=== PATIENT | female | born 1940 | race Caucasian/White ===

== ENCOUNTER 2020-12-10 09:25 | Outpatient (RCR) | payer MEDICARE, SELFPAY | END 2020-12-10 23:59 | LOC: IMMUN 09:25 | PROVIDERS: PCP Family Medicine; Visit Provider Family Medicine | DX: Z23 Encounter for immunization (principal) | CPT/HCPCS: 0011A; 0012A; 91301 ==

== ENCOUNTER 2021-02-23 13:03 | Emergency (ER) | payer MEDICARE, SELFPAY ==
[2021-02-23 13:07] VITALS: BP 170/97; PULSE 59; RESP 18; TEMP 36.6; O2SAT 96; BMI 36.5
[2021-02-23 13:10] VITALS: BP 170/97; PULSE 59; RESP 18; TEMP 36.6; O2SAT 96
--- NOTE | 2021-02-23 13:21 | EKG12_ITS ---
Test Reason : FALL Blood Pressure : / mmHG Vent. Rate : 060 BPM Atrial Rate : 060 BPM P-R Int : 206 ms QRS Dur : 086 ms QT Int : 438 ms P-R-T Axes : 047 -30 084 degrees QTc Int : 438 ms Normal sinus rhythm Left axis deviation Moderate voltage criteria for LVH, may be normal variant Abnormal ECG Confirmed by ANDRE OLIVA, ALEJANDRA ([id number]), loan expeditor GIO MCLEAN ([id number]) on 02/24/2021 1:04:50 PM Referred By: HARESH/GOLDEN Confirmed By:ALEJANDRA POWELL MD
--- NOTE | 2021-02-23 13:21 | CT_ITS ---
STUDY: CT BRAIN WITHOUT CONTRAST REASON FOR EXAM: Female, 81 years old. trauma, headache RADIATION DOSAGE (If Supplied By Facility): CTDIvol = ( 44.99 ) mGy, DLP = ( 796.11 ) mGycm TECHNIQUE: Transaxial CT imaging of the brain was performed without administration of intravenous contrast material. Individualized dose optimization techniques were used for this CT. COMPARISON: No relevant priors. FINDINGS: Normal soft tissue structures. Normal calvarium. Normal size ventricles and extra-axial spaces for the patient''s age. Normal white matter tracts of the cerebral hemispheres. Normal basal ganglia and thalami. Normal brainstem. Normal cerebellum. There is no intracranial hemorrhage. There are no findings of an acute ischemic infarction. Mucous retention cyst in the floor the right x-ray sinus consistent with chronic sinusitis. CT/Brain/Head without Contrast IMPRESSION: Normal unenhanced CT scan of the brain. Electronically Signed: Jeronimo Tamayo MD at 14:38 EDT Tel , Service support ,
[2021-02-23 13:52] LABS: Absolute Lymphocyte Count 1.49 X10^3/uL (0.83-4.51); Absolute Neutrophil Count 5.2 X10^3/uL (2.0-7.7); Basophil# 0.03 X10^3/uL; Basophil% 0.4 % (0-1); Eosinophil# 0.06 X10^3/uL; Eosinophils% 0.8 % (0-5); Hematocrit 42.1 % (37-47); Hemoglobin 13.7 g/dL (12.0-15.0); Lymphocyte # 1.49 X10^3/ul (4.0); Lymphocyte % 20.8 % (19-41); Mean Corp Hgb Conc 32.5 g/dL (32-36); Mean Corpuscular Hgb 28.5 pg (27.0-32.0); Mean Corpuscular Volume 87.7 fL (81-99); Mean Platelet Vol. 9.4 fl (6.2-12.0); Monocyte# 0.34 X10^3/uL; Monocyte% 4.7 % (0-10); NRBC Flagged by Analyzer 0 % (0-5); Neutrophil # 5.19 X10^3/uL (2.7-7.7); Neutrophil % 72.6 % (47-70); Platelet Count 256 K/mm3 (150-450); RBC Distribution Width CV 13.3 % (11.6-14.6); RBC Distribution Width SD 42.3 fl (35.1-43.9); White Blood Count 7.2 K/mm3 (4.4-11.0)
--- NOTE | 2021-02-23 13:52 | ED.DCSUM_ITS ---
- ER Visit Summary Date of Service: 02/23/21 Chief Complaint: Fall History of Present Illness: The patient is a 81 F who fell overnight Monday night. She has been feeling woozy since. She did hit her forehead but did not lose consciousness. She does not take blood thinners. She denies any other injuries or complaints from that fall. She is not sure why she fell. She got up to use the restroom. She also complains of left foot pain from an injury 3 days ago where she tripped. That pain has subsided somewhat. Physical Examination: Afebrile and vital signs unremarkable. She has ecchymosis to her forehead but otherwise her head and neck exam are unremarkable. Heart is regular. Lungs are clear. Abdomen soft. Left foot is diffusely tender to palpation. Skin is otherwise normal. Pulses strong and equal. Neurologic intact, no focal deficits. Cranial nerves intact. Test Results: EKG shows sinus rhythm at a rate of 60. CBC, BMP, troponin normal. Urinalysis and Covid test are pending. CT brain, x-ray foot, and chest x-ray are pending official reads. Patient has a left fifth metatarsal fracture, nondisplaced, interpreted by me. Emergency Department Course and Treatment: Patient declined pain medicine. She did get a little bit nauseated when she laid flat for her imaging. She was treated with Zofran. Foot x-rays showed a fracture. She was placed in a boot orthosis and will follow up with podiatry. Patient advised me that she does not want to stay in the hospital. I advised her that so far her testing all looks normal, but I cannot rule out a cardiac cause from the ED. She would like to wait for her official imaging results, urinalysis, and Covid test, and if normal, she would like to go home and follow- up with her doctor. Risks and benefits were discussed. The oncoming doctor will check the results which still remain. Patient was advised to follow-up with podiatry. She was placed in a boot orthosis. She has a walker. Will prescribe some pain medicine. She feels safe at home. Treatment Plan: As above Disposition: Pending Impression: Near syncope Left foot fracture This note was generated with [employer] dictation software. It may contain incorrect words, spelling, and punctuation that were not noted in review of the chart prior to signing ED Disposition - Plan for ED Patient: Referrals: Bryan Reveles III, MD [Primary Care Provider] -
--- NOTE | 2021-02-23 14:00 | RAD_ITS ---
STUDY: X-RAY - LEFT FOOT CLINICAL: Female, 81 years old. trauma TECHNIQUE: 3 view(s) of the foot. COMPARISON: None. FINDINGS: Normal talus, calcaneus, and tarsal bones. Small plantar posterior calcaneal enthesophytes. Normal visualized subtalar, talonavicular, calcaneocuboid, tarsal and tarsometatarsal articulations. Fracture of the lateral cortex of the proximal shaft of the fifth metatarsal bone with sclerosis throughout the remainder of the area suggestive of a fatigue (stress) fracture. Normal metatarsophalangeal joint of the great toe. Normal tibial and fibular sesamoid bones. Normal interphalangeal joint of the great toe. Normal phalanges of the great toe. Normal second through fifth metatarsophalangeal joints. Normal interphalangeal joints and phalanges of the lesser toes. The soft tissue structures are unremarkable. RAD/Foot min 3 Views IMPRESSION: Suspect fatigue (stress) fracture the proximal shaft of the fifth metatarsal bone with an acute fracture line through the lateral cortex. Electronically Signed: Jeronimo Tamayo MD at 14:37 EDT Tel , Service support ,
--- NOTE | 2021-02-23 14:00 | RAD_ITS ---
STUDY: X-RAY CHEST REASON FOR EXAM: Female, 81 years old. chest pain TECHNIQUE: Single AP portable view of the chest. COMPARISON: None. FINDINGS: The lungs are clear and expanded. There is no demonstrated pleural abnormality. There is moderate cardiac enlargement. Normal mediastinum and brian. Normal visualized pulmonary arteries. Normal visualized aortic arch and descending thoracic aorta. Normal visualized thoracic spine. Normal visualized ribs, clavicles, and shoulders. There is no demonstrated abnormality of the visualized soft tissue structures of the upper abdomen. RAD/Chest 1 View (Portable) IMPRESSION: No active disease. Electronically Signed: Jeronimo Tamayo MD at 14:34 EDT Tel , Service support ,
[2021-02-23 14:09] LABS: Anion Gap 5 (5-15); BUN 11 mg/dL (7-18); BUN/Creat Ratio 15.5 RATIO (10-20); Calcium,Total 9.3 mg/dL (8.5-10.1); Chloride 103 mmol/L (98-107); Creatinine, Serum 0.71 mg/dL (0.55-1.02); EST Glomerular Filtration Rate 84 mL/min (>60); Est Glom Filt Rate - Afr Amer 101 mL/min (>60); Estimated Creatinine Clearance 30.62 ml/min; Glucose 228 mg/dL (74-106); Potassium 3.6 mmol/L (3.5-5.1); Sodium Level 139 mmol/L (136-145)
[2021-02-23] MEDS: Ondansetron 4 MG/2 ML Vial IV ×2 (14:16→15:26)
--- NOTE | 2021-02-23 14:34 | DCINST.ED_ITS ---
ED Disposition - Plan for ED Patient: Instructions: ED Fall with Uncertain Cause, ED Fracture, Foot Prescriptions: Hydrocodone Bitart/Apap 5-325 [[place] 5MG-325MG] 1 tablet PO Q6H PRN PRN 3 Days #10 tab PRN Reason: Pain Prescription Printed Ondansetron [Zofran Odt] 4 mg PO Q8H PRN PRN #10 tablet PRN Reason: Nausea Prescription Printed Referrals: Bryan Reveles III, MD [Primary Care Provider] - Hari Meyer DPM [STAFF PHYSICIAN] -
[2021-02-23 15:28] LABS: Bacteria 0 SEEN /hpf (None Seen)
[2021-02-23 15:29] VITALS: BP 154/58; PULSE 51; RESP 16; TEMP 36.7; O2SAT 96
[2021-02-23 15:32] LABS: Color, Urine Yellow (Yellow); Glucose, Dipstick Normal (Normal); Ketone-Dipstick 15 mg/dl (Negative); Leukocyte Esterase-Dipstick Negative /ul (Negative); Nitrite-Dipstick Negative (Negative); Occult Blood-Urine Negative /ul (Negative); Protein-Dipstick Negative (Negative); Urine Bilirubin Dipstick Negative (Negative); Urine Clarity Sl. Cloudy (Clear); Urine Urobilinogen Normal (Normal); Urine pH 6.5 (5.0 - 8.0)
[2021-02-23 15:57] LABS: Mucous, Urine 4+ /hpf (<or=2+)
[2021-02-23 15:59] LABS: Squamous Epithelial Cells - UA 0-5 SEEN /hpf (5-10); White Blood Cells 0-5 SEEN /hpf (0-5)
[2021-02-23 16:00] LABS: Red Blood Cells-Urine 0-5 SEEN /hpf (0-5)
[2021-02-23 16:23] VITALS: BP 144/53; PULSE 53; RESP 14; TEMP 36.1; O2SAT 97
[2021-02-23] MEDS: Metoclopramide 10 MG/2 ML Vial 5 MG IV (16:31)
[2021-02-23 17:11] VITALS: BP 150/61; PULSE 61; RESP 17; O2SAT 98
[2021-02-23 18:22] VITALS: BP 136/78; PULSE 58; RESP 16
== END 2021-02-23 18:23 | disposition home or self-care (01) ==
LOC: ED 13:50
PROVIDERS: Emergency Provider Emergency Medicine; PCP Family Medicine
DX: R55 Syncope and collapse (principal); S92.902A Unspecified fracture of left foot, initial encounter for closed fracture; W01.10XA Fall on same level from slipping, tripping and stumbling with subsequent striking against unspecified object, initial encounter; Y93.9 Activity, unspecified; Y92.9 Unspecified place or not applicable; Y99.9 Unspecified external cause status
CPT/HCPCS: 70450; 71045; 73630; 80048; 81001; 84484; 85025; 87426; 93005; 96374; 96375; 99285; A4216; J2405

== ENCOUNTER 2022-02-01 04:30 | Emergency (ER) | payer MEDICARE, SELFPAY ==
[2022-02-01 04:32] VITALS: BP 193/88; PULSE 90; RESP 16; TEMP 36.2; O2SAT 95; BMI 34.8
--- NOTE | 2022-02-01 04:57 | CT_ITS ---
STUDY: CT LUMBAR SPINE WITHOUT CONTRAST REASON FOR EXAM: Female, 81 years old. trauma RADIATION DOSAGE (If Supplied By Facility): CTDIvol = ( 17.44 ) mGy, DLP = ( 576.39 ) mGycm TECHNIQUE: The patient was scanned in a multi detector CT scanner. High resolution transaxial imaging was performed. Images were obtained from to . Sagittal and coronal images were reconstructed. Individualized dose optimization techniques were used for this CT. COMPARISON: None FINDINGS: Normal lumbar lordosis. There is no substantial scoliosis. Normal vertebrae of the lumbar spine. L1-2: Normal endplates. Normal disc height and morphology. Normal bilateral facet joints. Normal central canal and bilateral lateral recesses. Normal bilateral intervertebral neural foramina. L2-3: Normal endplates. Normal disc height and morphology. Normal bilateral facet joints. Normal central canal and bilateral lateral recesses. Normal bilateral intervertebral neural foramina. L3-4: Normal endplates. Normal disc height and morphology. Normal bilateral facet joints. Normal central canal and bilateral lateral recesses. Normal bilateral intervertebral neural foramina. L4-5: Normal endplates. Normal disc height and morphology. Normal bilateral facet joints. Normal central canal and bilateral lateral recesses. Normal bilateral intervertebral neural foramina. L5-S1: Normal endplates. Normal disc height and morphology. Normal bilateral facet joints. Normal central canal and bilateral lateral recesses. Normal bilateral intervertebral neural foramina. Normal visualized paraspinous soft tissue structures. CT/Spine Lumbar without Contrast IMPRESSION: Normal unenhanced CT examination of the lumbar spine. Electronically Signed: Ryan Lawrence MD at 5:44 EDT ,
--- NOTE | 2022-02-01 04:58 | EX.ED.GENINJ ---
HPI History of Present Illness Chief Complaint: Fall Informant: patient Narrative Narrative: Patient fell while bowling about 2 days ago. She had stepped up on a platform, grabbed her ball and then her other toe caught the step. This caused her to fall onto her buttock. She was able to turn over and get herself up. She bowled 2 more frames before she decided it would be better not to. She states if she is just sitting still she has no pain at all. But if she twists certain ways she gets a very sharp pain. It is very well localized to the low left lumbar area. She has been taking Tylenol and using heating pad. She has no other areas of pain. Her fall was mechanical and not syncopal. She has no numbness tingling weakness. No radiation of pain down her legs. No urinary symptoms. No dysuria hematuria trouble starting or stopping stream. No change in bowel habits. No recent fevers or chills. No history of cancer. Patient is overall healthy. No allergies No chronic medications No lumbar surgeries Independent living. PFSH PFSH Medical History no medical history Home Medications tramadol 50 mg PO TID PRN 3 Days #10 tab 02/01/22 [Rx Last Taken Unknown] Allergy/AdvReac Type Severity Reaction Status Date / Time No Known Allergies Allergy Verified 02/01/22 04:36 Social History Smoking Status: Never smoker ROS ROS ED Constitutional Constitutional ED: Denies chills or fever(s) ENT ENT ED: Denies sore throat Cardiovascular Cardiovascular: Denies chest pain Respiratory/Chest Respiratory/Chest: Denies cough or dyspnea Gastrointestinal Gastrointestinal: Denies abdominal pain, constipation, diarrhea, nausea or vomiting Genitourinary Genitourinary ED: Denies dysuria, hematuria or urinary frequency Musculoskeletal Musculoskeletal: Reports back pain; Denies neck pain Integumentary Denies rash Neurologic Neurologic: Denies paresthesias or weakness Endocrine Endocrinology: Denies polydipsia or polyuria Hematologic/Lymphatic Hematologic/Lymphatic: Denies easy bleeding or easy bruising Allergic/Immunologic Allergic/Immunologic ED: Denies urticaria EXAM Physical Exam Const Vital Signs: 02/01/22 04:32 02/01/22 04:37 Temperature 97.2 F L Temperature Source Temporal Pulse Rate 90 Respiratory Rate 16 Respiratory Effort Normal Blood Pressure 193/88 H Blood Pressure Mean 123 Pulse Ox 95 Oxygen Delivery Method Room Air Room Air Positive well nourished and well developed General Appearance ED: well developed and NAD HEENT atraumatic Chest Wall inspection of chest normal Resp normal respiratory effort and clear to auscultation bilaterally Cardio regular rhythm Rate: regular rate GI normal to inspection, nondistended, normoactive bowel sounds and non-tender Palpation: soft Back/Spine normal to inspection Back/Spine Narrative: Patient has an area of slight tenderness very low on the lumbar spine just above the sacrum on the left. There is no bruising swelling or skin changes there. This is clearly worsened by twisting. It is better if she sits straight upright. No buttock area or CVA tenderness. Extremity normal to inspection Neuro oriented x3 and no sensory deficits noted Sensorium / Orientation: alert Motor Exam: strength 5/5 throughout Psych mental status grossly normal Skin no rashes or lesions noted MDM MDM MDM Narrative Medical decision making narrative: Patient will have imaging done. We will do CT to get maximal chance that I can obtain a finding any acute bony problem. Patient is offered meds for pain but states she just took Tylenol and she really does not want anything. Images looked at by me and read by radiology shows no acute fracture. I will write for a few tramadol for the patient. We discussed reasons to return. I also discussed increasing fluid and fiber and a stool softener if needed. Radiography Diagnostic Testing: Clinical Impression(s) from Imaging Studies Lumbar Spine CT 02/01/22 04:57 IMPRESSION: Normal unenhanced CT examination of the lumbar spine. Electronically Signed: Ryan Lawrence MD at 5:44 EDT , Discharge Plan Triage Chief Complaint: Fall ED Provider: Santos Nunn Dx/Rx/DC Orders Clinical Impression: Fall from slipping, Acute lumbar myofascial strain Instructions: ED Back Sprain/Strain Prescriptions: New tramadol 50 mg tablet 50 mg PO TID PRN (Reason: pain) 3 Days Qty: 10 RF: 0 Primary Care Provider: Alex Cassidy Referrals: Alex Cassidy MD [Primary Care Provider] - 3-5 Days if not improving NOT,DEFINED [NON-STAFF] - Disposition Disposition: Home, Self Care
[2022-02-01 05:57] VITALS: BP 150/81; PULSE 78; RESP 16; O2SAT 98
[2022-02-01 05:58] VITALS: BP 150/81; PULSE 78; RESP 16; O2SAT 98
[2022-02-01] MEDS: traMADol 50 MG Tablet PO (06:02)
--- NOTE | 2022-02-02 12:35 | CASEMGMT ---
ER RNCM DC F/u Call: ED Visit 02.01.22 for Fall Called patient listed home number on demographics, no answer and VM did not identify correct patient identity. Therefore, no VM was left by this keno writer / runner at this time. DONITA Bullock
== END 2022-02-01 06:38 | disposition home or self-care (01) ==
PROVIDERS: Emergency Provider Emergency Medicine; PCP Family Medicine; Visit Provider Emergency Medicine
DX: S39.012A Strain of muscle, fascia and tendon of lower back, initial encounter (principal); W01.0XXA Fall on same level from slipping, tripping and stumbling without subsequent striking against object, initial encounter; Y93.54 Activity, bowling; Y92.838 Other recreation area as the place of occurrence of the external cause
CPT/HCPCS: 72131; 99283

== ENCOUNTER 2023-05-08 13:03 | Emergency (ER) | payer MEDICARE, SELFPAY ==
[2023-05-08 13:04] VITALS: BP 181/59; PULSE 58; RESP 18; TEMP 36.7; O2SAT 93; BMI 30.2
--- NOTE | 2023-05-08 13:41 | CT_ITS ---
STUDY: CTA HEAD AND NECK WITH CONTRAST REASON FOR EXAM: Female, 83 years old. Sudden severe [place], vertigo, vomiting X2 days. RADIATION DOSAGE (If Supplied By Facility): CTDIvol = ( 28.29 ) mGy, DLP = ( 1504.03 ) mGycm TECHNIQUE: CT angiography was performed with a multi-detector CT scanner. Data acquisition was obtained from the skull base through the vertex following intravenous administration of IV 100mL Isovue-370. MIP images were reconstructed from the axial data set. Post-processing of the angiographic images was performed, with multiplanar reformation and 3D reconstruction. Individualized dose optimization techniques were used for this CT. COMPARISON: No relevant priors. FINDINGS: Normal bilateral petrous carotid arteries. There is calcified plaque formation of the right cavernous carotid artery, without a cross-sectional luminal stenosis. There is calcified plaque formation of the left cavernous carotid artery, without a cross-sectional luminal stenosis. Normal right A1 segments of the anterior cerebral artery. Normal left A1 segments of the anterior cerebral artery. Normal intact anterior communicating artery (ACOM). Normal bilateral A2 segments of the anterior cerebral arteries. Normal right M1 and M2 segments of the middle cerebral arteries, with a normal M1 bifurcation. Normal left M1 and M2 segments of the middle cerebral arteries, with a normal M1 bifurcation. Normal right posterior communicating artery (PCOM). Normal left posterior communicating artery (PCOM). Normal bilateral vertebral arteries. Normal basilar artery with a normal basilar bifurcation. The visualized bilateral superior cerebellar (SCA) arteries are normal. Normal bilateral P1, P2 and visualized P3 segments of the posterior cerebral arteries. There is no demonstrated aneurysm of the [place] of [place]. Mild cerebral atrophy. Heterogeneous enlargement of both lobes of the thyroid gland with multiple hypodense nodules suggestive of goitrous change. Correlation with ultrasound is recommended. AORTIC ARCH: There is atherosclerotic calcific plaque formation of the aortic arch and great vessels arising from the aortic arch, without a hemodynamically significant stenosis. There is a normal origin of the brachiocephalic, left common carotid, and left subclavian arteries. RIGHT CAROTID ARTERIES: Normal right common carotid artery (CCA). Normal right common carotid bulb. Normal origin of the right internal carotid (ICA) artery without a hemodynamically significant stenosis. Normal visualized cervical portion of the right internal carotid artery. Normal origin of the right external carotid artery (ECA). LEFT CAROTID ARTERIES: Normal left common carotid artery (CCA). Normal left common carotid bulb. Normal origin of the left internal carotid (ICA) artery without a hemodynamically significant stenosis. Normal visualized cervical portion of the left internal carotid artery. Normal origin of the left external carotid artery (ECA). VERTEBRAL ARTERIES: Normal bilateral vertebral arteries. CT/CTA Head AND Neck W/ Contrast IMPRESSION: Mild cerebral atrophy. No significant stenosis is seen. Electronically Signed: Terrence Bennett MD at 15:52 EDT ,
--- NOTE | 2023-05-08 13:42 | EKG12_ITS ---
Test Reason : NAUSEA/VOMITING Blood Pressure : / mmHG Vent. Rate : 052 BPM Atrial Rate : 052 BPM P-R Int : 214 ms QRS Dur : 082 ms QT Int : 444 ms P-R-T Axes : 041 -25 129 degrees QTc Int : 412 ms Sinus bradycardia with 1st degree A-V block Left ventricular hypertrophy with repolarization abnormality ( R in aVL ) Abnormal ECG Confirmed by ANDRE OLIVA, ALEJANDRA ([id number]), fashion editor GIO MCLEAN ([id number]) on 05/09/2023 9:15:44 AM Referred By: BEBE Confirmed By:ALEJANDRA POWELL MD
--- NOTE | 2023-05-08 13:43 | EX.ED.DYSGE1 ---
HPI History of Present Illness Chief Complaint: General Illness Informant: patient Narrative Narrative: Patient presents with dizziness, headache, not feeling well. Nausea and vomiting associated with this. She states this started 2 days ago in the evening. She states she was feeling nauseated with dinner and that she did not really eat, and then after that she had a sudden onset severe headache that did not feel like a thunderclap and she had no loss of consciousness but she states she sat by her telephone thinking about calling her daughter because she felt so poorly and she sat there until 5 AM until she finally called her, she came and helped her and took her to her house where she has been trying to help her through this, but she has been dizzy and unable to walk because of being very ataxic and feeling like she is going to fall and just lying in her recliner ever since and so they brought her to the ER this afternoon for evaluation. She is never had this before. She is a healthy 83-year-old female who takes no medications or drugs. She states the dizziness is intermittent, and she gets it with any little movement of her head or position change of her body. When she rests remains still it goes away but she still has a terrible headache and feels very nauseated. Headache is mostly occipital and down into her neck. PFSH PFSH Medical History no medical history no medical history Home Medications metoclopramide HCl 10 mg tablet 10 mg PO Q6H PRN N/V or headache #20 tabs 05/08/23 [Rx Last Taken Unknown] Allergy/AdvReac Type Severity Reaction Status Date / Time No Known Allergies Allergy Verified 05/08/23 13:14 Surgical History History of cholecystectomy History of tonsillectomy Social History Smoking Status: Never smoker ROS ROS ED Constitutional Constitutional ED: Reports fatigue; Denies chills or fever(s) Eyes Eyes: Denies change in vision or diplopia ENT ENT ED: Reports disequillibrium, dizziness and headache(s); Denies abnormal hearing, ear pain, hearing loss, rhinorrhea, sore throat or tinnitus Cardiovascular Cardiovascular: Denies chest pain or palpitations Respiratory/Chest Respiratory/Chest: Denies cough or dyspnea Gastrointestinal Gastrointestinal: Reports nausea and vomiting; Denies abdominal pain or diarrhea Genitourinary Genitourinary ED: Denies dysuria or hematuria Musculoskeletal Musculoskeletal: Denies back pain or neck pain Integumentary Denies abscess or rash Neurologic Neurologic: Reports headache(s); Denies paresthesias or weakness Psychiatric Psychiatric: Denies anxiety or suicidal thoughts EXAM Physical Exam Const Vital Signs: 05/08/23 13:04 05/08/23 13:15 Temperature 98.1 F Temperature Source Oral Pulse Rate 58 L Respiratory Rate 18 Respiratory Effort Normal Non-Labored Respiratory Pattern Normal Blood Pressure 181/59 H Blood Pressure Mean 99 Pulse Ox 93 Oxygen Delivery Method Room Air Positive well nourished and well developed Constitutional Narrative: Appears uncomfortable, keeping her eyes closed and remaining still but in no distress General Appearance ED: well developed and NAD HEENT Reports TM's clear and moist mucous membranes normocephalic and atraumatic Tympanic Membrane ED: Yes TM's clear Eyes PERRL and EOMs intact bilaterally Eyes Narrative: No pathologic nystagmus noted. No rotatory or vertical nystagmus. While examining patient, she is not having active vertigo. Neck full ROM and supple Neck Narrative: No carotid bruits Resp normal respiratory effort and clear to auscultation bilaterally Cardio regular rate and regular rhythm Heart Sounds: murmur systolic II/ crescendo-decrescendo left sternal border GI non-tender and non-distended Auscultation: normoactive bowel sounds Palpation: soft Back/Spine no CVA tenderness General Back: other FROM Extremity normal to inspection General Extremety ED: Negative for edema, pulses abnormal or tenderness General Extremity: Negative for edema or pulses abnormal Neuro oriented x3, CN's II-XII intact bilaterally and no sensory deficits noted Neuro Narrative: Normal [id number] and [id number] bilaterally. No clonus. Downgoing toes bilaterally. 1+ symmetric bilateral lower extremity and upper extremity reflexes. Sensorium / Orientation: awake and alert Motor Exam: strength 5/5 throughout Skin no rashes or lesions noted and no wounds MDM MDM MDM Narrative Medical decision making narrative: Patient does not look like she feels well, states she has a severe headache, with vomiting and some dizziness, concern is less for stroke although I suppose posterior circulation hemorrhage could be in the differential, in addition to subarachnoid hemorrhage from a ruptured aneurysm, primary headache syndrome, cerebral masses, etc. He did some labs, also check for an unusual presentation of acute coronary syndrome, those tests were negative/normal, and a CT with CTA of the head and neck. I reviewed the images and the interpretation, all of which I am in agreement with, negative for any acute no cerebral aneurysms or signs of subarachnoid hemorrhage or vascular leak. Given that she has had symptoms for 2 days, lack of any sign of cerebral infarct or cerebellar infarct argues against central vascular cause of disequilibrium. While waiting for this to return to be performed, she was given IV Reglan 2.5 mg in addition to Zofran. On reevaluation she is smiling conversing with her family she feels and appears much better although she still has somewhat of a headache. Working to give her some more Reglan and Tylenol prior to discharge home with a prescription for more to use as needed and follow-up with her doctor for blood pressure recheck; she was 181/59 when she arrived, at this time she is 150/54. Certainly possible that her hypertension caused this, but my suspicion is that it was secondary to her symptoms. Furthermore the patient states that her is in the hospital right now which is hard for her, and she has had a significant amount of emotional distress regarding that lately, certainly that could have caused a primary headache syndrome. Family was all present during all of this discussion and they are comfortable with this overall plan. We discussed reasons to return. Is going to stay with daughter davi. History & Record Review Discussion w/independent historian: Patient and Family (multiple) Lab Data Attestation: I reviewed the patient's lab results. Labs: Laboratory Results - last 24 hr 05/08/23 05/08/23 14:10 14:10 WBC 7.1 RBC 4.25 Hgb 12.2 Hct 36.2 L MCV 85.2 MCH 28.7 MCHC 33.7 RDW Std Deviation 40.5 RDW Coeff of Sybil 13.3 Plt Count 272 MPV 9.6 Immature Gran % (Auto) 0.400 Neut % (Auto) 74.2 H Lymph % (Auto) 19.2 [place] % (Auto) 5.5 Eos % (Auto) 0.4 Baso % (Auto) 0.3 Absolute Neuts (auto) 5.3 Absolute Lymphs (auto) 1.36 Nucleated RBC % 0 Sodium 139 Potassium 3.6 Chloride 106 Carbon Dioxide 27.0 Anion Gap 6 BUN 11 Creatinine 0.57 Estim Creat Clear Calc 32.53 Est GFR (MDRD) Af Amer 129 Est GFR (MDRD) Non-Af 106 BUN/Creatinine Ratio 19.2 Glucose 208 H Calcium 8.9 Troponin I High Sens 34 Radiography Diagnostic Testing: Clinical Impression(s) from Imaging Studies Head/Neck CTA 05/08/23 13:41 IMPRESSION: Mild cerebral atrophy. No significant stenosis is seen. Electronically Signed: Terrence Bennett MD at 15:52 EDT , Rhythm Strip Rhythm Strip: Sinus Rhythm Rate: 60 Ectopy: None EKG Initial EKG: Attestation: I personally reviewed and interpreted this EKG as follows: Interpretation: Sinus Rhythm, No Acute Injury Pattern, AV Block (1st deg) and Non-Specific ST Changes (c/w LV repol abn, lateral limb leads) Prior EKG tracings: available for review Prior: Unchanged Discharge Plan Triage Chief Complaint: General Illness ED Provider: Sandoval Bear Dx/Rx/DC Orders Clinical Impression: Severe headache, Episode of hypertension Instructions: Understanding Headache Pain Prescriptions: New metoclopramide HCl [metoclopramide HCl] 10 mg tablet 10 mg PO Q6H PRN (Reason: N/V or headache) Qty: 20 0RF Primary Care Provider: Alex Cassidy Referrals: Alex Cassidy MD [Primary Care Provider] - (this week, call for appt) Disposition Disposition: Home, Self Care
[2023-05-08] MEDS: Ondansetron 4 MG/2 ML Vial IV (14:06)
[2023-05-08] MEDS: 0.9% Normal Saline 1,000 ML 150 ML IV (14:06)
[2023-05-08 14:18] LABS: Absolute Lymphocyte Count 1.36 X10^3/uL (0.83-4.51); Absolute Neutrophil Count 5.3 X10^3/uL (2.0-7.7); Basophil# 0.02 X10^3/uL; Basophil% 0.3 % (0-1); Eosinophil# 0.03 X10^3/uL; Eosinophils% 0.4 % (0-5); Hematocrit 36.2 % (37-47); Hemoglobin 12.2 g/dL (12.0-15.0); Lymphocyte # 1.36 X10^3/ul (0.83-4.51); Lymphocyte % 19.2 % (19-41); Mean Corp Hgb Conc 33.7 g/dL (32-36); Mean Corpuscular Hgb 28.7 pg (27.0-32.0); Mean Corpuscular Volume 85.2 fL (81-99); Mean Platelet Vol. 9.6 fl (6.2-12.0); Monocyte# 0.39 X10^3/uL; Monocyte% 5.5 % (0-10); NRBC Flagged by Analyzer 0 % (0-5); Neutrophil # 5.26 X10^3/uL (2.7-7.7); Neutrophil % 74.2 % (47-70); Platelet Count 272 K/mm3 (150-450); RBC Distribution Width CV 13.3 % (11.6-14.6); RBC Distribution Width SD 40.5 fl (35.1-43.9); Red Blood Count 4.25 M/mm3 (4.2-5.4); White Blood Count 7.1 K/mm3 (4.4-11.0)
[2023-05-08] MEDS: Metoclopramide 10 MG/2 ML Vial 2.5 MG IV ×2 (14:19→16:33)
[2023-05-08 14:30] VITALS: BP 174/71; O2SAT 97
[2023-05-08 14:35] LABS: Anion Gap 6 (5-15); BUN 11 mg/dL (7-18); BUN/Creat Ratio 19.2 RATIO (10-20); Calcium,Total 8.9 mg/dL (8.5-10.1); Chloride 106 mmol/L (98-107); Creatinine, Serum 0.57 mg/dL (0.55-1.02); EST Glomerular Filtration Rate 106 mL/min (>60); Est Glom Filt Rate - Afr Amer 129 mL/min (>60); Estimated Creatinine Clearance 32.53 ml/min; Glucose 208 mg/dL (74-106); Potassium 3.6 mmol/L (3.5-5.1); Sodium Level 139 mmol/L (136-145); Troponin-I HS 34 pg/mL (3.0-54.0)
[2023-05-08 16:00] VITALS: BP 150/61; O2SAT 96
[2023-05-08 16:15] VITALS: BP 140/74; O2SAT 95
[2023-05-08] MEDS: Acetaminophen 500 MG Tablet 1000 MG PO (16:33)
== END 2023-05-08 16:54 | disposition home or self-care (01) ==
PROVIDERS: Emergency Provider Emergency Medicine; PCP Family Medicine; Visit Provider Emergency Medicine
DX: R51.9 Headache, unspecified (principal); R11.0 Nausea; I10 Essential (primary) hypertension; Z90.49 Acquired absence of other specified parts of digestive tract
CPT/HCPCS: 70496; 70498; 80048; 84484; 85025; 93005; 96361; 96374; 96375; 99285; J7030; Q9967; A4216; J2405

== ENCOUNTER → 2023-05-31 | Outpatient (CLI) | payer MEDICARE, SELFPAY ==
--- NOTE | 2023-05-31 16:05 | RAD_ITS ---
INDICATION: as EXAMINATION/TECHNIQUE: X-RAY - XR Chest 2 Views COMPARISON: February 23, 2021 FINDINGS: LINES/DEVICES: None. LUNGS: No consolidation, edema or effusion. No pneumothorax. MEDIASTINUM AND CARDIOVASCULAR STRUCTURES: Cardiac silhouette not enlarged. Central airways and mediastinal contour are unremarkable. BONES AND SOFT TISSUES: Degenerative vertebral changes. RAD/Chest PA and Lateral IMPRESSION: No radiographic evidence of acute cardiopulmonary disease. Electronically Signed: Elias Rehman DO at 21:16 EDT Reading Location ID and State: [facility] / [place] Tel [phone], Service support ,
== END | disposition home or self-care (01) ==
PROVIDERS: PCP Family Medicine; Referring Provider Internal Medicine Cardiovascular Disease; Visit Provider Internal Medicine Cardiovascular Disease
DX: I35.0 Nonrheumatic aortic (valve) stenosis (principal)
CPT/HCPCS: 71046

== ENCOUNTER 2023-06-06 09:52 | Day surgery (SDC) | payer MEDICARE, SELFPAY ==
[2023-06-05 14:09] VITALS: BMI 30.2
--- NOTE | 2023-06-06 12:38 | CL.D_ITS ---
Patient Name: DELMY ZAMORA Study Date: 06/06/2023 Performing: John Patterson MD Ht: 62 inches 157.48 cm : 1940 Wt: 164.99 lbs 74.84 kg Age: 83 Gender: female BSA: 1.76 PROCEDURE(S) PERFORMED [id number])[facility] CL[facility]ICAL PROFILE AND INDICATIONS Indications: Valvular Disease Heart Failure: None Stress/Imaging Stress/Image Study Performed: No CAD Presentations: Symptom unlikely to be ischemic. CONCLUSIONS Non obstructive coronary arteries Aortic Valve Stenosis- Severe RECOMMENDATIONS Consideration for TAVR DESCRIPTION OF PROCEDURE The patient arrived to the procedure lab. The risks and benefits of the procedure as well as a full description of our services here and current unavailability of surgical backup were fully explained to the patient and/or their significant other prior to the catheterization. The Timeout was completed, verifying the correct patient and procedure. The patient's procedural site was prepped and draped in the usual fashion. Local anesthetic was given subcutaneously to right radial region with Lidocaine 2%. Using a modified Seldinger technique, arterial access was obtained via the right radial artery, a 6Fr sheath was inserted. Left Coronary Artery selective angiography was performed in multiple views using a 5 Fr. 4.0 [place] catheter. Right Coronary Artery selective angiography was then performed in multiple views using a 5 Fr. 4.0 [place] catheter.The arterial sheath was pulled and a TR Band was applied for hemostasis. 10cc of air CORONARY ANGIOGRAPHY DOMINANCE: Right Dominant LEFT HEART ASSESSMENT Left Ventricular Ejection Fraction: by Echo 60 % Normal LV wall motion Normal Left Ventricular systolic function LEFT MAIN: Angiographically normal LEFT ANTERIOR DESCENDING ARTERY: Mild luminal irregularities, Mild luminal irregularities less than 30% CIRCUMFLEX ARTERY: Mild luminal irregularities RIGHT CORONARY ARTERY: Mild luminal irregularities VALVE FINDINGS: Aortic Valve Stenosis - severe COMPLICATIONS No Complications PROCEDURE MEDICATIONS Fentanyl 25 mcg IV Versed 0.5 mg IV Versed 0.5 mg IV Oxygen: 2 L/min via nasal cannula Aspirin (325mg) 1 Tabs PO @ 06/06/2023 10:44:06 Heparin given IA 06/06/2023 12:08:07 Verapamil 2.5mg, 3000 units of Heparin given IA 06/06/2023 12:08:07 SUMMARY OF HEMODYNAMIC DATA Time AIR REST ECG 10:31:32 Art 133/56 (84) 12:09:49 AO 135/62 (92) SA 12:17:15 AIR REST 12:34:58 Signed By John Patterson MD On 06/06/2023 12:37:11 John Patterson MD
== END 2023-06-06 14:13 | disposition home or self-care (01) ==
PROVIDERS: PCP Family Medicine; Referring Provider Internal Medicine Cardiovascular Disease; Visit Provider Internal Medicine Cardiovascular Disease
DX: I35.0 Nonrheumatic aortic (valve) stenosis (principal); I10 Essential (primary) hypertension; R53.83 Other fatigue; R01.1 Cardiac murmur, unspecified; R42 Dizziness and giddiness; R00.1 Bradycardia, unspecified; R93.1 Abnormal findings on diagnostic imaging of heart and coronary circulation
CPT/HCPCS: 93454; 99152; 99153; J7040; Q9967; C1769; C1894

== ENCOUNTER → 2023-06-21 | Outpatient (CLI) | payer MEDICARE, SELFPAY ==
[2023-06-21 11:17] LABS: Anion Gap 8 (5-15); BUN 17 mg/dL (7-18); BUN/Creat Ratio 25.2 RATIO (10-20); Calcium,Total 9.2 mg/dL (8.5-10.1); Chloride 104 mmol/L (98-107); Creatinine, Serum 0.67 mg/dL (0.55-1.02); EST Glomerular Filtration Rate 88 mL/min (>60); Est Glom Filt Rate - Afr Amer 107 mL/min (>60); Glucose 199 mg/dL (74-106); Potassium 3.6 mmol/L (3.5-5.1); Sodium Level 139 mmol/L (136-145)
== END | disposition home or self-care (01) ==
PROVIDERS: PCP Family Medicine; Referring Provider Nurse Practitioner Adult Health; Visit Provider Nurse Practitioner Adult Health
DX: I35.0 Nonrheumatic aortic (valve) stenosis (principal)
CPT/HCPCS: 36415; 80048

== ENCOUNTER → 2023-07-11 | Outpatient (CLI) | payer MEDICARE, SELFPAY ==
--- NOTE | 2023-07-11 09:25 | RAD_ITS ---
INDICATION: NONRHEUMATIC AORTIC VALVE STENOSIS EXAMINATION/TECHNIQUE: X-RAY - XR Chest 2 Views COMPARISON: 05/31/2023. FINDINGS: LINES/DEVICES: None. LUNGS: No consolidation, edema or effusion. No pneumothorax. MEDIASTINUM AND CARDIOVASCULAR STRUCTURES: Cardiac silhouette not enlarged. Central airways and mediastinal contour are unremarkable. Atherosclerosis of aorta. BONES AND SOFT TISSUES: Degenerative disease of the shoulders and spine. RAD/Chest PA and Lateral IMPRESSION: No acute cardiopulmonary disease. Electronically Signed: Lakeshia Mancera, at 16:18 EDT ,
[2023-07-11 10:04] LABS: Absolute Neutrophil Count 4.6 X10^3/uL (2.0-7.7); Basophil# 0.03 X10^3/uL; Basophil% 0.4 % (0-1); Eosinophil# 0.16 X10^3/uL; Eosinophils% 2.3 % (0-5); Hematocrit 37.6 % (37-47); Hemoglobin 11.9 g/dL (12.0-15.0); Lymphocyte % 24.3 % (19-41); Mean Corp Hgb Conc 31.6 g/dL (32-36); Mean Corpuscular Hgb 27.5 pg (27.0-32.0); Mean Corpuscular Volume 86.8 fL (81-99); Mean Platelet Vol. 9.7 fl (6.2-12.0); Monocyte# 0.51 X10^3/uL; Monocyte% 7.3 % (0-10); NRBC Flagged by Analyzer 0 % (0-5); Neutrophil # 4.55 X10^3/uL (2.7-7.7); Neutrophil % 65.1 % (47-70); Platelet Count 321 K/mm3 (150-450); RBC Distribution Width CV 12.9 % (11.6-14.6); RBC Distribution Width SD 40.5 fl (35.1-43.9); Red Blood Count 4.33 M/mm3 (4.2-5.4)
[2023-07-11 10:37] LABS: BNP,B-Type NATRIURETIC PEPTIDE 35.9 pg/mL (0-100)
[2023-07-11 10:52] LABS: ALB/GLOB Ratio 0.7 RATIO (0.9-2.4); AST(SGOT) 9 U/L (15-37); Alanine Aminotransfer ALT/SGPT 16 U/L (13-56); Albumin, Serum 3.2 g/dL (3.2-5.0); Alkaline Phosphatase 103 U/L (45-117); Anion Gap 3 (5-15); BUN 14 mg/dL (7-18); BUN/Creat Ratio 23.5 RATIO (10-20); Calcium,Total 9.2 mg/dL (8.5-10.1); Chloride 106 mmol/L (98-107); EST Glomerular Filtration Rate 102 mL/min (>60); Est Glom Filt Rate - Afr Amer 123 mL/min (>60); Globulin 4.9 g/dL (2.2-4.2); Glucose 204 mg/dL (74-106); Potassium 3.9 mmol/L (3.5-5.1); Protein, Total 8.1 g/dL (6.4-8.2); Sodium Level 139 mmol/L (136-145)
== END | disposition home or self-care (01) ==
PROVIDERS: PCP Family Medicine; Referring Provider Nurse Practitioner Adult Health; Visit Provider Nurse Practitioner Adult Health
DX: I35.0 Nonrheumatic aortic (valve) stenosis (principal); I70.0 Atherosclerosis of aorta
CPT/HCPCS: 36415; 71046; 80053; 83880; 85025

== ENCOUNTER → 2023-08-11 | Outpatient (CLI) | payer MEDICARE, SELFPAY ==
--- NOTE | 2023-08-11 14:53 | ECHOD_ITS ---
Reason For Study: Procedure This was a 2D Doppler, Color Flow transthoracic echocardiogram. Exam performed in department. Left Ventricle Normal LV size. Mild concentric left ventricular hypertrophy. Left ventricular systolic function is normal. The estimated ejection fraction is 60 %. Stage 1 diastolic dysfunction. No regional wall motion abnormalities noted. Right Ventricle Normal RV size. Normal systolic function. Atria Normal left atrium. Normal right atrium. Mitral Valve Normal mitral valve. Tricuspid Valve Normal tricuspid valve. Aortic Valve Peak aortic valve gradient 28 mmHg. Mean aortic valve gradient 15 mmHg. Bioprosthetic aortic valve functioning normally. Pulmonic Valve Normal pulmonic valve. Great Vessels Normal aortic root. The pulmonary artery is normal size. Normal inferior vena cava. Pericardium/Pleural No pericardial effusion. MMode/2D Measurements & Calculations LVIDd: 4.5 cm IVSd: 1.2 cm LVOT diam: 1.9 cm LVIDs: 2.9 cm LVPWd: 1.3 cm LVOT area: 2.8 cm2 RVDd: 3.3 cm FS: 35.5 % Ao root diam: 3.2 cm LAV(MOD-bp): 55.9 ml LVAd ap4: 25.1 cm2 LAV(MOD-bp) Indexed: 32.1 ml/m2 LVLd ap4: 7.9 cm LAV(MOD-sp2): 46.8 ml EDV(MOD-sp4): 65.5 ml LAV(MOD-sp4): 58.1 ml EDV(sp4-el): 67.6 ml LVAs ap4: 14.0 cm2 LVLs ap4: 6.1 cm ESV(MOD-sp4): 27.5 ml ESV(sp4-el): 27.1 ml EF(MOD-sp4): 58.0 % EF(sp4-el): 59.9 % SV(MOD-sp4): 38.0 ml SV(sp4-el): 40.5 ml LA A4 area: 20.7 cm2 LA dimension(2D): 4.2 cm RA A4 area: 13.6 cm2 TAPSE: 2.3 cm Time Measurements MV dec time: 0.24 sec Doppler Measurements & Calculations MV E max duncan: 89.3 cm/sec Lat Peak E' Duncan: 6.6 cm/sec Med Peak E' Duncan: 6.0 cm/sec MV A max duncan: 106.1 cm/sec E/E' lat: 13.4 E/E' med: 14.8 MV E/A: 0.84 MV V2 max: 107.1 cm/sec Ao V2 max: 263.6 cm/sec MV max P.6 mmHg MV dec slope: 378.3 cm/sec2 Ao max P.8 mmHg MV V2 mean: 56.5 cm/sec Ao V2 mean: 181.2 cm/sec MV mean P.5 mmHg Ao mean P.0 mmHg MV V2 VTI: 33.9 cm Ao V2 VTI: 62.1 cm AV (velocity ratio): 0.77 MVA(VTI): 3.9 cm2 CARMEN(I,D): 2.1 cm2 CARMEN(V,D): 1.8 cm2 LV V1 max: 170.0 cm/sec SV(LVOT): 131.6 ml PA V2 max: 110.1 cm/sec LV V1 max P.6 mmHg PA V2 mean: 75.5 cm/sec LV V1 mean P.3 mmHg LV V1 mean: 139.3 cm/sec LV V1 VTI: 47.7 cm ECHO/Echo Complete Interpretation Summary Normal LV size. Left ventricular systolic function is normal. The estimated ejection fraction is 60 %. Stage 1 diastolic dysfunction. Mild concentric left ventricular hypertrophy. Mean aortic valve gradient 15 mmHg. Bioprosthetic aortic valve functioning normally. Ordering Physician: Lorraine Kern Referring Physician: Lorraine Kern Performed By: Selma Sahu RCS
== END | disposition home or self-care (01) ==
LOC: CVS 14:51
PROVIDERS: PCP Family Medicine; Referring Provider Physician Assistant Medical; Visit Provider Physician Assistant Medical
DX: I35.0 Nonrheumatic aortic (valve) stenosis (principal)
CPT/HCPCS: 93306

== ENCOUNTER → 2024-04-16 | Outpatient (CLI) | payer MEDICARE, SELFPAY ==
--- NOTE | 2024-04-16 12:46 | ECHOD_ITS ---
Reason For Study: VALVE REPLACEMENT Procedure This was a 2D Doppler, Color Flow transthoracic echocardiogram. Exam performed in department. Left Ventricle Normal LV size. Left ventricular systolic function is normal. The estimated ejection fraction is 70 %. Stage 1 diastolic dysfunction. No regional wall motion abnormalities noted. Right Ventricle Normal RV size. Normal systolic function. Atria Normal left atrium. Normal right atrium. Mitral Valve Normal mitral valve. Tricuspid Valve Normal tricuspid valve. Aortic Valve Peak aortic valve gradient 23 mmHg. Mean aortic valve gradient 14 mmHg. Mild aortic stenosis. Stable appearing bioprosthetic aortic valve apparatus. Great Vessels Normal aortic root. Pericardium/Pleural No pericardial effusion. MMode/2D Measurements & Calculations LVIDd: 4.3 cm IVSd: 1.1 cm LVOT diam: 1.9 cm LVIDs: 2.3 cm LVPWd: 1.0 cm LVOT area: 2.7 cm2 RVDd: 3.2 cm FS: 46.5 % Ao root diam: 2.9 cm LAV(MOD-bp): 49.1 ml LVAd ap4: 24.2 cm2 LAV(MOD-bp) Indexed: 28.3 ml/m2 LVLd ap4: 7.5 cm LAV(MOD-sp2): 58.2 ml EDV(MOD-sp4): 64.3 ml LAV(MOD-sp4): 41.1 ml EDV(sp4-el): 66.1 ml LVAs ap4: 11.1 cm2 LVLs ap4: 6.0 cm ESV(MOD-sp4): 17.6 ml ESV(sp4-el): 17.6 ml EF(MOD-sp4): 72.7 % EF(sp4-el): 73.4 % SV(MOD-sp4): 46.8 ml SV(MOD-sp2): 33.4 ml LVAd ap2: 21.9 cm2 LVLd ap2: 7.8 cm EDV(MOD-sp2): 50.7 ml EDV(sp2-el): 52.3 ml LVAs ap2: 10.9 cm2 LVLs ap2: 6.2 cm ESV(MOD-sp2): 17.4 ml ESV(sp2-el): 16.2 ml EF(MOD-sp2): 65.8 % SV(sp4-el): 48.5 ml LA A4 area: 16.5 cm2 LA dimension(2D): 4.4 cm TAPSE: 2.2 cm RA A4 area: 11.3 cm2 Time Measurements MV dec time: 0.29 sec Doppler Measurements & Calculations MV E max duncan: 77.9 cm/sec Lat Peak E' Duncan: 8.9 cm/sec Med Peak E' Duncan: 7.7 cm/sec MV A max duncan: 99.5 cm/sec E/E' lat: 8.8 E/E' med: 10.1 MV E/A: 0.78 MV dec slope: 268.3 cm/sec2 Ao V2 max: 242.4 cm/sec LV V1 max: 122.8 cm/sec Ao max P.5 mmHg LV V1 max P.0 mmHg Ao V2 mean: 175.3 cm/sec LV V1 mean P.3 mmHg Ao mean P.8 mmHg LV V1 mean: 87.0 cm/sec Ao V2 VTI: 58.4 cm LV V1 VTI: 26.2 cm AV (velocity ratio): 0.45 CARMEN(I,D): 1.2 cm2 CARMEN(V,D): 1.4 cm2 SV(LVOT): 71.0 ml PA V2 max: 117.9 cm/sec PA max PG (full): 2.6 mmHg ECHO/Echo Complete Interpretation Summary Normal LV size. Left ventricular systolic function is normal. The estimated ejection fraction is 70 %. Stage 1 diastolic dysfunction. Mean aortic valve gradient 14 mmHg. Mild aortic stenosis. Ordering Physician: Lorraine Kern Referring Physician: MD Khanh Alex Performed By: Vero Mobley RDCS
== END | disposition home or self-care (01) ==
LOC: CVS 12:45
PROVIDERS: PCP Family Medicine; Referring Provider Physician Assistant Medical; Visit Provider Physician Assistant Medical
DX: I35.0 Nonrheumatic aortic (valve) stenosis (principal)
CPT/HCPCS: 93306

== ENCOUNTER 2025-05-07 04:48 | Emergency (ER) | payer MEDICARE, SELFPAY ==
[2025-05-07 04:48] VITALS: BP 213/90; PULSE 75; RESP 18; TEMP 36.4; O2SAT 97; BMI 32.5
[2025-05-07 04:52] VITALS: O2SAT 97
--- NOTE | 2025-05-07 04:54 | EDS_ITS ---
HPI HPI - Fall History of Present Illness Chief Complaint: Fall Informant: patient Occured/Mechanism Occurred: Days (5) Mechanism/Context: Yes same level fall Narrative: Missed a step Pain/Injury Pain Location: lower extremity (Left hip and thigh) Quality of Pain: Stabbing Worsened by: Certain movements Relieved by: Nothing Associated Symptoms Associated Symptoms: Negative for Parasthesias, Weakness, Loss of function, Inability to ambulate, Loss of consciousness or Amnesia Narrative Narrative: Patient presents with pain in her left hip that began after a fall 5 days ago. Patient states she missed a step and fell onto brick patio. Patient denies any head injury or loss of consciousness. Patient states she went to urgent care 3 days ago. Patient states that she was instructed to take Tylenol for pain. Patient states he has been using [id number] Tylenol with no improvement. Patient describes her pain as stabbing. Patient states it is worse with certain movements. Patient denies any other injuries. PFSH PFS Medical History History of transcatheter aortic valve replacement (TAVR) Hard of hearing Severe aortic stenosis Essential hypertension Heart murmur Home Medications ?Medication ?Instructions ?Recorded ?Last Taken ?Type tramadol 50 mg tablet 50 mg PO Q6H PRN PRN Pain 5 days 05/07/25 Unknown Rx #20 tabs Allergy/AdvReac Type Severity Reaction Status Date / Time No Known Allergies Allergy Verified 05/07/25 04:48 Surgical History Hx of hysterectomy History of tonsillectomy History of cholecystectomy Social History Smoking Status: Never smoker alcohol intake: never substance use type: does not use caffeine: Yes Type: carbonated beverages Number of servings: 1 ROS ROS ED Constitutional Constitutional ED: Denies chills or fever(s) Eyes Eyes: Denies blurry vision or change in vision ENT ENT ED: Denies rhinorrhea or sore throat Cardiovascular Cardiovascular: Denies chest pain or palpitations Respiratory/Chest Respiratory/Chest: Denies cough or dyspnea Gastrointestinal Gastrointestinal: Denies nausea or vomiting Genitourinary Genitourinary ED: Denies dysuria or hematuria Musculoskeletal Musculoskeletal: Denies back pain or neck pain Integumentary Denies abscess or rash Neurologic Neurologic: Denies headache(s) or weakness Allergic/Immunologic Allergic/Immunologic ED: Denies mouth swelling or urticaria EXAM Physical Exam Const Vital Signs: 05/07/25 04:48 05/07/25 04:52 Temperature 97.6 F L Temperature Source Oral Pulse Rate 75 Respiratory Rate 18 Respiratory Effort Normal Non-Labored Respiratory Depth Normal Respiratory Pattern Normal Blood Pressure 213/90 H Blood Pressure Mean 131 Pulse Ox 97 97 Oxygen Delivery Method Room Air Room Air Positive well nourished and well developed General Appearance ED: well developed and NAD HEENT Reports normocephalic atraumatic Neck full ROM and supple Extremity Extremity Narrative: There is tenderness of the lateral aspect of the left hip and proximal thigh. There is no bony crepitus or step-off. There is no deformity. There is good passive range of motion. There is good active range of motion. Strength is 5/5 bilaterally in the lower extremities. There are no sensory deficits noted. Neuro oriented x3, CN's II-XII intact bilaterally, moves all extremities, no focal motor deficits and no sensory deficits noted [place] Coma Scale: document GCS findings Spontaneous Obeys Commands Oriented 15 Sensorium / Orientation: alert Motor Exam: strength 5/5 throughout Psych mental status grossly normal and thought process normal MDM MDM MDM Narrative Medical decision making narrative: Differential diagnosis includes fracture, contusion, and sprain. X-rays of the pelvis and left femur will be obtained to assess for fracture. History & Record Review Additional record(s) reviewed:: Prior labs Radiography Diagnostic Testing: Clinical Impression(s) from Imaging Studies Femur X-Ray 05/07/25 05:08 IMPRESSION: No evidence for acute abnormality. Reading Location: [place] [id number] Pelvis X-Ray 05/07/25 05:15 IMPRESSION: No evidence for acute abnormality. [facility] of the left femur were obtained. There are 4 views. On my independent interpretation, there is no acute fracture or dislocation noted. Radiologist also interpreted the x-rays and agrees. X-rays of the pelvis were obtained. There is 1 view. On my independent interpretation, there is no acute fracture. Radiologist also interpreted the x- rays and agrees. Treatment and Re-Evaluation Narrative: Patient was given a dose of tramadol here. Patient was advised to ice and elevate her left hip. Patient was instructed to get plenty of rest. Patient was given a prescription for a short course of tramadol. Patient was instructed to follow-up with her primary care physician in 5 to 7 days. Patient understood and was agreeable with the plan. All questions were answered. Discharge Plan Triage Chief Complaint: Fall ED Provider: Jed Prado Dx/Rx/DC Orders Clinical Impression: Contusion of left hip and thigh, Fall Instructions: ED Hip Contusion Prescriptions: New tramadol 50 mg tablet 50 mg PO Q6H PRN PRN (Reason: Pain) 5 Days Qty: 20 0RF Primary Care Provider: Alex Cassidy Referrals: Alex Cassidy MD [Primary Care Provider] - 5-7 Days Print Language: Albanian Disposition Disposition: Home, Self Care
--- NOTE | 2025-05-07 05:08 | RAD_ITS ---
PROCEDURE: FEMUR MIN 2 VIEWS 05/07/2025 REASON FOR EXAM: INJURY/PAIN TECHNIQUE: FEMUR MIN 2 VIEWS COMPARISON: None. FINDINGS: Mild osteopenia of the visualized bones. Degenerative joint disease. No fracture or dislocation is seen. No lytic or blastic bone lesion is noted. RAD/Femur Min 2 Views IMPRESSION: No evidence for acute abnormality. Reading Location[facility]
--- NOTE | 2025-05-07 05:15 | RAD_ITS ---
PROCEDURE: PELVIS 1 OR 2 VIEWS 05/07/2025 REASON FOR EXAM: INJURY/PAIN TECHNIQUE: PELVIS 1 OR 2 VIEWS COMPARISON: None. FINDINGS: Mild osteopenia of the visualized bones. Degenerative joint disease. No fracture or dislocation is seen. No lytic or blastic bone lesion is noted. RAD/Pelvis 1 or 2 Views IMPRESSION: No evidence for acute abnormality. [facility]
[2025-05-07] MEDS: traMADol 50 MG Tablet PO (05:36)
--- OUTSIDE RECORDS SUMMARY | 2025-05-07 05:54 | XMS RPT_ITS | CCD ---
Author Organization [facility] Care Team Providers Care Stoner Hand Name Role Phone Vane Cassidy MD Primary Care Provider Dr. Vane Cassidy Primary Care Provider Dr. Vane Cassidy Referring Provider Dr. John Patterson Attending Provider John Patterson Unavailable Inc, [facility] Primary Care Provider Unav ailable MAXIMUS CAMPBELL Attending Unavailable [facility], [facility] Primary Care Unavailable CEM HARRELL Attending Unavailable [facility], [facility] Primary Care Unavailable ELAINE CAMPBELL Attending Unavailable ELAINE CAMPBELL Referring Unavailable INC, [facility] Primary Care Unavailable MAXIMUS CAMPBELL Admitting Unavailable MAXIMUS CAMPBELL Attending Unavailable [facility], [facility] Primary Care Unavailable MAXIMUS CAMPBELL Attending Unavailable MAXIMUS CAMPBELL Referring Unavailable INC, [facility] Primary Care Unavailable Vane Cassidy MD Primary Care Provider Erlin YOUNG, Lorraine Vance Attending Unavail able Erlin YOUNG, Lorraine M Referring Unavail able Vane Cassidy Primary Care Unavailable John Patterson Attending Unavailable Vane Cassidy Primary Care Unavailable Sigrid Stephens NP Attending Unavailable Vane Cassidy Primary Care Unavailable Vane Cassidy Referring Unavailable Vane Cassidy MD Primary Care Provider Charlee DISPOSAL WORKER.Padmini [place] Unavailable Chilo DISPOSAL WORKER.Hany [place] Unavailable VANE CASSIDY Primary Care Unavailable LINDSAY FUNEZ Attending Unavailable STEWART CASTRO Attending Unavailable VANE CASSIDY Primary Care Unavailable STEWART CASTRO Attending Unavailable SELF Referring Unavailable VANE CASSIDY Primary Care Unavailable Medications Current Medications Medication Drug Class(es) Dates Sig (Normalized) Sig (Original) amLODIPine 10 mg oral tablet (20 sources) Dihydropyridine Calcium Channel Bk Start: 05-31-2023 End: 07-20-2023 take 1 tablet by mouth once daily amLODIPine (NORVASC) 10 mg tablet Take 1 tablet by mouth once daily. 90 tablet 3 06/01/2023 Active Start: 05-11-2023 End: 08-10-2023 take 5 mg by mouth once daily Amlodipine Discontinued 5 MG PO DAILY May 29, 2023 12:00am May 31, 2023 2:49pm Comment on above: Take 1 tablet by [facility] once daily. aspirin 81 mg chewable tablet (4 sources) Platelet Aggregation Inhibitor, Nonsteroidal Anti-inflammatory Drug Start : 07-19 End: 07-19 aspirin 81 MG chewable tablet Chew 1 tablet (81 mg) daily. 30 tablet 11 07/20/2023 07/19/2024 Active clindamycin 150 mg oral capsule (3 sources) Lincosamide Antibacterial Start : 03-14 End: 03-21 take 3 capsules by mouth three times daily clindamycin (CLEOCIN) 150 mg capsule Indications: Cellulitis of both feet Take 3 capsules by mouth three times a day for 7 days. 63 capsule 03/14/2025 03/21/2025 Active gabapentin 300 mg oral capsule (2 sources) Anti-epileptic Agent Start : 02-07 End: 03-09 take 1 capsule by mouth every eight hours as needed gabapentin (NEURONTIN) 300 mg capsule Take 1 capsule by mouth three times daily as needed for up to 30 days. 30 capsule 2 02/07/2022 02/25/2022 Discontinued Comment on above: Take 1 capsule by [facility] three times daily as needed for up to 30 days. hydrocortisone 10 mg/ml topical cream (1 source) Corticosteroid Start : 05-03 End: 05-13 hydrocortisone 1 % cream Indications: Rash Apply to affected area two times a day for 10 days. 120 g 05/03/2025 05/13/2025 Active methylPREDNISolone (2 sources) Corticosteroid Start : 03-14 End: 03-20 methylPREDNISolone (MEDROL, JUANCHO,) 4 mg Dose-Pack Indications: Cellulitis of both feet Take as instructed per package. 21 tablet 03/14/2025 03/20/2025 Active naproxen 500 mg oral tablet (3 sources) Nonsteroidal Anti-inflammatory Drug Start : 02-04 End: 02-25 take 1 tablet by mouth twice daily as needed for pain naproxen (NAPROSYN) 500 mg tablet Indications: Contusion of lower back, subsequent encounter Take 1 tablet by mouth twice daily as needed (for pain/inflammation). Take with food. 14 tablet 0 02/04/2022 02/25/2022 Discontinued Comment on above: Take 1 tablet by eun th twice daily as needed (for pain/inflammation). Take with food. nirmatrelvir tablet 300 mg (150 mg x 2) and ritonavir tablet 100 mg in a dose pack (PAXLOVID) (1 source) Start : 12-28 End: 01-02 nirmatrelvir tablet 300 mg (150 mg x 2) and ritonavir tablet 100 mg in a dose pack (PAXLOVID) Administer TWO pink nirmatrelvir 150 mg tablets and ONE white ritonavir 100 mg tablet for a total of three tablets twice daily. 30 tablet 0 12/28/2023 01/02/2024 Active Comment on above: Administer TWO pink nirmatrelvir 150 mg tablets and ONE white ritonavir 100 mg tablet for a total of three tablets twice daily. perflutren lipid microspheres 1.3 mL in NaCl (PF) 0.9% 10 mL injection (DEFINITY) (7 sources) Start : 05-11 End: 08-09 perflutren lipid microspheres 1.3 mL in NaCl (PF) 0.9% 10 mL injection (DEFINITY) traMADol hydrochloride 50 mg oral tablet (4 sources) Opioid Agonist Start : 02-04 End: 02-25 take 1 tablet by mouth three times daily as needed for pain traMADol (ULTRAM) 50 mg tablet Indications: Contusion of lower back, subsequent encounter Take 1 tablet by mouth three times daily as needed for pain. 0 02/04/2022 02/25/2022 Discontinued Start: 02-01-2022 take 50 mg by mouth three times daily Tramadol Active 50 MG PO THREE TIMES A DAY 10 February 01, 2022 5:54am Comment on above: Take 1 tablet by eun th three times daily as needed for pain. Completed/Discontinued Medications Medication Drug Class(es) Dates Sig (Normalized) Sig (Original) acetaminophen 325 mg oral tablet (2 sources) Start: 07-19-2023 End: 07-20-2023 take 1 tablet by mouth every four hours as needed for pain acetaminophen (Tylenol) tablet 650 mg acetaminophen 325 mg / HYDROcodone bitartrate 5 mg oral tablet (4 sources) Opioid Agonist Start: 02-23-2021 End: 02-26-2021 take 1 tablet by mouth every six hours as needed Hydrocodone-Acetamin ophen Discontinued 1 TABLET PO EVERY 6 HOURS NEEDED 08 15February 23, 2021 February 26, 2021 12:04am iopamidol (Isovue-370) 76 % injection 100 mL (2 sources) Start: 06-30-2023 End: 06-30-2023 iopamidol (Isovue-370) 76 % injection 100 mL lidocaine 0.05 mg/mg medicated patch (4 sources) Antiarrhythmic, Amide Local Anesthetic Start: 10-11-2023 End: 03-20-2025 apply 1 dose transdermal route every twenty-four hours lidocaine (LIDODERM) 5 % Apply 1 Patch as directed every 24 hours. Remove old patch prior to placing new patch. Location: neck 5 Patch 10/11/2023 03/20/2025 Discontinued Comment on above: Apply 1 Patch as dir ected every 24 hours. Remove old patch prior to placing new patch. Location: neck metoclopramide 10 mg oral tablet (3 sources) Dopamine-2 Receptor Antagonist Start: 05-08-2023 End: 05-31-2023 take 10 mg by mouth every six hours Metoclopramide Hcl Discontinued 10 MG PO EVERY 6 HOURS May 08, 2023 4:18pm May 31, 2023 2:50pm perflutren lipid microspheres (Definity) injection 1.65 mg (2 sources) Start: 07-19-2023 End: 07-20-2023 perflutren lipid microspheres (Definity) injection 1.65 mg 1000 ml sodium chloride 9 mg/ml injection (15 sources) Start: 07-19-2023 End: 07-19-2023 sodium chloride 0.9 % infusion Start: 05-11-2023 End: 08-13-2024 sodium chloride 0.9 % (flush ) 10 mL (BD POSIFLUSH) Problems Active Problems Problem Classification Problem Date Documented Date Episodic/Chronic Administrative/social admission (1 source) Patient encounter status; Translations: [Persons encountering health services in other specified circumstances] Episodic E Codes: Fall (4 sources) Fall on same level from slipping; Translations: [Fall on same level from slipping, tripping and stumbling without subsequent striking against object, initial encounter] 02-09-2022 Episodic Essential hypertension (20 sources) Elevated blood pressure; Translations: [Essential (primary) hypertension] Onset: 06-19-2023 05-08-2023 Chronic Headache; including migraine (3 sources) Headache; Translations: [Severe headache] 05-08-2023 Episodic Heart valve disorders (20 sources) Aortic stenosis, non-rheumatic ; Translations: [Nonrheumatic aortic (valve) stenosis] Onset: 06-30-2023 Chronic Heart valve disorders (4 sources) Heart murmur; Translations: [Cardiac murmur, unspecified] Episodic Other aftercare (1 source) Post-discharge follow-up; Translations: [Encounter for follow-up examination after completed treatment for conditions other than malignant neoplasm] Episodic Other screening for suspected conditions (not mental disorders or infectious disease) (2 sources) Echocardiogram abnormal; Translations: [Abnormal findings on diagnostic imaging of heart and coronary circulation] 05-29-2023 Episodic Other skin disorders (2 sources) Nail deformity; Translations: [Other nail disorders] 03-20-2025 Episodic Other skin disorders (1 source) Eruption; Translations: [Rash and other nonspecific skin eruption] 05-03-2025 Episodic Other skin disorders (1 source) Rash and other nonspecific skin eruption; Translations: [Rash] Onset: 05-03-2025 Episodic Other skin disorders (1 source) Other nail disorders; Translations: [Toenail deformity] Onset: 03-20-2025 Episodic Skin and subcutaneous tissue infections (3 sources) Cellulitis of foot; Translations: [Cellulitis of right lower limb] Onset: 03-14-2025 03-14-2025 Episodic Spondylosis; intervertebral disc disorders; other back problems (14 sources) Cervical disc disorder; Translations: [Cervical disc disorder, unspecified, unspecified cervical region] Onset: 04-13-2011 04-13-2011 Chronic Sprains and strains (4 sources) Lower back injury; Translations: [Strain of muscle, fascia and tendon of lower back, initial encounter] 02-09-2022 Episodic Superficial injury; contusion (3 sources) Contusion of hip; Translations: [Contusion of left hip, subsequent encounter] Onset: 05-03-2025 Episodic Past or Other Problems Problem Classification Problem Date Documented Da te Episodic/Chronic Spondylosis; intervertebral disc disorders; other back problems (15 sources) Neck pain; Translations: [Cervicalgia] Onset: 05-27-2010 05-27-2010 Episodic Results Test Name Value Interpretation Reference Range Facility [facility] 05-03-2025 CNOV Office Visit (UCWSTR ) NIDHI ZAMORA ([id number]) 1940 F Date Time Provider Department 05/03/25 8:15 AM LINDSAY FUNEZ [facility] During your visit today, we recorded the following information about you: Temperature Pulse Respiration Blood pressure 97.8 degrees 64/minute 18/minute 168/84 Weight 80.5 kg Lindsay Funez APRN.CNP 05/03/2025 8:36 AM Signed This note was created using [email or web address]. Subjective Nidhi Zamora is a 85 year old female. HPI Patient presents today stating that about 3 days ago she tripped and fell on the sidewalk landing on her knees and then onto her left thigh/hip. She complains of ongoing pain in the left lateral thigh. She states she is still able to ambulate but does have pain while sitting. She denies any injury to her head loss of consciousness vomiting or vision changes. She also notes a rash on her left forearm which has been there for several months. She was initially seen for the rash and given antibiotics with no improvement and has not been seen since. She has tried moisturizing lotions again with no improvement. Review of Systems As above Objective BP 168/84 Pulse 64 Temp 36.6 ?C (97.8 ?F) (Tympanic) Resp 18 Wt 80.5 kg (177 lb 7.5 oz) SpO2 98% BMI 34.66 kg/m? Physical Exam Vitals and nursing note reviewed. Constitutional: General: She is not in acute distress. Appearance: Normal appearance. She is not ill-appearing. HENT: Head: Normocephalic. Pulmonary: Effort: Pulmonary effort is normal. Musculoskeletal: General: Normal range of motion. Comments: Mild tenderness over the lateral aspect of left thigh with no areas of ecchymosis noted. No specific bony tenderness or deformities noted. Patient has full range of motion of left leg and hip with no complaints of pain. Skin: General: Skin is warm. Comments: Erythematous scaly skin over dorsal aspect left forearm. Per family that this area has not increased in size over several months Neurological: General: No focal deficit present. Mental Status: She is alert and oriented to person, place, and time. Psychiatric: Mood and Affect: Mood normal. Behavior: Behavior normal. Assessment and Plan ASSESSMENT/PLAN: 1. Contusion of left thigh, initial encounter - ICD9: 924.00, ICD10: S70.12XA (primary diagnosis) On physical exam there was no obvious bony deformities and patient does have full range of motion. There was no large area of ecchymosis. Discussed with patient and family that symptoms are more consistent with mild contusion and that symptoms will probably last for another week or 2 until she has complete resolution. Recommended heating pad on and off for 20 minutes at a time. She will use [id number] pain medications and follow-up if symptoms not improving. 2. Rash - ICD9: 782.1, ICD10: R21 Patient given a prescription for hydrocortisone cream and recommended follow-up with local dermatology. - HYDROCORTISONE 1 % TOPICAL CREAM Lindsay Funez APRN.GRIEF COUNSELLOR Allergies As of Date: 05/03/2025 Noted Allergy Reaction NO KNOWN DRUG ALLERGIES 11/15/2007 Date Reviewed: 03/20/2025 Reviewed by: Ana Rosa Guzman MA - Fully Assessed Reason for Visit: left thigh bruise [Other] Cmt: Fell 2 days ago Primary Visit Diagnosis:Contusion of left thigh, initial encounter [S70.12XA] Other Visit Diagnosis:Rash [R21] Order(s):hydrocortison e 1 % creamApply to affected area two times a day for 10 days.Disp: 120 gRfl: 0 Prescriptions as of 05/03/2025 - hydrocortisone 1 % cream Apply to affected area two times a day for 10 days. - amLODIPine (NORVASC) 10 mg tablet Take 1 tablet by mouth once daily. Problem List As Of Date 05/03/2025 Noted Resolved Cervicalgia [M54.2] 05/27/2010 Cervical disc disorder [M50.90] 04/13/2011 Prescriptions ordered this encounter Disp Refills Start End HYDROCORTISONE 1 % TOPICAL CREAM 120 g 0 05/03/2025 05/13/2025 Route: TOP Sig: Apply to affected area two times a day for 10 days. Encounter Status:Closed by LINDSAY FUNEZ on 05/03/25 [facility] CNOVon 03-20-2025 CNOV Office Visit (FAMPWS ) NIDHI ZAMORA Erendira ([id number]) 1940 F Date Time Provider Department 03/20/25 10:40 AM STEWART CASTRO During your visit today, we recorded the following information about you: Pulse Blood pressure Weight 65/minute 171/68 78.5 kg Stewart Castro APRN.GRIEF COUNSELLOR 03/20/2025 10:50 AM Signed Chief Complaint Patient presents with: Follow Up: Foot rash HPI Nidhi Zamroa is a 85 year old female who presents here today for Above Complaints.. 03/14/2025 Rash: - Rash on bilateral feet began approximately one week ago. - Described as very dry, peeling, and flaking. - Denies pruritus or pain. - Has had similar rashes in the past, previously treated with antibiotics. - Delayed seeking treatment due to the recent of her . Past medical history, appointments, medications, allergies reviewed. Previous Medical History PAST MEDICAL HISTORY Diagnosis Date Cervical disc disorder 04/13/2011 Previous Surgical History PAST SURGICAL HISTORY Procedure Laterality Date LAPAROSCOPY SURG CHOLECYSTECTOMY 1990 Family History No family history on file. Patient Allergies ALLERGIES Allergen Reactions No Known Drug Aller* Current Medications Current Outpatient Medications on File Prior to Visit Medication Sig methylPREDNISolone (MEDROL, JUANCHO,) 4 mg Dose-Pack Take as instructed per package. clindamycin (CLEOCIN) 150 mg capsule Take 3 capsules by mouth three times a day for 7 days. lidocaine (LIDODERM) 5 % Apply 1 Patch as directed every 24 hours. Remove old patch prior to placing new patch. Location: neck (Patient not taking: Reported on 11/19/2023) amLODIPine (NORVASC) 10 mg tablet Take 1 tablet by mouth once daily. (Patient not taking: Reported on 10/11/2023) No current facility-administered medications on file prior to visit. Social History Social History Tobacco Use Smoking status: Never Smokeless tobacco: Never Vaping Use Vaping status: Never Used Review of Symptoms REVIEW OF SYSTEMS SEE HPI EXAM: BP 186/72 Pulse 65 Wt 78.5 kg (173 lb) BMI 33.79 kg/m? General Appearance: Well appearing, alert, in no acute distress, well-hydrated, well nourished.. Skin: Positives: Dry flaking skin to bilateral feet. Petechiae and rash resolved. Health Maintenance List Depression Screening Never done Anxiety Screening Never done Advance Directive Discussion due on 11/13/2024 Covid-19 Vaccine( season) due on 03/14/2025 Diabetes Screening due on 07/20/2026 DTaP,Tdap,Td Vaccine(3 - Td or Tdap) due on 04/28/2030 Influenza Vaccine Completed RSV Vaccine Completed Shingrix Vaccine Completed Pneumococcal Vaccine: 50+ Completed Bone Density Screening Addressed ASSESSMENT/PLAN: 1. Toenail deformity - ICD9: 703.9, ICD10: L60.8 (primary diagnosis - CONSULT TO PODIATRY 2. Hypertension, essential - ICD9: 401.9, ICD10: I10 - Uncontrolled - Recommend home blood pressure monitoring, to bring results to next visit - Encouraged sodium restriction, DASH or Mediterranean diet - Recommend regular aerobic exercise - Patient recently seen by [facility] on 03/07/25 and BPO was elevated however they did not want to start medication. Stewart Castro APRN.GRIEF COUNSELLOR Allergies As of Date: 03/20/2025 Noted Allergy Reaction NO KNOWN DRUG ALLERGIES 11/15/2007 Date Reviewed: 03/20/2025 Reviewed by: Ana Rosa Guzman MA - Fully Assessed Reason for Visit: Follow Up [171] Cmt: Foot rash Primary Visit Diagnosis:Toenail deformity [L60.8] Other Visit Diagnosis:Hypertension , essential [I10] Order(s):CONSULT TO PODIATRY [9034] Order #: [id number]: 1 FUTURE Prescriptions as of 03/20/2025 - methylPREDNISolone (MEDROL, JUANCHO,) 4 mg Dose-Pack Take as instructed per package. - clindamycin (CLEOCIN) 150 mg capsule Take 3 capsules by mouth three times a day for 7 days. - amLODIPine (NORVASC) 10 mg tablet Take 1 tablet by mouth once daily. Problem List As Of Date 03/20/2025 Noted Resolved Cervicalgia [M54.2] 05/27/2010 Cervical disc disorder [M50.90] 04/13/2011 Medications Discontinued During This Encounter Prescriptions - lidocaine (LIDODERM) 5 % (Discontinued) Reported on 11/19/2023 Disposition: Return if symptoms worsen or fail to improve. Follow-up and Disposition History for Encounter Date Provider Department Center 03/20/2025 [id number] CASTRO [facility] Encounter Status:Closed by STEWART CASTRO on 03/20/25 [facility] CNOVon 03-14-2025 CNOV Office Visit (MARY ) NIDHI ZAMORA ([id number]) 1940 F Date Time Provider Department 03/14/25 10:00 AM STEWART CASTRO During your visit today, we recorded the following information about you: Pulse Blood pressure Weight 65/minute 169/63 79 kg Stewart Castro APRN.GRIEF COUNSELLOR 03/14/2025 10:17 AM Signed Chief Complaint Patient presents with: Rash: Itchy rash on feet and legs X 1 week HPI Nidhi Zamora is a 85 year old female who presents here today for Above Complaints.. Rash: - Rash on bilateral feet began approximately one week ago. - Described as very dry, peeling, and flaking. - Denies pruritus or pain. - Has had similar rashes in the past, previously treated with antibiotics. - Delayed seeking treatment due to the recent of her . Past medical history, appointments, medications, allergies reviewed. Previous Medical History PAST MEDICAL HISTORY Diagnosis Date Cervical disc disorder 04/13/2011 Previous Surgical History PAST SURGICAL HISTORY Procedure Laterality Date LAPAROSCOPY SURG CHOLECYSTECTOMY 1990 Family History No family history on file. Patient Allergies ALLERGIES Allergen Reactions No Known Drug Aller* Current Medications Current Outpatient Medications on File Prior to Visit Medication Sig lidocaine (LIDODERM) 5 % Apply 1 Patch as directed every 24 hours. Remove old patch prior to placing new patch. Location: neck (Patient not taking: Reported on 11/19/2023) amLODIPine (NORVASC) 10 mg tablet Take 1 tablet by mouth once daily. (Patient not taking: Reported on 10/11/2023) No current facility-administered medications on file prior to visit. Social History Social History Tobacco Use Smoking status: Never Smokeless tobacco: Never Vaping Use Vaping status: Never Used Review of Symptoms REVIEW OF SYSTEMS SEE HPI EXAM: BP 181/67 Pulse 65 Wt 79 kg (174 lb 2.6 oz) BMI 34.01 kg/m? General Appearance: Well appearing, alert, in no acute distress, well-hydrated, well nourished.. Skin: Positives: Rash: Petechial rash to bilateral feet, some dry flaking areas noted. Posterior tibial pulses intact and no open areas noted to feet. Health Maintenance List Depression Screening Never done Anxiety Screening Never done Advance Directive Discussion due on 11/13/2024 Covid-19 Vaccine( season) due on 03/14/2025 Diabetes Screening due on 07/20/2026 DTaP,Tdap,Td Vaccine(3 - Td or Tdap) due on 04/28/2030 Influenza Vaccine Completed RSV Vaccine Completed Shingrix Vaccine Completed Pneumococcal Vaccine: 50+ Completed Bone Density Screening Addressed ASSESSMENT/PLAN: 1. Cellulitis of both feet - ICD9: 682.7, ICD10: L03.115, L03.116 - Begin treatment with Clindamycin - No lymphangetic streaking, this was defined for patient to watch for and to seek medical care immediately if appears - Follow up for recheck in three days - METHYLPREDNISOLONE 4 MG TABLETS IN A DOSE PACK - CLINDAMYCIN HCL 150 MG CAPSULE Patient noted to have elevated BP during visit. Patient reports it has been elevated at home since her . Will recheck in 1 week at cellulitis follow up. Stewart Castro APRN.GRIEF COUNSELLOR Referring Provider: SELF [200] Allergies As of Date: 03/14/2025 Noted Allergy Reaction NO KNOWN DRUG ALLERGIES 11/15/2007 Date Reviewed: 03/14/2025 Reviewed by: Ana Rosa Guzman MA - Fully Assessed Reason for Visit: Rash [1087] Cmt: Itchy rash on feet and legs X 1 week Primary Visit Diagnosis:Cellulitis of both feet [L03.115, L03.116] Order(s):methylPREDNIS olone (MEDROL, JUANCHO,) 4 mg Dose-PackTake as instructed per package.Disp: 21 tabletRfl: 0 clindamycin (CLEOCIN) 150 mg capsuleTake 3 capsules by mouth three times a day for 7 days.Disp: 63 capsuleRfl: 0 Prescriptions as of 03/14/2025 - methylPREDNISolone (MEDROL, JUANCHO,) 4 mg Dose-Pack Take as instructed per package. - clindamycin (CLEOCIN) 150 mg capsule Take 3 capsules by mouth three times a day for 7 days. - lidocaine (LIDODERM) 5 % Apply 1 Patch as directed every 24 hours. Remove old patch prior to placing new patch. Location: neck - amLODIPine (NORVASC) 10 mg tablet Take 1 tablet by mouth once daily. Problem List As Of Date 03/14/2025 Noted Resolved Cervicalgia [M54.2] 05/27/2010 Cervical disc disorder [M50.90] 04/13/2011 Prescriptions ordered this encounter Disp Refills Start End METHYLPREDNISOLONE 4 MG TABLETS IN A* 21 t* 0 03/14/2025 03/20/2025 Sig: Take as instructed per package. CLINDAMYCIN HCL 150 MG CAPSULE 45 c* 0 03/14/2025 03/14/2025 Route: ORAL Sig: Take 3 capsules by mouth three times a day for 5 days. CLINDAMYCIN HCL 150 MG CAPSULE 63 c* 0 03/14/2025 03/21/2025 Route: ORAL Sig: Take 3 capsules by mouth three times a day for 7 days. Medications Discontinued During This Encounter Prescriptions - clindamycin (CLEOCIN) 150 mg c (more content not included)... Normal [facility] Cardiology Visit Reporton Cardiology Visit Report [facility] [address] [place] [address] OFFICE VISIT Date of Service: 03/07/25 MR#: [id number] Acct: [id number] Name: NIDHI ZAMORA Rep #: [id number] : 1940 Provider: THEODORE reddy Age/Sex: 85/F Location: [facility] Status: Signed HPI HPI History of Present Illness Details: Nidhi Zamora is a pleasant 85-year-old lady who presents to the office today for cardiovascular follow-up visit. She presented to the emergency room in April of 2023 with dizziness and a headache and not feeling well. She had some nausea and vomiting and was seen in the emergency room. During the evaluation in the emergency room she was noted to have a 2/6 crescendo decrescendo murmur noted at the left sternal border. As part of the work-up she underwent a CT scan of the head and neck which was unremarkable. Her blood pressure was noted to be elevated but blood work was noted to be normal. An EKG demonstrated normal sinus rhythm with a rate of 60 bpm and no acute changes. The patient went for a follow-up with her primary physician and was noted there to have a 3/6 murmur. She was told about this and recommended to get an echocardiogram and was started on amlodipine. The echocardiogram performed demonstrated normal left ventricular size and function left atrium was mildly dilated there was mild mitral calcification present in the aortic valve was severely stenotic with a calcified valve with a peak gradient of 71 mmHg and a mean gradient of 42 mmHg. The aortic valve area was 0.38 cm???. Patient was asked to see a store assistant urgently. She did undergo a heart catheterization in May 2023. 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 She was referred to Dr. Campbell for a TAVR. She did undergo a TAVR on 07/19/2023 with an a 23 KARINA S3 valve. Her recently . She states she has been under a lot of stress recently with planning his services. She did not take her blood pressure at home this morning and it was 161/82. From a cardiac standpoint, the patient is doing well. She denies any palpitations, chest pain, pressure or heaviness. She denies SOB, Orthopnea, and PND. She does not have bleeding issues; no blood in urine, stool, or nosebleeds. She denies any decrease in energy level, myalgias, or claudication. She does not have edema, or sudden weight gain. She denies lightheadedness, dizziness, syncopal or near syncopal episodes, and headaches. Intake Vital Signs 02/28/24 10:51 03/07/25 07:30 Height 5 ft 2 in 5 ft 2 in Weight: 171 lb BMI 31.2 BP 170/75 H Blood Pressure Location Lt brachial Position Sitting Respiration 18 Pulse 60 Pulse Source Monitor Pulse Oximetry (%) 95 Intake Visit Reasons: 1 Y FU Dietary Aide Required: No Is patient in pain?: No Allergies No Known Allergies Allergy (Verified 03/07/25 11:06) Medications ???Medication ???Instructions ???Recorded ???Confirmed ???Type NK 02/28/24 03/07/25 History Ejection fraction %: 70 Have you fallen in the past year?: No PFSH Medical History History of transcatheter aortic valve replacement (TAVR) Hard of hearing Severe aortic stenosis Essential hypertension Heart murmur Surgical History Hx of hysterectomy History of tonsillectomy History of cholecystectomy Social History Smoking Status: Never smoker alcohol intake: never substance use type: does not use caffeine: Yes Type: carbonated beverages Number of servings: 1 ROS Const Const: Negative for fatigue, weakness, headache(s) or frequent falls Eyes Eyes: Negative for blurry vision ENT ENT: Negative for headache(s), dizziness or Nosebleed/epistaxis Cardio Chest Pain: No Palpitations: No Edema: None Muscle aches with walking: None Resp Respiratory: Negative for SOB with activity, SOB at rest or SOB orthopnea SOB lying down GI GI: Negative nausea, vomiting, heartburn, bright, red blood in stools or black,tarry stools : Negative for hematuria Neuro Neuro: Negative for dizziness, lightheadedness, near syncope, syncope, frequent falls, headache(s), weakness or blurry vision Endo Endo: Negative for fatigue Cardiology Exam Const Appearance: cooperative, healthy appearing, comfortable, no acute distress and well developed Nutritional Appearance: obese Orientation: alert, awake and oriented x3 Head Head: normal to inspection Ears: hearing grossly normal bilaterally Nose: external nose normal Face and Sinus: face symmetric Eyes General: appearance normal, both eyes and all related structures Eyelids: eyelids no (more content not included)... Normal [facility] Echo Completeon 04-16-2024 Echo Complete [facility] [address] [place] [address] Echo Complete 04/16/24 1252 MR#: [id number] Acct: [id number] Name: NIDHI ZAMORA Rep #: [id number] : [id number] From: John Patterson MD Attending Dr: HECTOR Cano Status: REG CLI Ordering Dr: Lorraine Kern PA Date: 03/06 Location: CVS Sex: F C Admitted: Reason For Study: VALVE REPLACEMENT Procedure This was a 2D Doppler, Color Flow transthoracic echocardiogram. Exam performed in department. Left Ventricle Normal LV size. Left ventricular systolic function is normal. The estimated ejection fraction is 70 %. Stage 1 diastolic dysfunction. No regional wall motion abnormalities noted. Right Ventricle Normal RV size. Normal systolic function. Atria Normal left atrium. Normal right atrium. Mitral Valve Normal mitral valve. Tricuspid Valve Normal tricuspid valve. Aortic Valve Peak aortic valve gradient 23 mmHg. Mean aortic valve gradient 14 mmHg. Mild aortic stenosis. Stable appearing bioprosthetic aortic valve apparatus. Great Vessels Normal aortic root. Pericardium/Pleural No pericardial effusion. MMode/2D Measurements Calculations LVIDd: 4.3 cm IVSd: 1.1 cm LVOT diam: 1.9 cm LVIDs: 2.3 cm LVPWd: 1.0 cm LVOT area: 2.7 cm2 RVDd: 3.2 cm FS: 46.5 % Ao root diam: 2.9 cm LAV(MOD-bp): 49.1 ml LVAd ap4: 24.2 cm2 LAV(MOD-bp) Indexed: 28.3 ml/m2 LVLd ap4: 7.5 cm LAV(MOD-sp2): 58.2 ml EDV(MOD-sp4): 64.3 ml LAV(MOD-sp4): 41.1 ml EDV(sp4-el): 66.1 ml LVAs ap4: 11.1 cm2 LVLs ap4: 6.0 cm ESV(MOD-sp4): 17.6 ml ESV(sp4-el): 17.6 ml EF(MOD-sp4): 72.7 % EF(sp4-el): 73.4 % SV(MOD-sp4): 46.8 ml SV(MOD-sp2): 33.4 ml LVAd ap2: 21.9 cm2 LVLd ap2: 7.8 cm EDV(MOD-sp2): 50.7 ml EDV(sp2-el): 52.3 ml LVAs ap2: 10.9 cm2 LVLs ap2: 6.2 cm ESV(MOD-sp2): 17.4 ml ESV(sp2-el): 16.2 ml EF(MOD-sp2): 65.8 % SV(sp4-el): 48.5 ml LA A4 area: 16.5 cm2 LA dimension(2D): 4.4 cm TAPSE: 2.2 cm RA A4 area: 11.3 cm2 Time Measurements MV dec time: 0.29 sec Doppler Measurements Calculations MV E max tom: 77.9 cm/sec Lat Peak E' Tom: 8.9 cm/sec Med Peak E' Tom: 7.7 cm/sec MV A max tom: 99.5 cm/sec E/E' lat: 8.8 E/E' med: 10.1 MV E/A: 0.78 MV dec slope: 268.3 cm/sec2 Ao V2 max: 242.4 cm/sec LV V1 max: 122.8 cm/sec Ao max P.5 mmHg LV V1 max P.0 mmHg Ao V2 mean: 175.3 cm/sec LV V1 mean P.3 mmHg Ao mean P.8 mmHg LV V1 mean: 87.0 cm/sec Ao V2 VTI: 58.4 cm LV V1 VTI: 26.2 cm AV (velocity ratio): 0.45 CARMEN(I,D): 1.2 cm2 CARMEN(V,D): 1.4 cm2 SV(LVOT): 71.0 ml PA V2 max: 117.9 cm/sec PA max PG (full): 2.6 mmHg ECHO/Echo Complete Interpretation Summary Normal LV size. Left ventricular systolic function is normal. The estimated ejection fraction is 70 %. Stage 1 diastolic dysfunction. Mean aortic valve gradient 14 mmHg. Mild aortic stenosis. Ordering Physician: Lorraine Kern Referring Physician: MD Vane Cassidy Performed By: Vero Mobley RDCS 04/16/241651 Date John Patterson MD CC: Dr. Vane Cassidy MD; HECTOR Cano Date Dictated: 04/16/24 1252 Date Transcribed: 04/16/241651 Consulting Networking Engineer: Signed [facility] 36on 07-20-2023 36 Verbally discussed w / Eugenia Campbell CNP, I cancelled next weeks OV. Pt will follow up in [place] for 30 D post TAVR OV and echo. I spoke w/ Stewart at [facility], pt has 30 D post TAVR OV w/ EKG scheduled for 08/29/23, she will get echo ordered after next week OV. I spoke w/ pt, aware of appts, will mail [facility] when time is closer to Aug 29 visit. Normal [facility] 36 Stewart called from [facility] to Let Elaine know that she scheduled this patient for her 1 week TAVR f/up 07/26/23 at 2:30p Normal [facility] BASIC METABOLIC PANELon 09-0 Anion gap [Moles/Vol] 10 mmol/L Normal 3-13 [facility] Comment on above: Performed By: #### L AB15 ####Group Leader: HERIBERTO ALICEA ([phone])[facility])[address] [place] [address] Calcium [Mass/Vol] 8.5 mg/dL Normal 8.4-10.4 [facility] Comment on above: Performed By: #### L AB15 ####Group Leader: HERIBERTO ALICEA ([id number])[facility])[address] [place] [address] Chloride [Moles/Vol] 103 mmol/L Normal 98-107 [facility] Comment on above: Performed By: #### L AB15 ####Group Leader: HERIBERTO ALICEA ([id number])[facility])[address] [place] [address] CO2 [Moles/Vol] 24 mmol/L Normal 22-30 [facility] Comment on above: Performed By: #### L AB15 ####Group Leader: HERIBERTO ALICEA ([id number])[facility] ([facility])[address] [place] [address] Creatinine [Mass/Vol] 0.52 mg/dL Normal 0.52-1.04 [facility] Comment on above: Performed By: #### L AB15 ####Group Leader: HERIBERTO ALICEA ([id number])[facility] ([facility])[address] [place] [address] [place] GLOMERULAR FILTRATION RATE ML/MIN/1.73 SQ M.PREDICTED >90.0 Normal >60.0 [facility] Comment on above: Result Comment: Calc ulation based on the Chronic Kidney Disease Epidemiology Collaboration (CKD-EPI) equation refit without adjustment for race Performed By: #### L AB15 ####Group Leader: HERIBERTO ALICEA ([id number])[facility] ([facility])[address] [place] [address] Glucose [Mass/Vol] 172 mg/dL High 70-100 [facility] Comment on above: Performed By: #### L AB15 ####Group Leader: HERIBERTO ALICEA ([id number])[facility] ([facility])[address] [place] [address] Potassium [Moles/Vol] 3.8 mmol/L Normal 3.5-5.1 [facility] Comment on above: Performed By: #### L AB15 ####Group Leader: HERIBERTO ALICEA ([id number])[facility])[address] [place] [address] Sodium [Moles/Vol] 138 mmol/L Normal 135-145 [facility] Comment on above: Performed By: #### L AB15 ####Group Leader: HERIBERTO ALICEA ([id number])[facility])[address] [place] [address] Urea nitrogen [Mass/Vol] 17 mg/dL Normal 7-17 [facility] Comment on above: Performed By: #### L AB15 ####Group Leader: HERIBERTO ALICEA ([id number])[facility] ([facility])[address] [place] [address] Basic metabolic 1998 panelon 07-20-2023 Anion gap [Moles/Vol] 10 mmol/L 3 - 13 mmol/L [facility] Calcium [Mass/Vol] 8.5 mg/dL 8.4 - 10. 4 mg/dL [facility] Chloride [Moles/Vol] 103 mmol/L 98 - 10 7 mmol/L [facility] CO2 [Moles/Vol] 24 mmol/L 22 - 30 mmol/L [facility] Creatinine [Mass/Vol] 0.52 mg/dL 0.52 - 1.04 mg/dL [facility] GFR/1.73 sq M.predicted MDRD (S/P/Bld) [Vol rate/Area] - PINF [facility] Comment on above: Calculation based on the Chronic Kidney Disease Epidemiology Collaboration (CKD-EPI) equation refit without adjustment for race Glucose [Mass/Vol] 172 mg/dL High 70 - 100 mg/dL [facility] Interpretation and review of laboratory results Abnormal [facility] Potassium [Moles/Vol] 3.8 mmol/L 3.5 - 5.1 mmol/L [facility] Sodium [Moles/Vol] 138 mmol/L 135 - 145 mmol/L [facility] Urea nitrogen [Mass/Vol] 17 mg/dL 7 - 17 mg/d L [facility] CBC (HEMOGRAM)on 07-20-2023 Erythrocyte distribution width (RBC) [Ratio] 13.7 % Normal 11.5-14.5 [facility] Comment on above: Performed By: #### L [id number] #### Group Leader: HERIBERTO ALICEA ([id number]) [facility]) [address] [place] [address] ERYTHROCYTE MEAN CORPUSCULAR HEMOGLOBIN CONCENTRATION (G/DL) BY AUTOMATED 33.4 % Normal 32.0-36.0 [facility] Comment on above: Performed By: #### L [id number] #### Group Leader: HERIBERTO ALICEA ([id number]) [facility]) [address] [place] [address] Hematocrit (Bld) [Volume fraction] 35.1 % Normal 35.0-47.0 [facility] Comment on above: Performed By: #### L [id number] #### Group Leader: HERIBERTO ALICEA ([id number]) [facility]) [address] [place] [address] Hemoglobin (Bld) [Mass/Vol] 11.7 g/dL Normal 11.7-16.0 [facility] Comment on above: Performed By: #### L [id number] #### Group Leader: HERIBERTO ALICEA ([id number]) [facility] ([facility]) [address] [place] [address] MCH (RBC) [Entitic mass] 27.8 pg Normal 26.0-34.0 [facility] Comment on above: Performed By: #### L [id number] #### Group Leader: HERIBERTO ALICEA ([id number]) [facility]) [address] [place] [address] MCV (RBC) [Entitic vol] 83.2 fL Normal 80.0-98.0 [facility] Comment on above: Performed By: #### L [id number] #### Group Leader: HERIBERTO ALICEA ([id number]) [facility] [address] [place] [address] Platelet mean volume (Bld) [Entitic vol] 7.6 fL Normal 7.4-12.4 [facility] Comment on above: Performed By: #### L [id number] #### Group Leader: HERIBERTO ALICEA ([id number]) [facility] ([facility]) [address] [place] [address] PLATELETS (10*3/UL) IN BLOOD AUTOMATED COUNT 272 10*3/uL Normal 140-440 [facility] Comment on above: Performed By: #### L [id number] #### Group Leader: HERIBERTO ALICEA ([id number]) [facility] ([facility]) [address] [place] [address] RBC (Bld) [#/Vol] 4.22 10*6/uL Normal 3.8-5.20 [facility] Comment on above: Performed By: #### L [id number] #### Group Leader: HERIBERTO ALICEA ([id number]) [facility] ([facility]) [address] [place] [address] WBC (Bld) [#/Vol] 7.5 10*3/uL Normal 3.6-10.7 [facility] Comment on above: Performed By: #### L [id number] #### Group Leader: HERIBERTO ALICEA ([id number]) [facility] ([facility]) [address] [place] [address] CBC panel Auto (Bld)on 07-20 Erythrocyte distribution width (RBC) [Ratio] 13.7 % 11.5 - 14.5 % [facility] Hematocrit (Bld) [Volume fraction] 35.1 % 35.0 - 47.0 % [facility] Hemoglobin (Bld) [Mass/Vol] 11.7 g/dL 11.7 - 16.0 g/dL [facility] Interpretation and review of laboratory results Normal [facility] MCH (RBC) [Entitic mass] 27.8 pg 26. 0 - 34.0 pg [facility] MCHC (RBC) [Mass/Vol] 33.4 % 32.0 - 36.0 % [facility] MCV (RBC) [Entitic vol] 83.2 fL 80.0 - 98.0 fL [facility] Platelet mean volume (Bld) [Entitic vol] 7.6 fL 7.4 - 12.4 fL [facility] Platelets (Bld) [#/Vol] 272 10*3/uL 140 - 440 10*3/uL [facility] RBC (Bld) [#/Vol] 4.22 10*6/uL 3.8 - 5.20 10*6/uL [facility] WBC (Bld) [#/Vol] 7.5 10*3/uL 3.6 - 10.7 10*3/uL [facility] ECG 12-LEADon 07-20-2023 ECG 12-LEAD IMPRESSION: Sinus rhythm Prolonged HI interval Low voltage, precordial leads 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 Anterior Q waves, possibly due to LVH Electronically Signed On 07-20-2023 9:37:30 EDT by Skyla Flakito [facility] ECG 12-LEAD IMPRESSION: Sinus rhythm Prolonged HI interval Low voltage, precordial leads 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 Anterior Q waves, possibly due to LVH Electronically Signed On 07-20-2023 9:28:13 EDT by Skyla Flakito [facility] No Panel InformationOrdered By: Skyla Fraga on 07-20-2023 P Hadley 8 degrees [facility] [employer] Work Phone: HI Interval 270 ms [facility] Work Phone: QRS Hadley -33 degrees [facility] [employer] Work Phone: QRSD Interval 82 ms [facility] Work Phone: QT Interval 426 ms [facility] Work Phone: QTC Interval 424 ms [facility] Work Phone: T Wave Hadley 120 degrees [facility] Work Phone: [facility] Work Phone: No Panel Informationon 07-20 Sinus rhythm Prolonged HI interval Low voltage, precordial leads 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 Anterior Q waves, possibly due to LVH Electronically Signed On 07-20-2023 9:37:30 EDT by Skyla Mcginnis MD - 07/20/2023 IMPRESSION: Sinus rhythm Prolonged HI interval Low voltage, precordial leads 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 Anterior Q waves, possibly due to LVH Electronically Signed On 07-20-2023 9:37:30 EDT by Skyla Fraga [facility] P Hadley 28 degrees [facility] HI Interval 233 ms [facility] QRS Hadley -26 degrees [facility] QRSD Interval 82 ms [facility] QT Interval 391 ms [facility] QTC Interval 413 ms [facility] T Wave [place]ley 127 degrees [facility] Sinus rhythm Prolonged HI interval Low voltage, precordial leads 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 Anterior Q waves, possibly due to LVH Electronically Signed On 07-20-2023 9:28:13 EDT by Skyla Mcginnis MD - 07/20/2023 IMPRESSION: Sinus rhythm Prolonged HI interval Low voltage, precordial leads 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 Anterior Q waves, possibly due to LVH Electronically Signed On 07-20-2023 9:28:13 EDT by Skyla Fraga [facility] Vital signsOrdered By: Skyla Fraga on 07-20-2023 Heart rate 60 /min bpm [facility] [employer] Work Phone: Vital signson 07-20-2023 Heart rate 67 /min bpm [facility] [employer] Basic metabolic 1998 panelon 07-19-2023 Anion gap [Moles/Vol] 9 mmol/L 3 - 13 mmol/L [facility] Calcium [Mass/Vol] 8.5 mg/dL 8.4 - 10. 4 mg/dL [facility] Chloride [Moles/Vol] 102 mmol/L 98 - 10 7 mmol/L [facility] CO2 [Moles/Vol] 26 mmol/L 22 - 30 mmol/L [facility] Creatinine [Mass/Vol] 0.46 mg/dL Low 0.52 - 1.04 mg/dL [facility] GFR/1.73 sq M.predicted MDRD (S/P/Bld) [Vol rate/Area] - PINF [facility] Comment on above: Calculation based on the Chronic Kidney Disease Epidemiology Collaboration (CKD-EPI) equation refit without adjustment for race Glucose [Mass/Vol] 205 mg/dL High 70 - 100 mg/dL [facility] Interpretation and review of laboratory results Abnormal [facility] Potassium [Moles/Vol] 3.9 mmol/L 3.5 - 5.1 mmol/L [facility] Sodium [Moles/Vol] 137 mmol/L 135 - 145 mmol/L [facility] Urea nitrogen [Mass/Vol] 16 mg/dL 7 - 17 mg/d L [facility] CBC panel Auto (Bld)Ordered By: Osmin De La Fuente on 07-19-2023 Erythrocyte distribution width (RBC) [Ratio] 13.7 % 11.5 - 14.5 % [facility] Hematocrit (Bld) [Volume fraction] 32.4 % Low 35.0 - 47.0 % [facility] Hemoglobin (Bld) [Mass/Vol] 10.7 g/dL Low 11.7 - 16.0 g/dL [facility] Interpretation and review of laboratory results Abnormal [facility] MCH (RBC) [Entitic mass] 27.6 pg 26. 0 - 34.0 pg [facility] MCHC (RBC) [Mass/Vol] 33.2 % 32.0 - 36.0 % [facility] MCV (RBC) [Entitic vol] 83.2 fL 80.0 - 98.0 fL [facility] Platelet mean volume (Bld) [Entitic vol] 7.6 fL 7.4 - 12.4 fL [facility] Platelets (Bld) [#/Vol] 260 10*3/uL 140 - 440 10*3/uL [facility] RBC (Bld) [#/Vol] 3.89 10*6/uL 3.8 - 5.20 10*6/uL [facility] WBC (Bld) [#/Vol] 6.0 10*3/uL 3.6 - 10.7 10*3/uL [facility] Cardiac catheterization stud yon 07-19-2023 TAVR Procedural Repo rt Interventional Cardiologists: -Maximus Campbell MD -Reagan Mc MD (Fellow) Cardiothoracic Surgeon: -Cem Harrell MD Procedure: 1. A 23 KARINA S3 ULTRA VALVE IMPLANTATION. 2. TRANSFEMORAL TRANSCATHETER AORTIC VALVE REPLACEMENT. Preoperative Diagnosis: Severe and symptomatic aortic stenosis. Postoperative Diagnosis: Severe aortic stenosis. Anesthesia: Conscious Sedation History of Present Illness: This is a very pleasant 83 y.o. female with a history of severe and symptomatic aortic stenosis. her case was discussed in our multidisciplinary valve conference and was felt to be of appropriate candidacy for TAVR. The pros, cons, risks, benefits, and alternatives of transcatheter aortic valve replacement were reviewed with the patient, and questions were answered, she provided informed consent and wished to proceed with the procedure. Description of Procedure: The patient was brought to the operating suite by anesthesia. The patient was placed under conscious sedation. The patient was then cleaned, prepped and draped in the normal sterile manner. Access was then gained in the right femoral artery, right radial artery, and right femoral vein. Via the right femoral vein, a 6 Finnish sheath was placed and temporary pacing wire was placed into the RV apex with appropriate capture, in addition sterile tubing was attached and given the anesthesia for central access. Via the right radial artery, a 6-Finnish sheath was placed and the pigtail catheter was placed into the aortic annulus with confirmation the implant angle. Via the right femoral femoral artery, a 6-Finnish sheath was placed. The patient was then heparinized. Next, two Perclose devices were used using the pre-close strategy. An Amplatz Super Stiff wire was then placed through the second Perclose into the descending aorta. Then, a 14 Fr-Finnish Karina E-sheath was introduced over the wire into the descending aorta. The sheath was then flushed. Next, an AL1 catheter and a straight wire were used to cross the aortic valve through the e- sheath. The straight wire was then removed and an Amplatz extra stiff wire (formed into a curve) was placed into the LV apex. Next, the AL1 catheter was removed. Next a 23 mm Karina S3 Ultra valve was then advanced through the sheath into the descending aorta.The valve was then mounted on the balloon, the delivery catheter was flexed and advanced around the aortic arch and across the aortic annulus. The valve was then deployed (nominal + 1 ml) under rapid pacing. Confirmation of an appropriate implant position and appropriately functioning valve was done using TTE. Next, the delivery catheter, extra stiff wire, and large sheath were removed and the Perclose devices were used for hemostasis. A radial Vasc band was used for hemostasis of the additional right radial arterial site. Manual pressure was used for hemostasis of the femoral venous access site. Overall, the patient tolerated the procedure well with minimal blood loss. No immediate complications. The patient will return to the Cardiac Care unit for continued monitoring. It was a pleasure taking care of your patient while hospitalized at [facility]. I will continue to follow along while hospitalized. Please do not hesitate to call with any questions. Cath Recommendations Patient management should include: Aggressive risk factor modification, optimal medical management and follow-up for further management of valve disease. [facility] [employer] Cardiac catheterization stud yOrdered By: Maximus Campbell on 07-19-2023 [facility] Work Phone: Op Noteon 07-19-2023 Op Note 07/19/2023 date of surgery Cardiothoracic surgeon: Cem Harrell MD [facility] Dock Manager: Maximus Campbell MD Preoperative diagnosis severe, symptomatic aortic valve stenosis Postoperative diagnosis the same Procedure: Transcatheter aortic valve replacement 23 mm KARINA S3 ultra valve Complications: None Anesthesia: Local with conscious sedation Indications for procedure: The patient is an 83-year-old female with a history of severe, symptomatic aortic valve stenosis. The case was reviewed in the valve clinic in the valve conference and the patient was deemed a candidate for TAVR. Procedure detail: The patient was placed supine on the operating room table. The patient was prepped and draped in usual sterile fashion. Vascular access was gained in the right femoral artery, right radial artery and right femoral vein. A 6 Finnish sheath was placed in the right femoral vein through which the temporary pacing wire was advanced to the right ventricle. This access site was also used for central venous access. A 6 Finnish sheath was placed in the right radial artery through which the pigtail catheter was advanced to the aortic annulus for confirmation of the implant angle. The right femoral artery was used to place a 6 Finnish sheath and Perclose devices were placed at this site. The 14 Finnish sapient E sheath was introduced into the descending thoracic aorta the patient had been heparinized. The valve was introduced into the sheath and mounted on the balloon and the descending thoracic aorta the valve was then passed across the arch and the aortic annulus under rapid pacing the valve was deployed the valve was noted to seat well and functioning normally on transthoracic echocardiography and fluoroscopy. Protamine was then given to reverse the systemic effects of heparin and the patient was decannulated and transferred stable to the recovery room. Normal [facility] US Heart TransthoracicOrdere d By: Sade Berger on 07-19-2023 Ascending Aorta 3.3 cm [facility] Work Phone: [phone] Ascending Aorta Index 1.88 cm/m2 [facility] [employer] Work Phone: [phone] AV Area by Peak Velocity 1.2 cm2 [facility] Work Phone: [phone] AV Area by VTI 1.3 cm2 [facility] Work Phone: [phone] AV Mean Gradient 16 mmHg [facility] Work Phone: [phone] AV Mean Velocity 1.9 m/s [facility] Work Phone: [phone] AV Peak Gradient 28 mmHg [facility] Work Phone: [phone] AV Peak Velocity 2.6 m/s [facility] Work Phone: [phone] AV Velocity Ratio 0.42 [facility] Work Phone: [phone] AV VTI 63.8 cm [facility] Work Phone: CARMEN/BSA Peak Velocity 0.7 cm2/m2 [facility] [employer] Work Phone: [phone] CARMEN/BSA VTI 0.7 cm2/m2 [facility] Work Phone: E/E' Lateral 11.83 [facility] Work Phone: E/E' Ratio (Averaged) 13.02 [facility] [employer] Work Phone: E/E' Septal 14.20 [facility] [employer] Phone: EF BP 69 % 55 - 100 % [facility] [employer] Work Phone: Fractional Shortening 2D 36 % 28 - 44 % [facility] [employer] Phone: Interpretation and review of laboratory results Abnormal [facility] [employer] Phone: IVSd 1.4 cm Abnormal 0.6 - 0.9 cm [facility] Work Phone: [phone] LA Volume 2C 49 mL 22 - 52 mL [facility] Work Phone: LA Volume 4C 50 mL 22 - 52 mL [facility] Work Phone: LA Volume A/L 53 mL [facility] Work Phone: LA Volume Index 2C 28 mL/m2 16 - 34 mL/m2 [facility] Work Phone: LA Volume Index 4C 28 mL/m2 16 - 34 mL/m2 [facility] Work Phone: [phone] LA Volume Index A/L 30 mL/m2 16 - 34 mL/m2 [facility] Work Phone: LV E' Lateral Velocity 6 cm/s [facility] Work Phone: LV E' Septal Velocity 5 cm/s [facility] Work Phone: LV EDV A2C 73 mL [facility] Work Phone: LV EDV A4C 107 mL [facility] Work Phone: LV EDV BP 92 mL 56 - 104 mL [facility] Work Phone: LV EDV Index A2C 41 mL/m2 [facility] Work Phone: LV EDV Index A4C 61 mL/m2 [facility] Work Phone: LV EDV Index BP 52 mL/m2 [facility] Work Phone: LV Ejection Fraction A2C 71 % [facility] Work Phone: LV Ejection Fraction A4C 71 % [facility] Work Phone: LV ESV A2C 21 mL [facility] Work Phone: LV ESV A4C 31 mL [facility] Work Phone: LV ESV BP 28 mL 19 - 49 mL [facility] Work Phone: LV ESV Index A2C 12 mL/m2 [facility] Work Phone: LV ESV Index A4C 18 mL/m2 [facility] Work Phone: LV ESV [facility] LV Mass 2D 190.4 g Abnormal 67 - 162 g [facility] Work Phone: LV Mass 2D Index 108.2 g/m2 Abnormal 43 - 95 g/m2 [facility] [employer] Work Phone: LV RWT Ratio 0.67 [facility] Work Phone: LVIDd 3.9 cm 3.9 - 5.3 cm [facility] [employer] Work Phone: LVIDd Index 2.22 cm/m2 [facility] [employer] Work Phone: LVIDs 2.5 cm [facility] [employer] Work Phone: LVIDs Index 1.42 cm/m2 [facility] [employer] Work Phone: LVOT Area 3.1 cm2 [facility] [employer] Work Phone: LVOT Cardiac Output 5.9 liter/minute [facility] [employer] Work Phone: LVOT Diameter 2.0 cm [facility] [employer] Work Phone: LVOT Mean Gradient 3 mmHg [facility] [employer] Work Phone: LVOT Peak Gradient 5 mmHg [facility] [employer] Work Phone: LVOT Peak Velocity 1.1 m/s [facility] [employer] Work Phone: LVOT Stroke Volume Index 47.8 mL/m2 [facility] [employer] Work Phone: LVOT SV 84.2 ml [facility] Work Phone: LVOT VTI 26.8 cm [facility] Work Phone: LVOT:AV VTI Index 0.42 [facility] Work Phone: LVPWd 1.3 cm Abnormal 0.6 - 0.9 cm [facility] [employer] Work Phone: MV A Velocity 0.97 m/s [facility] Work Phone: MV E Velocity 0.71 m/s [facility] Work Phone: MV E Wave Deceleration Time 228.2 ms [facility] Work Phone: MV E/A 0.73 [facility] Work Phone: Pulm Vein Peak D Velocity 0.4 m/s [facility] Work Phone: Pulm Vein Peak S Velocity 0.5 m/s [facility] Work Phone: Pulm Vein S/D 1.3 [facility] Work Phone: PV Max Velocity 0.8 m/s [facility] Work Phone: PV Mean Gradient 1 mmHg [facility] Work Phone: PV Mean Velocity 0.5 m/s [facility] Work Phone: [phone] PV Peak Gradient 2 mmHg [facility] Work Phone: PV VTI 16.5 cm [facility] Work Phone: RV Free Wall Peak S' 10 cm/s [facility] Work Phone: TAPSE 1.6 cm Abnormal 1.7 cm [facility] Work Phone: TR Max Velocity 2.71 m/s [facility] Work Phone: TR Peak Gradient 29 mmHg [facility] Work Phone: [facility] Work Phone: Heart Transthoracicon Left Ventricle: Left ventricle size is normal. Mildly increased wall thickness. Increased ventricular mass. Findings consistent with concentric hypertrophy. Normal left ventricular systolic function. EF by 2D Simpsons Biplane is 69%. Normal wall motion. Elevated left ventricular filling pressure. Average E/e' ratio is 13.02. Right Ventricle: Right ventricle size is normal. Normal systolic function. Aortic Valve: Not well visualized. Lewis Karina 3 [id number] transcatheter bioprosthetic aortic valve with a size of 23 mm. AV mean gradient is 16 mmHg. No cusp thickening. No cusp calcification. No regurgitation. No stenosis. AV peak gradient is 28 mmHg. Highest gradients from the apex. LVOT:AV VTI Index is 0.42. Left Ventricle Left ventricle size is normal. Mildly increased wall thickness. Increased ventricular mass. Findings consistent with concentric hypertrophy. Normal left ventricular systolic function. EF by 2D Simpsons Biplane is 69%. Normal wall motion. Elevated left ventricular filling pressure. Average E/e' ratio is 13.02. Right Ventricle Right ventricle size is normal. Normal systolic function. Left Atrium Left atrium size is normal (LA volume index 16-34 mL/m2). Right Atrium Right atrium size is normal. IVC/SVC IVC diameter is normal and decreases greater than 50% during inspiration; therefore the estimated right atrial pressure is normal (~3 mmHg). Mitral Valve Valve structure is normal. Trace regurgitation. No stenosis noted. Tricuspid Valve Valve structure is normal. Trace regurgitation. Aortic Valve Not well visualized. Lewis Karina 3 [id number] transcatheter bioprosthetic aortic valve with a size of 23 mm. AV mean gradient is 16 mmHg. No cusp thickening. No cusp calcification. No regurgitation. No stenosis. AV peak gradient is 28 mmHg. Highest gradients from the apex. LVOT:AV VTI Index is 0.42. Pulmonic Valve Valve structure is normal. Trace regurgitation. Ascending Aorta Not well visualized. Normal sized sinuses of Valsalva and ascending aorta. Pericardium Evidence of prominent epicardial fat. No pericardial effusion. Septum No interatrial shunt visualized on color Doppler. Pulmonary Artery Pulmonary artery was not well visualized. Study Details Image quality: fair. Heart rate: 60 bpm. Blood pressure: 121/58 mmHg. Cardiac history: prosthetic valve. No contrast was given. CV CPACS Left Ventricle: Left ventricle size is normal. Mildly increased wall thickness. Normal left ventricular systolic function. The EF by visual approximation is 60%. Normal wall motion. Structural Heart Pre Procedure: Severe aortic valve stenosis. P/M gradients 60/36 mm Hg. CARMEN 0.4 cm2. Aortic Valve: Lewis Karina 3 bioprosthetic aortic valve with a size of 23 mm. AV mean gradient is 6 mmHg. Trace regurgitation. AV peak velocity is 1.8 m/s. LVOT:AV VTI Index is 0.64. AV area by continuity VTI is 1.6 cm2. Left Ventricle Left ventricle size is normal. Mildly increased wall thickness. Normal left ventricular systolic function. The EF by visual approximation is 60%. Normal wall motion. Mitral Valve Mild annular calcification. Mild (1+) regurgitation. No stenosis noted. Tricuspid Valve Valve structure is normal. Trace regurgitation. Aortic Valve Lewis Karina 3 bioprosthetic aortic valve with a size of 23 mm. AV mean gradient is 6 mmHg. Trace regurgitation. AV peak velocity is 1.8 m/s. LVOT:AV VTI Index is 0.64. AV area by continuity VTI is 1.6 cm2. Pulmonic Valve The pulmonic valve visualization is suboptimal but appears to be functioning normally. Trace regurgitation. Pericardium No pericardial effusion. Study Details Image quality: fair. Blood pressure: 167/60 mmHg. Technical qualifiers: Technically difficult study due to patient's body habitus. No contrast was given. Structural Heart Pre Procedure Findings Severe aortic valve stenosis. P/M gradients 60/36 mm Hg. CARMEN 0.4 cm2. CV CPACS US Heart TransthoracicOrdere d By: Remy Yee on 07-19-2023 AV Area (Pre-TAVR) 0.4 cm2 [facility] Work Phone: AV Area by Peak Velocity 1.4 cm2 [facility] Work Phone: AV Area by VTI 1.6 cm2 [facility] Work Phone: AV AT 85.63 ms [facility] Work Phone: AV Mean Gradient 6 mmHg [facility] Work Phone: AV Mean Gradient (Pre-TAVR) 36 mmHg [facility] Work Phone: AV Mean Velocity 1.1 m/s [facility] Work Phone: AV Peak Gradient 13 mmHg [facility] Work Phone: AV Peak Gradient (Pre-TAVR) 60 mmHg [facility] Work Phone: AV Peak Velocity 1.8 m/s [facility] Work Phone: AV Peak Velocity (Pre-TAVR) 3.9 m/s [facility] Work Phone: AV Velocity Ratio 0.56 [facility] Work Phone: AV VTI 40.0 cm [facility] Work Phone: [phone] CARMEN/BSA Peak Velocity 0.8 cm2/m2 [facility] Work Phone: CARMEN/BSA VTI 0.9 cm2/m2 [facility] Work Phone: [phone] LVOT Area 2.5 cm2 [facility] Work Phone: [phone] LVOT Cardiac Output 3.4 liter/minute [facility] Work Phone: [phone] LVOT Diameter 1.8 cm [facility] Work Phone: [phone] LVOT Mean Gradient 2 mmHg [facility] Work Phone: [phone] LVOT Peak Gradient 4 mmHg [facility] Work [phone] LVOT Peak Velocity 1.0 m/s [facility] Work Phone: [phone] LVOT Stroke Volume Index 37.0 mL/m2 [facility] Work Phone: [phone] LVOT SV 65.1 ml [facility] Work [phone] LVOT VTI 25.6 cm [facility] Work [phone] LVOT:AV VTI Index 0.64 [facility] Work Phone: [phone] TR Max Velocity 1.52 m/s [facility] Work Phone: [phone] TR Peak Gradient 9 mmHg [facility] Work Phone: [phone] [facility] Work Phone: [phone] 07-13-2023 36 Received TAVR approval, dated 07/13/23-09/12/2023. Auth # [id number] Normal [facility] 36 Already spoke with patient and addressed [facility] 07-12-2023 36 TAVR auth submitted to [employer], pending auth [id number], spoke with Stacia, faxed clinicals to [phone] Normal [facility] Absolute lymphocyte countOrd ered By: ELAINE CAMPBELL on 07-11-2023 Lymphocytes Auto (Unsp spec) [#/Vol] 1.70 10*3/uL 0.83-4.51 [facility] Basophil percentageOrdered B y: ELAINE VANESSA on 07-11-2023 Basophils/100 WBC (Bld) 0.4 % 0-1 [facility] Bilirubin [Mass/Vol] 0.50 mg/dL 0.20-1.00 [facility] Comment on above: For patients on eltr ombopag therapy, use of Dimension [place] TBIL is not recommended. Chloride [Moles/Vol] 106 mmol/L 98-107 [facility] Eosinophils/100 WBC (Bld) 2.3 % 0-5 [facility] Glucose [Mass/Vol] 204 mg/dL 74-106 [facility] Comment on above: Glucose result great er than or equal to 200 mg/dLsuggests DIABETES MELLITUS per A.D.A. criteria. Neutrophils (Bld) [#/Vol] 4.6 10*3/uL 2.0-7.7 [facility] Neutrophils/100 WBC (Bld) 65.1 % 47-70 [facility] Potassium [Moles/Vol] 3.9 mmol/L 3.5-5.1 [facility] Protein [Mass/Vol] 8.1 g/dL 6.4-8.2 [facility] Sodium [Moles/Vol] 139 mmol/L 136-145 [facility] WBC (Bld) [#/Vol] 7.0 10*3/uL 4.4-11.0 [facility] Blood erythrocytes count (nu mber/volume)Ordered By: ELAINE CAMPBELL on 07-11-2023 RBC (Bld) [#/Vol] 4.33 10*6/uL 4.2-5.4 [facility] Blood hemoglobin measurement (mass/volume)Ordered By: ELAINE CAMPBELL on 07-11-2023 Hemoglobin (Bld) [Mass/Vol] 11.9 g/dL 12.0-15.0 [facility] Blood lymphocytes/100 leukoc ytesOrdered By: ELAINE CAMPBELL on 07-11-2023 Lymphocytes/100 WBC (Bld) 24.3 % 19-41 [facility] Blood monocytes/100 leukocyt esOrdered By: ELAINE CAMPBELL on 07-11-2023 Monocytes/100 WBC (Bld) 7.3 % 0-10 [facility] Blood platelet mean volumeOr dered By: ELAINE CAMPBELL on 07-11-2023 Platelet mean volume (Bld) [Entitic vol] 9.7 fL 6.2-12.0 [facility] Determination of erythrocyte mean corpuscular volume (MCV)Ordered By: ELAINE CAMPBELL on 07-11-2023 MCV (RBC) [Entitic vol] 86.8 fL 81-99 [facility] Hematocrit Auto (Bld) [Volum e fraction]Ordered By: ELAINEJED CAMPBELL on 07-11-2023 Hematocrit (Bld) [Volume fraction] 37.6 % 37-47 [facility] Laboratory - Chemistry and C hemistry - challengeOrdered By: ELAINEJED CAMPBELL on 07-11-2023 ALP [Catalytic activity/Vol] 103 U/L 45-117 [facility] ALT [Catalytic activity/Vol] 16 U/L 13-56 [facility] CO2 [Moles/Vol] 30.0 mmol/L 21.0-32.0 [facility] Globulin (S) [Mass/Vol] 4.9 g/dL 2.2-4.2 [facility] Natriuretic peptide B (Bld) [Mass/Vol] 35.9 pg/mL 0-100 [facility] Urea nitrogen/Creatinine [Mass ratio] 23.5 mg/mg 10-20 [facility] Laboratory - Hematology and Cell countsOrdered By: ELAINEJED CAMPBELL on 07-11-2023 Erythrocyte distribution width (RBC) [Entitic vol] 40.5 fL 35.1-43.9 [facility] Erythrocyte distribution width (RBC) [Ratio] 12.9 % 11.6-14.6 [facility] Immature granulocytes/100 WBC (Bld) 0.600 % 0.0-0.9 [facility] Comment on above: IG% - Immature Granu locytes (promyelocytes, myelocytes and metamyelocytes) > 1% indicates that a LEFT SHIFT is Present. MCH (RBC) [Entitic mass] 27.5 pg 27.0-32.0 [facility] Nucleated RBC/100 WBC (Bld) [Ratio] 0 % 0-5 [facility] Auto (RBC) [Mass/Vol]Or dered By: ELAINE CAMPBELL on 07-11-2023 MCHC (RBC) [Mass/Vol] 31.6 g/dL 32-36 [facility] No Panel InformationOrdered By: ELAINE CAMPBELL on 07-11-2023 Estimated GFR (MDRD) Amer 123 mL/min >60 [facility] Comment on above: GFR Calc Estimated GFR (MDRD) Non-Af Amer 102 mL/min >60 [facility] Comment on above: Non- GFR Calc Platelets bldOrdered By: LATIA CAMPBELL on 07-11-2023 Platelets (Bld) [#/Vol] 321 10*3/uL 150-450 [facility] Serum or plasma albumin ham urement (mass/volume)Ordered By: ELAINE CAMPBELL on 07-11-2023 Albumin [Mass/Vol] 3.2 g/dL 3.2-5.0 [facility] Serum or plasma albumin/glob ulin mass ratioOrdered By: ELAINE CAMPBELL on 07-11-2023 Albumin/Globulin [Mass ratio] 0.7 {ratio} 0.9-2.4 [facility] Serum or plasma calcium ham urement (mass/volume)Ordered By: ELAINE CAMPBELL on 07-11-2023 Calcium [Mass/Vol] 9.2 mg/dL 8.5-10.1 [facility] Serum or plasma creatinine m easurement (mass/volume)Ordered By: ELAINE CAMPBELL on 07-11-2023 Creatinine [Mass/Vol] 0.60 mg/dL 0.55-1.02 [facility] Comment on above: The validity of the calculated GFR & GFRAA in patients over 70 years has not been determined. Clinical correlation is essential. Serum or plasma urea nitroge n measurement (mass/volume)Ordered By: ELAINE CAMPBELL on 07-11-2023 Urea nitrogen [Mass/Vol] 14 mg/dL 7-18 [facility] Thin prep Papanicolaou smear with manual screeningOrdered By: ELAINE CAMPBELL on 07-11-2023 Thin prep Papanicolaou smear with manual screening 9 U/L 15-37 [facility] Thin prep Papanicolaou smear with manual screening 3 5-15 [facility] 36on 07-10-2023 36 Orders faxed to new fax # patient provided. [phone] Normal [facility] 36 Patient will go to [facility] at [address] tomorrow to have CXR, BNP, CMP and CBC done. Ronald Vance to fax orders Normal [facility] 36on 07-05-2023 36 Surgery scheduling notified to move up TAVR start time on 07/19/23 to 8:45 AM. Patient notified, via phone, verbalizes understanding. Normal [facility] 36 Spoke with patient a nd will have CMP, BNP and CBC done at [facility] and CXR. Mailed orders to address on file and spoke with patient to notify office if orders don't arrive in the next few days. Patient verbalized understanding. Normal [facility] CT ANGIOGRAM TAVRon 07-05-20 CT ANGIOGRAM TAVR [facility] 1940 [id number] Exam Date/Time: 06/30/2023 09:54 Procedure: CT ANGIOGRAM TAVR Ordering Provider: CAMPBELL MEGGAN Reason For Exam: AORTIC VALVE STENOSIS [facility] Valve [facility] Cardiovascular CTA CLINICAL INDICATION: 83-year-old female with severe aortic stenosis, being evaluated for transcatheter aortic valve implantation. Computed tomography of the heart, thoracoabdominal aorta, and iliofemoral system was performed using a [employer] Aquilion One 320 detector scanner. Images were reconstructed and analyzed on an advanced post-processing 3D workstation. Dose reduction was employed with automated exposure control. Contrast: 100 mL Isovue-370 Total DLP: 765 mGy-cm Study Quality: Good Extracardiac Findings: No focal consolidation is seen within the lungs. There is no pleural effusion or pneumothorax. There is a 5 mm irregular nodule within the right upper lobe on axial image 58 of 758. There is a few additional tiny noncalcified nodules within the right lung base measuring up to 4 mm. No lymphadenopathy is seen within the chest. There are multiple hypodense nodules within the thyroid gland, measuring up to 13 mm. The gallbladder has been removed. The liver, spleen, pancreas, adrenal glands, and kidneys appear within normal limits. There is no lymphadenopathy within the abdomen or pelvis. The urinary bladder appears grossly normal. The uterus has been removed. Diverticulosis of the distal colon is noted. Large and small bowel loops do not appear abnormally dilated or thickened. There is no free fluid or free air within the abdomen or pelvis. No lytic or blastic lesions are seen on the bone windows. Cardiac Chambers: The pericardium is unremarkable. The left and right ventricles are normal in size. Mild concentric hypertrophy of the left ventricle is noted. The left atrium is mildly dilated. The left atrial appendage is normal in appearance. The right atrium is normal in size. Coronary Arteries: The coronaries have normal origins. There is a pattern of right coronary dominance. There is evidence of coronary atherosclerosis. The present study was not optimized for evaluation of the coronary arteries. Mitral Valve: The mitral annulus has no appreciable calcification. The anterior mitral leaflet is free of the LVOT during systole. Aortic Valve: The aortic valve is tricuspid and moderately calcified. Aortic valve area by planimetry at 35% R-R Interval: 1.2 cm2 Predicted deployment angle (3-cusp view): AMILCAR 3, CAU 3 Aortic Annulus: Dimensions: 2.5 x 2.0 cm Area: 4.0 cm2 Perimeter: 72 mm Left coronary height: 10 mm Right coronary height: 15 mm Aorta and Iliofemoral System Note: All vascular measurements are minimal luminal diameters using a centerline technique. Aortic Root and Thoracic Aorta: Sinuses: 3.0 x 2.9 cm Sinotubular junction: 2.7 x 2.5 cm Mid ascending Aorta: 3.3 x 3.1 cm Abdominal Aorta: Infrarenal: 13 mm Bifurcation: 12 mm Right Iliac System: Calcification: None. Tortuosity: Mild. RCIA: 8 mm REIA: 7 mm RCFA: 7 mm Left Iliac System: Calcification: None. Tortuosity: Mild. LCIA: 8 mm SHAINA: 8 mm LCFA: 8 mm IMPRESSION: Aortic stenosis, with descriptive anatomy and annular / aortic root measurements as detailed above. Iliofemoral system as detailed above. There are several noncalcified nodules within the right lung measuring up to 5 mm. No prior examinations are available for comparison. Please see [facility] Society guidelines below for follow-up recommendations. 2017 - UPDATED [employer] GUIDELINES FOR MANAGEMENT OF SMALL PULMONARY NODULES DETECTED ON CT Note: Recommendations do not apply for lung cancer screening, patients with immunosuppression or with known cancer. Dimensions are average of long and short axis rounded to the millimeter MULTIPLE NODULES: LOW RISK PATIENT (Use most suspicious nodule to manage guidelines) All <6mm - No routine follow up MULTIPLE NODULES: HIGH RISK PATIENT (Use most suspicious nodule to manage guidelines) All <6mm - Optional CT at 12 months Report Dictated on Electronically Signed By: Aman Ariza MD Electronically Signed Date/Time: 07/05/2023 12:46 PM EDT [facility] ABO and Rh group Confirm Nom (Bld)on 06-30-2023 ABO group Nom (Bld) [place] [facility] D Ag Ql (RBC) Positive [facility] Blood type and Crossmatch pa belgica (Bld)on 06-30-2023 ABO group Nom (Bld) O [facility] [employer] Blood group antibody screen GEL Ql Negative [facility] D Ag Ql (RBC) Positive [facility] [employer] Office Visiton 06-30-2023 Follow-up visit [id number] Melyssa Zamora 1940 F Date Provider Department Center 06/30/2023 [id number] HARRELL [facility] EDUARDO [facility] [address] No family history on file Level of Service:05032 HI OFFICE/OP CONSLTJ NEW/EST PT HIGH MDM 55 MINUTES Reason for Visit and Comments: Cardiac Valve Problem [1334] - Heart Valve Clinic [facility] Follow-up visit [id number] Melyssa Zamora 1940 F Date Provider Department Center 06/30/2023 [id number] CAMPBELL [facility] EDUARDO [facility] [address] No family history on file Level of Service:90134 HI OFFICE/OUTPATIENT NEW HIGH MDM 60-74 MINUTES Reason for Visit and Comments: Cardiac Valve Problem [1334] - Heart Valve Clinic [facility] Progress Noteon 06-30-2023 Progress Note [facility]: Cardiothoracic Surgery Multidisciplinary Heart Valve Clinic Date: 06/30/23 Patient:Nidhi Zamora 1940 83 y.o. female [id number] Subjective: HPI: Nidhi Zamora [address] Patterson is being evaluated for aortic valve stenosis. Echocardiogram completed on 05/12/2023 showed severe aortic valve stenosis with peak/mean gradients 71/42 mm Hg, DI 0.17, CARMEN 0.38 cm^2. c/o fatigue and mild sob. Denies chest pain, leg swelling, syncope. Per note, pt with history of hypertension. She presented to the ED in April 2023 with dizziness, headache, nausea, and vomiting. On exam, pt was noted to have a 2/6 crescendo decrescendo murmur. As part of her work up she underwent a CT scan of the head and neck which was unremarkable. EKG demonstrated NSR. Pt went for follow up with her PCP and was noted to have a 3/6 murmur. An echocardiogram was ordered and performed which demonstrated normal left ventricular size and function, left atrium was mildly dilated, there was mild mitral calcification present, aortic valve was severely stenotic. Medical History Past Medical History: Diagnosis Date Heart valve disease Hypertension Blood thinner - none Transthoracic Echocardiogram 05/12/2023 Heart Catheterization 06/06/2023 Review of Systems Constitutional: Positive for fatigue. Negative for activity change, chills, diaphoresis and fever. HENT: Negative for nosebleeds and trouble swallowing. Eyes: Negative for discharge and visual disturbance. Respiratory: Negative for apnea, cough, chest tightness, shortness of breath and wheezing. Cardiovascular: Negative for chest pain, palpitations and leg swelling. Gastrointestinal: Negative for abdominal distention, abdominal pain, blood in stool, diarrhea, nausea and vomiting. Endocrine: Negative for cold intolerance and heat intolerance. Genitourinary: Negative for hematuria. Musculoskeletal: Negative for gait problem and myalgias. Skin: Negative for color change and rash. Neurological: Negative for dizziness, seizures, syncope, facial asymmetry, speech difficulty, weakness, light-headedness, numbness and headaches. Hematological: Does not bruise/bleed easily. Psychiatric/Behavioral : Negative for dysphoric mood. Allergies: Patient has no known allergies. Past Medical History: has a past medical history of Heart valve disease and Hypertension. Past Surgical History: has a past surgical history that includes Cholecystectomy; Hysterectomy; and Tonsillectomy. Social History: reports that she has never smoked. She has never used smokeless tobacco. She reports that she does not currently use alcohol. She reports that she does not use drugs. Family History: family history is not on file. Medications: Prior to Admission medications Medication Sig Start Date End Date Taking? Authorizing Provider amLODIPine (Norvasc) 10 MG tablet Take 10 mg by mouth daily. 06/01/23 Historical Provider, Objective: There were no vitals taken for this visit. @[email or web address]@ Physical Exam Constitutional: General: She is not in acute distress. Appearance: Normal appearance. HENT: Head: Normocephalic and atraumatic. Right Ear: External ear normal. Left Ear: External ear normal. Nose: Nose normal. Mouth/Throat: Lips: [place]. Dentition: Normal dentition. Tongue: No lesions. Tongue does not deviate from midline. Eyes: General: Lids are normal. Conjunctiva/sclera: Conjunctivae normal. Neck: Thyroid: No thyroid mass or thyromegaly. Trachea: Trachea normal. Cardiovascular: Rate and Rhythm: Normal rate and regular rhythm. Pulses: No decreased pulses. Heart sounds: Heart sounds not distant. Murmur heard. No friction rub. Pulmonary: Effort: Pulmonary effort is normal. No accessory muscle usage. Breath sounds: Normal breath sounds and air entry. No stridor or decreased air movement. Abdominal: General: Bowel sounds are normal. Palpations: There is no mass. Tenderness: There is no abdominal tenderness. Hernia: No hernia is present. Musculoskeletal: Cervical back: Full passive range of motion without pain. No rigidity or crepitus. No pain with movement. Right lower leg: No edema. Left lower leg: No edema. Skin: General: Skin is warm. Capillary Refill: Capillary refill takes less than 2 seconds. Findings: No lesion, rash or wound. Comments: Color normal for ethnicity Neurological: Mental Status: She is alert. Psychiatric: Attention and Perception: Attention normal. Mood and Affect: Mood and affect normal. Behavior: Behavior is cooperative. Cognition and Memory: She does not exhibit impaired recent memory or impaired remote memory. Judgment: Judgment normal. Labs: Reviewed in EMR No results found for: WBC, HGB, HCT, MCV, PLT No results found for: NA, K, CL, CO2, BUN, CREATININE, GLUCOSE, CALCIUM Diagnostics: Reviewed in EMR Assessment/Plan: Severe, symptomatic aortic valve patricia (more content not included)... Normal [facility] Progress Note [facility] CARDIOLOG[facility] [address] [facility] [id number] Dept: [phone] Dept Loc: [phone] Interventional Cardiology Office Note Visit type: New patient Reason for Visit: Cardiac Valve Problem (Heart Valve Clinic) Assessment and Plan Nidhi Zamora is a very pleasant 83 y.o. female who presents for evaluation of her aortic stenosis. She does appear to have severe symptomatic aortic stenosis. She had a CTA which appears to be appropriate for transfemoral TAVR. We will plan to proceed with TAVR at this time. The Transcatheter Aortic Valve Replacement (TAVR) procedure was explained in detail. The potential risks of the procedure including bleeding, vascular complications, stroke, myocardial infarction, arrhythmias, renal dysfunction, infection and were described. All of the patient's questions were answered. The patient expressed understanding of the procedure and the potential risks and wishes to proceed with TAVR at this time. 1. Essential hypertension - ECG 12 lead - CLINIC PERFORMED 2. Aortic valve disorder - Type and screen - Prepare RBC: 2 Units - Confirmatory ABO/Rh No follow-ups on file. It was a great pleasure seeing Nidhi Zamora in our office today. Please contact me with any questions. Maximus Campbell MD MPH, [facility] Chief, Ischemic Heart Disease Airfield Manager, Interventional Cardiology Fellowship Eyeglass Lens Cutter Coronary, Structural, Peripheral Interventions Subjective Nidhi Zamora is a very pleasant 83 y.o. female with Aortic stenosis (peak/mean 71/42, aortic valve area 0.4, dimensionless index 0.17, ejection fraction 61%), hypertension who presents for evaluation of her aortic stenosis. She is a patient of Dr. Patterson. She states that she had a difficult 3 months recently with her being in the hospital with a brain bleed. He is now home and doing well but she noticed after that time from that she was much more fatigued. She was evaluated in the ER and in follow-up with her primary care doctor was found to have a heart murmur. She was referred to Dr. Patterson who found that she had severe aortic stenosis. He did a heart catheterization which did not reveal any significant coronary disease. She denies any chest discomfort, lightheadedness, syncope. She may have some mild shortness of breath. She denies any significant edema. Review of Systems Constitutional: Positive for fatigue. Negative for activity change, chills and diaphoresis. HENT: Negative for nosebleeds and trouble swallowing. Eyes: Negative for discharge and visual disturbance. Respiratory: Negative for apnea, cough, chest tightness, shortness of breath and wheezing. Cardiovascular: Negative for chest pain, palpitations and leg swelling. Gastrointestinal: Negative for abdominal distention, abdominal pain, blood in stool, diarrhea, nausea and vomiting. Endocrine: Negative for cold intolerance and heat intolerance. Genitourinary: Negative for hematuria. Musculoskeletal: Negative for gait problem and myalgias. Skin: Negative for color change and rash. Neurological: Negative for dizziness, seizures, syncope, facial asymmetry, speech difficulty, weakness, light-headedness, numbness and headaches. Hematological: Does not bruise/bleed easily. Psychiatric/Behavioral : Negative for dysphoric mood. No Known Allergies Outpatient Medications Prior to Visit Medication Sig Dispense Refill amLODIPine (Norvasc) 10 MG tablet Take 10 mg by mouth daily. No facility-administered medications prior to visit. Past Medical History: Diagnosis Date Heart valve disease Hypertension Past Surgical History: Procedure Laterality Date CHOLECYSTECTOMY HYSTERECTOMY TONSILLECTOMY Social History Tobacco Use Smoking status: Never Smokeless tobacco: Never Substance Use Topics Alcohol use: Not Currently No family history on file. Objective Vitals: 06/30/23 1242 BP: 130/60 BP Location: Left arm Patient Position: Sitting BP Cuff Size: Adult Pulse: 63 SpO2: 95% Weight: 165 lb 3.2 oz (74.9 kg) Height: 5' 2 (1.575 m) Body mass index is 30.22 kg/m?. Physical Exam Constitutional: General: She is not in acute distress. Appearance: Normal appearance. She is not toxic-appearing. HENT: Head: Normocephalic and atraumatic. Nose: Nose normal. Mouth/Throat: Mouth: Mucous membranes are moist. Eyes: Pupils: Pupils are equal, round, and reactive to light. Neck: Vascular: No carotid bruit or JVD. Cardiovascular: Rate and Rhythm: Normal rate and regular rhythm. Pulses: Dorsalis pedis pulses are 2+ on the right side and 2+ on the left side. Posterior tibial pulses are 2+ on the right side and 2+ on the left side. Heart sounds: Murmur heard. Crescendo systolic murmur is present with a grade of 3/6. Pulmonary: Effort: Pulmonary effort is normal. No respiratory distress. B (more content not included)... Normal [facility] Progress Noteon 06-29-2023 Progress Note Nidhi Zamora 83 [address] Dr[address] Patterson is being evaluated for aortic valve stenosis. Echocardiogram completed on 05/12/2023 showed severe aortic valve stenosis with peak/mean gradients 71/42 mm Hg, DI 0.17, CARMEN 0.38 cm^2. Per note, pt with history of hypertension. She presented to the ED in April 2023 with dizziness, headache, nausea, and vomiting. On exam, pt was noted to have a 2/6 crescendo decrescendo murmur. As part of her work up she underwent a CT scan of the head and neck which was unremarkable. EKG demonstrated NSR. Pt went for follow up with her PCP and was noted to have a 3/6 murmur. An echocardiogram was ordered and performed which demonstrated normal left ventricular size and function, left atrium was mildly dilated, there was mild mitral calcification present, aortic valve was severely stenotic. Past Medical History: Diagnosis Date Heart valve disease Hypertension Blood thinner - none Transthoracic Echocardiogram 05/12/2023 Heart Catheterization 06/06/2023 Normal [facility] Basophil percentageOrdered B y: ELAINE CAMPBELL on 06-21-2023 Chloride [Moles/Vol] 104 mmol/L 98-107 [facility] Glucose [Mass/Vol] 199 mg/dL 74-106 [facility] Comment on above: Fasting Glucose resu lt greater than or equal to 126 mg/dL suggests DIABETES MELLITUS per A.D.A. criteria. Potassium [Moles/Vol] 3.6 mmol/L 3.5-5.1 [facility] Sodium [Moles/Vol] 139 mmol/L 136-145 [facility] Laboratory - Chemistry and C hemistry - challengeOrdered By: ELAINE CAMPBELL on 06-21-2023 CO2 [Moles/Vol] 27.0 mmol/L 21.0-32.0 [facility] Urea nitrogen/Creatinine [Mass ratio] 25.2 mg/mg 10-20 [facility] No Panel InformationOrdered By: ELAINE CAMPBELL on 06-21-2023 Estimated GFR (MDRD) Amer 107 mL/min >60 [facility] Comment on above: GFR Calc Estimated GFR (MDRD) Non-Af Amer 88 mL/min >60 [facility] Comment on above: Non- GFR Calc Serum or plasma calcium ham urement (mass/volume)Ordered By: ELAINE CAMPBELL on 06-21-2023 Calcium [Mass/Vol] 9.2 mg/dL 8.5-10.1 [facility] Serum or plasma creatinine m easurement (mass/volume)Ordered By: ELAINE CAMPBELL on 06-21-2023 Creatinine [Mass/Vol] 0.67 mg/dL 0.55-1.02 [facility] Comment on above: The validity of the calculated GFR & GFRAA in patients over 70 years has not been determined. Clinical correlation is essential. Serum or plasma urea nitroge n measurement (mass/volume)Ordered By: ELAINE CAMPBELL on 06-21-2023 Urea nitrogen [Mass/Vol] 17 mg/dL 7-18 [facility] Thin prep Papanicolaou smear with manual screeningOrdered By: ELAINE CAMPBELL on 06-21-2023 Thin prep Papanicolaou smear with manual screening 8 5-15 [facility] 36on 06-20-2023 36 Received notificatio n from [place] Padilla for approval CTA TAVR 06/30 at 9:30 am. Spoke with patient to confirm date/time and location. Patient received valve clinic patient In mail and has lab slip orders. Will have blood work completed by end of this week. Reviewed no eating for 3 hours prior and reviewed oral hydration protocol. Verbalized understanding. Normal [facility] 36 Patient's son see rankin saw Dr. Aldrich in the office. He stated it is very difficult to get patient up to [place] from [place] due to needing family to bring her up. They would like to have CTA and VC appt on same day if at all possible. [facility] 36on 06-14-2023 36 Patient called in to have CTA TAVR done same day as valve clinic on 06/30/23. E-Mailed [place] Padilla to see if CTA can be double booked. Will await response. Normal [facility] 36 Echo images in PACs [facility] 36on 06-13-[address] Patterson's office called office back stating echo done at [facility] main campus and they do not have the images. Sent e-mail to [facility] help desk images to have images pushed. Normal [facility] Absolute lymphocyte countOrd ered By: Dr. Bear on 05-08-2023 Lymphocytes Auto (Unsp spec) [#/Vol] 1.36 10*3/uL 0.83-4.51 [facility] Basophil percentageOrdered B y: Dr. Bear on 05-08-2023 Basophils/100 WBC (Bld) 0.3 % 0-1 [facility] Chloride [Moles/Vol] 106 mmol/L 98-[address] [facility] Eosinophils/100 WBC (Bld) 0.4 % 0-5 [facility] Glucose [Mass/Vol] 208 mg/dL 74-106 [facility] Comment on above: Glucose result great er than or equal to 200 mg/dLsuggests DIABETES MELLITUS per A.D.A. criteria. Neutrophils (Bld) [#/Vol] 5.3 10*3/uL 2.0-7.7 [facility] Neutrophils/100 WBC (Bld) 74.2 % 47-70 [facility] Potassium [Moles/Vol] 3.6 mmol/L 3.5-5.1 [facility] Sodium [Moles/Vol] 139 mmol/L 136-145 [facility] WBC (Bld) [#/Vol] 7.1 10*3/uL 4.4-11.0 [facility] Blood erythrocytes count (nu mber/volume)Ordered By: Dr. Bear on 05-08-2023 RBC (Bld) [#/Vol] 4.25 10*6/uL 4.2-5.4 [facility] Blood hemoglobin measurement (mass/volume)Ordered By: Dr. Bear on 05-08-2023 Hemoglobin (Bld) [Mass/Vol] 12.2 g/dL 12.0-15.0 [facility] Blood lymphocytes/100 leukoc ytesOrdered By: Dr. Bear on 05-08-2023 Lymphocytes/100 WBC (Bld) 19.2 % 19-41 [facility] Blood monocytes/100 leukocyt esOrdered By: Dr. Bear on 05-08-2023 Monocytes/100 WBC (Bld) 5.5 % 0-10 [facility] Blood platelet mean volumeOr dered By: Dr. Bear on 05-08-2023 Platelet mean volume (Bld) [Entitic vol] 9.6 fL 6.2-12.0 [facility] Determination of erythrocyte mean corpuscular volume (MCV)Ordered By: Dr. Bear on 05-08-2023 MCV (RBC) [Entitic vol] 85.2 fL 81-99 [facility] Hematocrit Auto (Bld) [Volum e fraction]Ordered By: Dr. Bear on 05-08-2023 Hematocrit (Bld) [Volume fraction] 36.2 % 37-47 [facility] Laboratory - Chemistry and C hemistry - challengeOrdered By: Dr. Bear on 05-08-2023 CO2 [Moles/Vol] 27.0 mmol/L 21.0-32.0 [facility] Urea nitrogen/Creatinine [Mass ratio] 19.2 mg/mg 10-20 [facility] Laboratory - Hematology and Cell countsOrdered By: Dr. Bear on 05-08-2023 Erythrocyte distribution width (RBC) [Entitic vol] 40.5 fL 35.1-43.9 [facility] Erythrocyte distribution width (RBC) [Ratio] 13.3 % 11.6-14.6 [facility] Immature granulocytes/100 WBC (Bld) 0.400 % 0.0-0.9 [facility] Comment on above: IG% - Immature Granu locytes (promyelocytes, myelocytes and metamyelocytes) > 1% indicates that a LEFT SHIFT is Present. MCH (RBC) [Entitic mass] 28.7 pg 27.0-32.0 [facility] Nucleated RBC/100 WBC (Bld) [Ratio] 0 % 0-5 [facility] MCHC Auto (RBC) [Mass/Vol]Or dered By: Dr. Bear on 05-08-2023 MCHC (RBC) [Mass/Vol] 33.7 g/dL 32-36 [facility] No Panel InformationOrdered By: Dr. Bear on 05-08-2023 Estimated Creatinine Clearance Calc 32.53 ml/min [facility] Estimated GFR (MDRD) Amer 129 mL/min >60 [facility] Comment on above: GFR Calc Estimated GFR (MDRD) Non-Af Amer 106 mL/min >60 [facility] Comment on above: Non- GFR Calc Troponin I High Sensitivity 34 pg/mL 3.0-54.0 [facility] Comment on above: Please Note: New Viola t Units and Gender Specific Reference Ranges. For more information see Policy Stat Procedure [place] High Sensitivity Troponin (TNIH) and attachments. Platelets bldOrdered By: Dr. Bear on 05-08-2023 Platelets (Bld) [#/Vol] 272 10*3/uL 150-450 [facility] Serum or plasma calcium ham urement (mass/volume)Ordered By: Dr. Bear on 05-08-2023 Calcium [Mass/Vol] 8.9 mg/dL 8.5-10.1 [facility] Serum or plasma creatinine m easurement (mass/volume)Ordered By: Dr. Bear on 05-08-2023 Creatinine [Mass/Vol] 0.57 mg/dL 0.55-1.02 [facility] Comment on above: The validity of the calculated GFR & GFRAA in patients over 70 years has not been determined. Clinical correlation is essential. Serum or plasma urea nitroge n measurement (mass/volume)Ordered By: Dr. Bear on 05-08-2023 Urea nitrogen [Mass/Vol] 11 mg/dL 7-18 [facility] Thin prep Papanicolaou smear with manual screeningOrdered By: Dr. Bear on 05-08-2023 Thin prep Papanicolaou smear with manual screening 6 5-15 [facility] Vital Signs Date Time Vital Sign Value Performing Clinician Facility 05-03-2025 08:11-0400 Body mass index (BMI) [Ratio] 34.66 kg/m2 Lindsay Ar REEVESN.DARION Work Phone: [facility] 05-03-2025 [id number] Body temperature 97.81 [degF] Lindsay Funez APRN.DARION Work Phone: [facility] 05-03-2025 [id number] Body weight 80.5 kg Lindsay Moomaw DISPOSAL WORKER.GRIEF COUNSELLOR Work Phone: [facility] 05-03-2025 08:11-0400 Diastolic blood pressure 84 mm[Hg] Lindsay Graciaomaw DISPOSAL WORKER.GRIEF COUNSELLOR Work Phone: [facility] 05-03-2025 08:11-0400 Heart rate 64 /min Lindsay Reinaw DISPOSAL WORKER.GRIEF COUNSELLOR Work Phone: [facility] 05-03-2025 08:11-0400 Respiratory rate 18 /min Lindsay Graciaomaw DISPOSAL WORKER.GRIEF COUNSELLOR Work Phone: [facility] 05-03-2025 08:11-0400 SaO2% (BldA) [Mass fraction] 98 % Lindsay Basilomaw DISPOSAL WORKER.GRIEF COUNSELLOR Work Phone: [facility] 05-03-2025 08:11-0400 Systolic blood pressure 168 mm[Hg] Lindsay Funez DISPOSAL WORKER.GRIEF COUNSELLOR Work Phone: [facility] 03-20-2025 10:50-0400 Diastolic blood pressure 68 mm[Hg] Stewart Castro DISPOSAL WORKER.GRIEF COUNSELLOR Work Phone: [facility] 03-20-2025 10:50-0400 Systolic blood pressure 171 mm[Hg] Stewart Castro DISPOSAL WORKER.GRIEF COUNSELLOR Work Phone: [facility] 03-20-2025 10:32-0400 Body mass index (BMI) [Ratio] 33.79 kg/m2 Stewart Castro APRN.GRIEF COUNSELLOR Work Phone: [facility] 03-20-2025 10:32-0400 Body weight 78.47 kg Stewart Castro APRN.GRIEF COUNSELLOR Work Phone: [facility] 03-20-2025 10:32-0400 Heart rate 65 /min Stewart Castro APRN.GRIEF COUNSELLOR Work Phone: [facility] 03-14-2025 10:12-0400 Diastolic blood pressure 63 mm[Hg] Stewart Castro DISPOSAL WORKER.GRIEF COUNSELLOR Work Phone: [facility] Comment on above: average 03-14-2025 10:12-0400 Systolic blood pressure 169 mm[Hg] Stewart Castro APRN.GRIEF COUNSELLOR Work Phone: [facility] Comment on above: average 03-14-2025 09:53-0400 Body mass index (BMI) [Ratio] 34.01 kg/m2 Stewart Castro APRN.GRIEF COUNSELLOR Work Phone: [facility] 03-14-2025 09:53-0400 Body weight 79 kg Stewart Castro APRN.GRIEF COUNSELLOR Work Phone: [facility] 03-14-2025 09:53-0400 Heart rate 65 /min Stewart Castro APRN.GRIEF COUNSELLOR Work Phone: [facility] 10-11-2023 16:39-0500 Body temperature 96.6 [degF] Krislyn Aberegg PA Work Phone: [facility] 10-11-2023 16:39-0500 Body weight 74.93 kg Krislyn Aberegg PA Work Phone: [facility] 10-11-2023 16:39-0500 Diastolic blood pressure 68 mm[Hg] Krislyn Aberegg PA Work Phone: [facility] 10-11-2023 16:39-0500 Heart rate 75 /min Krislyn Aberegg PA Work Phone: [facility] 10-11-2023 16:39-0500 Respiratory rate 21 /min Krislyn Aberegg PA Work Phone: [facility] 10-11-2023 16:39-0500 SaO2% (BldA) [Mass fraction] 98 % Krislyn Aberegg PA Work Phone: [facility] 10-11-2023 16:39-0500 Systolic blood pressure 140 mm[Hg] Krislyn Aberegg PA Work Phone: [facility] 07-20-2023 10:00-0400 Heart rate 72 /min Maximus Campbell MD Work Phone: [facility] [employer] 07-20-2023 08:35-0400 Body temperature 98.8 [degF] Maximus Campbell MD Work Phone: [facility] [employer] 07-20-2023 08:35-0400 Diastolic blood pressure 60 mm[Hg] Maximus Campbell MD Work Phone: [facility] [employer] 07-20-2023 08:35-0400 Respiratory rate 20 /min Maximus Campbell MD Work Phone: [facility] [employer] 07-20-2023 08:35-0400 SaO2% (BldA) [Mass fraction] 95 % Maximus Campbell MD Work Phone: [facility] [employer] 07-20-2023 08:35-0400 Systolic blood pressure 126 mm[Hg] Maximus Campbell MD Work Phone: [facility] [employer] 07-20-2023 03:08-0400 Body mass index (BMI) [Ratio] 30.2 kg/m2 Maximus Campbell MD Work Phone: [facility] [employer] 07-20-2023 03:08-0400 Body weight 74.9 kg Maximus Campbell MD Work Phone: [facility] [employer] 07-19-2023 14:09-0400 Body height 157.5 cm Maximus Campbell MD Work Phone: [facility] [employer] 06-30-2023 12:54-0400 Body height 157.5 cm Cem Harrell MD Work Phone: [facility] [employer] 06-30-2023 12:54-0400 Body mass index (BMI) [Ratio] 30.2 kg/m2 Cem Harrell MD Work Phone: [employer] 06-30-2023 12:54-0400 Body weight 74.9 kg Cem Harrell MD Work Phone: [employer] 06-30-2023 12:54-0400 Diastolic blood pressure 60 mm[Hg] Cem Harrell MD Work Phone: [employer] 06-30-2023 12:54-0400 Heart rate 63 /min Cem Harrell MD Work Phone: [employer] 08-18-2023 12:54-0400 SaO2% (BldA) [Mass fraction] 95 % Cem Harrell MD Work Phone: [facility] 06-30-2023 12:54-0400 Systolic blood pressure 130 mm[Hg] Cem Harrell MD Work Phone: [facility] 06-30-2023 12:42-0400 Body height 157.5 cm Maximus Campbell MD Work Phone: [facility] 06-30-2023 12:42-0400 Body mass index (BMI) [Ratio] 30.22 kg/m2 Maximus Campbell MD Work Phone: [facility] 06-30-2023 12:42-0400 Body weight 74.93 kg Maximus Campbell MD Work Phone: [facility] 06-30-2023 12:42-0400 Diastolic blood pressure 60 mm[Hg] Maximus Campbell MD Work Phone: [facility] 06-30-2023 12:42-0400 Heart rate 63 /min Maximus Campbell MD Work Phone: [facility] 06-30-2023 12:42-0400 SaO2% (BldA) [Mass fraction] 95 % Maximus Campbell MD Work Phone: [facility] 06-30-2023 12:42-0400 Systolic blood pressure 130 mm[Hg] Maximus Campbell MD Work Phone: [facility] 06-06-2023 10:34-0400 Body height 157.[address] Vane Cassidy Work Phone: [facility] 06-06-2023 10:34-0400 Body weight 74.[address] Vane Cassidy Work Phone: [facility] 06-05-2023 14:09-0400 Body mass index (BMI) [Ratio] 30.2 kg/m2 Dr. Vane Cassidy Work Phone: [facility] 05-31-2023 14:48-0400 Body mass index (BMI) [Ratio] 30.2 kg/m2 Dr. Vane Cassidy Work Phone: [facility] 05-31-2023 14:48-0400 Body weight 74.[address] Vane Cassidy Work Phone: [facility] 05-31-2023 14:48-0400 Diastolic blood pressure 76 mm[Hg] Dr. Vane Cassidy Work Phone: [facility] 05-31-2023 14:48-0400 Heart rate 76 /min Dr. Vane Cassidy Work Phone: [facility] 05-31-2023 14:48-0400 Respiratory rate 16 /min Dr. Vane Cassidy Work Phone: [facility] 05-31-2023 14:48-0400 Systolic blood pressure 154 mm[Hg] Dr. Vane Cassidy Work Phone: [facility] 05-11-2023 10:14-0400 Body weight 74.84 kg Padmini Deshpande DISPOSAL WORKER.GRIEF COUNSELLOR Work Phone: [facility] 05-11-2023 10:14-0400 Diastolic blood pressure 80 mm[Hg] Padmini Deshpande DISPOSAL WORKER.GRIEF COUNSELLOR Work Phone: [facility] 05-11-2023 10:14-0400 Heart rate 65 /min Padmini Deshpande DISPOSAL WORKER.GRIEF COUNSELLOR Work Phone: [facility] 05-11-2023 10:14-0400 Respiratory rate 16 /min Padmini Deshpande DISPOSAL WORKER.GRIEF COUNSELLOR Work Phone: [facility] 05-11-2023 10:14-0400 SaO2% (BldA) [Mass fraction] 97 % Padmini Deshpande DISPOSAL WORKER.GRIEF COUNSELLOR Work Phone: [facility] 05-11-2023 10:14-0400 Systolic blood pressure 160 mm[Hg] Padmini Deshpande DISPOSAL WORKER.GRIEF COUNSELLOR Work Phone: [facility] 05-08-2023 16:15-0400 Diastolic blood pressure 74 mm[Hg] [facility] 05-08-2023 16:15-0400 SaO2% (BldA) [Mass fraction] 95 % [facility] 05-08-2023 16:15-0400 Systolic blood pressure 140 mm[Hg] [facility] 05-08-2023 13:04-0400 Body height 157.48 cm [facility] 05-08-2023 13:04-0400 Body mass index (BMI) [Ratio] 30.2 kg/m2 [facility] 05-08-2023 13:04-0400 Body temperature 98.1 [degF] [facility] 05-08-2023 13:04-0400 Body weight 75 kg [facility] 05-08-2023 13:04-0400 Heart rate 58 /min [facility] 05-08-2023 13:04-0400 Respiratory rate 18 /min [facility] 02-25-2022 07:47-0400 Body height 152.4 cm Vane Cassidy MD Work Phone: [facility] 02-25-2022 07:47-0400 Body weight 77.56 kg Vane Cassidy MD Work Phone: [facility] 02-25-2022 07:47-0400 Diastolic blood pressure 78 mm[Hg] Vane Cassidy MD Work Phone: [facility] 02-25-2022 07:47-0400 Heart rate 82 /min Vane Cassidy MD Work Phone: [facility] 02-25-2022 07:47-0400 Respiratory rate 14 /min Vane Cassidy MD Work Phone: [facility] 02-25-2022 07:47-0400 Systolic blood pressure 134 mm[Hg] Vane Cassidy MD Work Phone: [facility] 02-01-2022 05:58-0400 Diastolic blood pressure 81 mm[Hg] [facility] Work Phone: 02-01-2022 05:58-0400 Heart rate 78 /min [facility] Work Phone: 03-22-2022 05:58-0400 Respiratory rate 16 /min [facility] Work Phone: 02-01-2022 05:58-0400 SaO2% (BldA) [Mass fraction] 98 % [facility] Work Phone: 02-01-2022 05:58-0400 Systolic blood pressure 150 mm[Hg] [facility] Work Phone: 02-01-2022 04:32-0400 Body height 152.4 cm [facility] Work Phone: 02-01-2022 04:32-0400 Body mass index (BMI) [Ratio] 34.8 kg/m2 [facility] Work Phone: 02-01-2022 04:32-0400 Body temperature 97.2 [degF] [facility] Work Phone: 02-01-2022 04:32-0400 Body weight 80.9 kg [facility] Work Phone: Encounters Encounter Date Encounter Type Care Provider Facility Start: 05-03-2025 End: 05-03-2025 Patient encounter procedure Lindsay Basilroman MARCANOGRIEF COUNSELLOR [facility] Phone[facility] Comment on above: Contusion of left th igh, initial encounter (Primary Dx); Rash Start: 05-03-2025 End: 05-03-2025 ambulatory [facility] Facility:[facility] Start: 03-20-2025 End: 03-20-2025 Patient encounter procedure Stewart Castro APRN.CNP Work Phone: [facility] [place] Comment on above: Toenail deformity (P rimary Dx); Hypertension, essential Start: 03-20-2025 End: 03-20-2025 ambulatory STEWART CASTRO Facility:[facility] Start: 03-14-2025 End: 03-14-2025 Office outpatient visit 15 minutes Stewart Castro APRN.CNP Work Phone: [facility] [place] Comment on above: Cellulitis of both f eet (Primary Dx) Start: 03-14-2025 End: 03-14-2025 ambulatory STEWART CASTRO Facility:[facility] Start: 03-07-2025 End: 03-07-2025 ambulatory Sigrid Stephens NP Facility:[facility] Start: 04-16-2024 ambulatory John Patterson Facility:[facility] Start: 04-16-2024 End: 04-16-2024 ambulatory Lorraine YOUNG Facility:[facility] Start: 12-28-2023 Telephone encounter Vane clay MD Work Phone: [facility] [place] Comment on above: Covid Positive Start: 10-11-2023 End: 10-11-2023 Patient encounter procedure Stacia Stevenson PA Work Phone: [facility] Comment on above: Neck pain (Primary D x) Start: 07-19-2023 End: 07-20-2023 Evaluation and management of inpatient [facility] Start: 07-19-2023 End: 07-20-2023 Evaluation and management of inpatient Maximus Campbell MD Work Phone: [facility] Comment on above: Severe aortic stenos is (Primary Dx); Nonrheumatic aortic valve stenosis; Aortic valve stenosis, etiology of cardiac valve disease unspecified Start: 07-11-2023 End: 07-11-[address] Vane Cassidy Work Phone: [facility] Work Phone: Start: 07-11-2023 End: 07-11-[address] Vane Cassidy Work Phone: [facility]Labor[facility] Work Phone: Start: 06-30-2023 End: 07-01-2023 ambulatory [facility] Start: 06-30-2023 End: 06-30-2023 ambulatory CEM HARRELL [facility] Start: 06-30-2023 Telephone encounter Maximus parker MD Work Phone: [facility] Comment on above: Procedure (TAVR) Start: 06-30-2023 End: 06-30-2023 Office consultation new/estab patient 80 min Cem Harrell MD Work Phone: [facility] Comment on above: Aortic valve stenosi s, etiology of cardiac valve disease unspecified (Primary Dx) Start: 06-30-2023 End: 06-30-2023 ambulatory [facility]IM[facility] Start: 06-30-2023 End: 06-30-2023 Office outpatient new 60 minutes Maximus Campbell MD Work Phone: [facility] Comment on above: Essential hypertensi on; Aortic valve disorder Start: 06-30-2023 End: 07-01-2023 ambulatory ELAINE [facility] Start: 06-30-2023 End: 06-30-2023 Subsequent hospital visit by physician Elaine Campbell DISPOSAL WORKER - GRIEF COUNSELLOR Work Phone: [facility] [address] Comment on above: Aortic stenosis Start: 06-21-2023 End: 06-21-[address] Vane Cassidy Work Phone: [facility] Work Phone: Start: 06-21-2023 End: 06-21-[address] Vane Cassidy Work Phone: [facility] Work Phone: Start: 06-06-2023 End: 06-06-2023 Admission to same day surgery center Dr. Vane Cassidy Work Phone: [facility]-Fax Machine Operator/Special Procedures Work Phone: Start: 06-01-2023 Telephone encounter Vane clay MD Work Phone: [facility] [place] Comment on above: blood pressure readi ngs/refill Start: 05-31-2023 End: 05-31-[address] Vane Cassidy Work Phone: [facility]-Radiology, [facility] Work Phone: Start: 05-31-2023 End: 05-31-[address] [facility] Cass[facility] Work Phone: Start: 05-22-2023 Telephone encounter Vane clay MD Work Phone: [facility] Comment on above: FYI-No Action Needed ([facility] trying to reach pt. /) Start: 05-19-2023 Telephone encounter Vane clay MD Work Phone: [facility] Comment on above: Opened In Error Start: 05-15-2023 Telephone encounter Padmini Bright harpreet DISPOSAL WORKER.GRIEF COUNSELLOR Work Phone: [facility] Comment on above: Results (Echo ) Start: 05-11-2023 End: 05-11-2023 Patient encounter procedure Padmini Sousasusanna DISPOSAL WORKER.GRIEF COUNSELLOR Work Phone: [facility] Comment on above: Hospital discharge f ollow-up (Primary Dx); Hypertension, essential; Heart murmur Start: 05-10-2023 Telephone encounter Vane clay MD Work Phone: [facility] Comment on above: Future Appointment Start: 05-08-2023 End: 05-08-2023 Emergency department patient visit [facility] Start: 02-25-2022 End: 02-25-2022 Patient encounter procedure Vane Cassidy MD Work Phone: [facility] Comment on above: Contusion of left hi p, subsequent encounter (Primary Dx); Encounter to establish care; Heart murmur Start: 02-07-2022 Telephone encounter Vane clay MD Work Phone: [facility] Comment on above: Patient Update Start: 02-05-2022 Telephone encounter Bev dial MD Work Phone: [facility] [place] Comment on above: Pain Start: 02-01-2022 End: 02-01-2022 Emergency department patient visit [facility] Procedures Date Procedure Procedure Detail Performing Clinician Start: 07-20-2023 Ecg routine ecg w/le ast 12 lds trcg only w/o i&r Elaine Campbell DISPOSAL WORKER - GRIEF COUNSELLOR Work Phone: Start: 07-20-2023 Basic metabolic pane l calcium total Elaine Campbell DISPOSAL WORKER - GRIEF COUNSELLOR Work Phone: Start: 07-19-2023 Echo tthrc r-t 2d w/ wom-mode compl spec&colr d Elaine Campbell DISPOSAL WORKER - GRIEF COUNSELLOR Work Phone: Start: 07-19-2023 Ecg routine ecg w/le ast 12 lds trcg only w/o i&r Elaine Campbell DISPOSAL WORKER - [facility] Work Phone: Start: 07-19-2023 OXYGEN THERAPY Elaine parker DISPOSAL WORKER - [facility] Work Phone: Start: 07-19-2023 Basic metabolic pane l calcium total Maximus Campbell MD Work Phone: Start: 07-19-2023 Cardiac catheterizat ion study Maximus Campbell MD Work Phone: Start: 07-19-2023 Echo transthorc r-t 2d w/wo m-mode rec f-up/lmtd Maximus Campbell MD Work Phone: Start: 07-19-2023 End: 07-19-2023 TRANSCATHETER AORTIC VALVE REPLACEMENT (TAVR) - OR Cem Harrell MD Work Phone: Start: 07-11-2023 Plain chest X-ray Dr. Rajiv Cassidy Work Phone: Start: 06-30-2023 ABO and Rh group [Ty pe] in Blood by Confirmatory method Maximus Campbell MD Work Phone: Start: 06-30-2023 Blood typing serologic abo Maximus Campbell MD Work Phone: Start: 06-30-2023 Ecg routine ecg w/le ast 12 lds trcg only w/o i&r Maixmus Campbell MD Work Phone: Start: 05-31-2023 Plain chest X-ray Dr. Rajiv Cassidy Work Phone: Start: 05-08-2023 CT angiography of he ad and neck Start: 02-01-2022 CT of lumbar spine Plan of Treatment Date Care Activity Detail Author Start: 04-28-2030 DTaP/Tdap/Td Vaccine s (3 - Td or Tdap) DTaP/Tdap/Td Vaccines (3 - Td or Tdap) [employer] Start: 04-28-2030 Urine microalbumin profile [facility] Start: 07-20-2026 Diabetes Screening Diabetes Screenin g [facility] Start: 03-20-2025 End: 03-20-2025 Patient encounter procedure 03/20/2025 10:40 AM EDT Office Visit [facility] [place] [address] [place], [place] [id number] Stewart Castro APRN.GRIEF COUNSELLOR [address] [place] [address] follow up foot rash [facility] Comment on above: follow up foot rash Start: 03-14-2025 Covid-19 Vaccine () Covid-19 Vaccine () [facility] Start: 11-13-2024 Advance Directive Discussion Advance Directive Discussion [facility] Start: 11-13-2024 Medicare Advantage A nnual Wellness Visit Medicare Advantage Annual Wellness Visit [facility] Start: 11-15-2023 End: 05-15-2024 Echocardiography ECHO Cardiology Routine Nonrheumatic aortic valve stenosis Expected: 11/15/2023, Expires: 05/15/2024 [facility] Work Phone: Comment on above: Expected: 11/15/2023 , Expires: 05/15/2024 Start: 11-13-2023 Advance Directive Discussion Advance Directive Discussion [facility] Start: 11-13-2023 Depression Assessment Depression Ass essment [facility] Start: 07-19-2023 End: 07-19-2023 Admission to same day surgery center 07/19/2023 8:45 AM EDT - 07/19/2023 10:30 AM EDT Surgery [facility] MA[facility] OR [address] [place] [address] Maximus Campbell MD [address] [place] [address] TRANSCATHER AORTIC VALVE REPLACEMENT, TRANSTHORACIC ECHOCARDIOGRAM [facility] Comment on above: TRANSCATHER AORTIC V ALVE REPLACEMENT, TRANSTHORACIC ECHOCARDIOGRAM Start: 07-19-2023 Subsequent hospital visit by physician 07/19/2023 8:45 AM EDT Hospital Encounter [facility] [address] [place] [address] Maximus Campbell MD [address] [place] [address] Nonrheumatic aortic valve stenosis [facility] Comment on above: Nonrheumatic aortic valve stenosis Start: 07-19-2023 End: 07-19-2023 TRANSCATHETER AORTIC VALVE REPLACEMENT (TAVR) - OR TRANSCATHETER AORTIC VALVE REPLACEMENT (TAVR) - OR Nonrheumatic aortic valve stenosis 07/19/2023 8:45 AM EDT [facility] [employer] Start: 07-14-2023 Influenza vaccination [facility] Start: 07-04-2023 End: 07-03-2024 CBC W Auto Differential panel - Blood CBC auto differential Lab Routine Nonrheumatic aortic valve stenosis Expected: 07/04/2023 (Approximate), Expires: 07/03/2024 [facility] [employer] Work Phone: Comment on above: Expected: 07/04/2023 (Approximate), Expires: 07/03/2024 Start: 07-04-2023 End: 07-03-2024 Comprehensive metabolic 1998 panel - Serum or Plasma Comprehensive metabolic panel Lab Routine Nonrheumatic aortic valve stenosis Expected: 07/04/2023 (Approximate), Expires: 07/03/2024 [facility] [employer] Comment on above: Expected: 07/04/2023 (Approximate), Expires: 07/03/2024 Start: 07-04-2023 End: 07-03-2024 Natriuretic peptide B [Mass/volume] in Blood NT PRO BNP Lab Routine Nonrheumatic aortic valve stenosis Expected: 07/04/2023 (Approximate), Expires: 07/03/2024 [facility] [employer] Comment on above: Expected: 07/04/2023 (Approximate), Expires: 07/03/2024 Start: 07-04-2023 End: 07-03-2024 XR Chest 2 Views XR chest 2 views Imaging Routine Nonrheumatic aortic valve stenosis Expected: 07/04/2023, Expires: 07/03/2024 [facility] [employer] Comment on above: Expected: 07/04/2023 , Expires: 07/03/2024 Start: 06-30-2023 End: 06-30-2024 Prepare RBC: 2 Units Prepare RBC: 2 Units Blood Bank Routine Aortic valve disorder Expected: 06/30/2023 (Approximate), Expires: 06/30/2024 [facility] [employer] Work Phone: Comment on above: Expected: 06/30/2023 (Approximate), Expires: 06/30/2024 Start: 06-06-2023 Patient discharge [facility] Start: 12-27-2022 COVID-19 VACCINE (6 - Moderna series) COVID-19 VACCINE (6 - Moderna series) [facility] Start: 11-13-2022 ADVANCE DIRECTIVE DISCUSSION ADVANCE DIRECTIVE DISCUSSION [facility] Start: 11-13-2022 DEPRESSION ASSESSMENT DEPRESSION ASS ESSMENT [facility] Start: 11-13-2021 ADVANCE DIRECTIVE DISCUSSION ADVANCE DIRECTIVE DISCUSSION [facility] Start: 1983 DIABETES SCREEN DIABETES SCREEN [facility] Start: 1983 Diabetes Screening Diabetes Screenin g [facility] Start: 02-11-1956 Anxiety Screening Anxiety Screening [facility] Start: 02-11-1956 Depression Screening Depression Scre ening [facility] Start: 1950 Depression Screening Depression Scre ening [facility] Start: 1938 Lipid panel Lipid Panel [facility] Start: 1938 Screening for osteoporosis Bone Dens ity Scan [facility] End: 07-19-2023 Basic metabolic 1998 panel - Serum or Plasma Basic metabolic panel Lab STAT STAT (Lab) for 1 Occurrences starting 07/19/2023 until 07/19/2023 [facility] [employer] Work Phone: Comment on above: STAT (Lab) for 1 Occ urrences starting 07/19/2023 until 07/19/2023 End: 07-19-2023 CBC panel - Blood by Automated count CBC Lab STAT STAT (Lab) for 1 Occurrences starting 07/19/2023 until 07/19/2023 [facility] [employer] Comment on above: STAT (Lab) for 1 Occ urrences starting 07/19/2023 until 07/19/2023 End: 06-30-2023 CT Chest WO and CT angiogram Coronary arteries W contrast IV [facility] [employer] [employer] Work Phone: Comment on above: Once for 1 Occurrenc es starting 06/30/2023 until 06/30/2023 ECG 12 lead - CLINIC PERFORMED ECG 12 lead - CLINIC PERFORMED CV ECG Routine Essential hypertension 06/30/2023 12:43 PM EDT [facility] End: 05-11-2024 Echocardiography ECHO Cardiology Routine Heart murmur 1 Occurrences starting 05/11/2023 until 05/11/2024 [facility] Work Phone: Comment on above: 1 Occurrences starti ng 05/11/2023 until 05/11/2024 Patient Education [facility] Work Phone: Patient referral [facility] Work Phone: End: 07-19-2023 Prothrombin time (PT) in Blood by Coagulation assay Protime-INR Lab Routine Once (Lab) for 1 Occurrences starting 07/19/2023 until 07/19/2023 [facility] Work Phone: Comment on above: Once (Lab) for 1 Occ urrences starting 07/19/2023 until 07/19/2023 TRANSCATHETER AORTIC VALVE REPLACEMENT (TAVR) TRANSCATHETER AORTIC VALVE REPLACEMENT (TAVR) Nonrheumatic aortic valve stenosis [facility] TRANSCATHETER AORTIC VALVE REPLACEMENT (TAVR) - OR TRANSCATHETER AORTIC VALVE REPLACEMENT (TAVR) - OR Nonrheumatic aortic valve stenosis [facility] Immunizations Immunization Date Immunization Notes Care Provider Fa cili 09-01-2023 COVID-19 vaccine, 2022- season (NOVAVAX) Stacia YOUNG Work Phone: [facility] 09-01-2023 influenza (aIIV4) vaccine, age 65+ yr, quadrivalent, PF (FLUAD QUAD) Stacia YOUNG Work Phone: [facility] 09-01-2023 respiratory syncytia l virus (RSV) vaccine, bivalent (ABRYSVO) Stacia YOUNG Work Phone: [facility] 08-26-2022 COVID-19 vaccine, ag e 12+ yr, bivalent (PFIZER-BIONTCOMARCO) Vane Cassidy MD Work Phone: [facility] 08-26-2022 influenza, high dose seasonal, preservative-free Vane Cassidy MD Work Phone: [facility] 08-26-2022 influenza virus vacc ine, unspecified formulation Cem Harrell MD Work Phone: [facility] 01-07-2021 Covid (Moderna) [facility] 12-10-2020 Covid (Moderna) [facility] 07-30-2020 influenza, high dose seasonal, preservative-free Bev De Souza MD Work Phone: [facility] 07-30-2020 zoster vaccine recombinant Bev De Souza MD Work Phone: [facility] 04-28-2020 tetanus toxoid, redu gunner diphtheria toxoid, and acellular pertussis vaccine, adsorbed Bev De Souza MD Work Phone: [facility] 04-28-2020 zoster vaccine recombinant Bev De Souza MD Work Phone: [facility] 08-01-2019 influenza, high dose seasonal, preservative-free Bev De Souza MD Work Phone: [facility] 07-29-2016 influenza, high dose seasonal, preservative-free Bev De Souza MD Work Phone: [facility] 04-16-2015 pneumococcal conjuga te vaccine, 13 valent Bev De Souza MD Work Phone: [facility] 08-16-2013 influenza virus vacc ine, unspecified formulation Bev De Souza MD Work Phone: [facility] 08-04-2012 influenza virus vacc ine, unspecified formulation Bev De Souza MD Work Phone: [facility] 04-13-2011 tetanus toxoid, redu gunner diphtheria toxoid, and acellular pertussis vaccine, adsorbed Bev De Souza MD Work Phone: [facility] Work Phone: 08-15-2009 influenza virus vacc ine, whole virus Bev De Souza MD Work Phone: [facility] Work Phone: 04-15-2009 zoster vaccine, live Bev fletcher MD Work Phone: [facility] Work Phone: 09-06-2008 influenza virus vacc ine, unspecified formulation Bev De Souza MD Work Phone: [facility] 11-15-2007 pneumococcal polysaccharide vaccine, 23 valent Vane Cassidy MD Work Phone: [facility] Work Phone: 09-22-2007 influenza virus vacc ine, unspecified formulation Bev De Souza MD Work Phone: [facility] 09-11-2006 influenza virus vacc ine, unspecified formulation Bev De Souza MD Work Phone: [facility] Work Phone: Payers Date Payer Category Payer Self-pay [id number] 2014 Medicare THE HEALTH PLAN MEDICARE THP [facility] [id number] 2014-Present [phone] [place] [address] [id number] 2014 Medicare (Managed Care) THP SECU RECARE MDCR O [place] [id number] 2005 Medicare [id number] 2005 Medicare [id number] Unknown [id number] Unknown [id number] Unknown [id number] Social History Date Type Detail Facility Start: 02-01-2022 End: 06-06-2023 Tobacco smoking status NVIS Unknown if ever smoked [facility] Start: 1940 Sex Assigned At Female [facility] Start: 01-06-2020 End: 05-11-2023 Tobacco smoking status NVIS Never smoked tobacco [facility] Work Phone: Start: 01-06-2020 End: 05-03-2025 Alcohol intake Not Asked [facility] Start: 1940 Sex Assigned At Not on file [facility] Start: 01-25-2022 End: 07-19-2023 Exposure to SARS-CoV-2 (event) Not sure [facility] Start: 01-06-2020 End: 05-11-2023 Tobacco use and exposure Smokeless tobacco non-user [facility] Start: 05-11-2023 End: 05-03-2025 History of Social function [facility] Start: 05-11-2023 End: 05-03-2025 Tobacco use panel [facility] National Score (1-100), lower number is lower risk 58 [facility] Start: 06-30-2023 End: 07-20-2023 Alcohol intake Ex-drinker (finding) [facility] [employer] Procedure Code Equipment Code Equipment Origin al Text Equipment Identifier Dates [place] [id number] Start: 07-19-2023 Mental Status Date Assessment Result Facility 05-08-2023 Cognitive function Level Of Cons ciousness Awake;Alert;Appropriate;Follow s Commands [facility] Work Phone: Clinical Notes 02-05-2022 to 05-03-2025 Lindsay Funez APRN.DARION - 05/03/2025 8:31 AM Stewart Peres APRN.DARION - 03/20/2025 10:35 AM Stewart Peres APRN.DARION - 03/14/2025 9:57 AM Stacia Amaro PA - 10/11/2023 4:52 PM EST Note Date & Type Note Facility 05-03-2025 Note HNO ID: [id number] Author: LINDSAY FUNEZ APRN.DARION Service: ? Author Type: Nurse Practitioner Type: Progress Notes Filed: 05/03/2025 08:36 Note Text: This note was created using [email or web address]. Subjective Nidhi Zamora is a 85 year old female. HPI Patient presents today stating that about 3 days ago she tripped and fell on the sidewalk landing on her knees and then onto her left thigh/hip. She complains of ongoing pain in the left lateral thigh. She states she is still able to ambulate but does have pain while sitting. She denies any injury to her head loss of consciousness vomiting or vision changes. She also notes a rash on her left forearm which has been there for several months. She was initially seen for the rash and given antibiotics with no improvement and has not been seen since. She has tried moisturizing lotions again with no improvement. Review of Systems As above Objective BP 168/84 Pulse 64 Temp 36.6 ?C (97.8 ?F) (Tympanic) Resp 18 Wt 80.5 kg (177 lb 7.5 oz) SpO2 98% BMI 34.66 kg/m? Physical Exam Vitals and nursing note reviewed. Constitutional: General: She is not in acute distress. Appearance: Normal appearance. She is not ill-appearing. HENT: Head: Normocephalic. Pulmonary: Effort: Pulmonary effort is normal. Musculoskeletal: General: Normal range of motion. Comments: Mild tenderness over the lateral aspect of left thigh with no areas of ecchymosis noted. No specific bony tenderness or deformities noted. Patient has full range of motion of left leg and hip with no complaints of pain. Skin: General: Skin is warm. Comments: Erythematous scaly skin over dorsal aspect left forearm. Per family that this area has not increased in size over several months Neurological: General: No focal deficit present. Mental Status: She is alert and oriented to person, place, and time. Psychiatric: Mood and Affect: Mood normal. Behavior: Behavior normal. Assessment and Plan ASSESSMENT/PLAN: 1. Contusion of left thigh, initial encounter - ICD9: 924.00, ICD10: S70.12XA (primary diagnosis) On physical exam there was no obvious bony deformities and patient does have full range of motion. There was no large area of ecchymosis. Discussed with patient and family that symptoms are more consistent with mild contusion and that symptoms will probably last for another week or 2 until she has complete resolution. Recommended heating pad on and off for 20 minutes at a time. She will use [id number] pain medications and follow-up if symptoms not improving. 2. Rash - ICD9: 782.1, ICD10: R21 Patient given a prescription for hydrocortisone cream and recommended follow-up with local dermatology. - HYDROCORTISONE 1 % TOPICAL CREAM Lindsay Funez APRN.[facility] 05-03-2025 History of Present illness Narrative This note was created using [email or web address]. Subjective Nidhi Zamora is a 85 year old female. HPI Patient presents today stating that about 3 days ago she tripped and fell on the sidewalk landing on her knees and then onto her left thigh/hip. She complains of ongoing pain in the left lateral thigh. She states she is still able to ambulate but does have pain while sitting. She denies any injury to her head loss of consciousness vomiting or vision changes. She also notes a rash on her left forearm which has been there for several months. She was initially seen for the rash and given antibiotics with no improvement and has not been seen since. She has tried moisturizing lotions again with no improvement. Review of Systems As above Objective BP 168/84 Pulse 64 Temp 36.6 C (97.8 F) (Tympanic) Resp 18 Wt 80.5 kg (177 lb 7.5 oz) SpO2 98% BMI 34.66 kg/m Physical Exam Vitals and nursing note reviewed. Constitutional: General: She is not in acute distress. Appearance: Normal appearance. She is not ill-appearing. HENT: Head: Normocephalic. Pulmonary: Effort: Pulmonary effort is normal. Musculoskeletal: General: Normal range of motion. Comments: Mild tenderness over the lateral aspect of left thigh with no areas of ecchymosis noted. No specific bony tenderness or deformities noted. Patient has full range of motion of left leg and hip with no complaints of pain. Skin: General: Skin is warm. Comments: Erythematous scaly skin over dorsal aspect left forearm. Per family that this area has not increased in size over several months Neurological: General: No focal deficit present. Mental Status: She is alert and oriented to person, place, and time. Psychiatric: Mood and Affect: Mood normal. Behavior: Behavior normal. Assessment and Plan ASSESSMENT/PLAN: 1. Contusion of left thigh, initial encounter - ICD9: 924.00, ICD10: S70.12XA (primary diagnosis) On physical exam there was no obvious bony deformities and patient does have full range of motion. There was no large area of ecchymosis. Discussed with patient and family that symptoms are more consistent with mild contusion and that symptoms will probably last for another week or 2 until she has complete resolution. Recommended heating pad on and off for 20 minutes at a time. She will use [id number] pain medications and follow-up if symptoms not improving. 2. Rash - ICD9: 782.1, ICD10: R21 Patient given a prescription for hydrocortisone cream and recommended follow-up with local dermatology. - HYDROCORTISONE 1 % TOPICAL CREAM Lindsay Funez APRN.DARION documented in this encounter [facility] 03-20-2025 Note HNO ID: [id number] Author: STEWART CASTRO APRN.CNP Service: ? Author Type: Nurse Practitioner Type: Progress Notes Filed: 03/20/2025 10:50 Note Text: Chief Complaint Patient presents with: Follow Up: Foot rash HPI Nidhi Zamora is a 85 year old female who presents here today for Above Complaints.. 03/14/2025 Rash: - Rash on bilateral feet began approximately one week ago. - Described as very dry, peeling, and flaking. - Denies pruritus or pain. - Has had similar rashes in the past, previously treated with antibiotics. - Delayed seeking treatment due to the recent of her . Past medical history, appointments, medications, allergies reviewed. Previous Medical History PAST MEDICAL HISTORY Diagnosis Date Cervical disc disorder 04/13/2011 Previous Surgical History PAST SURGICAL HISTORY Procedure Laterality Date LAPAROSCOPY SURG CHOLECYSTECTOMY 1990 Family History No family history on file. Patient Allergies ALLERGIES Allergen Reactions No Known Drug Aller* Current Medications Current Outpatient Medications on File Prior to Visit Medication Sig methylPREDNISolone (MEDROL, JUANCHO,) 4 mg Dose-Pack Take as instructed per package. clindamycin (CLEOCIN) 150 mg capsule Take 3 capsules by mouth three times a day for 7 days. lidocaine (LIDODERM) 5 % Apply 1 Patch as directed every 24 hours. Remove old patch prior to placing new patch. Location: neck (Patient not taking: Reported on 11/19/2023) amLODIPine (NORVASC) 10 mg tablet Take 1 tablet by mouth once daily. (Patient not taking: Reported on 10/11/2023) No current facility-administered medications on file prior to visit. Social History Social History Tobacco Use Smoking status: Never Smokeless tobacco: Never Vaping Use Vaping status: Never Used Review of Symptoms REVIEW OF SYSTEMS SEE HPI EXAM: BP 186/72 Pulse 65 Wt 78.5 kg (173 lb) BMI 33.79 kg/m? General Appearance: Well appearing, alert, in no acute distress, well-hydrated, well nourished.. Skin: Positives: Dry flaking skin to bilateral feet. Petechiae and rash resolved. Health Maintenance List Depression Screening Never done Anxiety Screening Never done Advance Directive Discussion due on 11/13/2024 Covid-19 Vaccine( season) due on 03/14/2025 Diabetes Screening due on 07/20/2026 DTaP,Tdap,Td Vaccine(3 - Td or Tdap) due on 04/28/2030 Influenza Vaccine Completed RSV Vaccine Completed Shingrix Vaccine Completed Pneumococcal Vaccine: 50+ Completed Bone Density Screening Addressed ASSESSMENT/PLAN: 1. Toenail deformity - ICD9: 703.9, ICD10: L60.8 (primary diagnosis - CONSULT TO PODIATRY 2. Hypertension, essential - ICD9: 401.9, ICD10: I10 - Uncontrolled - Recommend home blood pressure monitoring, to bring results to next visit - Encouraged sodium restriction, DASH or Mediterranean diet - Recommend regular aerobic exercise - Patient recently seen by [facility] on 03/07/25 and BPO was elevated however they did not want to start medication. Stewart Castro APRN.[facility] 03-20-2025 History of Present illness Narrative Chief Complaint Patient presents with: Follow Up: Foot rash HPI Nidhi Zamora is a 85 year old female who presents here today for Above Complaints.. 03/14/2025 Rash: - Rash on bilateral feet began approximately one week ago. - Described as very dry, peeling, and flaking. - Denies pruritus or pain. - Has had similar rashes in the past, previously treated with antibiotics. - Delayed seeking treatment due to the recent of her . Past medical history, appointments, medications, allergies reviewed. Previous Medical History PAST MEDICAL HISTORY Diagnosis Date Cervical disc disorder 04/13/2011 Previous Surgical History PAST SURGICAL HISTORY Procedure Laterality Date LAPAROSCOPY SURG CHOLECYSTECTOMY 1990 Family History No family history on file. Patient Allergies ALLERGIES Allergen Reactions No Known Drug Aller* Current Medications Current Outpatient Medications on File Prior to Visit Medication Sig methylPREDNISolone (MEDROL, JUANCHO,) 4 mg Dose-Pack Take as instructed per package. clindamycin (CLEOCIN) 150 mg capsule Take 3 capsules by mouth three times a day for 7 days. lidocaine (LIDODERM) 5 % Apply 1 Patch as directed every 24 hours. Remove old patch prior to placing new patch. Location: neck (Patient not taking: Reported on 11/19/2023) amLODIPine (NORVASC) 10 mg tablet Take 1 tablet by mouth once daily. (Patient not taking: Reported on 10/11/2023) No current facility-administered medications on file prior to visit. Social History Social History Tobacco Use Smoking status: Never Smokeless tobacco: Never Vaping Use Vaping status: Never Used Review of Symptoms REVIEW OF SYSTEMS SEE HPI EXAM: BP 186/72 Pulse 65 Wt 78.5 kg (173 lb) BMI 33.79 kg/m General Appearance: Well appearing, alert, in no acute distress, well-hydrated, well nourished.. Skin: Positives: Dry flaking skin to bilateral feet. Petechiae and rash resolved. Health Maintenance List Depression Screening Never done Anxiety Screening Never done Advance Directive Discussion due on 11/13/2024 Covid-19 Vaccine( season) due on 03/14/2025 Diabetes Screening due on 07/20/2026 DTaP,Tdap,Td Vaccine(3 - Td or Tdap) due on 04/28/2030 Influenza Vaccine Completed RSV Vaccine Completed Shingrix Vaccine Completed Pneumococcal Vaccine: 50+ Completed Bone Density Screening Addressed ASSESSMENT/PLAN: 1. Toenail deformity - ICD9: 703.9, ICD10: L60.8 (primary diagnosis - CONSULT TO PODIATRY 2. Hypertension, essential - ICD9: 401.9, ICD10: I10 - Uncontrolled - Recommend home blood pressure monitoring, to bring results to next visit - Encouraged sodium restriction, DASH or Mediterranean diet - Recommend regular aerobic exercise - Patient recently seen by [facility] on 03/07/25 and BPO was elevated however they did not want to start medication. Stewart Castro APRN.GRIEF COUNSELLOR documented in this encounter [facility] 03-14-2025 Note HNO ID: [id number] Author: STEWART CASTRO APRN.GRIEF COUNSELLOR Service: ? Author Type: Nurse Practitioner Type: Progress Notes Filed: 03/14/2025 10:17 Note Text: Chief Complaint Patient presents with: Rash: Itchy rash on feet and legs X 1 week HPI Nidhi Zamora is a 85 year old female who presents here today for Above Complaints.. Rash: - Rash on bilateral feet began approximately one week ago. - Described as very dry, peeling, and flaking. - Denies pruritus or pain. - Has had similar rashes in the past, previously treated with antibiotics. - Delayed seeking treatment due to the recent of her . Past medical history, appointments, medications, allergies reviewed. Previous Medical History PAST MEDICAL HISTORY Diagnosis Date Cervical disc disorder 04/13/2011 Previous Surgical History PAST SURGICAL HISTORY Procedure Laterality Date LAPAROSCOPY SURG CHOLECYSTECTOMY 1990 Family History No family history on file. Patient Allergies ALLERGIES Allergen Reactions No Known Drug Aller* Current Medications Current Outpatient Medications on File Prior to Visit Medication Sig lidocaine (LIDODERM) 5 % Apply 1 Patch as directed every 24 hours. Remove old patch prior to placing new patch. Location: neck (Patient not taking: Reported on 11/19/2023) amLODIPine (NORVASC) 10 mg tablet Take 1 tablet by mouth once daily. (Patient not taking: Reported on 10/11/2023) No current facility-administered medications on file prior to visit. Social History Social History Tobacco Use Smoking status: Never Smokeless tobacco: Never Vaping Use Vaping status: Never Used Review of Symptoms REVIEW OF SYSTEMS SEE HPI EXAM: BP 181/67 Pulse 65 Wt 79 kg (174 lb 2.6 oz) BMI 34.01 kg/m? General Appearance: Well appearing, alert, in no acute distress, well-hydrated, well nourished.. Skin: Positives: Rash: Petechial rash to bilateral feet, some dry flaking areas noted. Posterior tibial pulses intact and no open areas noted to feet. Health Maintenance List Depression Screening Never done Anxiety Screening Never done Advance Directive Discussion due on 11/13/2024 Covid-19 Vaccine() due on 03/14/2025 Diabetes Screening due on 07/20/2026 DTaP,Tdap,Td Vaccine(3 - Td or Tdap) due on 04/28/2030 Influenza Vaccine Completed RSV Vaccine Completed Shingrix Vaccine Completed Pneumococcal Vaccine: 50+ Completed Bone Density Screening Addressed ASSESSMENT/PLAN: 1. Cellulitis of both feet - ICD9: 682.7, ICD10: L03.115, L03.116 - Begin treatment with Clindamycin - No lymphangetic streaking, this was defined for patient to watch for and to seek medical care immediately if appears - Follow up for recheck in three days - METHYLPREDNISOLONE 4 MG TABLETS IN A DOSE PACK - CLINDAMYCIN HCL 150 MG CAPSULE Patient noted to have elevated BP during visit. Patient reports it has been elevated at home since her . Will recheck in 1 week at cellulitis follow up. Stewart Castro APRN.[facility] 03-14-2025 History of Present illness Narrative Chief Complaint Patient presents with: Rash: Itchy rash on feet and legs X 1 week HPI Nidhi Zamora is a 85 year old female who presents here today for Above Complaints.. Rash: - Rash on bilateral feet began approximately one week ago. - Described as very dry, peeling, and flaking. - Denies pruritus or pain. - Has had similar rashes in the past, previously treated with antibiotics. - Delayed seeking treatment due to the recent of her . Past medical history, appointments, medications, allergies reviewed. Previous Medical History PAST MEDICAL HISTORY Diagnosis Date Cervical disc disorder 04/13/2011 Previous Surgical History PAST SURGICAL HISTORY Procedure Laterality Date LAPAROSCOPY SURG CHOLECYSTECTOMY 1990 Family History No family history on file. Patient Allergies ALLERGIES Allergen Reactions No Known Drug Aller* Current Medications Current Outpatient Medications on File Prior to Visit Medication Sig lidocaine (LIDODERM) 5 % Apply 1 Patch as directed every 24 hours. Remove old patch prior to placing new patch. Location: neck (Patient not taking: Reported on 11/19/2023) amLODIPine (NORVASC) 10 mg tablet Take 1 tablet by mouth once daily. (Patient not taking: Reported on 10/11/2023) No current facility-administered medications on file prior to visit. Social History Social History Tobacco Use Smoking status: Never Smokeless tobacco: Never Vaping Use Vaping status: Never Used Review of Symptoms REVIEW OF SYSTEMS SEE HPI EXAM: BP 181/67 Pulse 65 Wt 79 kg (174 lb 2.6 oz) BMI 34.01 kg/m General Appearance: Well appearing, alert, in no acute distress, well-hydrated, well nourished.. Skin: Positives: Rash: Petechial rash to bilateral feet, some dry flaking areas noted. Posterior tibial pulses intact and no open areas noted to feet. Health Maintenance List Depression Screening Never done Anxiety Screening Never done Advance Directive Discussion due on 11/13/2024 Covid-19 Vaccine( season) due on 03/14/2025 Diabetes Screening due on 07/20/2026 DTaP,Tdap,Td Vaccine(3 - Td or Tdap) due on 04/28/2030 Influenza Vaccine Completed RSV Vaccine Completed Shingrix Vaccine Completed Pneumococcal Vaccine: 50+ Completed Bone Density Screening Addressed ASSESSMENT/PLAN: 1. Cellulitis of both feet - ICD9: 682.7, ICD10: L03.115, L03.116 - Begin treatment with Clindamycin - No lymphangetic streaking, this was defined for patient to watch for and to seek medical care immediately if appears - Follow up for recheck in three days - METHYLPREDNISOLONE 4 MG TABLETS IN A DOSE PACK - CLINDAMYCIN HCL 150 MG CAPSULE Patient noted to have elevated BP during visit. Patient reports it has been elevated at home since her . Will recheck in 1 week at cellulitis follow up. Stewart Castro APRN.GRIEF COUNSELLOR documented in this encounter [facility] 12-28-2023 Miscellaneous Notes Call to daughterKamryn and notified her of message below from Provider, verbalized understanding. Appreciated Provider sending this in for pt. Gracia Garcia Ma OK for Paxlovid as ordered Vane Cassidy MD Pt's daughter asking for something to be called in to [facility] in [place]. Pt had a +home Covid test last night. Pt c/o sore throat, bodyaches, chills, ear pain & productive cough. Sx started Monday PM 12/23/23. Denies SOB or fever. Please advise. Dora Ni LPN Nidhi is calling Vane Cassidy MD today with concern regarding Covid Positive Patient has been identified by name and birthdate. Duration of symptoms: 4 days Person calling: daughter: Kamryn Steel Call at: [phone] Was an appointment scheduled: No Daughter stated patient has been in bed since Monday with chills, severe sore throat, ear pain. Tested positive today for COVID. Asking for medication. Closing statement: Symptom Call: Thank you for calling [facility], your call is very important. A nurse will call in approximately 2-4 hours during business hours. If this is an emergency, please contact 911. Moira Barba documented in this encounter [facility] 10-11-2023 History of Present illness Narrative Images from the original note were not included. This note was created using [employer]forceProter. Subjective Nidhi Zamora is a 83 year old female. HPI 83-year-old female presents for left-sided neck pain and left shoulder pain x 1 day. Patient states that her is in a correction and she has to help him stand up. She states she feels like she pulled a muscle while helping him. She has pain in the left side of her neck/shoulder area. She denies any pain down the arm. No chest pain. No numbness or tingling in the arm. She does have a history of cervical issues in the past. Never had surgery on the cervical spine. Has been using Tylenol and ice with no improvement. PAST MEDICAL HISTORY Diagnosis Date Cervical disc disorder 04/13/2011 PAST SURGICAL HISTORY Procedure Laterality Date LAPAROSCOPY SURG CHOLECYSTECTOMY 1990 ALLERGIES No Known Drug Allergies MEDICATIONS lidocaine (LIDODERM) 5 %^Apply 1 Patch as directed every 24 hours. Remove old patch prior to placing new patch. Location: neck^Disp: 5 Patch^Rfl: 0 amLODIPine (NORVASC) 10 mg tablet^Take 1 tablet by mouth once daily.^Disp: 90 tablet^Rfl: 3 (Patient not taking: Reported on 10/11/2023) No family history on file. Social History Tobacco Use Smoking status: Never Smokeless tobacco: Never Vaping Use Vaping Use: Never used Review of Systems Constitutional: Negative for chills and fever. HENT: Negative for congestion, ear pain and sore throat. Respiratory: Negative for cough and shortness of breath. Cardiovascular: Negative for chest pain. Gastrointestinal: Negative for diarrhea and vomiting. Musculoskeletal: Positive for arthralgias and neck pain. Neurological: Negative for numbness. Objective BP 140/68 Pulse 75 Temp (!) 35.9 C (96.6 F) Resp 21 Wt 74.9 kg (165 lb 3.2 oz) SpO2 98% BMI 32.26 kg/m Physical Exam Vitals and nursing note reviewed. Constitutional: General: She is not in acute distress. Appearance: Normal appearance. She is not toxic-appearing. Cardiovascular: Rate and Rhythm: Normal rate and regular rhythm. Pulmonary: Effort: Pulmonary effort is normal. Breath sounds: Normal breath sounds. Musculoskeletal: Left shoulder: Tenderness present. No bony tenderness. Normal range of motion. Arms: Cervical back: Normal range of motion. Muscular tenderness present. No spinous process tenderness. Normal range of motion. Comments: Patient has tenderness over left-sided cervical paraspinal muscles and left trapezius muscle. No bony tenderness. No midline tenderness. Neck supple. Full ROM neck and shoulder. Normal sensation and strength left upper extremity. Neurological: Mental Status: She is alert. Assessment and Plan ASSESSMENT/PLAN: 1. Neck pain - ICD9: 723.1, ICD10: M54.2 -Suspect musculoskeletal strain/pain. Patient does have muscular tenderness on exam. No fall or injury. Low suspicion for fracture. -Rx for lidocaine patches. Continue Tylenol and may try Motrin OTC. -Ice as needed for pain. -Follow-up with PCP if no improvement. Diagnosis and treatment plan were discussed and questions were answered to the patient's satisfaction. Pt acknowledged understanding of concepts and follow up plan. Specific signs and symptoms that would indicate the need for higher level of care were discussed in detail warranting prompt ER evaluation. HECTOR Feng documented in this encounter [facility] 07-19-2023 Note Attestation signed by Maximus Campbell MD at 07/20/2023 1:52 PM I, Dr. Maximus Campbell, saw and evaluated the patient on 07/20/2023. I personally obtained the solares and critical portions of the history and physical exam. I reviewed the chart including labs and imaging studies and discussed the patient with the ELDER. I agree with the ELDER's medical decision making and the note reflects my HPI, PMH, PSH, ROS, FH, SH as well as my additions. For my exam and A/P please see below. PHYSICAL EXAM: General Appearance: [x]WDWN []Obese []Cachectic []Thin []ill Neck: JVD []Present [x]Absent Lungs: [x]Clear []Crackles []Wheezes []Rhonchi / Respiratory effort []Labored [x]Non-Labored Heart: [x]RRR []Irregularly Irregular [x]Murmur present []Murmur absent/ Peripheral Edema [x]Absent []Present Assessment/Plan Doing well s/p TF TAVR. Ok to discharge home today. Total time spent on this patient's discharge was >30 minutes. Maximus Campbell MD Name: Nidhi Zamora Date of : 1940 Date of Admission: 07/19/2023 Date of Discharge: 07/20/2023 Admitting physician: Maximus Campbell MD Discharge Attending: CHARMAINE Lema CNP Primary Care Physician: Parker Hernandez Reason for Admission: Severe Symptomatic Aortic Stenosis Consultants: [facility] HOSPITAL ADMISSION PROBLEM LIST: Patient Active Problem List Diagnosis Essential hypertension Nonrheumatic aortic valve stenosis Severe aortic stenosis Review of Systems Review of Systems Constitutional: Negative for chills and fever. Eyes: Negative for visual disturbance. Respiratory: Negative for cough and shortness of breath. Cardiovascular: Negative for chest pain, palpitations and leg swelling. Gastrointestinal: Negative for abdominal pain, blood in stool and vomiting. Genitourinary: Negative for difficulty urinating and hematuria. Musculoskeletal: Negative for back pain. Neurological: Negative for dizziness and syncope. Psychiatric/Behavioral: Negative for confusion. Physical Exam Physical Exam Constitutional: Appearance: Normal appearance. HENT: Head: Normocephalic. Eyes: General: No scleral icterus. Right eye: No discharge. Left eye: No discharge. Cardiovascular: Rate and Rhythm: Normal rate and regular rhythm. Pulses: Normal pulses. Dorsalis pedis pulses are 2+ on the right side and 2+ on the left side. Posterior tibial pulses are 2+ on the right side and 2+ on the left side. Heart sounds: Normal heart sounds. No murmur heard. Comments: R femoral cath site without hematoma, ecchymosis, oozing or bruit R radial cath site without hematoma, ecchymosis or oozing. R hand with brisk capillary refill Pulmonary: Effort: Pulmonary effort is normal. Breath sounds: Normal breath sounds. Abdominal: General: Abdomen is flat. Palpations: Abdomen is soft. Musculoskeletal: General: Normal range of motion. Cervical back: Normal range of motion. Right lower leg: No edema. Left lower leg: No edema. Skin: General: Skin is warm and dry. Capillary Refill: Capillary refill takes less than 2 seconds. Neurological: Mental Status: She is alert and oriented to person, place, and time. Psychiatric: Mood and Affect: Mood normal. Procedures: Transfemoral transcatheter AVR with 23 mm Karina S3 valve under moderate sedation Transthoracic echocardiogram HOSPITAL COURSE : The patient was admitted to the hospital for elective TAVR on 07/19/23 . A 23 Karina S3 valve was implanted. The patient returned to [facility] for recovery. Vital signs and labs were stable. There were no groin complications. The patient was ambulatory the evening of the procedure. Complete post procedure echocardiogram demonstrated : Left Ventricle: Left ventricle size is normal. Mildly increased wall thickness. Increased ventricular mass. Findings consistent with concentric hypertrophy. Normal left ventricular systolic function. EF by 2D Simpsons Biplane is 69%. Normal wall motion. Elevated left ventricular filling pressure. Average E/e' ratio is 13.02. Right Ventricle: Right ventricle size is normal. Normal systolic function. Aortic Valve: Not well visualized. Lewis Karina 3 [id number] transcatheter bioprosthetic aortic valve with a size of 23 mm. AV mean gradient is 16 mmHg. No cusp thickening. No cusp calcification. No regurgitation. No stenosis. AV peak gradient is 28 mmHg. Highest gradients from the apex. LVOT:AV VTI Index is 0.42. Patient education including SBE prophylaxis, activity, access site care, follow up appointments, and medications was provided. The patient verbalized understanding, questions were answered. The patient was discharged home in good condition. Referral to cardiac rehabilitation has been recommended and discussed wi (more content not included)... [facility] 07-19-2023 Note Arterial Line: Date/Time: 07/19/2023 10:35 AM An arterial line was placed in the Procedural for the following indication(s): continuous blood pressure monitoring. A (size) (length) (type) catheter was placed, into the Right radial artery, secured by . Staffing Performed: Other Other anesthesia staff: Maximus Campbell MD Performed by: CHARMAINE Casey CRNA Authorized by: CHARMAINE Casey CRNA [facility] 07-19-2023 Note Patient: Nidhi jackson Procedure Summary Date: 07/19/23 Room / Location: [facility] Operating Room Anesthesia Start: 955 Anesthesia Stop: 113 Procedures: TRANSCATHER AORTIC VALVE REPLACEMENT, TRANSTHORACIC ECHOCARDIOGRAM TAVR WITH PROSTHETIC VALVE PERCUTANEOUS FEMORAL ARTERY APPROACH (Chest) Diagnosis: Nonrheumatic aortic valve stenosis (Same) Surgeons: Maximus Campbell MD; Cem Harrell MD Responsible Provider: Turner Fan MD Anesthesia Type: TIVA ASA Status: 4 Anesthesia Type: TIVA Vitals Value Taken Time BP 103/58 07/19/23 1141 Temp 98.6 07/19/23 1141 Pulse 60 07/19/23 1141 Resp 12 07/19/23 1141 SpO2 95 07/19/23 1141 Anesthesia Post Evaluation There were no known notable events for this encounter. Patient can be discharged once all PACU criteria has been met. [facility] 07-19-2023 Note Patient: Nidhi jackson Procedure Summary Date: 07/19/23 Room / Location: [facility] Operating Room Anesthesia Start: 955 Anesthesia Stop: 1135 Procedures: TRANSCATHER AORTIC VALVE REPLACEMENT, TRANSTHORACIC ECHOCARDIOGRAM TAVR WITH PROSTHETIC VALVE PERCUTANEOUS FEMORAL ARTERY APPROACH (Chest) Diagnosis: Nonrheumatic aortic valve stenosis (Same) Surgeons: Maximus Campbell MD; Cem Harrell MD Responsible Provider: Turner Fan MD Anesthesia Type: TIVA ASA Status: 4 Anesthesia Type: TIVA Vitals Value Taken Time BP 103/58 07/19/23 1140 Temp 98.6 07/19/23 1140 Pulse 60 07/19/23 1140 Resp 12 07/19/23 1140 SpO2 95 07/19/23 1140 Anesthesia Post Evaluation Patient location during evaluation: ICU Patient participation: complete - patient participated Level of consciousness: awake and alert (sedated/intubated) Pain score: 0 Pain management: adequate Multimodal analgesia pain management approach Airway patency: patent Two or more strategies used to mitigate risk of obstructive sleep apnea Cardiovascular status: hemodynamically stable Respiratory status: acceptable and nasal cannula Hydration status: acceptable There were no known notable events for this encounter. MIPS #430 PONV Patient did not receive an inhalational anesthetic ([id number]) MIPS # 424 Perioperative Temperature Management Anesthesia time was 60 minutes or longer (4255F) Anesthesai administered was not General (inhalational or TIVA) or Neuraxial block Patient received MAC (G9654) At least one body temperature greater than 95.8F/35.5C achieved within the 30 mins immediately prior to or the 15 minutes immediately following anesthesia end time (G9771) MIPS #477 Multimodal Pain Management Not emergent case Patient was administered multimodal pain management (two or more drugs and/or interventions excluding systemic opioids) in the periopeartive period occurring at some time between 6 hours prior to anesthesia start time until discharged from PACU (G2148) MIPS #404 Anesthesiology Smoking Abstinence The patient is not a current smoker (e.g. cigarette, cigar, pipe, e-cigarette/vaping/marijuana) If no stop here (G9644) I completed my handoff to the receiving clinician during which we: 1. Identified the patient 2. Identified the responsible provider 3. Reviewed the pertinent medical history 4. Discussed the surgical course 5. Reviewed intra-op anesthesia management and issues during anesthesia 6. Set expectations for post-procedure period 7. Allowed opportunity for questions and acknowledgement of understanding. [facility] 07-19-2023 Hospital Discharge instructions CHARMAINE Lema CNP - 07/19/2023 12:21 PM EDT - Please call the Heart Valve Clinic with any questions: [phone] -You will have have the following follow up appointments in the Heart Valve Clinic: one week post procedure, one month post procedure with echocardiogram, one year post procedure with echocardiogram. -Wash groin/wrist incision with soap and water, pat dry. Apply bandage for 5 days. If you have a chest incision, you will receive specific instructions from your surgeon regarding care of the incision. -Check incision every day. If you see any changes in the way it looks, call the Heart Valve Clinic at . Look for any of these problems: redness and warmth that does not go away, yellow or green drainage from the wound, fever and chills, numbness in your legs, pain that is getting worse. -It is normal to have a bruise or soft lump in the groin. This will get smaller and go away with time -Do not drive until after your first Heart Valve Clinic Appointment. -Do not lift, push, or pull anything weighing more than 5 lbs or more for one week if you had the procedure through your groin and 4 weeks if you had the procedure through the chest -We strongly encourage a regular exercise program such as cardiac rehabilitation once you have been cleared to resume normal activity. -Eating well is important for your recovery. Eat nutritious foods every day. Please follow a cardiac, 2 gram sodium diet. Please continue to follow any other dietary recommendations provided by your health care provider prior to your valve surgery. -From now on, tell your doctors and health care providers about your heart valve implantation (prosthetic heart valve ). -If you go to the emergency room or are admitted to the hospital during the first year after your procedure, please call the Heart Valve Clinic at -If you have major dental work or other invasive medical procedures (like surgery) you may need to take antibiotics before the dental work or the procedure. Please discuss with your health care provider. - You will need to take blood thinning medications (antiplatelet) after your valve procedure. Generally, this includes aspirin alone, unless you take blood thinning medications for another indication (warfarin, apixaban, rivaroxaban). If you take blood thinning medications, these are generally sufficient and aspirin will not be required unless otherwise specified. documented in this encounter [facility] 07-19-2023 Hospital course Narrative Name: Nidhi Zamora Date of : 1940 Date of Admission: 07/19/2023 Date of Discharge: 07/20/2023 Admitting physician: Maximus Campbell MD Discharge Attending: CHARMAINE Lema CNP Primary Care Physician: Parker Hernandez Reason for Admission: Severe Symptomatic Aortic Stenosis Consultants: Cardiac Rehab HOSPITAL ADMISSION PROBLEM LIST: Patient Active Problem List Diagnosis Essential hypertension Nonrheumatic aortic valve stenosis Severe aortic stenosis Review of Systems Review of Systems Constitutional: Negative for chills and fever. Eyes: Negative for visual disturbance. Respiratory: Negative for cough and shortness of breath. Cardiovascular: Negative for chest pain, palpitations and leg swelling. Gastrointestinal: Negative for abdominal pain, blood in stool and vomiting. Genitourinary: Negative for difficulty urinating and hematuria. Musculoskeletal: Negative for back pain. Neurological: Negative for dizziness and syncope. Psychiatric/Behavioral: Negative for confusion. Physical Exam Physical Exam Constitutional: Appearance: Normal appearance. HENT: Head: Normocephalic. Eyes: General: No scleral icterus. Right eye: No discharge. Left eye: No discharge. Cardiovascular: Rate and Rhythm: Normal rate and regular rhythm. Pulses: Normal pulses. Dorsalis pedis pulses are 2+ on the right side and 2+ on the left side. Posterior tibial pulses are 2+ on the right side and 2+ on the left side. Heart sounds: Normal heart sounds. No murmur heard. Comments: R femoral cath site without hematoma, ecchymosis, oozing or bruit R radial cath site without hematoma, ecchymosis or oozing. R hand with brisk capillary refill Pulmonary: Effort: Pulmonary effort is normal. Breath sounds: Normal breath sounds. Abdominal: General: Abdomen is flat. Palpations: Abdomen is soft. Musculoskeletal: General: Normal range of motion. Cervical back: Normal range of motion. Right lower leg: No edema. Left lower leg: No edema. Skin: General: Skin is warm and dry. Capillary Refill: Capillary refill takes less than 2 seconds. Neurological: Mental Status: She is alert and oriented to person, place, and time. Psychiatric: Mood and Affect: Mood normal. Procedures: Transfemoral transcatheter AVR with 23 mm Karina S3 valve under moderate sedation Transthoracic echocardiogram HOSPITAL COURSE : The patient was admitted to the hospital for elective TAVR on 07/19/23 . A 23 Karina S3 valve was implanted. The patient returned to [facility] for recovery. Vital signs and labs were stable. There were no groin complications. The patient was ambulatory the evening of the procedure. Complete post procedure echocardiogram demonstrated : Left Ventricle: Left ventricle size is normal. Mildly increased wall thickness. Increased ventricular mass. Findings consistent with concentric hypertrophy. Normal left ventricular systolic function. EF by 2D Simpsons Biplane is 69%. Normal wall motion. Elevated left ventricular filling pressure. Average E/e' ratio is 13.02. Right Ventricle: Right ventricle size is normal. Normal systolic function. Aortic Valve: Not well visualized. Lewis Karina 3 [id number] transcatheter bioprosthetic aortic valve with a size of 23 mm. AV mean gradient is 16 mmHg. No cusp thickening. No cusp calcification. No regurgitation. No stenosis. AV peak gradient is 28 mmHg. Highest gradients from the apex. LVOT:AV VTI Index is 0.42. Patient education including SBE prophylaxis, activity, access site care, follow up appointments, and medications was provided. The patient verbalized understanding, questions were answered. The patient was discharged home in good condition. Referral to cardiac rehabilitation has been recommended and discussed with the patient prior to discharge. Referral has been made to the [facility] Outpatient Cardiac Rehabilitation Program. Last Labs: Lab Results Component Value Date WBC 7.5 07/20/2023 HGB 11.7 07/20/2023 HCT 35.1 07/20/2023 MCV 83.2 07/20/2023 PLT 272 07/20/2023 Discharge Medications: Medication List START taking these medications aspirin 81 MG chewable tablet Chew 1 tablet (81 mg) daily. CONTINUE taking these medications amLODIPine 10 MG tablet Commonly known as: Norvasc Where to Get Your Medications Information about where to get these medications is not yet available Ask your nurse or doctor about these medications aspirin 81 MG chewable tablet DIET: A low fat, low cholesterol, 2 gramsodium diet was discussed with the patient. 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 Maximus Campbell, saw and evaluated the patient on 07/20/2023. I personally obtained the solares and critical portions of the history and physical exam. I reviewed the chart including labs and imaging studies and discussed the patient with the ELDER. I agree with the ELDER's medical decision making and the note reflects my HPI, PMH, PSH, ROS, FH, SH as well as my additions. For my exam and A/P please see below. PHYSICAL EXAM: General Appearance: [x]WDWN []Obese []Cachectic []Thin []ill Neck: JVD []Present [x]Absent Lungs: [x]Clear []Crackles []Wheezes []Rhonchi / Respiratory effort []Labored [x]Non-Labored Heart: [x]RRR []Irregularly Irregular [x]Murmur present []Murmur absent/ Peripheral Edema [x]Absent []Present Assessment/Plan Doing well s/p TF TAVR. Ok to discharge home today. Total time spent on this patient's discharge was >30 minutes. Maximus Campbell MD documented in this encounter [facility] 07-19-2023 Note Formatting of this n ote might be different from the original. 07/19/2023 date of surgery Cardiothoracic surgeon: Cem Harrell MD FACS Dock Manager: Maximus Campbell MD Preoperative diagnosis severe, symptomatic aortic valve stenosis Postoperative diagnosis the same Procedure: Transcatheter aortic valve replacement 23 mm KARINA S3 ultra valve Complications: None Anesthesia: Local with conscious sedation Indications for procedure: The patient is an 83-year-old female with a history of severe, symptomatic aortic valve stenosis. The case was reviewed in the valve clinic in the valve conference and the patient was deemed a candidate for TAVR. Procedure detail: The patient was placed supine on the operating room table. The patient was prepped and draped in usual sterile fashion. Vascular access was gained in the right femoral artery, right radial artery and right femoral vein. A 6 Finnish sheath was placed in the right femoral vein through which the temporary pacing wire was advanced to the right ventricle. This access site was also used for central venous access. A 6 Finnish sheath was placed in the right radial artery through which the pigtail catheter was advanced to the aortic annulus for confirmation of the implant angle. The right femoral artery was used to place a 6 Finnish sheath and Perclose devices were placed at this site. The 14 Finnish sapient E sheath was introduced into the descending thoracic aorta the patient had been heparinized. The valve was introduced into the sheath and mounted on the balloon and the descending thoracic aorta the valve was then passed across the arch and the aortic annulus under rapid pacing the valve was deployed the valve was noted to seat well and functioning normally on transthoracic echocardiography and fluoroscopy. Protamine was then given to reverse the systemic effects of heparin and the patient was decannulated and transferred stable to the recovery room. [employer] Phone: 07-19-2023 Note Formatting of this n ote might be different from the original. 07/19/2023 date of surgery Cardiothoracic surgeon: Cem Harrell MD [facility] Dock Manager: Maximus Campbell MD Preoperative diagnosis severe, symptomatic aortic valve stenosis Postoperative diagnosis the same Procedure: Transcatheter aortic valve replacement 23 mm KARINA S3 ultra valve Complications: None Anesthesia: Local with conscious sedation Indications for procedure: The patient is an 83-year-old female with a history of severe, symptomatic aortic valve stenosis. The case was reviewed in the valve clinic in the valve conference and the patient was deemed a candidate for TAVR. Procedure detail: The patient was placed supine on the operating room table. The patient was prepped and draped in usual sterile fashion. Vascular access was gained in the right femoral artery, right radial artery and right femoral vein. A 6 Finnish sheath was placed in the right femoral vein through which the temporary pacing wire was advanced to the right ventricle. This access site was also used for central venous access. A 6 Finnish sheath was placed in the right radial artery through which the pigtail catheter was advanced to the aortic annulus for confirmation of the implant angle. The right femoral artery was used to place a 6 Finnish sheath and Perclose devices were placed at this site. The 14 Finnish sapient E sheath was introduced into the descending thoracic aorta the patient had been heparinized. The valve was introduced into the sheath and mounted on the balloon and the descending thoracic aorta the valve was then passed across the arch and the aortic annulus under rapid pacing the valve was deployed the valve was noted to seat well and functioning normally on transthoracic echocardiography and fluoroscopy. Protamine was then given to reverse the systemic effects of heparin and the patient was decannulated and transferred stable to the recovery room. [employer] Phone: 07-19-2023 Miscellaneous Notes 07/19/2023 date of surgery Cardiothoracic surgeon: Cem Harrell MD [facility] Dock Manager: Maxmius Campbell MD Preoperative diagnosis severe, symptomatic aortic valve stenosis Postoperative diagnosis the same Procedure: Transcatheter aortic valve replacement 23 mm KARINA S3 ultra valve Complications: None Anesthesia: Local with conscious sedation Indications for procedure: The patient is an 83-year-old female with a history of severe, symptomatic aortic valve stenosis. The case was reviewed in the valve clinic in the valve conference and the patient was deemed a candidate for TAVR. Procedure detail: The patient was placed supine on the operating room table. The patient was prepped and draped in usual sterile fashion. Vascular access was gained in the right femoral artery, right radial artery and right femoral vein. A 6 Finnish sheath was placed in the right femoral vein through which the temporary pacing wire was advanced to the right ventricle. This access site was also used for central venous access. A 6 Finnish sheath was placed in the right radial artery through which the pigtail catheter was advanced to the aortic annulus for confirmation of the implant angle. The right femoral artery was used to place a 6 Finnish sheath and Perclose devices were placed at this site. The 14 Finnish sapient E sheath was introduced into the descending thoracic aorta the patient had been heparinized. The valve was introduced into the sheath and mounted on the balloon and the descending thoracic aorta the valve was then passed across the arch and the aortic annulus under rapid pacing the valve was deployed the valve was noted to seat well and functioning normally on transthoracic echocardiography and fluoroscopy. Protamine was then given to reverse the systemic effects of heparin and the patient was decannulated and transferred stable to the recovery room. documented in this encounter [facility] 07-14-2023 Note Attestation signed by Maximus Campbell MD at 07/19/2023 8:09 AM I have examined the patient on admission and confirm that the necessity for the procedure is still present . The patient's condition has not changed since the History & Physical was originally completed. Maximus Campbell MD 07/19/2023 Maximus Campbell MD Cardiology Essential hypertension +1 more Dx Cardiac Valve Problem Reason for Visit Progress Notes Maximus Campbell MD (Physician) Cardiology Expand All Collapse All [facility] [address] [place] [id number] Dept: [phone] Dept Loc: [phone] Interventional Cardiology Office Note Visit type: New patient Reason for Visit: Cardiac Valve Problem (Heart Valve Clinic) Assessment and Plan Nidhi Zamora is a very pleasant 83 y.o. female who presents for evaluation of her aortic stenosis. She does appear to have severe symptomatic aortic stenosis. She had a CTA which appears to be appropriate for transfemoral TAVR. We will plan to proceed with TAVR at this time. The Transcatheter Aortic Valve Replacement (TAVR) procedure was explained in detail. The potential risks of the procedure including bleeding, vascular complications, stroke, myocardial infarction, arrhythmias, renal dysfunction, infection and were described. All of the patient's questions were answered. The patient expressed understanding of the procedure and the potential risks and wishes to proceed with TAVR at this time. 1. Essential hypertension - ECG 12 lead - CLINIC PERFORMED 2. Aortic valve disorder - Type and screen - Prepare RBC: 2 Units - Confirmatory ABO/Rh No follow-ups on file. It was a great pleasure seeing Nidhi Zamora in our office today. Please contact me with any questions. Maximus Campbell MD MPH, [facility] Chief, Ischemic Heart Disease Airfield Manager, Interventional Cardiology Fellowship Eyeglass Lens Cutter Coronary, Structural, Peripheral Interventions Subjective Nidhi Zamora is a very pleasant 83 y.o. female with Aortic stenosis (peak/mean 71/42, aortic valve area 0.4, dimensionless index 0.17, ejection fraction 61%), hypertension who presents for evaluation of her aortic stenosis. She is a patient of Dr. Patterson. She states that she had a difficult 3 months recently with her being in the hospital with a brain bleed. He is now home and doing well but she noticed after that time from that she was much more fatigued. She was evaluated in the ER and in follow-up with her primary care doctor was found to have a heart murmur. She was referred to Dr. Patterson who found that she had severe aortic stenosis. He did a heart catheterization which did not reveal any significant coronary disease. She denies any chest discomfort, lightheadedness, syncope. She may have some mild shortness of breath. She denies any significant edema. Review of Systems Constitutional: Positive for fatigue. Negative for activity change, chills and diaphoresis. HENT: Negative for nosebleeds and trouble swallowing. Eyes: Negative for discharge and visual disturbance. Respiratory: Negative for apnea, cough, chest tightness, shortness of breath and wheezing. Cardiovascular: Negative for chest pain, palpitations and leg swelling. Gastrointestinal: Negative for abdominal distention, abdominal pain, blood in stool, diarrhea, nausea and vomiting. Endocrine: Negative for cold intolerance and heat intolerance. Genitourinary: Negative for hematuria. Musculoskeletal: Negative for gait problem and myalgias. Skin: Negative for color change and rash. Neurological: Negative for dizziness, seizures, syncope, facial asymmetry, speech difficulty, weakness, light-headedness, numbness and headaches. Hematological: Does not bruise/bleed easily. Psychiatric/Behavioral: Negative for dysphoric mood. No Known Allergies Medications Prior to Visit Outpatient Medications Prior to Visit Medication Sig Dispense Refill amLODIPine (Norvasc) 10 MG tablet Take 10 mg by mouth daily. No facility-administered medications prior to visit. Medical History Past Medical History: Diagnosis Date Heart valve disease Hypertension Surgical History Past Surgical History: Procedure Laterality Date CHOLECYSTECTOMY HYSTERECTOMY TONSILLECTOMY Social History Tobacco Use Smoking status: Never Smokeless tobacco: Never Substance Use Topics Alcohol use: Not Currently Family History No family history on file. Objective Vitals Vitals: 06/30/23 1242 BP: 130/60 BP Location: Left arm Patient Position: Sitting BP Cuff Size: Adult Pulse: 63 SpO2: 95% Weight: 165 lb 3.2 oz (74.9 kg) Height: 5' 2 (1.575 m) Body mass index is 30.22 kg/m?. Phys (more content not included)... [facility] 07-13-2023 Note Patient called and l eft a message that she wanted to make sure we got the information from [facility] for her procedure on 07/19/23. [facility] 07-13-2023 Note Patient: Nidhi jackson Procedure Information Date/Time: 07/19/23 0845 Procedures: TRANSCATHER AORTIC VALVE REPLACEMENT, TRANSTHORACIC ECHOCARDIOGRAM TAVR WITH PROSTHETIC VALVE PERCUTANEOUS FEMORAL ARTERY APPROACH (Chest) Location: [facility] Operating Room Surgeons: Maximus Campbell MD; Cem Harrell MD Relevant Problems Cardio (+) Essential hypertension (+) Nonrheumatic aortic valve stenosis (+) Severe aortic stenosis Past Medical History: Past Medical History: No date: Heart valve disease No date: Hypertension Past Surgical History: Past Surgical History: No date: CHOLECYSTECTOMY No date: HYSTERECTOMY No date: TONSILLECTOMY Social History: TOBACCO: reports that she has never smoked. She has never used smokeless tobacco. ETOH: reports that she does not currently use alcohol. Social History Substance and Sexual Activity Drug Use Never Family History: No family history on file. Screening: unknown Clinical information reviewed: Physical Exam Airway Mallampati: II TM distance: >3 FB Neck ROM: full Mouth Open: normal Cardiovascular Dental Pulmonary Abdominal Anesthesia Plan patient is NPO appropriate Any family history or previous problems with anesthesia no ASA 4 TIVA Any family history or previous problems with anesthesia no The patient is not a current smoker. Anesthetic plan and risks discussed with patient. DALE Screening Labs: No results found for: WBC, HGB, HCT, MCV, PLT No results found for: NA, K, CL, CO2, BUN, CREATININE, GLUCOSE, CALCIUM, PROT, BILIRUBINFL, ALKPHOS, AST, ALT, EGFR, GLOB Echocardiogram completed on 05/12/2023?showed severe?aortic valve stenosis with peak/mean gradients 71/42?mm Hg, DI 0.17, CARMEN?0.38?cm^2. 06/30/23 Sinus Rhythm -First degree A-V block Marium = 220 Voltage criteria for LVH (R(I)+S(III) exceeds 2.50 mV). -Nonspecific ST depression ?+ ?Nonspecific T-abnormality -Seen with left ventricular hypertrophy (strain) or digitalis effect. ABNORMAL ECG 12-LEAD (Preliminary) [facility] 07-13-2023 Note Pre TAVR phone call placed. Reviewed, procedure, instructions and meds. Pt verbalizes understanding. Pt knows to call [phone] with any concerns. Eugenia Campbell GRIEF COUNSELLOR notified to review labs and CXR. Ready for prep for proc orders. Diagnosis: Procedure being done: TAVR Date/time of procedure: 07/19/23 at 8:45 am Surgeon: Dr. Campbell 2nd surgeon: Dr. Harrell Admission type: To be admitted Anesthesia: MAC Completed: H&P/EKG/T&S/CXR/BMP/CBC Date completed: 07/11/23 CXR and pre-TAVR labs from [place] in [facility] Additional orders None [facility] 07-12-2023 Note Dx: Procedure: TAVR Date/Time: 07/19/23 at 9:15 am Surgeon: Dr. Campbell/ Dr. Harrell Location: [facility] Admission: [facility] Anesthesia: MAC [facility] 07-10-2023 Telephone encounter Note Orders faxed to new fax # patient provided. [phone] [facility] 07-10-2023 Miscellaneous Notes Orders faxed to new fax # patient provided. [phone] Patient will go to [facility] at [address] tomorrow to have CXR, BNP, CMP and CBC done. Ronald Vance to fax orders Surgery scheduling notified to move up TAVR start time on 07/19/23 to 8:45 AM. Patient notified, via phone, verbalizes understanding. Spoke with patient and will have CMP, BNP and CBC done at [facility] and CXR. Mailed orders to address on file and spoke with patient to notify office if orders don't arrive in the next few days. Patient verbalized understanding. TAVR procedure, instructions reviewed with pt and daughter. Patient scheduled for TAVR on 07/19/23 at 9:15 am Will report to [facility] by 7:15 am Can park in the [facility] Parking Deck or use [employer] Clerk parking at the [facility] entrance Plan on overnight stay in the hospital Will not be able to drive for 1 week after procedure Will receive moderate sedation through the IV, will be relaxed but awake during the procedure Nothing to eat or drink after midnight Instructed to take morning medications as prescribed with small sip of water EXCEPT to HOLD vitamins and supplements morning of surgery Will call with any questions/concerns Patient will have T&S done today at [address] [place] [address]. Once completed, will put orders in for pre-TAVR labs and CXR to be done in [place] 1 week prior to procedure. Will mail orders once put in. Patient/family verbalized understanding. Dx: Procedure: TAVR Date/Time: 07/19/23 at 9:15 am Surgeon: Dr. Campbell/ Dr. Harrell Location: [facility] Admission: A Anesthesia: MAC Case request order pending. Calender updated. documented in this encounter [facility] 07-10-2023 Telephone encounter Note Patient will go to [facility] at [address] tomorrow to have CXR, BNP, CMP and CBC done. Ronald Vance to fax orders [facility] 07-05-2023 Telephone encounter Note Surgery scheduling notified to move up TAVR start time on 07/19/23 to 8:45 AM. Patient notified, via phone, verbalizes understanding. [facility] 07-05-2023 Telephone encounter Note Spoke with patient and will have CMP, BNP and CBC done at [facility] and CXR. Mailed orders to address on file and spoke with patient to notify office if orders don't arrive in the next few days. Patient verbalized understanding. [facility] 06-30-2023 Note TAVR procedure, inst ructions reviewed with pt and daughter. Patient scheduled for TAVR on 07/19/23 at 9:15 am Will report to [facility] by 7:15 am Can park in the [facility] Parking Deck or use [employer] Clerk parking at the [facility] entrance Plan on overnight stay in the hospital Will not be able to drive for 1 week after procedure Will receive moderate sedation through the IV, will be relaxed but awake during the procedure Nothing to eat or drink after midnight Instructed to take morning medications as prescribed with small sip of water EXCEPT to HOLD vitamins and supplements morning of surgery Will call with any questions/concerns Patient will have T&S done today at [address] Once completed, will put orders in for pre-TAVR labs and CXR to be done in [place] 1 week prior to procedure. Will mail orders once put in. Patient/family verbalized understanding. [facility] 06-30-2023 Note Dx: Procedure: TAVR Date/Time: 07/19/23 at 9:15 am Surgeon: Dr. Campbell/ Dr. Harrell Location: [facility] Admission: TBA Anesthesia: MAC Case request order pending. Calender updated. [facility] 06-30-2023 Telephone encounter Note TAVR procedure, instructions reviewed with pt and daughter. Patient scheduled for TAVR on 07/19/23 at 9:15 am Will report to [facility] by 7:15 am Can park in the [facility] Parking Deck or use [employer] Clerk parking at the [facility] entrance Plan on overnight stay in the hospital Will not be able to drive for 1 week after procedure Will receive moderate sedation through the IV, will be relaxed but awake during the procedure Nothing to eat or drink after midnight Instructed to take morning medications as prescribed with small sip of water EXCEPT to HOLD vitamins and supplements morning of surgery Will call with any questions/concerns Patient will have T&S done today at [address] [place] [address]. Once completed, will put orders in for pre-TAVR labs and CXR to be done in [place] 1 week prior to procedure. Will mail orders once put in. Patient/family verbalized understanding. [facility] 06-30-2023 Telephone encounter Note Dx: Procedure: TAVR Date/Time: 07/19/23 at 9:15 am Surgeon: Dr. Campbell/ Dr. Harrell Location: [facility] Admission: TBA Anesthesia: MAC Case request order pending. Calender updated. [facility] 06-30-2023 History of Present illness Narrative Images from the original note were not included. [facility] Medical Group: Cardiothoracic Surgery Multidisciplinary Heart Valve Clinic Date: 06/30/23 Patient:Nidhi Zamora 1940 83 y.o. female [id number] Subjective: HPI: Nidhi Zamora 83 [address] Patterson is being evaluated for aortic valve stenosis. Echocardiogram completed on 05/12/2023 showed severe aortic valve stenosis with peak/mean gradients 71/42 mm Hg, DI 0.17, CARMEN 0.38 cm^2. c/o fatigue and mild sob. Denies chest pain, leg swelling, syncope. Per note, pt with history of hypertension. She presented to the ED in April 2023 with dizziness, headache, nausea, and vomiting. On exam, pt was noted to have a 2/6 crescendo decrescendo murmur. As part of her work up she underwent a CT scan of the head and neck which was unremarkable. EKG demonstrated NSR. Pt went for follow up with her PCP and was noted to have a 3/6 murmur. An echocardiogram was ordered and performed which demonstrated normal left ventricular size and function, left atrium was mildly dilated, there was mild mitral calcification present, aortic valve was severely stenotic. Medical History Past Medical History: Diagnosis Date Heart valve disease Hypertension Blood thinner - none Transthoracic Echocardiogram 05/12/2023 Heart Catheterization 06/06/2023 Review of Systems Constitutional: Positive for fatigue. Negative for activity change, chills, diaphoresis and fever. HENT: Negative for nosebleeds and trouble swallowing. Eyes: Negative for discharge and visual disturbance. Respiratory: Negative for apnea, cough, chest tightness, shortness of breath and wheezing. Cardiovascular: Negative for chest pain, palpitations and leg swelling. Gastrointestinal: Negative for abdominal distention, abdominal pain, blood in stool, diarrhea, nausea and vomiting. Endocrine: Negative for cold intolerance and heat intolerance. Genitourinary: Negative for hematuria. Musculoskeletal: Negative for gait problem and myalgias. Skin: Negative for color change and rash. Neurological: Negative for dizziness, seizures, syncope, facial asymmetry, speech difficulty, weakness, light-headedness, numbness and headaches. Hematological: Does not bruise/bleed easily. Psychiatric/Behavioral: Negative for dysphoric mood. Allergies: Patient has no known allergies. Past Medical History: has a past medical history of Heart valve disease and Hypertension. Past Surgical History: has a past surgical history that includes Cholecystectomy; Hysterectomy; and Tonsillectomy. Social History: reports that she has never smoked. She has never used smokeless tobacco. She reports that she does not currently use alcohol. She reports that she does not use drugs. Family History: family history is not on file. Medications: Prior to Admission medications Medication Sig Start Date End Date Taking? Authorizing Provider amLODIPine (Norvasc) 10 MG tablet Take 10 mg by mouth daily. 06/01/23 Historical Provider, Objective: There were no vitals taken for this visit. @[email or web address]@ Physical Exam Constitutional: General: She is not in acute distress. Appearance: Normal appearance. HENT: Head: Normocephalic and atraumatic. Right Ear: External ear normal. Left Ear: External ear normal. Nose: Nose normal. Mouth/Throat: Lips: [place]. Dentition: Normal dentition. Tongue: No lesions. Tongue does not deviate from midline. Eyes: General: Lids are normal. Conjunctiva/sclera: Conjunctivae normal. Neck: Thyroid: No thyroid mass or thyromegaly. Trachea: Trachea normal. Cardiovascular: Rate and Rhythm: Normal rate and regular rhythm. Pulses: No decreased pulses. Heart sounds: Heart sounds not distant. Murmur heard. No friction rub. Pulmonary: Effort: Pulmonary effort is normal. No accessory muscle usage. Breath sounds: Normal breath sounds and air entry. No stridor or decreased air movement. Abdominal: General: Bowel sounds are normal. Palpations: There is no mass. Tenderness: There is no abdominal tenderness. Hernia: No hernia is present. Musculoskeletal: Cervical back: Full passive range of motion without pain. No rigidity or crepitus. No pain with movement. Right lower leg: No edema. Left lower leg: No edema. Skin: General: Skin is warm. Capillary Refill: Capillary refill takes less than 2 seconds. Findings: No lesion, rash or wound. Comments: Color normal for ethnicity Neurological: Mental Status: She is alert. Psychiatric: Attention and Perception: Attention normal. Mood and Affect: Mood and affect normal. Behavior: Behavior is cooperative. Cognition and Memory: She does not exhibit impaired recent memory or impaired remote memory. Judgment: Judgment normal. Labs: Reviewed in EMR No results found for: WBC, HGB, HCT, MCV, PLT No results found for: NA, K, CL, CO2, BUN, CREATININE, GLUCOSE, CALCIUM Diagnostics: Reviewed in EMR Assessment/Plan: Severe, symptomatic aortic valve stenosis. We reviewed the cath, echo and ct images. We rec TAVR based upon age. We rev risks, benefits and alternatives of surgery. Consented. Patient consents to surgical bailout: [x] Yes [] No If No why: Disclaimers: INFORMED CONSENT: The nature and purpose of the proposed treatment and/or procedure have been discussed. The risks and benefits of the proposed treatment or procedures have been reviewed. Alternatives have been reviewed in addition to the risks and benefits of not receiving treatments or undergoing procedures. Pursuant to this discussion, the patient agrees to undergo the proposed treatment or procedure. Captured images seen in this note are not a substitute for a comprehensive interpretation of the entire data set as reflected by the interpreting physician with regard to radiology, echocardiography, and other diagnostic images. documented in this encounter [facility] 06-30-2023 History of Present illness Narrative Images from the original note were not included. [facility] CARDIOLOGY [address] [facility] [id number] Dept: [phone] Dept Loc: [phone] Interventional Cardiology Office Note Visit type: New patient Reason for Visit: Cardiac Valve Problem (Heart Valve Clinic) Assessment and Plan Nidhi Zamora is a very pleasant 83 y.o. female who presents for evaluation of her aortic stenosis. She does appear to have severe symptomatic aortic stenosis. She had a CTA which appears to be appropriate for transfemoral TAVR. We will plan to proceed with TAVR at this time. The Transcatheter Aortic Valve Replacement (TAVR) procedure was explained in detail. The potential risks of the procedure including bleeding, vascular complications, stroke, myocardial infarction, arrhythmias, renal dysfunction, infection and were described. All of the patient's questions were answered. The patient expressed understanding of the procedure and the potential risks and wishes to proceed with TAVR at this time. 1. Essential hypertension - ECG 12 lead - CLINIC PERFORMED 2. Aortic valve disorder - Type and screen - Prepare RBC: 2 Units - Confirmatory ABO/Rh No follow-ups on file. It was a great pleasure seeing Nidhi Zamora in our office today. Please contact me with any questions. Maximus Campbell MD MPH, [facility] Chief, Ischemic Heart Disease Airfield Manager, Interventional Cardiology Fellowship Eyeglass Lens Cutter Coronary, Structural, Peripheral Interventions Subjective Nidhi Zamora is a very pleasant 83 y.o. female with Aortic stenosis (peak/mean 71/42, aortic valve area 0.4, dimensionless index 0.17, ejection fraction 61%), hypertension who presents for evaluation of her aortic stenosis. She is a patient of Dr. Patterson. She states that she had a difficult 3 months recently with her being in the hospital with a brain bleed. He is now home and doing well but she noticed after that time from that she was much more fatigued. She was evaluated in the ER and in follow-up with her primary care doctor was found to have a heart murmur. She was referred to Dr. Patterson who found that she had severe aortic stenosis. He did a heart catheterization which did not reveal any significant coronary disease. She denies any chest discomfort, lightheadedness, syncope. She may have some mild shortness of breath. She denies any significant edema. Review of Systems Constitutional: Positive for fatigue. Negative for activity change, chills and diaphoresis. HENT: Negative for nosebleeds and trouble swallowing. Eyes: Negative for discharge and visual disturbance. Respiratory: Negative for apnea, cough, chest tightness, shortness of breath and wheezing. Cardiovascular: Negative for chest pain, palpitations and leg swelling. Gastrointestinal: Negative for abdominal distention, abdominal pain, blood in stool, diarrhea, nausea and vomiting. Endocrine: Negative for cold intolerance and heat intolerance. Genitourinary: Negative for hematuria. Musculoskeletal: Negative for gait problem and myalgias. Skin: Negative for color change and rash. Neurological: Negative for dizziness, seizures, syncope, facial asymmetry, speech difficulty, weakness, light-headedness, numbness and headaches. Hematological: Does not bruise/bleed easily. Psychiatric/Behavioral: Negative for dysphoric mood. No Known Allergies Outpatient Medications Prior to Visit Medication Sig Dispense Refill amLODIPine (Norvasc) 10 MG tablet Take 10 mg by mouth daily. No facility-administered medications prior to visit. Past Medical History: Diagnosis Date Heart valve disease Hypertension Past Surgical History: Procedure Laterality Date CHOLECYSTECTOMY HYSTERECTOMY TONSILLECTOMY Social History Tobacco Use Smoking status: Never Smokeless tobacco: Never Substance Use Topics Alcohol use: Not Currently No family history on file. Objective Vitals: 06/30/23 1242 BP: 130/60 BP Location: Left arm Patient Position: Sitting BP Cuff Size: Adult Pulse: 63 SpO2: 95% Weight: 165 lb 3.2 oz (74.9 kg) Height: 5' 2 (1.575 m) Body mass index is 30.22 kg/m . Physical Exam Constitutional: General: She is not in acute distress. Appearance: Normal appearance. She is not toxic-appearing. HENT: Head: Normocephalic and atraumatic. Nose: Nose normal. Mouth/Throat: Mouth: Mucous membranes are moist. Eyes: Pupils: Pupils are equal, round, and reactive to light. Neck: Vascular: No carotid bruit or JVD. Cardiovascular: Rate and Rhythm: Normal rate and regular rhythm. Pulses: Dorsalis pedis pulses are 2+ on the right side and 2+ on the left side. Posterior tibial pulses are 2+ on the right side and 2+ on the left side. Heart sounds: Murmur heard. Crescendo systolic murmur is present with a grade of 3/6. Pulmonary: Effort: Pulmonary effort is normal. No respiratory distress. Breath sounds: Normal breath sounds. Abdominal: General: Abdomen is flat. Palpations: Abdomen is soft. Musculoskeletal: General: Normal range of motion. Cervical back: Normal range of motion and neck supple. Right lower le+ Edema present. Left lower leg: No edema. Skin: General: Skin is warm and dry. Neurological: General: No focal deficit present. Mental Status: She is alert and oriented to person, place, and time. Psychiatric: Mood and Affect: Mood normal. Data Reviewed and Summarized Labs: personally reviewed No results found for: WBC, HGB, HCT, MCV, PLT No results found for: GLUCOSE, CALCIUM, NA, K, CO2, CL, BUN, CREATININE @LASTCMP@ No results found for: CHLPL, CHOL No results found for: TRIG No results found for: HDL No results found for: LDLCALC Imaging/Testing: personally reviewed No components found for: LVEF, LVEFMODE documented in this encounter [facility] 06-13-2023 Note Received fax referra l from Dr. Patterson to have patient scheduled in heart valve clinic. Cath images in PACS. Spoke with Dr. Patterson's office to have echo images pushed. Ronald Vance to scan records in patient's chart. Will await echo images to be pushed. Scheduled patient for heart valve clinic on 06/30 at 12:30 pm. Patient agreed to have CTA TAVR done on 07/04/23 at 11 am. Order pended and will schedule once signed. Pended order to have BMP drawn. New patient packet mailed to address on file with BMP lab slip. [facility] 06-01-2023 Miscellaneous Notes Refill sent. Keep upcoming appt with myself on 06/13. The following approved medication requests have been transmitted electronically. Requested Prescriptions Signed Prescriptions Disp Refills amLODIPine (NORVASC) 10 mg tablet 90 tablet 3 Sig: Take 1 tablet by mouth once daily. Authorizing Provider: HANY GUY APRN.GRIEF COUNSELLOR Daughter calling with blood pressure readings. 05-21-23 147/78 05-22-23 141/74 05-23-23 152/76 05-24-23 144/76 05-25-23 148/75 05-26-23 145/77 05-27-23 129/75 05-28-23 155/76 05-29-23 144/76 05-30-23 146/74 05-31-23 149/78 06-01-23 135/68 Pt was taking 10 mg Amlodipine daily. Will need refill cherrie. Pt ran out of medication yesterday. : Pt saw Dr. Patterson and has a heart cath scheduled for Monday06-06-23. No need call back Doreen STANLEY documented in this encounter [facility] 07-10-2023 Miscellaneous Notes [facility] called office to notify us that they have been trying to reach pt but no answer. They want pt to be seen on Mon in their office with Dock Manager. I reached out to pt spouse and left detailed message for pt to call Megan with [facility] at this direct line [phone]. Mikaela Darby Ma documented in this encounter [facility] 05-19-2023 Miscellaneous Notes Opened in error. Doreen Abrams LPN documented in this encounter [facility] 05-19-2023 Miscellaneous Notes Spoke with daughter and informatin listed below given. requesting referral for cardiac be faxed to [facility]. Done. Doreen Abrams LPN Tried to reach pt, line just rings multiple times then goes to busy signal. Mikaela Darby Ma Unable to reach patient. Left VM to return call to office. Please read below and advise. Ana Rosa Dash MA Can you please call the patient and let her know that I reviewed her recent echo results. Echo showed: There is severe aortic valve stenosis caused by calcified valve. As we discussed during your office visit this was a concern that I had. You are currently not having any symptoms associated with this. Symptoms to be mindful of would be dizziness any chest pain, or shortness of breath. I would recommend that we get repeat echo in 6 months but I would still recommend that you schedule an appointment for an evaluation by cardiology. I have placed the consult, you may stay with the clinic or you may choose to go over to the hospital with the [facility]. Please let me know which she prefers. Thank you. Padmini Deshpande APRN.DARION documented in this encounter [facility] 05-11-2023 History of Present illness Narrative This is a 83 year old female who presents today with: Patient presents with: Follow Up: ER follow up HISTORY OF PRESENT ILLNESS: Nidhi Zamora is a 83 year old female. Patient presents with: Follow Up: ER follow up HOSPITAL/ER FOLLOW UP: Reason for visit: Dizziness and headache w/N/V Which facility: [facility] ER Date of visit: 05/08/2023 Diagnosis: Testing done: CT head and neck, negative for any acute cerebral aneurysms or sign of subarachnoid hemorrhage, or vascular leak. CBC, and CMP relatively normal. Glucose elevated at 208. Troponins negative. EKG shows sinus rhythm Treatment given: IV Reglan, Zofran Current symptoms: Bp has been elevated at home 150-170's/60-70's. Has had some mild headache. No blurry vision. Increase stress with in the hospital. Refers that is staying with daughter at this time. No history of hypertension in the past. No chest pain, palpitations, or edema. 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 No current facility-administered medications for this visit. No family history on file. Social History Tobacco Use Smoking status: Never Smokeless tobacco: Never Vaping Use Vaping Use: Never used REVIEW OF SYSTEMS GENERAL: No weight loss, malaise or fevers/chills HEENT: Negative for frequent or significant headaches, No changes in hearing or vision. NECK: Negative for lumps, goiter, pain and significant neck swelling RESPIRATORY: Negative for cough, hemoptysis, wheezing, dyspnea or shortness of breath CARDIOVASCULAR: Negative for chest pain, leg swelling, orthopnea, or palpitations GI: No nausea, vomiting, or diarrhea/constipation. No hematochezia/melena. No heartburn or reflux symptoms. : No history of dysuria, frequency or incontinence MUSCULOSKELETAL: Negative for joint pain or swelling. SKIN: Negative for lesions, rash, and itching ENDOCRINE: Negative for cold or heat intolerance, polyuria, polydipsia and goiter NEURO: No history of headaches, syncope, paralysis, seizures or tremors MOOD: Negative for depression, anxiety, or suicidal ideation. EXAM: BP 160/80 Pulse 65 Resp 16 Wt 74.8 kg (165 lb) SpO2 97% BMI 32.22 kg/m PHYSICAL EXAM: General Appearance: Well appearing, alert, in no acute distress, well-hydrated, well nourished. Skin: Skin color, texture, turgor normal, no suspicious rashes or lesions. Head: Normocephalic, no masses, lesions, tenderness or abnormalities. Eyes: Anicteric sclera. Extraocular movements are intact. Lungs: Lungs clear to auscultation. No wheezing, rhonchi, rales. Heart: Positive findings: murmur: 3/6 medium pitched blowing murmur URSB Extremities: No deformities, edema, skin discoloration, clubbing or cyanosis. Good capillary refill. Peripheral Pulses: Normal, Capillary refill <2secs, strong peripheral pulses, Pulses palpable. Neurologic: Gait normal. Sensation grossly intact. ASSESSMENT/PLAN: 1. Hospital discharge follow-up - ICD9: V67.59, ICD10: Z09 (primary diagnosis) - Doing well since hospital discharge. 2. Hypertension, essential - ICD9: 401.9, ICD10: I10 - New diagnosis - Start amlodipine 5 mg daily - Recommend home blood pressure monitoring, to bring results to next visit - Encouraged sodium restriction, DASH or Mediterranean diet - Recommend regular aerobic exercise - Message the office in 1 week with BP readings. - Follow up in 1 month. - AMLODIPINE 5 MG TABLET 3. Heart murmur - ICD9: 785.2, ICD10: R01.1 - Murmur noted on exam, possible aortic stenosis. Will get echo for further evaluation. - ECHO - PERFLUTREN LIPID MICROSPHERES 1.1 MG/ML INJECTION IN NS 10 ML - SODIUM CHLORIDE 0.9 % (FLUSH) INJECTION SYRINGE Follow up in 1 month or sooner as needed. Discussed treatment plan and patient voices understanding. Patient's questions answered appropriately. Medications and potential side effects were discussed and patient voices understanding. Padmini Deshpande APRN.DARION This note was partially generated using [employer] voice recognition system. Note was reviewed for accuracy. There may be minor misspellings or grammar miscues with [employer] voice recognition. documented in this encounter [facility] 05-11-2023 Instructions Padmini Deshpande APRN.DARION - 05/11/2023 10:40 AM EDT Start Amlodipine 5 mg daily Check blood pressure at home, write readings down. May call the office in 1 week with readings. Schedule appointment for echo. Follow up in 1 month or sooner as needed. documented in this encounter [facility] 05-11-2023 Miscellaneous Notes Noted Vane Cassidy MD Daughter called in to schedule [facility] ER FU and to let you know BP is running high for pt. Daughter calls and states the following: HIGH BLOOD PRESSURE BLOOD PRESSURE: 11:05 am BP was 171/74 took it again at 11:30 am it was 173/81. Daughter feels this is stress related because spouse is in the hospital ONSET: Yesterday 05/09/23 when pt was at the [facility] ER for vomiting and dizziness HOW: BP taken with arm cuff HISTORY: no MEDICATION: none OTHER SYMPTOMS: none DENIES: headache, chest pain, blurred vision, difficulty breathing, weakness, swelling in legs, palpitations or SOB dizziness resolved. Pt has been scheduled for ER visit on 05-11-23. Doreen Abrams LPN documented in this encounter [facility] 05-08-2023 Discharge summary Note Date/Time May 08, 2023 1:44pm [facility] Medical Records Department [address] [place] [address] Emergency Department Summary 05/08/23 MR#: [id number] Acct: [id number] Name: NIDHI ZAMORA Rep #:[id number] : 1940 83 From: Sandoval Bear MD PCP: Dr. Vane Cassidy MD Status:RE G ER Location: ED HPI History of Present Illness Chief Complaint: General Illness Informant: patient Narrative Narrative: Patient presents with dizziness, headache, not feeling well. Nausea and vomiting associated with this. She states this started 2 days ago in the evening. She states she was feeling nauseated with dinner and that she did not really eat, and then after that she had a sudden onset severe headache that did not feel like a thunderclap and she had no loss of consciousness but she states she sat by her telephone thinking about calling her daughter because she felt sopoorly and she sat there until 5 AM until she finally called her, she came and helped her and took her to her house where she has been trying to help her through this, but she has been dizzy and unable to walk because of being very ataxic and feeling like she is going to fall and just lying in her recliner eversince and so they brought her to the ER this afternoon for evaluation. She is never had this before. She is a healthy 83-year-old female who takes no medications or drugs. She states the dizziness is intermittent, and she gets it with any little movement of her head or position change of her body. When she rests remains still it goes away but she still has a terrible headache and feels very nauseated. Headache is mostly occipital and down into her neck. PFSH PFSH Medical History no medical history no medical history Home Medications metoclopramide HCl 10 mg tablet 10 mg PO Q6H PRN N/V or headache #20 tabs 05/08/23 [Rx Last Taken Unknown] Allergy/AdvReac Type Severity Reaction Status Date / Time No Known Allergies Allergy Verified 05/08/23 13:14 Surgical History History of cholecystectomy History of tonsillectomy Social History Smoking Status: Never smoker ROS ROS ED Constitutional Constitutional ED: Reports fatigue; Denies chills or fever(s) Eyes Eyes: Denies change in vision or diplopia ENT ENT ED: Reports disequillibrium, dizziness and headache(s); Denies abnormal hearing, ear pain, hearing loss, rhinorrhea, sore throat or tinnitus Cardiovascular Cardiovascular: Denies chest pain or palpitations Respiratory/Chest Respiratory/Chest: Denies cough or dyspnea Gastrointestinal Gastrointestinal: Reports nausea and vomiting; Denies abdominal pain or diarrhea Genitourinary Genitourinary ED: Denies dysuria or hematuria Musculoskeletal Musculoskeletal: Denies back pain or neck pain Integumentary Denies abscess or rash Neurologic Neurologic: Reports headache(s); Denies paresthesias or weakness Psychiatric Psychiatric: Denies anxiety or suicidal thoughts EXAM Physical Exam Const Vital Signs: 05/08/23 13:04 05/08/23 13:15 Temperature 98.1 F Temperature Source Oral Pulse Rate 58 L Respiratory Rate 18 Respiratory Effort Normal Non-Labored Respiratory Pattern Normal Blood Pressure 181/59 H Blood Pressure Mean 99 Pulse Ox 93 Oxygen Delivery Method Room Air Positive well nourished and well developed Constitutional Narrative: Appears uncomfortable, keeping her eyes closed and remaining still but in no distress General Appearance ED: well developed and NAD HEENT Reports TM's clear and moist mucous membranes normocephalic and atraumatic Tympanic Membrane ED: Yes TM's clear Eyes PERRL and EOMs intact bilaterally Eyes Narrative: No pathologic nystagmus noted. No rotatory or vertical nystagmus. While examining patient, she is not having active vertigo. Neck full ROM and supple Neck Narrative: No carotid bruits Resp normal respiratory effort and clear to auscultation bilaterally Cardio regular rate and regular rhythm Heart Sounds: murmur systolic II/ crescendo-decrescendo left sternal border GI non-tender and non-distended Auscultation: normoactive bowel sounds Palpation: soft Back/Spine no CVA tenderness General Back: other FROM Extremity normal to inspection General Extremety ED: Negative for edema, pulses abnormal or tenderness General Extremity: Negative for edema or pulses abnormal Neuro oriented x3, CN's II-XII intact bilaterally and no sensory deficits noted Neuro Narrative: Normal [id number]-ht-[id number] and eqit-gz-tnbu bilaterally. No clonus. Downgoing toes bilaterally. 1+ symmetric bilateral lower extremity and upper extremity reflexes. Sensorium / Orientation: awake and alert Motor Exam: strength 5/5 throughout Skin no rashes or lesions noted and no wounds MDM MDM MDM Narrative Medical decision making narrative: Patient does not look like she feels well, states she has a severe headache, with vomiting and some dizziness, concern is less for stroke although I suppose posterior circulation hemorrhage could be in the differential, in addition to subarachnoid hemorrhage from a ruptured aneurysm, primary headache syndrome, cerebral masses, etc. He did some labs, also check for an unusual presentation of acute coronary syndrome, those tests were negative/normal, and a CT with CTA of the head and neck. I reviewed the images and the interpretation, all of which I am in agreement with, negative for any acute no cerebral aneurysms or signs of subarachnoid hemorrhage or vascular leak. Given that she has had symptoms for 2 days, lack of any sign of cerebral infarct or cerebellar infarct argues against central vascular cause of disequilibrium. While waiting for thisto return to be performed, she was given IV Reglan 2.5 mg in addition to Zofran. On reevaluation she is smiling conversing with her family she feels and appearsmuch better although she still has somewhat of a headache. Working to give her some more Reglan and Tylenol prior to discharge home with a prescription for more to use as needed and follow-up with her doctor for blood pressure recheck; she was 181/59 when she arrived, at this time she is 150/54. Certainly possiblethat her hypertension caused this, but my suspicion is that it was secondary to her symptoms. Furthermore the patient states that her is in the hospital right now which is hard for her, and she has had a significant amount of emotional distress regarding that lately, certainly that could have caused a primary headache syndrome. Family was all present during all of this discussionand they are comfortable with this overall plan. We discussed reasons to return. Is going to stay with daughter davi. History & Record Review Discussion w/independent historian: Patient and Family (multiple) Lab Data Attestation: I reviewed the patient's lab results. Labs: Laboratory Results - last 24 hr 05/08/23 05/08/23 14:10 14:10 WBC 7.1 RBC 4.25 Hgb 12.2 Hct 36.2 L MCV 85.2 MCH 28.7 MCHC 33.7 RDW Std Deviation 40.5 RDW Coeff of Sybil 13.3 Plt Count 272 MPV 9.6 Immature Gran % (Auto) 0.400 Neut % (Auto) 74.2 H Lymph % (Auto) 19.2 Montgomery % (Auto) 5.5 Eos % (Auto) 0.4 Baso % (Auto) 0.3 Absolute Neuts (auto) 5.3 Absolute Lymphs (auto) 1.36 Nucleated RBC % 0 Sodium 139 Potassium 3.6 Chloride 106 Carbon Dioxide 27.0 Anion Gap 6 BUN 11 Creatinine 0.57 Estim Creat Clear Calc 32.53 Est GFR (MDRD) Af Amer 129 Est GFR (MDRD) Non-Af 106 BUN/Creatinine Ratio 19.2 Glucose 208 H Calcium 8.9 Troponin I High Sens 34 Radiography Diagnostic Testing: Clinical Impression(s) from Imaging Studies Head/Neck CTA 05/08/23 13:41 IMPRESSION: Mild cerebral atrophy. No significant stenosis is seen. Electronically Signed: Terrence Bennett MD at 15:52 EDT , Rhythm Strip Rhythm Strip: Sinus Rhythm Rate: 60 Ectopy: None EKG Initial EKG: Attestation: I personally reviewed and interpreted this EKG as follows: Interpretation: Sinus Rhythm, No Acute Injury Pattern, AV Block (1st deg) and Non-Specific ST Changes (c/w LV repol abn, lateral limb leads) Prior EKG tracings: available for review Prior: Unchanged Discharge Plan Triage Chief Complaint: General Illness ED Provider: Sandoval Bear Dx/Rx/DC Orders Clinical Impression: Severe headache, Episode of hypertension Instructions: Understanding Headache Pain Prescriptions: New metoclopramide HCl [metoclopramide HCl] 10 mg tablet 10 mg PO Q6H PRN (Reason: N/V or headache) Qty: 20 0RF Primary Care Provider: Vane Cassidy Referrals: Vane Cassidy MD [Primary Care Provider] - (this week, call for appt) Disposition Disposition: Home, Self Care What to do if you have Problems For any increased pain, shortness of breath, bleeding, nausea or vomiting, chestpain, or any unexpected problems, contact your Primary Care Provider. Call [facility] ([phone]) or report to the closest Emergency Room. Call 911 if necessary. 05/08/23 2931 <Electronically signed by Sandoval Bear MD> Cosigner Signature (if applicable): CC: Dr. Vane Cassidy MD ~ Signed [facility] Work Phone: 1(147) 838-723904-15-2022 History of Present illness Narrative* Vane Cassidy MD - 02/25/2022 8:00 AM EDT Chief Complaint Patient presents with: Establish Care HPI Nidhi Zamora is a 82 year old female who presents here today for follow up hip contusion, establish care. Former pt of Dr. Bryan Reveles. Last visit with Dr. Reveles was 04/13/2011. No chronic health issues, no regular medications. Denies complaints no GI, resp, cardiac issues. Pt asw Dr. Jeter in January for fall; fell while bowling, landed on left hip. She was in the ER 02/01/22 due to fall. Had contusion to the back, treated with Naproxen 500 mg daily and Tramadol 50 mg1 pill TID prn. Was also treated with Gabapentin 300 mg TID prn. Eats healthy, active at home. Past medical history, appointments, medications, allergies reviewed. Previous Medical History PAST MEDICAL HISTORY Diagnosis Date Cervical disc disorder 04/13/2011 Previous Surgical History PAST SURGICAL HISTORY Procedure Laterality Date LAPAROSCOPIC CHOLEYCYSTECTOMY 1990 Family History No family history on file. Patient Allergies ALLERGIES Allergen Reactions No Known Drug Aller* Current Medications Current Outpatient Medications on File Prior to Visit Medication Sig gabapentin (NEURONTIN) 300 mg capsule Take 1 capsule by mouth three times daily as needed for up to30 days. (Patient not taking: Reported on 02/25/2022) traMADol (ULTRAM) 50 mg tablet Take 1 tablet by mouth three times daily as needed for pain. (Patient not taking: Reported on 02/25/2022) naproxen (NAPROSYN) 500 mg tablet Take 1 tablet by mouth twice daily as needed (for pain/inflammation). Take with food. (Patient not taking: Reported on 02/25/2022 ) No current facility-administered medications on file prior to visit. Social History Social History Tobacco Use Smoking status: Never Smoker Smokeless tobacco: Never Used Vaping Use Vaping Use: Never used Substance Use Topics Alcohol use: Not on file Drug use: Not on file Review of Symptoms REVIEW OF SYSTEMS EXAM: BP 134/78 Pulse 82 Resp 14 Ht 152.4 cm (5') Wt 77.6 kg (171 lb) BMI 33.40 kg/m General Appearance: Well appearing, alert, in no acute distress, well-hydrated, well nourished.. Lungs: Lungs clear to auscultation. No wheezing, rhonchi, rales.. Heart: RRR with systolic murmur . Abdomen: Normal abdominal exam, Abdomen soft, non-tender. Bowel sounds normal. No masses, organomegaly. Extremities: no swelling. Health Maintenance List DIABETES SCREEN Never done ADVANCE DIRECTIVE DISCUSSION Never done DTAP,TDAP,TD(3 - Td or Tdap) due on 04/28/2030 INFLUENZA Completed PNEUMOVAX AGE 65 AND OVER WITH 5YR LOOKBACK Completed SHINGRIX VACCINE Completed COVID-19 VACCINE Completed BONE DENSITY Addressed MENINGOCOCCAL CONJUGATE Aged Out Data reviewed None ASSESSMENT/PLAN: 1. Contusion of left hip, subsequent encounter - ICD9: V58.89, 924.01, ICD10: S70.02XD (primary diagnosis) Resolved 2. Encounter to establish care - ICD9: V65.8, ICD10: Z76.89 Declines routine testing 3. Heart murmur - ICD9: 785.2, ICD10: R01.1 Monitor clinically likely aortic sclerosis Follow up prn I spent a total of 25 minutes on the date of the service which included preparing to see the patient, [id number] patient care, completing clinical documentation, obtaining and/or reviewing separately obtained history, performing a medically appropriate examination and counseling and educating the patient/family/caregiver. Vane Cassidy MD [facility] Miscellaneous Notes* Telephone Encounter - Gracia Garcia Ma - 02/07/2022 3:54 PM EDT Called pt and notified her of message below, verbalized understanding. Gracia Garcia Ma * Telephone Encounter - Vane Cassidy MD - 02/07/2022 3:43 PM EDT She may try Neurontin 300 mg tid as needed for pain; Rx done for this Vane Cassidy MD * Telephone Encounter - Katty Laura RN - 02/07/2022 8:49 AM EDT Patient calls and states that she continues to be in a lot of pain. Patient was given a ketorolac injection at office with Dr. Jeter as well as prescription for naproxen. Patient calls and is asking what else she can do for the pain? 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 * Telephone Encounter - Michaela River LPN - 02/05/2022 8:32 AM EDT Patient was in to see Dr. Jeter yesterday from a fall that happened 02/01/22. Was seen in ER and CT scan was normal and started on Tramadol. Patient was given a Ketorolac injection for the pain yesterday but that has not eased her pain at all and she is wondering if she can get another injection for pain relief this am until she can get the naproxen picked up at the pharmacy. [facility] noteNo assessment information availableWOhioHealth [facility] Work Phone: Evaluation note* Diagnosis Contusion of left hip, subsequent encounter- Primary Encounter to establish care Other reasons for seeking consultation Heart murmur Undiagnosed cardiac murmurs documented in this encounter [facility] note* Diagnosis Hospital discharge follow-up- Primary Other follow-up examination Hypertension, essential Unspecified essential hypertension Heart murmur Undiagnosed cardiac murmurs documented in this encounter [facility] note* Diagnosis Nonrheumatic aortic valve stenosis- Primary Aortic valve disorders documented in this encounter [facility] note* Diagnosis Onset Date Resolution Status Essential hypertension acute Severe aortic stenosis [facility] Work Phone: evaluation note* Diagnosis Aortic valve stenosis, etiology of cardiac valve disease unspecified- Primary documented in this encounter [facility] note* Diagnosis Aortic stenosis Aortic valve disorders documented in this encounter [facility] note* Diagnosis Essential hypertension Unspecified essential hypertension Aortic valve disorder Aortic valve disorders documented in this encounter [facility] note* Diagnosis Nonrheumatic aortic valve stenosis Nonrheumatic aortic valve stenosis- Primary Nonrheumatic aortic valve stenosis documented in this encounter [facility] note* Diagnosis Nonrheumatic aortic valve stenosis- Primary Nonrheumatic aortic valve stenosis Severe aortic stenosis Aortic valve disorders Aortic valve stenosis, etiology of cardiac valve disease unspecified Severe aortic stenosis Aortic valve disorders Nonrheumatic aortic valve stenosis documented in this encounter [facility] note* Diagnosis Neck pain- Primary Cervicalgia documented in this encounter [facility] note* Diagnosis Cellulitis of both feet- Primary documented in this encounter [facility] note* Diagnosis Toenail deformity- Primary Unspecified disease of nail Hypertension, essential Unspecified essential hypertension documented in this encounter [facility] note* Diagnosis Contusion of left thigh, initial encounter- Primary Rash Rash and other nonspecific skin eruption documented in this encounter [facility] for referral (narrative)* Diagnostic Procedure Only (Routine) - Authorized Specialty Diagnoses / Procedures Referred By Contac t Referred To Contact [facility] Diagnoses Heart murmur Procedures ECHO ECHO TTHRC R-T 2D W/WOM-MODE COMPL SPEC&COLR D Padmini Deshpande APRN.CNP [address] [place] [address] [address] Referral ID Status Reason Start Date Expiration Date Visits Requested Visits Authorized [id number] Authorized Auto-Generat ed Referral 05/11/2023 08/09/2023 1 1 [facility] for referral (narrative)* Outpatient Procedure (Routine) - Pending Review Specialty Diagnoses / Procedures Referred By Contac t Referred To Contact [facility] Diagnoses Nonrheumatic aortic valve stenosis Procedures ECHO ECHO TTHRC R-T 2D W/WOM-MODE COMPL SPEC&COLR D Padmini Deshpande APRN.GRIEF COUNSELLOR [address] [place] [address] Formerly Named [facility] [place] [address] [place] [address] Referral ID Status Reason Start Date Expiration Date Visits Requested Visits Authorized [id number] Pending Review Auto-Generat ed Referral 11/15/2023 05/14/2024 1 1 * Consult, Test, Treat (Routine) - Authorized Specialty Diagnoses / Procedures Referred By Contac t Referred To Contact Cardiology Diagnoses Nonrheumatic aortic valve stenosis Procedures CONSULT TO CARDIOLOGY OFFICE/OUTPATIENT NEW HIGH MDM 60-74 MINUTES Padmini Deshpande APRN.CNP [address] [place] [address] Referral ID Status Reason Start Date Expiration Date Visits Requested Visits Authorized [id number] Authorized PCP Requested Referral 05/15/2023 05/14/2024 1 1 [facility] Chief Complaint and Reason for Visit Chief Complaint FALL Chief Complaint gen illness Chief Complaint gen illness ABN ECHO / SEVERE (TANNHOF) EORDER AORTIC STENOSIS BMP Reason for Visit Essential hypertensi on Severe aortic stenosis Chief Complaint gen illness ABN ECHO / SEVERE (TANNHOF) EORDER AORTIC STENOSIS BMP Nonrheumatic aortic (valve) stenosis Reason for Visit Essential hypertensi on Severe aortic stenosis Advance Directives No Advanced Directives Records Found Advance Directive Response Recorded Date/ Time Living Will Yes February 01, 2022 4:34am Power of Retail Marketing Coordinator Yes February 01 4:34am Advance Directive Response Recorded Date/ Time Living Will Yes May 08, 2023 1:15pm Power of Retail Marketing Coordinator Yes May 08 1:15pm Name of Medical Power of Retail Marketing Coordinator Akira byrnes May 08, 2023 1:15pm Advance Directive Response Recorded Date/ Time Name of Medical Power of Retail Marketing Coordinator Akira byrnes May 08, 2023 1:15pm Advance Directives on File Yes June 06, 2023 10:34am Name of Medical Power of Retail Marketing Coordinator Akira byrnes- spouse June 06, 2023 10:34am Advance Directives Yes June 06 10:34am Living Will Yes June 06, 2023 10:34am Power of Retail Marketing Coordinator Yes June 06 10:34am Latest Code Status on File Code Status Date Activated Date Inactivated Comments Full Code 07/19/2023 7:04 AM 07/20/2023 1:42 PM Reason for Referral Specialty Diagnoses / Procedures Referred By Gunnar mendez Referred To Contact Radiology Diagnoses Aortic stenosis Procedures CTA Angiogram TAVR Elaine Campbell APRN - [facility] [address] [place] [address] Referral ID Status Reason Start Date Expiration Date Visits Re quested Visits Authorized [id number] Closed 06/20/2023 09/18/2023 1 1 Summary Purpose Family History No Family History Records FoundNo Family History Records FoundNo Family History Records Found Additional Source Comments Goals (unrecognized section and content) Goals may be documented in a n alternate sectionGoals may be documented in an alternate sectionGoals may be documented in an alternate sectionGoals may be documented in an alternate section Source Comments (unrecognize d section and content) In the event this informatio n is protected by the Federal Confidentiality of Alcohol and Drug Abuse Patient Records regulations: The Federal rules restrict any use of the information to criminally investigate or prosecute any alcohol or drug abuse patient.[facility] the event this information is protected by the Federal Confidentiality of Alcohol and Drug Abuse Patient Records regulations: The Federal rules restrict any use of the information to criminally investigate or prosecute any alcohol or drug abuse patient.[facility] Center[facility] the event this information is protected by the Federal Confidentiality of Alcohol and Drug Abuse Patient Records regulations: The Federal rules restrict any use of the information to criminally investigate or prosecute any alcohol or drug abuse patient.[facility] Center[facility] the event this information is protected by the Federal Confidentiality of Alcohol and Drug Abuse Patient Records regulations: The Federal rules restrict any use of the information to criminally investigate or prosecute any alcohol or drug abuse patient.[facility] Center[facility] the event this information is protected by the Federal Confidentiality of Alcohol and Drug Abuse Patient Records regulations: The Federal rules restrict any use of the information to criminally investigate or prosecute any alcohol or drug abuse patient.[facility] Center[facility] the event this information is protected by the Federal Confidentiality of Alcohol and Drug Abuse Patient Records regulations: The Federal rules restrict any use of the information to criminally investigate or prosecute any alcohol or drug abuse patient.[facility] Center[facility] the event this information is protected by the Federal Confidentiality of Alcohol and Drug Abuse Patient Records regulations: The Federal rules restrict any use of the information to criminally investigate or prosecute any alcohol or drug abuse patient.[facility] Center[facility] the event this information is protected by the Federal Confidentiality of Alcohol and Drug Abuse Patient Records regulations: The Federal rules restrict any use of the information to criminally investigate or prosecute any alcohol or drug abuse patient.[facility] Center[facility] the event this information is protected by the Federal Confidentiality of Alcohol and Drug Abuse Patient Records regulations: The Federal rules restrict any use of the information to criminally investigate or prosecute any alcohol or drug abuse patient.[facility] Center[facility] the event this information is protected by the Federal Confidentiality of Alcohol and Drug Abuse Patient Records regulations: The Federal rules restrict any use of the information to criminally investigate or prosecute any alcohol or drug abuse patient.[facility] Center[facility] the event this information is protected by the Federal Confidentiality of Alcohol and Drug Abuse Patient Records regulations: The Federal rules restrict any use of the information to criminally investigate or prosecute any alcohol or drug abuse patient.[facility] Center[facility] the event this information is protected by the Federal Confidentiality of Alcohol and Drug Abuse Patient Records regulations: The Federal rules restrict any use of the information to criminally investigate or prosecute any alcohol or drug abuse patient.[facility] CenterIn the event this information is protected by the [facility] Confidentiality of Alcohol and Drug Abuse Patient Records regulations: The Federal rules restrict any use of the information to criminally investigate or prosecute any alcohol or drug abuse patient.[facility] CenterIn the event this information is protected by the Federal Confidentiality of Alcohol and Drug Abuse Patient Records regulations: The Federal rules restrict any use of the information to criminally investigate or prosecute any alcohol or drug abuse patient.[facility] Reason for Visit (unrecogniz ed section and content) Reason Comments Pain Reason Comments Patient Update Reason Comments Establish Care Specialty Diagnoses / Procedures Referred By Contac t Referred To Contact Family Practice / FAMILY MEDICINE Diagnoses Cervicalgia TO EST CARE/FORMER CEBUL PT Procedures OFFICE/OUTPATIENT ESTABLISHED LOW MDM 20-29 MIN 4C EST WELL Vane Cassidy MD [address] [place] [address] Vane Cassidy MD [address] [place] [address] Referral ID Status Reason Start Date Expiration Date Visits Re quested Visits Authorized [id number] Closed 02/16/2022 11/12/2022 1 1 Reason Comments Future Appointment Reason Comments Follow Up ER follow up Reason Comments Results Echo Reason Comments Opened In Error Reason Comments FYI-No Action Needed [facility] trying to reach pt. Reason Comments blood pressure readings/refill Reason Comments Cardiac Valve Problem [facility] Specialty Diagnoses / Procedures Referred By Contac t Referred To Contact Radiology Diagnoses Aortic stenosis Procedures CTA Angiogram TAVR Elaine Campbell APRN - CNP [address] [place] [address] Referral ID Status Reason Start Date Expiration Date Visits Re quested Visits Authorized [id number] Closed 06/20/2023 09/18/2023 1 1 Reason Onset Date Comments Procedure 06/30/2023 TAVR Specialty Diagnoses / Procedures Referred By Contac t Referred To Contact Diagnoses Nonrheumatic aortic valve stenosis Nonrheumatic aortic valve stenosis [I35.0] Procedures TRANSCATHER AORTIC VALVE REPLACEMENT, TRANSTHORACIC ECHOCARDIOGRAM TAVR WITH PROSTHETIC VALVE PERCUTANEOUS FEMORAL ARTERY APPROACH Maximus Campbell MD [address] [place] [address] [address] [place] [address] Referral ID Status Reason Start Date Expiration Date Visits Re quested Visits Authorized [id number] 1 1 Reason Comments Pain Left shoulder pain x 1 day Reason Comments Covid Positive Reason Comments Rash Itchy rash on feet a nd legs X 1 week Reason Comments Follow Up Foot rash Reason Comments left thigh bruise Fell 2 days ago Care Teams (unrecognized sec tion and content) Stoner Hand Relationship Specialty Start Date End Date Vane Cassidy MD [address] [place], [place] [id number] PCP - General Family Practice 02/02/22 Stoner Hand Relationship Specialty Start Date End Date Vane Cassidy MD [address] [place], [place] [id number] PCP - General Family Practice 02/02/22 Stoner Hand Relationship Specialty Start Date End Date Vane Cassidy MD [address] [place], [place] [id number] PCP - General Family Practice 02/02/22 Team Status: Active Member Role Status Dates Dr. Bryan Reveles III, MD Family Provider Active Dr. Vane Cassidy MD Primary Care Provider Active Team Status: Inactive Member Role Status Dates Dr. Vane Cassidy MD Primary Care Provider Active Dr. Sandoval Bear MD Emergency Provider Active Stoner Hand Relationship Specialty Start Date End Date Vane Cassidy MD [address] [place] [address] PCP - General Family Medicine 02/02/22 Stoner Hand Relationship Specialty Start Date End Date Vane Cassidy MD [address] [place] [address] PCP - General Family Medicine 02/02/22 Stoner Hand Relationship Specialty Start Date End Date Vane Cassidy MD [address] [place] [address] PCP - General Family Medicine 02/02/22 Stoner Hand Relationship Specialty Start Date End Date Vane Cassidy MD [address] [place] [address] PCP - General Family Medicine 02/02/22 Stoner Hand Relationship Specialty Start Date End Date Vane Cassidy MD [address] [place] [address] PCP - General Family Medicine 02/02/22 Stoner Hand Relationship Specialty Start Date End Date Vane Cassidy MD [address] [place] [address] PCP - General Family Medicine 02/02/22 Team Status: Inactive Member Role Status Dates Dr. Vane Cassidy MD Primary Care Provider, Referr ing Provider Active Dr. John Patterson MD Attending Provider Active Team Status: Inactive Member Role Status Dates Dr. Vane Cassidy MD Primary Care Provider Active Dr. Sandoval Bear MD Attending Provider, Emergency Provider Active Team Status: Inactive Member Role Status Dates Dr. Vane Cassidy MD Primary Care Provider Active Dr. John Patterson MD Attending Provider, Referring Pro vider Active Team Status: Inactive Member Role Status Dates Dr. Vane Cassidy MD Primary Care Provider Active ELAINE CAMPBELL MANAGER STUDENT SERVICES-C Attending Provider, Referring Provi jd Active Stoner Hand Relationship Specialty Start Date End Date [facility] [address] [place] [address] PCP - General 06/28/23 Leonardo, John [address] [place] [address] Internal Medicine Cardiovascular Disease 06/13/23 Stoner Hand Relationship Specialty Start Date End Date [facility] [address] [place] [address] PCP - General 06/28/23 Leonardo, John [address] [place] [address] Internal Medicine Cardiovascular Disease 06/13/23 Stoner Hand Relationship Specialty Start Date End Date [facility] [address] [place] [address] PCP - General 06/28/23 Leonardo, John [address] [place] [id number] 983- Internal Medicine Cardiovascular Disease 06/13/23 Stoner Hand Relationship Specialty Start Date End Date [facility] [address] [place] [address] PCP - General 06/28/23 Leonardo, John [address] [place] [address] Internal Medicine Cardiovascular Disease 06/13/23 Stoner Hand Relationship Specialty Start Date End Date [facility] [address] [place] [address] PCP - General 06/28/23 John Patterson [address] [place] [address] Internal Medicine Cardiovascular Disease 06/13/23 Stoner Hand Relationship Specialty Start Date End Date Vane Cassidy MD [address] [place] [address] PCP - General Family Medicine 02/02/22 Stoner Hand Relationship Specialty Start Date End Date Vane Cassidy MD [address] [place] [address] PCP - General Family Medicine 02/02/22 Stoner Hand Relationship Specialty Start Date End Date Vane Cassidy MD [address] [place] [address] PCP - General Family Medicine 02/02/22 Padmini Deshpande APRN.GRIEF COUNSELLOR [address] [place] [address] [facility] 10/20/24 Hany Guy APRN.GRIEF COUNSELLOR [address] [place] [address] [facility] 10/29/24 Stoner Hand Relationship Specialty Start Date End Date Vane Cassidy MD [address] [place] [address] PCP - General Family Medicine 02/02/22 Padmini Deshpande, DISPOSAL WORKER.GRIEF COUNSELLOR [address] [place] [address] [facility] 10/20/24 Hany Guy APRN.GRIEF COUNSELLOR [address] [place], [place] [id number] [facility] 10/29/24 Stoner Hand Relationship Specialty Start Date End Date Vane Cassidy MD [address] [place], [place] [id number] PCP - General Family Medicine 02/02/22 Hany Guy APRN.GRIEF COUNSELLOR [address] [place] [address] [facility] 10/29/24 Scheduled Active and Recently Administ ered Medications (unrecognized section and content) Medication Order 07/18/2023 07/19/2023 07/20/2023 amLODIPine (Norvasc) tablet 10 mg 10 mg, Oral, Daily, First dose on Astrid 07/20/23 at 0900 0835 (Given - Provid er: Jenny Costa RN) aspirin chewable tablet 81 mg 81 mg, Oral, Daily, First dose on Mon07/19/23 at 1200 1713 (Given - Provider: Jorge Casiano RN) 0835 (Given - Provider: Jenny Costa RN) ceFAZolin in dextrose 4% (Ancef) IVPB 2,000 mg (COMPLETED) 2,000 mg, IntraVENous, Administer over 30 Minutes, Once, On Mon07/19/23 at 0715, For 1 dose, Preprocedure, Administer within 1 hour prior to incision. Recommend to repeat in 3-4 hours after initial dose if still intra-op. premix bag, Suspected Indication (Select all that apply): Surgical Prophylaxis 1000 (Given - Provider: Dany Milan APRN - WORK CAR OPERATOR) Continuous Medication Order 07/18/2023 07/19/2023 07/20/2023 sodium chloride 0.9 % infusion (CANCELED) 50 mL/hr, IntraVENous, Continuous, Starting on Mon07/19/23 at 0715, Preprocedure, Upon admission to sameday - please start iv if patient does not have iv access. 0735 (New Bag - Provider: Yolette Wan, IVIS)0956 (Continued by Anesthesia - Provider: CHARMAINE Casey CRNA)1110 (Stopped - Provider: CHARMAINE Casey CRNA) PRN Medication Order 07/18/2023 07/19/2023 07/20/2023 acetaminophen (Tylenol) tablet 650 mg 650 mg, Oral, Every 4 hours PRN, mild pain (1-3), Fever > 100.5 F (38 C), Starting on Mon07/19/23 at 1158, Recovery & On Unit, Maximum dose of acetaminophen is 4000 mg from all sources in 24 hours. 2034 (Given - Provider: Gary Howe, RN) 448 (Given - Provider: Gary Howe RN) heparin 1,000 Units in sodium chloride 0.9 % 500 mL OR irrigation (CANCELED) As needed, Starting on Mon07/19/23 at 1052, Intraprocedure 1052 (Given - Provider: Maximus Campbell MD) iodixanol (VISIPaque) 320 MG/ML injection (COMPLETED) Continuous PRN, Starting on Mon07/19/23 at 1057, Intraprocedure 1057 (New Bag - Provider: Maximus Campbell MD)1100 (Stopped - Provider: Jorge Casiano, IVIS) lidocaine (Xylocaine) 1 % injection (CANCELED) As needed, Starting on Mon07/19/23 at 1100, Intraprocedure 1100 (Given - Provider: Maximus Campbell MD) perflutren lipid microspheres (Definity) injection 1.65 mg 1.65 mg, IntraVENous, IMG once PRN, other, Suboptimal echo image, Starting on Mon07/19/23 at 1437, For 1 dose, CV Procedural Medications, Administer up to 1.65 mg via slow IVP for suboptimal echocardiogram enhancement. May administer a calculated dose or diluted 8.5 mL of 0.9% sodium chloride for a total volume of 10 mL. May administer as divided doses to reach optimal image enhancement sodium chloride 0.9 % irrigation solution (CANCELED) As needed, Starting on Mon07/19/23 at 1054, Intraprocedure 1054 (Given - Provider: Maximus Campbell MD) INFORMATION SOURCE (unrecogn ized section and content) DATE CREATED AUTHOR 07/20/2023 [facility] DATE CREATED AUTHOR AUTHOR'S ORGANIZ ATION 03/07/2025 [facility] DATE CREATED AUTHOR AUTHOR'S ORGANIZ ATION 05/05/2025 [facility] FOR RECORDS PERTAINING TO PATIENTS WHO ARE OR HAVE BEEN ENROLLED IN A CHEMICAL DEPENDENCY/SUBSTANCEABUSE PROGRAM, SOME INFORMATION MAY BE OMITTED. This clinical summary was aggregated from multiple sources. Caution should be exercised in using it in the provision of clinical care. This summary normalizes information from multiple sources, and as a consequence, information in this document may materially change the coding, format and clinical context of patient data. In addition, data may be omitted in some cases. CLINICAL DECISIONS SHOULD BE BASED ON THE PRIMARY CLINICAL RECORDS. [employer] [facility] provides no warranty or guarantee of the accuracy or completeness of information in this document.
[2025-05-07 06:08] VITALS: BP 185/98; PULSE 70; RESP 16; TEMP 36.4; O2SAT 96
== END 2025-05-07 06:12 | disposition home or self-care (01) ==
PROVIDERS: Emergency Provider Emergency Medicine; PCP Family Medicine; Visit Provider Emergency Medicine
DX: S70.02XA Contusion of left hip, initial encounter (principal); I10 Essential (primary) hypertension; S70.12XA Contusion of left thigh, initial encounter; W10.9XXA Fall (on) (from) unspecified stairs and steps, initial encounter
CPT/HCPCS: 72170; 73552; 99282

== ENCOUNTER 2025-05-08 21:08 | Emergency (ER) | payer MEDICARE, SELFPAY ==
--- NOTE | 2025-05-08 00:10 | RAD_ITS ---
PROCEDURE: RIBS UNI MIN 3V W/PA CHEST 05/09/2025 REASON FOR EXAM: PAIN TECHNIQUE: RIBS UNI MIN 3V W/PA CHEST COMPARISON: 07/11/2023. FINDINGS: The lungs are expanded. There is no demonstrated parenchymal abnormality. There is no demonstrated pleural abnormality. Enlarged cardiac silhouette. Normal mediastinum and brian. Normal visualized pulmonary arteries. Atheromatous plaques of the visualized aortic arch and descending thoracic aorta. Diffuse spondylosis of the visualized thoracic spine. Normal visualized ribs, clavicles. Degenerative joint disease. There is no demonstrated abnormality of the visualized soft tissue structures of the upper abdomen. RAD/Ribs Uni Min 3V w/PA Chest IMPRESSION: No rib fracture is noted. Reading [facility]
[2025-05-08 21:08] VITALS: BP 171/60; PULSE 70; RESP 14; TEMP 36.2; O2SAT 93
--- OUTSIDE RECORDS SUMMARY | 2025-05-08 23:43 | XMS RPT_ITS | CCD ---
Author Organization [facility] CliniSyde Care Team Providers Care Wealth Management Manager Name Role Phone Vane Cassidy MD Primary [...] Unavailable Vane Cassidy MD Primary Care Provider Vane Cassidy MD Primary Care Provider Charlee PIPELINE SYSTEMS OPERATOR.Padmini [place] Unavailable Chilo PIPELINE SYSTEMS OPERATOR.Hany [place] Unavailable VANE CASSIDY Primary Care Unavailable LINDSAY FUNEZ Attending Unavailable STEWART CASTRO Attending Unavailable VANE CASSIDY Primary Care Unavailable STEWART CASTRO Attending Unavailable SELF Referring Unavailable VANE CASSIDY Primary Care Unavailable Dr. Vane Cassidy MD Primary Care Provider [phone] Dr. Vane Cassidy MD Referring Provider Sigrid Keller Attending Provider Dr. Jed Prado DO Emergency Provider [phone] Sigrid Stephens NP Attending Unavailable Vane Cassidy Primary Care Unavailable Vane Cassidy Referring Unavailable Vane Cassidy Primary Care Unavailable Jed Prado Attending Unavailable Medications Current Medications Medication Drug Class(es) Dates Sig (Normalized) Sig (Original) clindamycin 150 mg oral capsule (3 sources) Lincosamide Antibacterial Start: 5 End: 5 take 3 capsules by mouth three times daily clindamycin (CLEOCIN) 150 mg capsule Indications: Cellulitis of both feet Take 3 capsules by mouth three times a day for 7 days. 63 capsule 03/14/2025 03/21/2025 Active gabapentin 300 mg oral capsule (2 sources) Anti-epileptic Agent Start: 2 End: 2 take 1 capsule by mouth every eight hours as needed gabapentin (NEURONTIN) 300 mg capsule Take 1 capsule by mouth three times daily as needed for up to 30 days. 30 capsule 2 02/07/2022 02/25/2022 Discontinued Comment on above: Take 1 capsule by mo [facility] three times daily as needed for up to 30 days. hydrocortisone 10 mg/ml topical cream (1 source) Corticosteroid Start: 5 End: 5 hydrocortisone 1 % cream Indications: Rash Apply to affected area two times a day for 10 days. 120 g 05/03/2025 05/13/2025 Active methylPREDNISolone (2 sources) Corticosteroid Start: 5 End: 5 methylPREDNISolone (MEDROL, JUANCHO,) 4 mg Dose-Pack Indications: Cellulitis of both feet Take as instructed per package. 21 tablet 03/14/2025 03/20/2025 Active naproxen 500 mg oral tablet (3 sources) Nonsteroidal Anti-inflammatory Drug Start: 2 End: 2 take 1 tablet by mouth twice daily as needed for pain naproxen (NAPROSYN) 500 mg tablet Indications: Contusion of lower back, subsequent encounter Take 1 tablet by mouth twice daily as needed (for pain/inflammation). Take with food. 14 tablet 0 02/04/2022 02/25/2022 Discontinued Comment on above: Take 1 tablet by [facility] twice daily as needed (for pain/inflammation). Take with food. nirmatrelvir tablet 300 mg (150 mg x 2) and ritonavir tablet 100 mg in a dose pack (PAXLOVID) (1 source) Start: 4 End: 4 nirmatrelvir tablet 300 mg (150 mg x [...] 0.9% 10 mL injection (DEFINITY) (7 sources) Start: 3 End: 4 perflutren lipid microspheres 1.3 mL in NaCl (PF) 0.9% 10 mL injection (DEFINITY) traMADol hydrochloride 50 mg oral tablet (5 sources) Opioid Agonist Start: 5 take 1 tablet by mouth every six hours as needed for pain Tramadol 50 mg tablet Active 50 mg PO EVERY 6 HOURS NEEDED as needed for Pain 20 May 07, 2025 6:04am Start: 02-04-2022 End: 02-25-2022 take 1 tablet by mouth three times [...] / HYDROcodone bitartrate 5 mg oral tablet (5 sources) Opioid Agonist Start: 02-23-2021 End: 02-26-2021 Hydrocodone-Acetami nophen 1 TABLET tablet Discontinued 1 {tbl} PO EVERY 6 HOURS NEEDED as needed for Pain 08 15February 23, 2021 February 25, 2021 12:00am February 26, 2021 12:04am Start: 02-23-2021 End: 02-26-2021 take 1 tablet by mouth every six hours as needed Hydrocodone-Acetaminophen Discontinued 1 TABLET PO EVERY 6 HOURS NEEDED 08 15February 23, 2021 February 26, 2021 12:04am amLODIPine 2.5 mg oral tablet (20 sources) Dihydropyridine Calcium Channel Bk Start: 08-29-2023 End: 08-29-2023 take 1 tablet by mouth once daily Amlodipine 2.5 mg tablet Discontinued 2.5 mg PO DAILY August 29, 2023 12:00am August 29, 2023 11:19am Start: 05-31-2023 End: 08-29-2023 take 1 tablet by mouth once daily Amlodipine 10 mg tablet Discontinued 10 mg PO DAILY May 31, 2023 12:00am August 29, 2023 10:52am Start: 05-11-2023 End: 08-10-2023 take 1 tablet by mouth once daily Amlodipine 5 mg tablet Discontinued 5 mg PO DAILY May 29, 2023 12:00am May 31, 2023 2:49pm Comment on above: Take 1 tablet by eun th once daily. aspirin 81 mg delayed release oral tablet (5 sources) Platelet Aggregation Inhibitor, Nonsteroidal Anti-inflammatory Drug Start: 07-26-2023 End: 08-29-2023 Aspirin (Adult Low Dose Aspirin) 81 mg tablet,delayed release (DR/EC) Discontinued 81 mg PO DAILY July 26, 2023 12:00am August 29, 2023 10:52am Start: 07-19-2023 End: 07-19-2024 aspirin 81 MG chewable table t Chew 1 tablet (81 mg) daily. 30 tablet 11 07/20/2023 07/19/2024 Active iopamidol (Isovue-370) 76 % injection 100 mL [...] Location: neck metoclopramide 10 mg oral tablet (4 sources) Dopamine-2 Receptor Antagonist Start: 05-08-2023 End: 05-31-2023 take 1 tablet by mouth every six hours as needed for headache Metoclopramide Hcl 10 mg tablet Discontinued 10 mg PO EVERY 6 HOURS as needed for N/V or headache May 08, 2023 4:18pm May 31, 2023 [...] other specified circumstances] Episodic E Codes: Fall (6 sources) Fall on same level from slipping; Translations: [Fall on same level from slipping, tripping and stumbling without subsequent striking against object, initial encounter] 02-09-2022 Episodic Essential hypertension (20 sources) Elevated blood pressure; Translations: [Essential (primary) hypertension] Onset: 06-19-2023 05-08-2023 Chronic Headache; including migraine (4 sources) Headache; Translations: [Severe headache] 05-08-2023 Episodic Heart valve disorders (20 sources) Aortic stenosis, non-rheumatic ; Translations: [Nonrheumatic aortic (valve) stenosis] Onset: 06-30-2023 Chronic Comment on above: 07/19/2023 with an a 2 3 KARINA S3 valve. Heart valve disorders (5 sources) Heart murmur; Translations: [Cardiac murmur, unspecified] Episodic Other aftercare (1 source) Post-discharge follow-up; Translations: [Encounter for follow-up examination after completed treatment for conditions other than malignant neoplasm] Episodic Other screening for suspected conditions (not mental disorders or infectious disease) (3 sources) Echocardiogram abnormal; Translations: [Abnormal findings on [...] Onset: 04-13-2011 04-13-2011 Chronic Sprains and strains (5 sources) Lower back injury; Translations: [Strain of muscle, fascia and tendon of lower back, initial encounter] 02-09-2022 Episodic Superficial injury; contusion (4 sources) Contusion of hip; Translations: [Contusion of left hip, subsequent encounter] Onset: 05-03-2025 Episodic Past or Other Problems Problem Classification Problem Date Documented Da te Episodic/Chronic Spondylosis; intervertebral disc disorders; other back problems (15 sources) Neck pain; Translations: [Cervicalgia] Onset: 05-27-2010 05-27-2010 Episodic Results Test Name Value Interpretation Reference Range Facility Emergency Department Summary on 05-07-2025 Emergency Department Summary [facility] Medical Records Department [facility] [place] [address] Emergency Department Summary 05/07/25 MR#: [id number] Acct: [id number] Name: NIDHI ZAMORA Rep #: [id number] : 1940 85 From: Jed Prado DO PCP: Dr. Vane Cassidy MD Status:DEP ER Location: ED HPI HPI - Fall History of Present Illness Chief Complaint: Fall Informant: patient Occured/Mechanism Occurred: Days (5) Mechanism/Context: Yes same level fall Narrative: Missed a step Pain/Injury Pain Location: lower extremity (Left hip and thigh) Quality of Pain: Stabbing Worsened by: Certain movements Relieved by: Nothing Associated Symptoms Associated Symptoms: Negative for Parasthesias, Weakness, Loss of function, Inability to ambulate, Loss of consciousness or Amnesia Narrative Narrative: Patient presents with pain in her left hip that began after a fall 5 days ago. Patient states she missed a step and fell onto brick patio. Patient denies any head injury or loss of consciousness. Patient states she went to urgent care 3 days ago. Patient states that she was instructed to take Tylenol for pain. Patient states he has been using [id number] Tylenol with no improvement. Patient describes her pain as stabbing. Patient states it is worse with certain movements. Patient denies any other injuries. PFSH PFSH Medical History History of transcatheter aortic valve replacement (TAVR) Hard of hearing Severe aortic stenosis Essential hypertension Heart murmur Home Medications ???Medication ???Instructions ???Recorded ???Last Taken ???Type tramadol 50 mg tablet 50 mg PO Q6H PRN PRN Pain 5 days 0 05/07/25 Unknown Rx #20 tabs Allergy/AdvReac Type Severity Reaction Status Date / Time No Known Allergies Allergy Verified 05/07/25 04:48 Surgical History Hx of hysterectomy History of tonsillectomy History of cholecystectomy Social History Smoking Status: Never smoker alcohol intake: never substance use type: does not use caffeine: Yes Type: carbonated beverages Number of servings: 1 ROS ROS ED Constitutional Constitutional ED: Denies chills or fever(s) Eyes Eyes: Denies blurry vision or change in vision ENT ENT ED: Denies rhinorrhea or sore throat Cardiovascular Cardiovascular: Denies chest pain or palpitations Respiratory/Chest Respiratory/Chest: Denies cough or dyspnea Gastrointestinal Gastrointestinal: Denies nausea or vomiting Genitourinary Genitourinary ED: Denies dysuria or hematuria Musculoskeletal Musculoskeletal: Denies back pain or neck pain Integumentary Denies abscess or rash Neurologic Neurologic: Denies headache(s) or weakness Allergic/Immunologic Allergic/Immunologic ED: Denies mouth swelling or urticaria EXAM Physical Exam Const Vital Signs: 05/07/25 04:48 05/07/25 04:52 Temperature 97.6 F L Temperature Source Oral Pulse Rate 75 Respiratory Rate 18 Respiratory Effort Normal Non-Labored Respiratory Depth Normal Respiratory Pattern Normal Blood Pressure 213/90 H Blood Pressure Mean 131 Pulse Ox 97 97 Oxygen Delivery Method Room Air Room Air Positive well nourished and well developed General Appearance ED: well developed and NAD HEENT Reports normocephalic atraumatic Neck full ROM and supple Extremity Extremity Narrative: There is tenderness of the lateral aspect of the left hip and proximal thigh. There is no bony crepitus or step-off. There is no deformity. There is good passive range of motion. There is good active range of motion. Strength is 5/5 bilaterally in the lower extremities. There are no sensory deficits noted. Neuro oriented x3, CN's II-XII intact bilaterally, moves all extremities, no focal motor deficits and no sensory deficits noted [place] Coma Scale: document GCS findings Spontaneous Obeys Commands Oriented 15 Sensorium / Orientation: alert Motor Exam: strength 5/5 throughout Psych mental status grossly normal and thought process normal MDM MDM MDM Narrative Medical decision making narrative: Differential diagnosis includes fracture, contusion, and sprain. X-rays of the pelvis and left femur will be obtained to assess for fracture. History Record Review Additional record(s) reviewed:: Prior labs Radiography Diagnostic Testing: Clinical Impression(s) from Imaging Studies Femur X-Ray 05/07/25 05:08 IMPRESSION: No evidence for acute abnormality. Reading [facility] [address] Pelvis X-Ray 05/07/25 05:15 IMPRESSION: No evidence for acute abnormality. Electron (more content not included)... Normal [facility] Femur Min 2 Viewson 05-07-20 Femur Min 2 Views [facility] Imaging Services [address] [place], [place] [address] Femur Min 2 Views MR#: [id number] Acct: [id number] Name: NIDHI ZAMORA Rep #: [id number] : 1940 F 85 From: Abby reilly MD PCP: Dr. Vane Cassidy MD Status: PRE ER Study: Femur Min 2 Views Date of Exam: 05/07/25 Exam# [id number] Ordering Dr: Jed Prado DO PROCEDURE: FEMUR MIN 2 VIEWS 05/07/2025 REASON FOR EXAM: INJURY/PAIN TECHNIQUE: FEMUR MIN 2 VIEWS COMPARISON: None. FINDINGS: Mild osteopenia of the visualized bones. Degenerative joint disease. No fracture or dislocation is seen. No lytic or blastic bone lesion is noted. RAD/Femur Min 2 Views IMPRESSION: No evidence for acute abnormality. Reading Location: [place] [address] CC: Dr. Jed Prado DO; Dr. Vane Cassidy MD Emergency Medical Services Coordinator: Signed Normal [facility] Pelvis 1 or 2 Viewson 2024 Pelvis 1 or 2 Views [facility] Imaging Services [address] [place], [place] [address] Pelvis 1 or 2 Views MR#: [id number] Acct: [id number] Name: NIDHI ZAMORA Rep #: [id number] : 1940 F 85 From: Abby reilly MD PCP: Dr. Vane Cassidy MD Status: PRE ER Study: Pelvis 1 or 2 Views Date of Exam: 05/07/25 Exam# [id number] Ordering Dr: Jed Prado DO PROCEDURE: PELVIS 1 OR 2 VIEWS 05/07/2025 REASON FOR EXAM: INJURY/PAIN TECHNIQUE: PELVIS 1 OR 2 VIEWS COMPARISON: None. FINDINGS: Mild osteopenia of the visualized bones. Degenerative joint disease. No fracture or dislocation is seen. No lytic or blastic bone lesion is noted. RAD/Pelvis 1 or 2 Views IMPRESSION: No evidence for acute abnormality. Reading [facility] CC: Dr. Jed Praod, DO; Dr. Vane Cassidy MD Emergency Medical Services Coordinator: Signed Normal [facility] CNOVon 05-03-2025 CNOV Office Visit (UCWSTR ) NIDHI ZAMORA ([id number]) 1940 F Date Time Provider Department 05/03/25 8:15 AM LINDSAY FUNEZ [facility] During your visit today, we recorded the following information about you: Temperature Pulse Respiration Blood pressure 97.8 degrees 64/minute 18/minute 168/84 Weight 80.5 kg Lindsay Funez APRN.INSURANCE LOSS ADJUSTER 05/03/2025 8:36 AM Signed This note was created using [employer] Mobile Payment[employer]. Subjective Nidhi Zamora is a 85 year [...] minutes at a time. She will use [id number] pain medications and follow-up if symptoms not improving. 2. Rash - ICD9: 782.1, ICD10: R21 Patient given a prescription for hydrocortisone cream and recommended follow-up with local dermatology. - HYDROCORTISONE 1 % TOPICAL CREAM Lindsay Funez APRN.INSURANCE LOSS ADJUSTER Allergies As of Date: 05/03/2025 Noted Allergy [...] Encounter Status:Closed by LINDSAY FUNEZ on 05/03/25 Normal [facility] CNOVon 03-20-2025 CNOV Office Visit (GUSTAVOPWS ) MARYNIDHI ROSA Erendira ([id number]) 1940 F Date Time Provider Department 03/20/25 10:40 AM STEWART CASTRO During your visit today, we recorded the following information about you: Pulse Blood pressure Weight 65/minute 171/68 78.5 kg Stewart Castro APRN.INSURANCE LOSS ADJUSTER 03/20/2025 10:50 AM Signed Chief Complaint Patient [...] did not want to start medication. Stewart Castro, PIPELINE SYSTEMS OPERATOR.INSURANCE LOSS ADJUSTER Allergies As of Date: 03/20/2025 Noted Allergy Reaction NO KNOWN DRUG ALLERGIES 11/15/2007 Date Reviewed: 03/20/2025 Reviewed by: Ana Rosa Guzman MA - Fully Assessed Reason for Visit: Follow Up [171] Cmt: Foot rash Primary Visit Diagnosis:Toenail deformity [L60.8] Other Visit Diagnosis:Hypertension , essential [I10] Order(s):CONSULT TO PODIATRY [1274] Order #: [id number]: 1 FUTURE Prescriptions as of 03/20/2025 - [...] for Encounter Date Provider Department Center 03/20/2025 [id number] CASTRO [facility] Encounter Status:Closed by STEWART CASTRO on 03/20/25 [facility] CNOVon 03-14-2025 CNOV Office Visit (MARY ) NIDHI ZAMORA ([id number]) 1940 F Date Time Provider Department 03/14/25 10:00 AM STEWART CASTRO During your visit today, we recorded the following information about you: Pulse Blood pressure Weight 65/minute 169/63 79 kg Stewart Castro APRN.INSURANCE LOSS ADJUSTER 03/14/2025 10:17 AM Signed Chief Complaint Patient [...] week at cellulitis follow up. Stewart Castro APRN.INSURANCE LOSS ADJUSTER Referring Provider: SELF [200] Allergies As of [...] mg c (more content not included)... Normal [facility] Cardiology Visit Reporton Cardiology Visit Report [facility] [address] [place], [place] [address] OFFICE VISIT Date of Service: 03/07/25 MR#: [id number] Acct: [id number] Name: NIDHI ZAMORA Rep #: [id number] : 1940 Provider: THEODORE reddy Age/Sex: 85/F [facility] [facility] Status: Signed HPI HPI History of Present [...] cm???. Patient was asked to see a security consultant urgently. She did undergo a heart catheterization [...] 95 Intake Visit Reasons: 1 Y FU Mirror Installer Required: No Is patient in pain?: No [...] eyelids no (more content not included)... Normal [facility] 36on 07-20-2023 36 Verbally discussed w / Eugenia Campbell CNP, I cancelled next weeks OV. Pt will follow up in [place] for 30 D post TAVR OV and echo. I spoke w/ Stewart at [facility], pt has 30 D post TAVR OV w/ EKG scheduled for 08/29/23, she will get echo ordered after next week OV. I spoke w/ pt, aware of appts, will mail KCQ when time is closer to Aug 29 visit. Normal [facility] 36 Stewart called from [facility] to Let Elaine know that she scheduled this patient for her 1 week TAVR f/up 07/26/23 at 2:30p Normal [facility] BASIC METABOLIC PANELon 09-0 Anion gap [Moles/Vol] 10 mmol/L Normal 3-13 [facility] Comment on above: Performed By: #### L AB15 ####Licensed Psychologist Director: HERIBERTO ALICEA ([id number])[address] Calcium [Mass/Vol] 8.5 mg/dL Normal 8.4-10.4 [facility] Comment on above: Performed By: #### L AB15 ####Licensed Psychologist Director: HERIBERTO ALICEA ([id number])[facility])[address] [place] [address] Chloride [Moles/Vol] 103 mmol/L Normal 98-107 [facility] Comment on above: Performed By: #### L AB15 ####Licensed Psychologist Director: HERIBERTO [id number])[facility] ([facility])[address] [place] [address] CO2 [Moles/Vol] 24 mmol/L Normal 22-30 [facility] Comment on above: Performed By: #### L AB15 ####Licensed Psychologist Director: HERIBERTO ALICEA ([id number])[facility] [place] [address] Creatinine [Mass/Vol] 0.52 mg/dL Normal 0.52-1.04 [facility] Comment on above: Performed By: #### L AB15 ####Licensed Psychologist Director: HERIBERTO ALICEA ([id number])[facility] ([facility])[address] [place] [address] GLOMERULAR FILTRATION RATE ML/MIN/1.73 SQ M.PREDICTED >90.0 Normal >60.0 [facility] Comment on above: Result Comment: Calc ulation based on the Chronic Kidney Disease Epidemiology Collaboration (CKD-EPI) equation refit without adjustment for race Performed By: #### L AB15 ####Licensed Psychologist Director: HERIBERTO ALICEA ([id number])[facility] ([facility])[address] [place] [address] Glucose [Mass/Vol] 172 mg/dL High 70-100 [facility] Comment on above: Performed By: #### L AB15 ####Licensed Psychologist Director: HERIBERTO ALICEA ([id number])[facility] ([facility])[address] [place] [address] Potassium [Moles/Vol] 3.8 mmol/L Normal 3.5-5.1 [facility] Comment on above: Performed By: #### L AB15 ####Licensed Psychologist Director: HERIBERTO ALICEA ([id number])[facility] ([facility])[address] [place] [address] Sodium [Moles/Vol] 138 mmol/L Normal 135-145 [facility] Comment on above: Performed By: #### L AB15 ####Licensed Psychologist Director: HERIBERTO ALICEA ([id number])[facility] ([facility])[address] [place] [address] Urea nitrogen [Mass/Vol] 17 mg/dL Normal 7-17 [facility] Comment on above: Performed By: #### L AB15 ####Licensed Psychologist Director: HERIBERTO ALICEA ([id number])[facility])[address] [place] [address] Basic metabolic 1998 panelon 07-20-2023 Anion gap [Moles/Vol] 10 mmol/L 3 - 13 mmol/L [facility] Calcium [Mass/Vol] 8.5 mg/dL 8.4 - 10. 4 mg/dL [facility] Chloride [Moles/Vol] 103 mmol/L 98 - 10 7 mmol/L [facility] CO2 [Moles/Vol] 24 mmol/L 22 - 30 mmol/L [facility] Creatinine [Mass/Vol] 0.52 mg/dL 0.52 - 1.04 mg/dL [facility] GFR/1.73 sq M.predicted MDRD (S/P/Bld) [Vol rate/Area] - PINF [facility] Comment on above: Calculation based on the Chronic Kidney Disease Epidemiology Collaboration (CKD-EPI) equation refit without adjustment for race Glucose [Mass/Vol] 172 mg/dL High 70 - 100 mg/dL [facility] Interpretation and review of laboratory results Abnormal [facility] Potassium [Moles/Vol] 3.8 mmol/L 3.5 - 5.1 mmol/L [facility] Sodium [Moles/Vol] 138 mmol/L 135 - 145 mmol/L [facility] Urea nitrogen [Mass/Vol] 17 mg/dL 7 - 17 mg/d L [facility] CBC (HEMOGRAM)on 07-20-2023 Erythrocyte distribution width (RBC) [Ratio] 13.7 % Normal 11.5-14.5 [facility] Comment on above: Performed By: #### L [id number] #### Licensed Psychologist Director: HERIBERTO ALICEA ([id number]) [facility] ([facility]) [address] [place] [address] ERYTHROCYTE MEAN CORPUSCULAR HEMOGLOBIN CONCENTRATION (G/DL) BY AUTOMATED 33.4 % Normal 32.0-36.0 [facility] Comment on above: Performed By: #### L AB294 #### Licensed Psychologist Director: HERIBERTO [id number]) [facility] ([facility]) [address] [place] [address] Hematocrit (Bld) [Volume fraction] 35.1 % Normal 35.0-47.0 [facility] Comment on above: Performed By: #### L AB294 #### Licensed Psychologist Director: HERIBERTO ALICEA ([id number]) [facility] ([facility]) [address] [place] [address] Hemoglobin (Bld) [Mass/Vol] 11.7 g/dL Normal 11.7-16.0 [facility] Comment on above: Performed By: #### L AB294 #### Licensed Psychologist Director: HERIBERTO ALICEA ([id number]) [facility] ([facility]) [address] [place] [address] MCH (RBC) [Entitic mass] 27.8 pg Normal 26.0-34.0 [facility] Comment on above: Performed By: #### L AB294 #### Licensed Psychologist Director: HERIBERTO ALICEA ([id number]) [facility] ([facility]) [address] [place] [address] MCV (RBC) [Entitic vol] 83.2 fL Normal 80.0-98.0 [facility] Comment on above: Performed By: #### L AB294 #### Licensed Psychologist Director: HERIBERTO ALICEA ([id number]) [facility] ([facility]) [address] [place] [address] Platelet mean volume (Bld) [Entitic vol] 7.6 fL Normal 7.4-12.4 [facility] Comment on above: Performed By: #### L [id number] #### Licensed Psychologist Director: HERIBERTO ALICEA ([id number]) [facility] ([facility]) [address] [place] [address] [place] PLATELETS (10*3/UL) IN BLOOD AUTOMATED COUNT 272 10*3/uL Normal 140-440 [facility] Comment on above: Performed By: #### L [id number] #### Licensed Psychologist Director: HERIBERTO ALICEA ([id number]) [facility] ([facility]) [address] [place] [address] RBC (Bld) [#/Vol] 4.22 10*6/uL Normal 3.8-5.20 [facility] Comment on above: Performed By: #### L [id number] #### Licensed Psychologist Director: HERIBERTO ALICEA ([id number]) [facility] ([facility]) [address] [place] [address] WBC (Bld) [#/Vol] 7.5 10*3/uL Normal 3.6-10.7 [facility] Comment on above: Performed By: #### L [id number] #### Licensed Psychologist Director: HERIBERTO ALICEA ([id number]) [facility] ([facility]) [address] [place] [address] CBC panel Auto (Bld)on 07-20 Erythrocyte distribution width (RBC) [Ratio] 13.7 % 11.5 - 14.5 % [facility] Hematocrit (Bld) [Volume fraction] 35.1 % 35.0 - 47.0 % [facility] Hemoglobin (Bld) [Mass/Vol] 11.7 g/dL 11.7 - 16.0 g/dL [facility] Interpretation and review of laboratory results Normal [facility] MCH (RBC) [Entitic mass] 27.8 pg 26. 0 - 34.0 pg [facility] MCHC (RBC) [Mass/Vol] 33.4 % 32.0 - 36.0 % [facility] MCV (RBC) [Entitic vol] 83.2 fL 80.0 - 98.0 fL [facility] Platelet mean volume (Bld) [Entitic vol] 7.6 fL 7.4 - 12.4 fL [facility] Platelets (Bld) [#/Vol] 272 10*3/uL 140 - 440 10*3/uL [facility] RBC (Bld) [#/Vol] 4.22 10*6/uL 3.8 - 5.20 10*6/uL [facility] WBC (Bld) [#/Vol] 7.5 10*3/uL 3.6 - 10.7 10*3/uL [facility] ECG 12-LEADon 07-20-2023 ECG 12-LEAD IMPRESSION: Sinus rhythm Prolonged MN interval Low voltage, precordial leads 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 Anterior Q waves, possibly due to LVH Electronically Signed On 07-20-2023 9:37:30 EDT by Skyla Fraga [facility] ECG 12-LEAD IMPRESSION: Sinus rhythm Prolonged MN interval Low voltage, precordial leads 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 Anterior Q waves, possibly due to LVH Electronically Signed On 07-20-2023 9:28:13 EDT by Skyla Fraga [facility] No Panel InformationOrdered By: Skyla Fraga on 07-20-2023 P [place] 8 degrees [facility] Work Phone: MN Interval 270 ms [facility] Work Phone: QRS [place] -33 degrees [facility] Work Phone: QRSD Interval 82 ms [facility] Work Phone: QT Interval 426 ms [facility] Work Phone: QTC Interval 424 ms [facility] Work Phone: T Wave [place] 120 degrees [facility] Work Phone: [facility] Work Phone: No Panel Informationon 07-20 Sinus rhythm Prolonged MN interval Low voltage, precordial leads 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 Anterior Q waves, possibly due to LVH Electronically Signed On 07-20-2023 9:37:30 EDT by Skyla Mcginnis MD - 07/20/2023 IMPRESSION: Sinus rhythm Prolonged MN interval Low voltage, precordial leads 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 Anterior Q waves, possibly due to LVH Electronically Signed On 07-20-2023 9:37:30 EDT by Skyla Fraga [facility] P [place] 28 degrees [facility] MN Interval 233 ms [facility] QRS [place] -26 degrees [facility] QRSD Interval 82 ms [facility] QT Interval 391 ms [facility] QTC Interval 413 ms [facility] T Wave [place] 127 degrees [facility] Sinus rhythm Prolonged MN interval Low voltage, precordial leads 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 Anterior Q waves, possibly due to LVH Electronically Signed On 07-20-2023 9:28:13 EDT by Skyla Fraga CV Skyla Medina MD - 07/20/2023 IMPRESSION: Sinus rhythm Prolonged MN interval Low voltage, precordial leads 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 4 mg/dL [facility] Chloride [Moles/Vol] 102 mmol/L 98 - 10 7 mmol/L [facility] CO2 [Moles/Vol] 26 mmol/L 22 - 30 mmol/L [facility] Creatinine [Mass/Vol] 0.46 mg/dL Low 0.52 - 1.04 mg/dL [facility] GFR/1.73 sq M.predicted MDRD (S/P/Bld) [Vol rate/Area] - PINF [facility] Comment on above: Calculation based on the Chronic Kidney Disease Epidemiology Collaboration (CKD-EPI) equation refit without adjustment for race Glucose [Mass/Vol] 205 mg/dL High 70 - 100 mg/dL [facility] Interpretation and review of laboratory results Abnormal [facility] Potassium [Moles/Vol] 3.9 mmol/L 3.5 - 5.1 mmol/L [facility] Sodium [Moles/Vol] 137 mmol/L 135 - 145 mmol/L [facility] Urea nitrogen [Mass/Vol] 16 mg/dL 7 - 17 mg/d L [facility] CBC panel Auto (Bld)Ordered By: Osmin De La Fuente on 07-19-2023 Erythrocyte distribution width (RBC) [Ratio] 13.7 % 11.5 - 14.5 % [facility] Hematocrit (Bld) [Volume fraction] 32.4 % Low 35.0 - 47.0 % [facility] Hemoglobin (Bld) [Mass/Vol] 10.7 g/dL Low 11.7 - 16.0 g/dL [facility] Interpretation and review of laboratory results Abnormal [facility] MCH (RBC) [Entitic mass] 27.6 pg 26. 0 - 34.0 pg [facility] MCHC (RBC) [Mass/Vol] 33.2 % 32.0 - 36.0 % [facility] MCV (RBC) [Entitic vol] 83.2 fL 80.0 - 98.0 fL [facility] Platelet mean volume (Bld) [Entitic vol] 7.6 fL 7.4 - 12.4 fL [facility] Platelets (Bld) [#/Vol] 260 10*3/uL 140 - 440 10*3/uL [facility] RBC (Bld) [#/Vol] 3.89 10*6/uL 3.8 - 5.20 10*6/uL [facility] WBC (Bld) [#/Vol] 6.0 10*3/uL 3.6 - 10.7 10*3/uL [facility] Cardiac catheterization stud n 07-19-2023 TAVR Procedural Repo rt Interventional Cardiologists: [...] Via the right femoral vein, a 6 Swedish sheath was placed and temporary pacing wire was placed into the RV apex with appropriate capture, in addition sterile tubing was attached and given the anesthesia for central access. Via the right radial artery, a 6-Swedish sheath was placed and the pigtail catheter was placed into the aortic annulus with confirmation the implant angle. Via the right femoral femoral artery, a 6-Swedish sheath was placed. The patient was then heparinized. Next, two Perclose devices were used using the pre-close strategy. An Amplatz Super Stiff wire was then placed through the second Perclose into the descending aorta. Then, a 14 Fr-Swedish Karina E-sheath was introduced over the wire [...] care of your patient while hospitalized at [facility]. I will continue to follow along while hospitalized. Please do not hesitate to call with any questions. Cath Recommendations Patient management should include: Aggressive risk factor modification, optimal medical management and follow-up for further management of valve disease. [facility] Cardiac catheterization stud yOrdered By: Maximus Campbell on 07-19-2023 [facility] Work Phone: Op Noteon 07-19-2023 Op Note 07/19/2023 date of surgery Cardiothoracic surgeon: Cem Harrell MD [facility] WITH [facility] [place] [place] [place]: Maximus Campbell MD Preoperative diagnosis severe, symptomatic [...] artery and right femoral vein. A 6 Swedish sheath was placed in the right femoral vein through which the temporary pacing wire was advanced to the right ventricle. This access site was also used for central venous access. A 6 Swedish sheath was placed in the right radial artery through which the pigtail catheter was advanced to the aortic annulus for confirmation of the implant angle. The right femoral artery was used to place a 6 Swedish sheath and Perclose devices were placed at this site. The 14 Swedish sapient E sheath was introduced into the [...] transferred stable to the recovery room. Normal [facility] Heart TransthoracicOrdere d By: Sade Berger on 07-19-2023 Ascending Aorta 3.3 cm [facility] Work Phone: [phone] Ascending Aorta Index 1.88 cm/m2 [facility] Work Phone: [phone] AV Area by Peak Velocity 1.2 cm2 [facility] Work Phone: [phone] AV Area by VTI 1.3 cm2 [facility] Work Phone: [phone] AV Mean Gradient 16 mmHg [facility] Work Phone: [phone] AV Mean Velocity 1.9 m/s [facility] Work Phone: [phone] AV Peak Gradient 28 mmHg [facility] Work Phone: [phone] AV Peak Velocity 2.6 m/s [facility] Work Phone: [phone] AV Velocity Ratio 0.42 [facility] Work Phone: AV VTI 63.8 cm [facility] Work Phone: CARMEN/BSA Peak Velocity 0.7 cm2/m2 [facility] Work Phone: CARMEN/BSA VTI 0.7 cm2/m2 [facility] Work Phone: [phone] E/E' Lateral 11.83 [facility] Work Phone: E/E' Ratio (Averaged) 13.02 [facility] [employer] Work Phone: E/E' Septal 14.20 [facility] Work Phone: EF BP 69 % 55 - 100 % [facility] [employer] Work Phone: [phone] Fractional Shortening 2D 36 % 28 - 44 % [facility] [employer] Work Phone: [phone] Interpretation and review of laboratory results Abnormal [facility] [employer] Work Phone: [phone] IVSd 1.4 cm Abnormal 0.6 - 0.9 cm [facility] Work Phone: [phone] LA Volume 2C 49 mL 22 - 52 mL [facility] [employer] Work Phone: [phone] LA Volume 4C 50 mL 22 - 52 mL [facility] [employer] Work Phone: [phone] LA Volume A/L 53 mL [facility] Work Phone: [phone] LA Volume Index 2C 28 mL/m2 16 - 34 mL/m2 [facility] [employer] Work Phone: [phone] LA Volume Index 4C 28 mL/m2 16 - 34 mL/m2 [facility] [employer] Work Phone: LA Volume Index A/L 30 mL/m2 16 - 34 mL/m2 [facility] Work Phone: LV E' Lateral Velocity 6 cm/s [facility] Work Phone: [phone] LV E' Septal Velocity 5 cm/s [facility] [employer] Work Phone: [phone] LV EDV A2C 73 mL [facility] Work Phone: LV EDV A4C 107 mL [facility] Work Phone: LV EDV BP 92 mL 56 - 104 mL [facility] Work Phone: LV EDV Index A2C 41 mL/m2 [facility] Work Phone: LV EDV Index A4C 61 mL/m2 [facility] Work Phone: LV EDV Index BP 52 mL/m2 [facility] Work Phone: LV Ejection Fraction A2C 71 % [facility] Work Phone: LV Ejection Fraction A4C 71 % [facility] Work Phone: LV ESV A2C 21 mL [facility] Work Phone: LV ESV A4C 31 mL [facility] Work Phone: LV ESV BP 28 mL 19 - 49 mL [facility] Work Phone: LV ESV Index A2C 12 mL/m2 [facility] Work Phone: LV ESV Index A4C 18 mL/m2 [facility] Work Phone: LV ESV Index BP 16 mL/m2 [facility] Work Phone: LV Mass 2D 190.4 g Abnormal 67 - 162 g [facility] Work Phone: LV Mass 2D Index 108.2 g/m2 Abnormal 43 - 95 g/m2 [facility] Work Phone: LV RWT Ratio 0.67 [facility] Work Phone: LVIDd 3.9 cm 3.9 - 5.3 cm [facility] Work Phone: LVIDd Index 2.22 cm/m2 [facility] Work Phone: LVIDs 2.5 cm [facility] Work Phone: LVIDs Index 1.42 cm/m2 [facility] Work Phone: LVOT Area 3.1 cm2 [facility] Work Phone: [phone] LVOT Cardiac Output 5.9 liter/minute [facility] Work Phone: [phone] LVOT Diameter 2.0 cm [facility] Work Phone: LVOT Mean Gradient 3 mmHg [facility] Work Phone: [phone] LVOT Peak Gradient 5 mmHg [facility] Work Phone: [phone] LVOT Peak Velocity 1.1 m/s [facility] Work Phone: [phone] LVOT Stroke Volume Index 47.8 mL/m2 [facility] Work Phone: [phone] LVOT SV 84.2 ml [facility] Work Phone: [phone] LVOT VTI 26.8 cm [facility] [employer] Work Phone: [phone] LVOT:AV VTI Index 0.42 [facility] Work Phone: [phone] LVPWd 1.3 cm Abnormal 0.6 - 0.9 cm [facility] Work Phone: [phone] MV A Velocity 0.97 m/s [facility] Work Phone: [phone] MV E Velocity 0.71 m/s [facility] Work Phone: [phone] MV E Wave Deceleration Time 228.2 ms [facility] Work Phone: [phone] MV E/A 0.73 [facility] Work Phone: [phone] Pulm Vein Peak D Velocity 0.4 m/s [facility] Work Phone: Pulm Vein Peak S Velocity 0.5 m/s [facility] Work Phone: [phone] Pulm Vein S/D 1.3 [facility] Work Phone: [phone] PV Max Velocity 0.8 m/s [facility] Work Phone: [phone] PV Mean Gradient 1 mmHg [facility] Work Phone: [phone] PV Mean Velocity 0.5 m/s [facility] Work Phone: [phone] PV Peak Gradient 2 [facility] Work Phone: [phone] PV VTI 16.5 cm [facility] Work Phone: [phone] RV Free Wall Peak S' 10 cm/s [facility] Work Phone: [phone] TAPSE 1.6 cm Abnormal 1.7 cm [facility] Work Phone: [phone] TR Max Velocity 2.71 m/s [facility] Work Phone: [phone] TR Peak Gradient 29 mmHg [facility] Work Phone: [phone] [facility] Work Phone: [phone] US Heart Transthoracicon Left Ventricle: Left ventricle size [...] Valve: Not well visualized. Lewis Karina 3 [id number] transcatheter bioprosthetic aortic valve with a size [...] Valve Not well visualized. Lewis Karina 3 [id number] transcatheter bioprosthetic aortic valve with a size [...] 60/36 mm Hg. CARMEN 0.4 cm2. CV [facility] US Heart TransthoracicOrdere d By: Remy Yee on 07-19-2023 AV Area (Pre-TAVR) 0.4 cm2 [facility] Work Phone: AV Area by Peak Velocity 1.4 cm2 [facility] Work Phone: AV Area by VTI 1.6 cm2 [facility] Work Phone: AV AT 85.63 ms [facility] Work Phone: AV Mean Gradient 6 mmHg [facility] Work Phone: AV Mean Gradient (Pre-TAVR) 36 mmHg [facility] Work Phone: AV Mean Velocity 1.1 m/s [facility] Work Phone: AV Peak Gradient 13 mmHg [facility] Work Phone: AV Peak Gradient (Pre-TAVR) 60 mmHg [facility] Work Phone: AV Peak Velocity 1.8 m/s [facility] Work Phone: AV Peak Velocity (Pre-TAVR) 3.9 m/s [facility] Work Phone: AV Velocity Ratio 0.56 [facility] Work Phone: AV VTI 40.0 cm [facility] Work Phone: CARMEN/BSA Peak Velocity 0.8 cm2/m2 [facility] Work Phone: CARMEN/BSA VTI 0.9 cm2/m2 [facility] Work Phone: LVOT Area 2.5 cm2 [facility] Work Phone: LVOT Cardiac Output 3.4 liter/minute [facility] Work Phone: LVOT Diameter 1.8 cm [facility] Work Phone: LVOT Mean Gradient 2 mmHg [facility] Work Phone: LVOT Peak Gradient 4 mmHg [facility] Work Phone: LVOT Peak Velocity 1.0 m/s [facility] Work Phone: LVOT Stroke Volume Index 37.0 mL/m2 [facility] Work Phone: LVOT SV 65.1 ml [facility] Work Phone: LVOT VTI 25.6 cm [facility] Work Phone: LVOT:AV VTI Index 0.64 [facility] Work Phone: TR Max Velocity 1.52 m/s [facility] Work Phone: TR Peak Gradient 9 mmHg [facility] Work Phone: [facility] Work Phone: 36on 07-13-2023 36 Received TAVR approval, dated 07/13/23-09/12/2023. Auth # [id number] [facility] 36 Already spoke with patient and addressed [facility] 36on 07-12-2023 36 TAVR auth submitted to [employer], pending auth [id number], spoke with Stacia, faxed clinicals to [phone] [facility] Absolute lymphocyte countOrd ered By: ELAINE CAMPBELL on 07-11-2023 Lymphocytes Auto (Unsp spec) [#/Vol] 1.70 10*3/uL 0.83-4.51 [facility] Basophil percentageOrdered B y: ELAINE CAMPBELL on 07-11-2023 Basophils/100 WBC (Bld) 0.4 % 0-1 [facility] Bilirubin [Mass/Vol] 0.50 mg/dL 0.20-1.00 [facility] Comment on above: For patients on eltr ombopag therapy, use of Dimension [place] TBIL is not recommended. Chloride [Moles/Vol] 106 mmol/L 98-107 [facility] Eosinophils/100 WBC (Bld) 2.3 % 0-5 [facility] Glucose [Mass/Vol] 204 mg/dL 74-106 [facility] Comment on above: Glucose result great er than or equal to 200 mg/dLsuggests DIABETES MELLITUS per A.D.A. criteria. Neutrophils (Bld) [#/Vol] 4.6 10*3/uL 2.0-7.7 [facility] Neutrophils/100 WBC (Bld) 65.1 % 47-70 [facility] Potassium [Moles/Vol] 3.9 mmol/L 3.5-5.1 [facility] Protein [Mass/Vol] 8.1 g/dL 6.4-8.2 [facility] Sodium [Moles/Vol] 139 mmol/L 136-145 [facility] WBC (Bld) [#/Vol] 7.0 10*3/uL 4.4-11.0 [facility] Blood erythrocytes count (nu mber/volume)Ordered By: ELAINE CAMPBELL on 07-11-2023 RBC (Bld) [#/Vol] 4.33 10*6/uL 4.2-5.4 [facility] Blood hemoglobin measurement (mass/volume)Ordered By: ELAINE CAMPBELL on 07-11-2023 Hemoglobin (Bld) [Mass/Vol] 11.9 g/dL 12.0-15.0 [facility] Blood lymphocytes/100 leukoc ytesOrdered By: ELAINE CAMPBELL on 07-11-2023 Lymphocytes/100 WBC (Bld) 24.3 % 19-41 [facility] Blood monocytes/100 leukocyt esOrdered By: ELAINE CAPMBELL on 07-11-2023 Monocytes/100 WBC (Bld) 7.3 % 0-10 [facility] Blood platelet mean volumeOr dered By: ELAINE CAMPBELL on 07-11-2023 Platelet mean volume (Bld) [Entitic vol] 9.7 fL 6.2-12.0 [facility] Determination of erythrocyte mean corpuscular volume (MCV)Ordered By: ELAINE CAMPBELL on 07-11-2023 MCV (RBC) [Entitic vol] 86.8 fL 81-99 [facility] Hematocrit Auto (Bld) [Volum e fraction]Ordered By: ELAINE CAMPBELL on 07-11-2023 Hematocrit (Bld) [Volume fraction] 37.6 % 37-47 [facility] Laboratory - Chemistry and C hemistry - challengeOrdered By: ELAINE CAMPBELL on 07-11-2023 ALP [Catalytic activity/Vol] 103 U/L 45-117 [facility] ALT [Catalytic activity/Vol] 16 U/L 13-56 [facility] CO2 [Moles/Vol] 30.0 mmol/L 21.0-32.0 [facility] Globulin (S) [Mass/Vol] 4.9 g/dL 2.2-4.2 [facility] Natriuretic peptide B (Bld) [Mass/Vol] 35.9 pg/mL 0-100 [facility] Urea nitrogen/Creatinine [Mass ratio] 23.5 mg/mg 10-20 [facility] Laboratory - Hematology and Cell countsOrdered By: ELAINE CAMPBELL on 07-11-2023 Erythrocyte distribution width (RBC) [Entitic vol] 40.5 fL 35.1-43.9 [facility] Erythrocyte distribution width (RBC) [Ratio] 12.9 % 11.6-14.6 [facility] Immature granulocytes/100 WBC (Bld) 0.600 % 0.0-0.9 [facility] Comment on above: IG% - Immature Granu locytes (promyelocytes, myelocytes and metamyelocytes) > 1% indicates that a LEFT SHIFT is Present. MCH (RBC) [Entitic mass] 27.5 pg 27.0-32.0 [facility] Nucleated RBC/100 WBC (Bld) [Ratio] 0 % 0-5 [facility] MCHC Auto (RBC) [Mass/Vol]Or dered By: ELAINE CAMPBELL on 07-11-2023 MCHC (RBC) [Mass/Vol] 31.6 g/dL 32-36 [facility] No Panel InformationOrdered By: ELAINE CAMPBELL on 07-11-2023 Estimated GFR (MDRD) Amer 123 mL/min >60 [facility] Comment on above: GFR Calc Estimated GFR (MDRD) Non-Af Amer 102 mL/min >60 [facility] Comment on above: Non- GFR Calc Platelets bldOrdered By: LATIA CAMPBELL on 07-11-2023 Platelets (Bld) [#/Vol] 321 10*3/uL 150-450 [facility] Serum or plasma albumin ham urement (mass/volume)Ordered By: ELAINE CAMPBELL on 07-11-2023 Albumin [Mass/Vol] 3.2 g/dL 3.2-5.0 [facility] Serum or plasma albumin/glob ulin mass ratioOrdered By: ELAINE CAMPBELL on 07-11-2023 Albumin/Globulin [Mass ratio] 0.7 {ratio} 0.9-2.4 [facility] Serum or plasma calcium ham urement (mass/volume)Ordered By: ELAINE CAMPBELL on 07-11-2023 Calcium [Mass/Vol] 9.2 mg/dL 8.5-10.1 [facility] Serum or plasma creatinine m easurement (mass/volume)Ordered By: ELAINE CAMPBELL on 07-11-2023 Creatinine [Mass/Vol] 0.60 mg/dL 0.55-1.02 [facility] Comment on above: The validity of the calculated GFR & GFRAA in patients over 70 years has not been determined. Clinical correlation is essential. Serum or plasma urea nitroge n measurement (mass/volume)Ordered By: ELAINE CAMPBELL on 07-11-2023 Urea nitrogen [Mass/Vol] 14 mg/dL 7-18 [facility] Thin prep Papanicolaou smear with manual screeningOrdered By: ELAINE CAMPBELL on 07-11-2023 Thin prep Papanicolaou smear with manual screening 9 U/L 15-37 [facility] Thin prep Papanicolaou smear with manual screening 3 5-15 [facility] 36on 07-10-2023 36 Orders faxed to new fax # patient provided. [phone] [facility] 36 Patient will go to [facility] at [address] tomorrow to have CXR, BNP, CMP and CBC done. Ronald Vance to fax orders [facility] 36on 07-05-2023 36 Surgery scheduling notified to move up TAVR start time on 07/19/23 to 8:45 AM. Patient notified, via phone, verbalizes understanding. [facility] 36 Spoke with patient a nd will have CMP, BNP and CBC done at [facility] and CXR. Mailed orders to address on file and spoke with patient to notify office if orders don't arrive in the next few days. Patient verbalized understanding. [facility] CT ANGIOGRAM TAVRon 07-05-20 CT ANGIOGRAM TAVR Patient Name: NIDHI ZAMORA : [address] [facility]#: [id number] Exam Date/Time: 06/30/2023 09:54 Procedure: CT ANGIOGRAM TAVR Ordering Provider: CAMPBELL MEGGAN Reason For Exam: AORTIC VALVE STENOSIS [facility] Valve [facility] Cardiovascular CTA CLINICAL INDICATION: 83-year-old female with severe aortic stenosis, being evaluated for transcatheter aortic valve implantation. Computed tomography of the heart, thoracoabdominal aorta, and iliofemoral system was performed using a [employer] Aquilion One 320 detector scanner. Images were [...] 1.2 cm2 Predicted deployment angle (3-cusp view): MONTENEGRIN 3, CAU 3 Aortic Annulus: Dimensions: 2.5 [...] Electronically Signed Date/Time: 07/05/2023 12:46 PM EDT Normal [facility] [employer] [facility] SHS ABO and Rh group Confirm Nom (Bld)on 06-30-2023 ABO group Nom (Bld) O [facility] [employer] D Ag Ql (RBC) Positive [facility] Blood type and Crossmatch pa belgica (Bld)on 06-30-2023 ABO group Nom (Bld) O [facility] Blood group antibody screen GEL Ql Negative [facility] [employer] D Ag Ql (RBC) Positive [facility] Office Visiton 06-30-2023 Follow-up visit [id number] Melyssa Zamora 1940 F Date Provider Department Center 06/30/2023 [id number] HARRELL [facility] EDUARDO SHMGCV 95 Ar No family history on file Level of Service:07643 [place] OFFICE/OP CONSLTJ NEW/EST PT HIGH MDM 55 MINUTES Reason for Visit and Comments: Cardiac Valve Problem [1334] - Heart Valve Clinic Normal [facility] Follow-up visit [id number] Melyssa Zamora 1940 F Date Provider Department Center 06/30/2023 [id number] CAMPBELL [facility] EDUARDO [facility] 95 Ar No family history on file Level of Service:43983 [place] OFFICE/OUTPATIENT NEW HIGH MDM 60-74 MINUTES Reason for Visit and Comments: Cardiac Valve Problem [1334] - Heart Valve Clinic [facility] Progress Noteon 06-30-2023 Progress Note [facility] Medical Group: Cardiothoracic Surgery Multidisciplinary Heart Valve Clinic Date: 06/30/23 Patient:Nidhi Zamora 1940 83 y.o. female [id number] Subjective: HPI: Nidhi Zamora 83 y.o. referred [...] were no vitals taken for this visit. @[id number]@ Physical Exam Constitutional: General: She is not in acute distress. Appearance: Normal appearance. HENT: Head: Normocephalic and atraumatic. Right Ear: External ear normal. Left Ear: External ear normal. Nose: Nose normal. Mouth/Throat: Lips: [place]. Dentition: Normal dentition. Tongue: No lesions. Tongue [...] valve patricia (more content not included)... Normal [facility] Progress Note [facility] CARDIOLOGY [address] [facility] [address] Dept: [phone] Dept Loc: [phone] Interventional Cardiology Office Note Visit type: New [...] with any questions. Maximus Campbell MD MPH, [facility], [facility] Chief, Ischemic Heart Disease Freight Representative, Interventional Cardiology Fellowship Maintenance Mechanic [place] Coronary, Structural, Peripheral Interventions Subjective Nidhi Zamora [...] distress. B (more content not included)... Normal [facility] Progress Noteon 06-29-2023 Progress Note Nidhi Zamora [...] Transthoracic Echocardiogram 05/12/2023 Heart Catheterization 06/06/2023 Normal [facility] Basophil percentageOrdered B y: ELAINE CAMPBELL on 06-21-2023 Chloride [Moles/Vol] 104 mmol/L 98-107 [facility] Glucose [Mass/Vol] 199 mg/dL 74-106 [facility] Comment on above: Fasting Glucose resu lt greater than or equal to 126 mg/dL suggests DIABETES MELLITUS per A.D.A. criteria. Potassium [Moles/Vol] 3.6 mmol/L 3.5-5.1 [facility] Sodium [Moles/Vol] 139 mmol/L 136-145 [facility] Laboratory - Chemistry and C hemistry - challengeOrdered By: ELAINE CAMPBELL on 06-21-2023 CO2 [Moles/Vol] 27.0 mmol/L 21.0-32.0 [facility] Urea nitrogen/Creatinine [Mass ratio] 25.2 mg/mg 10- [facility] No Panel InformationOrdered By: ELAINE CAMPBELL on 06-21-2023 Estimated GFR (MDRD) Amer 107 mL/min >60 [facility] Comment on above: GFR Calc Estimated GFR (MDRD) Non-Af Amer 88 mL/min >60 [facility] Comment on above: Non- GFR Calc Serum or plasma calcium ham urement (mass/volume)Ordered By: ELAINE CAMPBELL on 06-21-2023 Calcium [Mass/Vol] 9.2 mg/dL 8.5-10.1 [facility] Serum or plasma creatinine m easurement (mass/volume)Ordered By: ELAINE CAMPBELL on 06-21-2023 Creatinine [Mass/Vol] 0.67 mg/dL 0.55-1.02 [facility] Comment on above: The validity of the calculated GFR & GFRAA in patients over 70 years has not been determined. Clinical correlation is essential. Serum or plasma urea nitroge n measurement (mass/volume)Ordered By: ELAINE CAMPBELL on 06-21-2023 Urea nitrogen [Mass/Vol] 17 mg/dL -18 [facility] Thin prep Papanicolaou smear with manual screeningOrdered By: ELAINE CAMPBELL on 06-21-2023 Thin prep Papanicolaou smear with manual screening 8 5-15 [facility] 36on 06-20-2023 36 Received notificatio n from [place] Padilla for approval CTA TAVR 06/30 at 9:30 am. Spoke with patient to confirm date/time and location. Patient received valve clinic patient In mail and has lab slip orders. Will have blood work completed by end of this week. Reviewed no eating for 3 hours prior and reviewed oral hydration protocol. Verbalized understanding. [facility] 36 Patient's son see rankin saw Dr. Aldrich in the office. He stated it is very difficult to get patient up to [place] from [place] due to needing family to bring her up. They would like to have CTA and VC appt on same day if at all possible. [facility] 36on 06-14-2023 36 Patient called in to have CTA TAVR done same day as valve clinic on 06/30/23. E-Mailed [place] Padilla to see if CTA can be double booked. Will await response. [facility] 36 Echo images in PACs [place] [id number] 06-13-[address] Patterson's office called office back stating echo done at [facility] main campus and they do not have the images. Sent e-mail to [facility] help desk images to have images pushed. [facility] Absolute lymphocyte countOrd ered By: Dr. Bear on 05-08-2023 Lymphocytes Auto (Unsp spec) [#/Vol] 1.36 10*3/uL 0.83-4.51 [facility] Basophil percentageOrdered B y: Dr. Bear on 05-08-2023 Basophils/100 WBC (Bld) 0.3 % 0-1 [facility] Chloride [Moles/Vol] 106 mmol/L 98-107 [facility] Eosinophils/100 WBC (Bld) 0.4 % 0-5 [facility] Glucose [Mass/Vol] 208 mg/dL 74-106 [facility] Comment on above: Glucose result great er than or equal to 200 mg/dLsuggests DIABETES MELLITUS per A.D.A. criteria. Neutrophils (Bld) [#/Vol] 5.3 10*3/uL 2.0-7.7 [facility] Neutrophils/100 WBC (Bld) 74.2 % 47-70 [facility] Potassium [Moles/Vol] 3.6 mmol/L 3.5-5.1 [facility] Sodium [Moles/Vol] 139 mmol/L 136-145 [facility] WBC (Bld) [#/Vol] 7.1 10*3/uL 4.4-11.0 [facility] Blood erythrocytes count (nu mber/volume)Ordered By: Dr. Bear on 05-08-2023 RBC (Bld) [#/Vol] 4.25 10*6/uL 4.2-5.4 [facility] Blood hemoglobin measurement (mass/volume)Ordered By: Dr. Bear on 05-08-2023 Hemoglobin (Bld) [Mass/Vol] 12.2 g/dL 12.0-15.0 [facility] Blood lymphocytes/100 leukoc ytesOrdered By: Dr. Bear on 05-08-2023 Lymphocytes/100 WBC (Bld) 19.2 % 19-41 [facility] Blood monocytes/100 leukocyt esOrdered By: Dr. Bear on 05-08-2023 Monocytes/100 WBC (Bld) 5.5 % 0-10 [facility] Blood platelet mean volumeOr dered By: Dr. Bear on 05-08-2023 Platelet mean volume (Bld) [Entitic vol] 9.6 fL 6.2-12.0 [facility] Determination of erythrocyte mean corpuscular volume (MCV)Ordered By: Dr. Bear on 05-08-2023 MCV (RBC) [Entitic vol] 85.2 fL 81-99 [facility] Hematocrit Auto (Bld) [Volum e fraction]Ordered By: Dr. Bear on 05-08-2023 Hematocrit (Bld) [Volume fraction] 36.2 % 37-47 [facility] Laboratory - Chemistry and C hemistry - challengeOrdered By: Dr. Bear on 05-08-2023 CO2 [Moles/Vol] 27.0 mmol/L 21.0-32.0 [facility] Urea nitrogen/Creatinine [Mass ratio] 19.2 mg/mg 10-20 [facility] Laboratory - Hematology and Cell countsOrdered By: Dr. Bear on 05-08-2023 Erythrocyte distribution width (RBC) [Entitic vol] 40.5 fL 35.1-43.9 [facility] Erythrocyte distribution width (RBC) [Ratio] 13.3 % 11.6-14.6 [facility] Immature granulocytes/100 WBC (Bld) 0.400 % 0.0-0.9 [facility] Comment on above: IG% - Immature Granu locytes (promyelocytes, myelocytes and metamyelocytes) > 1% indicates that a LEFT SHIFT is Present. MCH (RBC) [Entitic mass] 28.7 pg 27.0-32.0 [facility] Nucleated RBC/100 WBC (Bld) [Ratio] 0 % 0-5 [facility] MCHC Auto (RBC) [Mass/Vol]Or dered By: Dr. Bear on 05-08-2023 MCHC (RBC) [Mass/Vol] 33.7 g/dL 32-36 [facility] No Panel InformationOrdered By: Dr. Bear on 05-08-2023 Estimated Creatinine Clearance Calc 32.53 ml/min [facility] Estimated GFR (MDRD) Amer 129 mL/min >60 [facility] Comment on above: GFR Calc Estimated GFR (MDRD) Non-Af Amer 106 mL/min >60 [facility] Comment on above: Non- GFR Calc Troponin I High Sensitivity 34 pg/mL 3.0-54.0 [facility] Comment on above: Please Note: New Viola t Units and Gender Specific Reference Ranges. For more information see Policy Stat Procedure [place] High Sensitivity Troponin (TNIH) and attachments. Platelets bldOrdered By: Dr. Bear on 05-08-2023 Platelets (Bld) [#/Vol] 272 10*3/uL 150-450 [facility] Serum or plasma calcium ham urement (mass/volume)Ordered By: Dr. Bear on 05-08-2023 Calcium [Mass/Vol] 8.9 mg/dL 8.5-10.1 [facility] Serum or plasma creatinine m easurement (mass/volume)Ordered By: Dr. Bear on 05-08-2023 Creatinine [Mass/Vol] 0.57 mg/dL 0.55-1.02 [facility] Comment on above: The validity of the calculated GFR & GFRAA in patients over 70 years has not been determined. Clinical correlation is essential. Serum or plasma urea nitroge n measurement (mass/volume)Ordered By: Dr. Bear on 05-08-2023 Urea nitrogen [Mass/Vol] 11 mg/dL 7-18 [facility] Thin prep Papanicolaou smear with manual screeningOrdered By: Dr. Bear on 05-08-2023 Thin prep Papanicolaou smear with manual screening 6 -15 [facility] Vital Signs Date Time Vital Sign Value Performing Clinician Facility 05-07-2025 06:08-0400 Body temperature 97.6 [degF] Dr. Vane Cassidy MD Work Phone: 7([phone])860-978384 [place] [address] 05-07-2025 06:08-0400 Diastolic blood pressure 98 mm[Hg] Dr. Vane Cassidy MD Work Phone: 6(970)474-842584 [place] [address] 05-07-2025 06:08-0400 Heart rate 70 /min Dr. Vane Cassidy MD Work Phone: 0(002)152-938684 [place] [address] 05-07-2025 06:08-0400 Respiratory rate 16 /min Dr. Vane Cassidy MD Work Phone: 6(215)552-299384 [place] [address] 05-07-2025 06:08-0400 SaO2% (BldA) [Mass fraction] 96 % Dr. Vane Cassidy MD Work Phone: 5(121)123-959554 [place] [address] 05-07-2025 06:08-0400 Systolic blood pressure 185 mm[Hg] Dr. Vane Cassidy MD Work Phone: 7(609)500-525584 [place] [address] 05-07-2025 04:48-0400 Body height 157.[address] Vane Cassidy MD Work Phone: 9(487)366-178884 [place] [address] 05-07-2025 04:48-0400 Body mass index (BMI) [Ratio] 32.5 kg/m2 Dr. Vane Cassidy MD Work Phone: 5(933)726-082284 [place] [address] 05-07-2025 04:48-0400 Body weight 80.[address] Vane Cassidy MD Work Phone: [facility] 05-03-2025 08:11-0400 Body mass index (BMI) [Ratio] 34.66 kg/m2 Lindsay Moomaw PIPELINE SYSTEMS OPERATOR.INSURANCE LOSS ADJUSTER Work Phone: [facility] 05-03-2025 08:11-0400 Body temperature 97.81 [degF] Lindsay Moomaw PIPELINE SYSTEMS OPERATOR.INSURANCE LOSS ADJUSTER Work Phone: [facility] 05-03-2025 08:11-0400 Body weight 80.5 kg Lindsay Moomaw PIPELINE SYSTEMS OPERATOR.INSURANCE LOSS ADJUSTER Work Phone: [facility] 05-03-2025 08:11-0400 Diastolic blood pressure 84 mm[Hg] Lindsay Moomaw PIPELINE SYSTEMS OPERATOR.INSURANCE LOSS ADJUSTER Work Phone: [facility] 05-03-2025 08:11-0400 Heart rate 64 /min Lindsay Moomaw PIPELINE SYSTEMS OPERATOR.INSURANCE LOSS ADJUSTER Work Phone: [facility] 05-03-2025 08:11-0400 Respiratory rate 18 /min Lindsay Moomaw PIPELINE SYSTEMS OPERATOR.INSURANCE LOSS ADJUSTER Work Phone: [facility] 05-03-2025 08:11-0400 SaO2% (BldA) [Mass fraction] 98 % Lindsay Moomaw PIPELINE SYSTEMS OPERATOR.INSURANCE LOSS ADJUSTER Work Phone: [facility] 05-03-2025 08:11-0400 Systolic blood pressure 168 mm[Hg] Lindsay Moomaw PIPELINE SYSTEMS OPERATOR.INSURANCE LOSS ADJUSTER Work Phone: [facility] 03-20-2025 10:50-0400 Diastolic blood pressure 68 mm[Hg] Stewart Castro PIPELINE SYSTEMS OPERATOR.INSURANCE LOSS ADJUSTER Work Phone: [facility] 03-20-2025 10:50-0400 Systolic blood pressure 171 mm[Hg] Stewart Castro PIPELINE SYSTEMS OPERATOR.INSURANCE LOSS ADJUSTER Work Phone: [facility] 03-20-2025 10:32-0400 Body mass index (BMI) [Ratio] 33.79 kg/m2 Stewart Castro PIPELINE SYSTEMS OPERATOR.INSURANCE LOSS ADJUSTER Work Phone: [facility] 03-20-2025 10:32-0400 Body weight 78.47 kg Stewart Castro PIPELINE SYSTEMS OPERATOR.INSURANCE LOSS ADJUSTER Work Phone: [facility] 03-20-2025 10:32-0400 Heart rate 65 /min Stewart Castro PIPELINE SYSTEMS OPERATOR.INSURANCE LOSS ADJUSTER Work Phone: [facility] 03-14-2025 10:12-0400 Diastolic blood pressure 63 mm[Hg] Stewart Castro PIPELINE SYSTEMS OPERATOR.INSURANCE LOSS ADJUSTER Work Phone: [facility] Comment on above: average 03-14-2025 10:12-0400 Systolic blood pressure 169 mm[Hg] Stewart Castro PIPELINE SYSTEMS OPERATOR.INSURANCE LOSS ADJUSTER Work Phone: [facility] Comment on above: average 03-14-2025 09:53-0400 Body mass index (BMI) [Ratio] 34.01 kg/m2 Stewart Castro PIPELINE SYSTEMS OPERATOR.INSURANCE LOSS ADJUSTER Work Phone: [facility] 03-14-2025 09:53-0400 Body weight 79 kg Stewart Castro PIPELINE SYSTEMS OPERATOR.INSURANCE LOSS ADJUSTER Work Phone: [facility] 03-14-2025 09:53-0400 Heart rate 65 /min Stewart Castro PIPELINE SYSTEMS OPERATOR.INSURANCE LOSS ADJUSTER Work Phone: [facility] 03-07-2025 07:30-0400 Body mass index (BMI) [Ratio] 31.2 kg/m2 Dr. Vane Cassidy MD Work Phone: [facility] 03-07-2025 07:30-0400 Body weight 77.[address] Vane Cassidy MD Work Phone: [facility] 03-07-2025 07:30-0400 Diastolic blood pressure 75 mm[Hg] Dr. Vane Cassidy MD Work Phone: [facility] 03-07-2025 07:30-0400 Heart rate 60 /min Dr. Vane Cassidy MD Work Phone: [facility] 03-07-2025 07:30-0400 Respiratory rate 18 /min Dr. Vane Cassidy MD Work Phone: [facility] 03-07-2025 07:30-0400 SaO2% (BldA) [Mass fraction] 95 % Dr. Vane Cassidy MD Work Phone: [facility] 03-07-2025 07:30-0400 Systolic blood pressure 170 mm[Hg] Dr. Vane Cassidy MD Work Phone: [facility] 10-11-2023 16:39-0500 Body temperature 96.6 [degF] Krislyn Aberegg PA Work Phone: [facility] 10-11-2023 16:39-0500 Body weight 74.93 kg Krislyn Aberegg PA Work Phone: [facility] 10-11-2023 16:39-0500 Diastolic blood pressure 68 mm[Hg] Krislyn Aberegg PA Work Phone: [facility] 10-11-2023 16:39-0500 Heart rate 75 /min Krislyn Aberegg PA Work Phone: [facility] 10-11-2023 16:39-0500 Respiratory rate 21 /min Krislyn Aberegg PA Work Phone: [facility] 10-11-2023 16:39-0500 SaO2% (BldA) [Mass fraction] 98 % Krislyn Aberegg PA Work Phone: [facility] 10-11-2023 16:39-0500 Systolic blood pressure 140 mm[Hg] Krislyn Aberegg PA Work Phone: [facility] 07-20-2023 10:00-0400 Heart rate 72 /min Maximus Campbell MD Work Phone: [facility] [employer] 07-20-2023 08:35-0400 Body temperature 98.8 [degF] Maximus Campbell MD Work Phone: [facility] [employer] 07-20-2023 08:35-0400 Diastolic blood pressure 60 mm[Hg] Maximus Campbell MD Work Phone: [facility] [employer] 07-20-2023 08:35-0400 Respiratory rate 20 /min Maximus Campbell MD Work Phone: [facility] [employer] 07-20-2023 08:35-0400 SaO2% (BldA) [Mass fraction] 95 % Maximus Campbell MD Work Phone: [facility] [employer] 07-20-2023 08:35-0400 Systolic blood pressure 126 mm[Hg] Maximus Campbell MD Work Phone: [facility] [employer] 07-20-2023 03:08-0400 Body mass index (BMI) [Ratio] 30.2 kg/m2 Maximus Campbell MD Work Phone: [facility] [employer] 07-20-2023 03:08-0400 Body weight 74.9 kg Maximus Campbell MD Work Phone: [facility] [employer] 07-19-2023 14:09-0400 Body height 157.5 cm Maximus Campbell MD Work Phone: [facility] [employer] 06-30-2023 12:54-0400 Body height 157.5 cm Cem aHrrell MD Work Phone: [facility] [employer] 06-30-2023 12:54-0400 Body mass index (BMI) [Ratio] 30.2 kg/m2 Cem Harrell MD Work Phone: [facility] [employer] 06-30-2023 12:54-0400 Body weight 74.9 kg Cem Harrell MD Work Phone: [employer] 06-30-2023 12:54-0400 Diastolic blood pressure 60 mm[Hg] Cem Harrell MD Work Phone: [employer] 06-30-2023 12:54-0400 Heart rate 63 /min Cem Harrell MD Work Phone: [employer] 06-30-2023 12:54-0400 SaO2% (BldA) [Mass fraction] 95 % Cem Harrell MD Work Phone: [employer] 06-30-2023 12:54-0400 Systolic blood pressure 130 mm[Hg] Cem Harrell MD Work Phone: [facility] 06-30-2023 12:42-0400 Body height 157.5 cm Maximus Campbell MD Work Phone: [facility] 06-30-2023 12:42-0400 Body mass index (BMI) [Ratio] 30.22 kg/m2 Maximus Campbell MD Work Phone: [facility] 06-30-2023 12:42-0400 Body weight 74.93 kg Maximus Campbell MD Work Phone: [facility] 06-30-2023 12:42-0400 Diastolic blood pressure 60 mm[Hg] Maximus Campbell MD Work Phone: [facility] 06-30-2023 12:42-0400 Heart rate 63 /min Maximus Campbell MD Work Phone: [facility] 06-30-2023 12:42-0400 SaO2% (BldA) [Mass fraction] 95 % Maximus Campbell MD Work Phone: [facility] 06-30-2023 12:42-0400 Systolic blood pressure 130 mm[Hg] Maximus Campbell MD Work Phone: [facility] 06-06-2023 10:34-0400 Body height 157.[address] Vane Cassidy Work Phone: [facility] 06-06-2023 10:34-0400 Body weight 74.[address] Vane Cassidy Work Phone: [facility] 06-05-2023 14:09-0400 Body mass index (BMI) [Ratio] 30.2 kg/m2 Dr. Vane Cassidy Work Phone: [facility] 05-31-2023 14:48-0400 Body mass index (BMI) [Ratio] 30.2 kg/m2 Dr. Vane Cassidy Work Phone: [facility] 05-31-2023 14:48-0400 Body weight 74.[address] Vane Cassidy Work Phone: [facility] 05-31-2023 14:48-0400 Diastolic blood pressure 76 mm[Hg] Dr. Vnae Cassidy Work Phone: [facility] 05-31-2023 14:48-0400 Heart rate 76 /min Dr. Vane Cassidy Work Phone: [facility] 05-31-2023 14:48-0400 Respiratory rate 16 /min Dr. Vane Cassidy Work Phone: [facility] 05-31-2023 14:48-0400 Systolic blood pressure 154 mm[Hg] Dr. Vane Cassidy Work Phone: [facility] 05-11-2023 10:14-0400 Body weight 74.84 kg Padmini Jaramillof PIPELINE SYSTEMS OPERATOR.INSURANCE LOSS ADJUSTER Work Phone: [facility] 05-11-2023 10:14-0400 Diastolic blood pressure 80 mm[Hg] Padmini Sousahof PIPELINE SYSTEMS OPERATOR.INSURANCE LOSS ADJUSTER Work Phone: [facility] 05-11-2023 10:14-0400 Heart rate 65 /min Padmini Sousahof PIPELINE SYSTEMS OPERATOR.INSURANCE LOSS ADJUSTER Work Phone: [facility] 05-11-2023 10:14-0400 Respiratory rate 16 /min Padmini Sousahof PIPELINE SYSTEMS OPERATOR.INSURANCE LOSS ADJUSTER Work Phone: [facility] 05-11-2023 10:14-0400 SaO2% (BldA) [Mass fraction] 97 % Padminishaq Sousahof PIPELINE SYSTEMS OPERATOR.INSURANCE LOSS ADJUSTER Work Phone: [facility] 05-11-2023 10:14-0400 Systolic blood pressure 160 mm[Hg] Padmini Sousahof PIPELINE SYSTEMS OPERATOR.INSURANCE LOSS ADJUSTER Work Phone: [facility] 05-08-2023 16:15-0400 Diastolic blood pressure 74 mm[Hg] [facility] 05-08-2023 16:15-0400 SaO2% (BldA) [Mass fraction] 95 % [facility] 05-08-2023 16:15-0400 Systolic blood pressure 140 mm[Hg] [facility] 05-08-2023 13:04-0400 Body height 157.48 cm [facility] 05-08-2023 13:04-0400 Body mass index (BMI) [Ratio] 30.2 kg/m2 [facility] 05-08-2023 13:04-0400 Body temperature 98.1 [degF] [facility] 05-08-2023 13:04-0400 Body weight 75 kg [facility] 05-08-2023 13:04-0400 Heart rate 58 /min [facility] 05-08-2023 13:04-0400 Respiratory rate 18 /min [facility] 02-25-2022 07:47-0400 Body height 152.4 cm Vane Cassidy MD Work Phone: [facility] 02-25-2022 07:47-0400 Body weight 77.56 kg Vane Cassidy MD Work Phone: [facility] 02-25-2022 07:47-0400 Diastolic blood pressure 78 mm[Hg] Vane Cassidy MD Work Phone: [facility] 02-25-2022 07:47-0400 Heart rate 82 /min Vane Cassidy MD Work Phone: [facility] 02-25-2022 07:47-0400 Respiratory rate 14 /min Vane Cassidy MD Work Phone: [facility] 02-25-2022 07:47-0400 Systolic blood pressure 134 mm[Hg] Vane Cassidy MD Work Phone: [facility] 02-01-2022 05:58-0400 Diastolic blood pressure 81 mm[Hg] [facility] Work Phone: 02-01-2022 05:58-0400 Heart rate 78 /min [facility] Work Phone: 02-01-2022 05:58-0400 Respiratory rate 16 /min [facility] Work Phone: 02-01-2022 05:58-0400 SaO2% (BldA) [Mass fraction] 98 % [facility] Work Phone: 02-01-2022 05:58-0400 Systolic blood pressure 150 mm[Hg] [facility] Work Phone: 02-01-2022 04:32-0400 Body height 152.4 cm [facility] Work Phone: 02-01-2022 04:32-0400 Body mass index (BMI) [Ratio] 34.8 kg/m2 [facility] Work Phone: 02-01-2022 04:32-0400 Body temperature 97.2 [degF] [facility] Work Phone: 02-01-2022 04:32-0400 Body weight 80.9 kg [facility] Work Phone: Encounters Encounter Date Encounter Type Care Provider Facility Start: 05-07-2025 End: 05-07-2025 Emergency department patient visit Dr. Vane Cassidy MD Work Phone: -Emergency Department Work Phone: Start: 05-03-2025 End: 05-03-2025 Patient encounter procedure Lindsay Funez APRN.INSURANCE LOSS ADJUSTER Work Phone: [facility] Comment on above: Contusion of left th igh, initial encounter (Primary Dx); Rash Start: 05-03-2025 End: 05-03-2025 ambulatory VANE CASSIDY Facility:[facility] Start: 03-20-2025 End: 03-20-2025 Patient encounter procedure Stewart Castro APRN.INSURANCE LOSS ADJUSTER Work Phone: [facility] [place] Comment on above: Toenail deformity (P rimary Dx); Hypertension, essential Start: 03-20-2025 End: 03-20-2025 ambulatory STEWART CASTRO Facility:[facility] Start: 03-14-2025 End: 03-14-2025 Office outpatient visit 15 minutes Stewart Castro APRN.INSURANCE LOSS ADJUSTER Work Phone: [facility] Comment on above: Cellulitis of both f eet (Primary Dx) Start: 03-14-2025 End: 03-14-2025 ambulatory STEWART CASTRO Facility:[facility] Start: 03-07-2025 End: 03-07-2025 Patient encounter procedure Sigrid Stephens HEEL COVER SOFTENER-C -[facility] Work Phone: Start: 03-07-2025 End: 03-07-2025 ambulatory Sigrid Stephens HEEL COVER SOFTENER [facility] Start: 12-28-2023 Telephone encounter Vane clay MD Work Phone: [facility] [place] Comment on above: Covid Positive Start: 10-11-2023 End: 10-11-2023 Patient encounter procedure Stacia Stevenson PA Work Phone: [place] [facility] Comment on above: Neck pain (Primary D x) Start: 07-19-2023 End: 07-20-2023 Evaluation and management of inpatient [facility] Start: 07-19-2023 End: 07-20-2023 Evaluation and management of inpatient Maximus Campbell MD Work Phone: [facility] Comment on above: Severe aortic stenos is (Primary Dx); Nonrheumatic aortic valve stenosis; Aortic valve stenosis, etiology of cardiac valve disease unspecified Start: 07-11-2023 End: 07-11-[address] Vane Cassidy Work Phone: [facility] Work Phone: Start: 07-11-2023 End: 07-11-[address] Vane Cassidy Work Phone: [facility] Work Phone: Start: 06-30-2023 End: 07-01-2023 ambulatory [facility] Start: 06-30-2023 End: 06-30-2023 ambulatory CEM HARRELL [facility] Start: 06-30-2023 Telephone encounter Maximus parker MD Work Phone: [facility] Comment on above: Procedure (TAVR) Start: 06-30-2023 End: 06-30-2023 Office consultation new/estab patient 80 min Cem Harrell MD Work Phone: [facility] Comment on above: Aortic valve stenosi s, etiology of cardiac valve disease unspecified (Primary Dx) Start: 06-30-2023 End: 06-30-2023 ambulatory MAXIMUS [facility] Start: 06-30-2023 End: 06-30-2023 Office outpatient new 60 minutes Maximus Campbell MD Work Phone: [facility] Comment on above: Essential hypertensi on; Aortic valve disorder Start: 06-30-2023 End: 07-01-2023 ambulatory ELAINEJED CAMPBELL [facility] Start: 06-30-2023 End: 06-30-2023 Subsequent hospital visit by physician Elaine Campbell PIPELINE SYSTEMS OPERATOR - INSURANCE LOSS ADJUSTER Work Phone: [facility] [address] Comment on above: Aortic stenosis Start: 06-21-2023 End: 06-21-[address] Vane Cassidy Work Phone: [facility] Work Phone: Start: 06-21-2023 End: 06-21-[address] Vane Cassidy Work Phone: [facility] Work Phone: Start: 06-06-2023 End: 06-06-2023 Admission to same day surgery center Dr. Vane Cassidy Work Phone: [facility]Ret[facility] Greeter/Special Procedures Work Phone: Start: 06-01-2023 Telephone encounter Vane clay MD Work Phone: [facility] [place] Comment on above: blood pressure readi ngs/refill Start: 05-31-2023 End: 05-31-[address] Vane Cassidy Work Phone: [facility], [facility] Work Phone: Start: 05-31-2023 End: 05-31-[address] [facility] Work Phone: Start: 05-22-2023 Telephone encounter Vane clay MD Work Phone: [facility] Comment on above: FYI-No Action Needed ([facility] trying to reach pt. /) Start: 05-19-2023 Telephone encounter Vane clay MD Work Phone: [facility] Comment on above: Opened In Error Start: 05-15-2023 Telephone encounter Padmini Bright harpreet PIPELINE SYSTEMS OPERATOR.INSURANCE LOSS ADJUSTER Work Phone: [facility] Comment on above: Results (Echo ) Start: 05-11-2023 End: 05-11-2023 Patient encounter procedure Padmini Sousasusanna PIPELINE SYSTEMS OPERATOR.INSURANCE LOSS ADJUSTER Work Phone: [facility] Comment on above: Hospital discharge f ollow-up (Primary Dx); Hypertension, essential; Heart murmur Start: 05-10-2023 Telephone encounter Vane clay MD Work Phone: [facility] Comment on above: Future Appointment Start: 05-08-2023 End: 05-08-2023 [facility] Start: 02-25-2022 End: 02-25-2022 Patient encounter procedure Vane Cassidy MD Work Phone: [facility] Comment on above: Contusion of left hi p, subsequent encounter (Primary Dx); Encounter to establish care; Heart murmur Start: 02-07-2022 Telephone encounter Vane clay MD Work Phone: [facility] Comment on above: Patient Update Start: 02-05-2022 Telephone encounter Bev dial MD Work Phone: [facility] [place] Comment on above: Pain Start: 02-01-2022 End: 02-01-2022 [facility] Procedures Date Procedure Procedure Detail Performing Clinician Start: 05-07-2025 Plain radiography of pelvis Dr. Vane Cassidy MD Work Phone: Start: 05-07-2025 Plain X-ray of femur Dr Ashley Cassidy MD Work Phone: Start: 07-20-2023 Ecg routine ecg w/le ast 12 lds trcg only w/o i&r Elaine Campbell [facility] Work Phone: Start: 07-20-2023 Basic metabolic pane l calcium total Elaine Campbell [facility] Work Phone: Start: 07-19-2023 Echo tthrc r-t 2d w/ wom-mode compl spec&colr d Elaine Campbell [facility] Work Phone: Start: 07-19-2023 Ecg routine ecg w/le ast 12 lds trcg only w/o i&r Elaine Campbell [facility] Work Phone: Start: 07-19-2023 OXYGEN THERAPY [facility] Work Phone: Start: 07-19-2023 Basic metabolic pane [...] ast 12 lds trcg only w/o i&r Maximus Campbell MD Work Phone: Start: 05-31-2023 Plain chest X-ray Dr. Rajiv Aguilarclay Work Phone: Start: 05-08-2023 CT angiography of he ad and neck Start: 02-01-2022 CT of lumbar spine Plan of Treatment Date Care Activity Detail Author Start: 04-28-2030 DTaP/Tdap/Td Vaccine s (3 - Td or Tdap) DTaP/Tdap/Td Vaccines (3 - Td or Tdap) [facility] [employer] Start: 04-28-2030 Urine microalbumin profile [facility] Start: 07-20-2026 Diabetes Screening Diabetes Screenin g [facility] Start: 05-07-2025 [facility] Start: 03-20-2025 End: 03-20-2025 Patient encounter procedure 03/20/2025 10:40 AM EDT Office Visit [facility] [address] [place] [address] Stewart Castro APRN.INSURANCE LOSS ADJUSTER [address] [place] [address] follow up foot rash [facility] Comment on above: follow up foot rash Start: 03-14-2025 Covid-19 Vaccine ( season) Covid-19 Vaccine () [facility] Start: 11-13-2024 Advance Directive Discussion Advance Directive Discussion [facility] Start: 11-13-2024 Medicare Advantage A nnual Wellness Visit Medicare Advantage Annual Wellness Visit [facility] Start: 11-15-2023 End: 05-15-2024 Echocardiography ECHO Cardiology Routine Nonrheumatic aortic valve stenosis Expected: 11/15/2023, Expires: 05/15/2024 [facility] Work Phone: Comment on above: Expected: 11/15/2023 , Expires: 05/15/2024 Start: 11-13-2023 Advance Directive Discussion Advance Directive Discussion [facility] Start: 11-13-2023 Depression Assessment Depression Ass essment [facility] Start: 07-19-2023 End: 07-19-2023 Admission to same day surgery center 07/19/2023 8:45 AM EDT - 07/19/2023 10:30 AM EDT Surgery [facility] MAIN OR [address] [place] [address] Maximus Campbell MD [address] [place] [address] TRANSCATHER AORTIC VALVE REPLACEMENT, TRANSTHORACIC ECHOCARDIOGRAM [facility] Comment on above: TRANSCATHER AORTIC V ALVE REPLACEMENT, TRANSTHORACIC ECHOCARDIOGRAM Start: 07-19-2023 Subsequent hospital visit by physician 07/19/2023 8:45 AM EDT Hospital Encounter [facility] OR [address] [place] [address] Maximus Campbell MD [address] [place] [address] Nonrheumatic aortic valve stenosis [facility] Comment on above: Nonrheumatic aortic valve stenosis Start: 07-19-2023 End: 07-19-2023 TRANSCATHETER AORTIC VALVE REPLACEMENT (TAVR) - OR TRANSCATHETER AORTIC VALVE REPLACEMENT (TAVR) - OR Nonrheumatic aortic valve stenosis 07/19/2023 8:45 AM EDT [facility] Start: 07-14-2023 Influenza vaccination C [facility] Start: 07-04-2023 End: 07-03-2024 CBC W Auto Differential panel - Blood CBC auto differential Lab Routine Nonrheumatic aortic valve stenosis Expected: 07/04/2023 (Approximate), Expires: 07/03/2024 [facility] [employer] Work Phone: Comment on above: Expected: 07/04/2023 (Approximate), Expires: 07/03/2024 Start: 07-04-2023 End: 07-03-2024 Comprehensive metabolic 1998 panel - Serum or Plasma Comprehensive metabolic panel Lab Routine Nonrheumatic aortic valve stenosis Expected: 07/04/2023 (Approximate), Expires: 07/03/2024 [facility] Comment on above: Expected: 07/04/2023 (Approximate), Expires: 07/03/2024 Start: 07-04-2023 End: 07-03-2024 Natriuretic peptide B [Mass/volume] in Blood NT PRO BNP Lab Routine Nonrheumatic aortic valve stenosis Expected: 07/04/2023 (Approximate), Expires: 07/03/2024 [facility] [employer] Comment on above: Expected: 07/04/2023 (Approximate), Expires: 07/03/2024 Start: 07-04-2023 End: 07-03-2024 XR Chest 2 Views XR chest 2 views Imaging Routine Nonrheumatic aortic valve stenosis Expected: 07/04/2023, Expires: 07/03/2024 [facility] [employer] Comment on above: Expected: 07/04/2023 , Expires: 07/03/2024 Start: 06-30-2023 End: 06-30-2024 Prepare RBC: 2 Units Prepare RBC: 2 Units Blood Bank Routine Aortic valve disorder Expected: 06/30/2023 (Approximate), Expires: 06/30/2024 [facility] [employer] Work Phone: Comment on above: Expected: 06/30/2023 (Approximate), Expires: 06/30/2024 Start: 06-06-2023 Patient discharge [facility] Start: 12-27-2022 COVID-19 VACCINE (6 - Moderna series) COVID-19 VACCINE (6 - Moderna series) [facility] Start: 11-13-2022 ADVANCE DIRECTIVE DISCUSSION ADVANCE DIRECTIVE DISCUSSION [facility] Start: 11-13-2022 DEPRESSION ASSESSMENT DEPRESSION ASS ESSMENT [facility] Start: 11-13-2021 ADVANCE DIRECTIVE DISCUSSION ADVANCE DIRECTIVE DISCUSSION [facility] Start: 1983 DIABETES SCREEN DIABETES SCREEN [facility] Start: 1983 Diabetes Screening Diabetes Screenin g [facility] Start: 02-11-1956 Anxiety Screening Anxiety Screening [facility] Start: 02-11-1956 Depression Screening Depression Scre ening [facility] Start: 1950 Depression Screening Depression Scre ening [facility] Start: 1940 Lipid panel Lipid Panel [facility] Start: 1940 Screening for osteoporosis Bone Dens ity Scan [facility] End: 07-19-2023 Basic metabolic 1998 panel - Serum or Plasma Basic metabolic panel Lab STAT STAT (Lab) for 1 Occurrences starting 07/19/2023 until 07/19/2023 [facility] [employer] Work Phone: Comment on above: STAT (Lab) for 1 Occ urrences starting 07/19/2023 until 07/19/2023 End: 07-19-2023 CBC panel - Blood by Automated count CBC Lab STAT STAT (Lab) for 1 Occurrences starting 07/19/2023 until 07/19/2023 [facility] Comment on above: STAT (Lab) for 1 Occ urrences starting 07/19/2023 until 07/19/2023 End: 06-30-2023 CT Chest WO and CT angiogram Coronary arteries W contrast IV [employer] Work Phone: Comment on above: Once for 1 Occurrenc es starting 06/30/2023 until 06/30/2023 ECG 12 lead - CLINIC PERFORMED ECG 12 lead - CLINIC PERFORMED CV ECG Routine Essential hypertension 06/30/2023 12:43 PM EDT [facility] End: 05-11-2024 Echocardiography ECHO Cardiology Routine Heart murmur 1 Occurrences starting 05/11/2023 until 05/11/2024 [facility] Work Phone: Comment on above: 1 Occurrences starti ng 05/11/2023 until 05/11/2024 Patient Education [facility] Work Phone: Patient referral [facility] Work Phone: End: 07-19-2023 Prothrombin time (PT) in Blood by Coagulation assay Protime-INR Lab Routine Once (Lab) for 1 Occurrences starting 07/19/2023 until 07/19/2023 [employer] Work Phone: Comment on above: Once (Lab) for 1 Occ urrences starting 07/19/2023 until 07/19/2023 TRANSCATHETER AORTIC VALVE REPLACEMENT (TAVR) TRANSCATHETER AORTIC VALVE REPLACEMENT (TAVR) Nonrheumatic aortic valve stenosis [facility] TRANSCATHETER AORTIC VALVE REPLACEMENT (TAVR) - OR TRANSCATHETER AORTIC VALVE REPLACEMENT (TAVR) - OR Nonrheumatic aortic valve stenosis [facility] Immunizations Immunization Date Immunization Notes Care Provider Olivia rosario 09-01-2023 COVID-19 vaccine, season (NOVAVAX) Stacia YOUNG Work Phone: [facility] 09-01-2023 influenza (aIIV4) vaccine, age 65+ yr, quadrivalent, PF (FLUAD QUAD) Stacia YOUNG Work Phone: [facility] 09-01-2023 respiratory syncytia l virus (RSV) vaccine, bivalent (ABRYSVO) Stacia YOUNG Work Phone: [facility] 08-26-2022 COVID-19 vaccine, ag e 12+ yr, bivalent (PFIZER-BIONTECH) Vane Cassidy MD Work Phone: [facility] 08-26-2022 influenza, high dose seasonal, preservative-free Vane Cassidy MD Work Phone: [facility] 08-26-2022 influenza virus vacc ine, unspecified formulation Cem Harrell MD Work Phone: [facility] 01-07-2021 Covid (Moderna) [facility] 12-10-2020 Covid (Moderna) [facility] 07-30-2020 influenza, high dose seasonal, preservative-free Bev De Souza MD Work Phone: [facility] 07-30-2020 zoster vaccine recombinant Bev De Souza MD Work Phone: [facility] 04-28-2020 tetanus toxoid, redu gunner diphtheria toxoid, and acellular pertussis vaccine, adsorbed Bev De Souza MD Work Phone: [facility] 04-28-2020 zoster vaccine recombinant Bev De Souza MD Work Phone: [facility] 08-01-2019 influenza, high dose seasonal, preservative-free Bev De Souza MD Work Phone: [facility] 07-29-2016 influenza, high dose seasonal, preservative-free Bev De Souza MD Work Phone: [facility] 04-16-2015 pneumococcal conjuga te vaccine, 13 valent Bev De Souza MD Work Phone: [facility] 08-16-2013 influenza virus vacc ine, unspecified formulation Bev De Souza MD Work Phone: [facility] 08-04-2012 influenza virus vacc nimo, unspecified formulation Bev De Souza MD Work Phone: [facility] 04-13-2011 tetanus toxoid, redu gunner diphtheria toxoid, and acellular pertussis vaccine, adsorbed Bev De Souza MD Work Phone: [facility] Work Phone: 08-15-2009 influenza virus vacc ine, whole virus Bev De Souza MD Work Phone: [facility] Work Phone: 04-15-2009 zoster vaccine, live Bev fletcher MD Work Phone: [facility] Work Phone: 09-06-2008 influenza virus vacc ine, unspecified formulation Bev De Souza MD Work Phone: [facility] 11-15-2007 pneumococcal polysaccharide vaccine, 23 valent Vane Cassidy MD Work Phone: [facility] Work Phone: 09-22-2007 influenza virus vacc nimo, unspecified formulation Bev De Souza MD Work Phone: [facility] 09-11-2006 influenza virus vacc ine, unspecified formulation Bev De Souza MD Work Phone: [facility] Work Phone: Payers Date Payer Category Payer Self-pay [id number] 2014 Medicare [employer] THP SECURECARE MDCR HMO [id number] 2014-Present [phone] [facility] [place] [address] [facility] [id number] 2014 Medicare (Managed Care) THP SECU RECARE MDCR O [id number] 2005 Medicare [id number] 2005 Medicare [id number] Medicare MEDICARE PART A B [id number] Unknown [id number] Unknown [id number] Social History Date Type Detail Facility Start: 02-01-2022 End: 06-06-2023 Tobacco smoking status CTIS Unknown if ever smoked [facility] Start: 1940 Sex Assigned At Female [facility] Start: 01-06-2020 End: 05-07-2025 Tobacco smoking status NHIS Never smoked tobacco [facility] Work Phone: Start: 01-06-2020 End: 05-03-2025 Alcohol intake Not Asked [facility] Start: 1940 Sex Assigned At Not on file [facility] Start: 01-25-2022 End: 07-19-2023 Exposure to SARS-CoV-2 (event) Not sure [facility] Start: 01-06-2020 End: 05-11-2023 Tobacco use and exposure Smokeless tobacco non-user [facility] Start: 05-11-2023 End: 05-03-2025 History of Social function [facility] Start: 05-11-2023 End: 05-03-2025 Tobacco use panel [facility] National Score (1-100), lower number is lower risk 58 [facility] Start: 06-30-2023 End: 07-20-2023 Alcohol intake Ex-drinker (finding) [facility] Procedure Code Equipment Code Equipment Origin al Text Equipment Identifier Dates Joshua [place] [address] [place] [id number] Start: 07-19-2023 Mental Status Date Assessment Result Facility 05-08-2023 Cognitive function Level Of Cons ciousness Awake;Alert;Appropriate;Follow s Commands [facility] Work Phone: Clinical Notes 02-05-2022 to 05-07-2025 Lindsay Funez APRN.INSURANCE LOSS ADJUSTER - 05/03/2025 8:31 AM Stewart Peres APRN.INSURANCE LOSS ADJUSTER - 03/20/2025 10:35 AM Stewart Peres APRN.[facility] - 03/14/2025 9:57 AM EDT Note Date & Type Note Facility 05-07-2025 Radiology Diagnostic study note [facility] Imaging Services [address] [place], [place] [id number] Femur Min 2 Views MR#: [id number] Acct: [id number] Name: NIDHI ZAMORA Rep #: [id number] : [id number] F 85 From: Kristy Payton MD PCP: Dr. Vane Cassidy MD Status: MN E ER Study:Femur Min 2 Views Date of Exam: Exam# [id number] Ordering Dr: Jed Prado DO PROCEDURE: FEMUR MIN 2 VIEWS 05/07/2025 REASON FOR EXAM: INJURY/PAIN TECHNIQUE: FEMUR MIN 2 VIEWS COMPARISON: None. FINDINGS: Mild osteopenia of the visualized bones. Degenerative joint disease. No fracture or dislocation is seen. No lytic or blastic bone lesion is noted. RAD/Femur Min 2 Views IMPRESSION: No evidence for acute abnormality. Reading Location: [facility] CC: Dr. Jed Prado DO; Dr. Vane Cassidy MD ~ Emergency Medical Services Coordinator: Signed [facility] 05-07-2025 Radiology Diagnostic study note [facility] Imaging Services [address] [place] [address] Pelvis 1 or 2 Views MR#: [id number] Acct: [id number] Name: NIDHI ZAMORA Rep #: [id number] : [id number] F 85 From: Kristy Payton MD PCP: Dr. Vane Cassidy MD Status: MN E ER Study:Pelvis 1 or 2 Views Date of Exam: 05/07/25 Exam# [id number] Ordering Dr: Jed Prado DO PROCEDURE: PELVIS 1 OR 2 VIEWS 05/07/2025 REASON FOR EXAM: INJURY/PAIN TECHNIQUE: PELVIS 1 OR 2 VIEWS COMPARISON: None. FINDINGS: Mild osteopenia of the visualized bones. Degenerative joint disease. No fracture or dislocation is seen. No lytic or blastic bone lesion is noted. RAD/Pelvis 1 or 2 Views IMPRESSION: No evidence for acute abnormality. Reading [facility] [address] CC: Dr. Jed Prado DO; Dr. Vane Cassidy MD ~ Emergency Medical Services Coordinator: Signed [facility] 05-03-2025 Note HNO ID: [id number] Author: LINDSAY FUNEZ APRN.INSURANCE LOSS ADJUSTER Service: ? Author Type: Nurse Practitioner Type: Progress Notes Filed: 05/03/2025 08:36 Note Text: This note was created using NoteWriter. Subjective Nidhi Zamora is a 85 year [...] minutes at a time. She will use [id number] pain medications and follow-up if symptoms not improving. 2. Rash - ICD9: 782.1, ICD10: R21 Patient given a prescription for hydrocortisone cream and recommended follow-up with local dermatology. - HYDROCORTISONE 1 % TOPICAL CREAM Lindsay Funez APRN.INSURANCE LOSS ADJUSTER [facility] 05-03-2025 History of Present illness Narrative This note was created using NoteWriter. Subjective Nidhi Zamora is a 85 year [...] minutes at a time. She will use mqey-ilq-ziqniva pain medications and follow-up if symptoms not improving. 2. Rash - ICD9: 782.1, ICD10: R21 Patient given a prescription for hydrocortisone cream and recommended follow-up with local dermatology. - HYDROCORTISONE 1 % TOPICAL CREAM Lindsay Funez APRN.[facility] documented in this encounter [facility] 03-20-2025 Note HNO ID: [id number] Author: STEWART CASTRO APRN.CNP Service: ? Author [...] aerobic exercise - Patient recently seen by [facility] on 03/07/25 and BPO was elevated however they did not want to start medication. Stewart Castro APRN.[facility] 03-20-2025 History of Present illness Narrative [...] aerobic exercise - Patient recently seen by [facility] on 03/07/25 and BPO was elevated however they did not want to start medication. Stewart Castro APRN.INSURANCE LOSS ADJUSTER documented in this encounter [facility] 03-14-2025 Note HNO ID: [id number] Author: STEWART CASTRO APRN.[facility] Service: ? Author Type: Nurse Practitioner Type: Progress Notes Filed: 03/14/2025 10:17 Note Text: Chief Complaint Patient presents with: Rash: Itchy rash on feet and legs X 1 week HPI Nidhi Zamroa is a 85 year [...] week at cellulitis follow up. Stewart Castro APRN.[facility] 03-14-2025 History of Present illness Narrative [...] week at cellulitis follow up. Stewart Castro APRN.[employer] documented in this encounter [facility] 03-07-2025 Evaluation note Diagnosis Onset Date Resolution Essential hypertension acute Ap 2024 10:49am History of transcatheter aortic valve replacement (TAVR) acute March 07, 2025 10:49am [facility] Work Phone: 1(810) 618-440202-15-2024 Miscellaneous Notes* Telephone Encounter - Gracia Garcia Ma - 12/28/2023 3:10 PM EST Call to daughter, Kamryn and notified her of message below from Provider, verbalized understanding. Appreciated Provider sending this in for pt. Gracia Garcia Ma * Telephone Encounter - Vane Cassidy MD - 12/28/2023 3:05 PM EST OK for Paxlovid as ordered Vane Cassidy MD * Telephone Encounter - Dora Ni LPN - 12/28/2023 10:15 AM EST Pt's daughter asking for something to be called in to [facility] in [place]. Pt had a +home Covid test last night. Pt c/o sore throat, bodyaches, chills, ear pain & productive cough. Sx started Monday PM 12/23/23. Denies SOB or fever. Please advise. Dora Ni LPN * Telephone Encounter - Moira Hodgson - 12/28/2023 8:05 AM EST Nidhi is calling Vane Cassidy MD today with concern regarding Covid Positive Patient has been identified by name and birthdate. Duration of symptoms: 4 days Person calling: daughter: Kamryn Steel Call at: [phone] Was an appointment scheduled: No Daughter stated patient has been in bed since Monday with chills, severe sore throat, ear pain. Tested positive today for COVID. Asking for medication. Closing statement: Symptom Call: Thank you for calling [facility], your call is very important. A nurse will call in approximately 2-4 hours during business hours. If this is an emergency, please contact 911. Moira Barba [facility] History of Present illness Narrative* Stacia Stevenson PA - 10/11/2023 4:52 PM EST Images from the original note were not included. This note was created using [employer]. Subjective Nidhi Zamora is a 83 year old female. HPI 83-year-old female presents for left-sided neck pain and left shoulder pain x 1 day. Patient states that her is in a care home and she has to help him stand [...] ER evaluation. HECTOR Feng [facility] Note Attestation signed by Maximus Campbell MD [...] physician: Maximus Campbell MD Discharge Attending: CHARMAINE Granda CNP Primary Care Physician: Parker Hernandez Reason [...] Valve: Not well visualized. Lewis Karina 3 tkgsm-gy-gpurf transcatheter bioprosthetic aortic valve with a size [...] recommended and discussed wi (more content not included)...[facility]09-06-2023 NoteArterial Line: Date/Time: 07/19/2023 10:35 AM An arterial line was placed in the Procedural for the following indication(s): continuous blood pressure monitoring. A (size) (length) (type) catheter was placed, into the Right radial artery, secured by . Staffing Performed: Other Other anesthesia staff: Maximus Campbell MD Performed by: CHARMAINE Casey CRNA Authorized by: CHARMAINE Casey CRNAAsc[facility] River [facility] Note Patient: Nidhi Zamora Procedure Summary Date: 07/19/23 Room / Location: [facility] Operating Room Anesthesia Start: 955 Anesthesia Stop: 1134 Procedures: TRANSCATHER AORTIC VALVE REPLACEMENT, TRANSTHORACIC ECHOCARDIOGRAM [...] discharged once all PACU criteria has been met.[facility] [id number] NotePatient: Nidhi Zamora Procedure Summary Date: 07/19/23 Room / Location: [facility] Operating Room Anesthesia Start: 955 Anesthesia Stop: [...] Allowed opportunity for questions and acknowledgement of understanding.[facility]09-06-2023 Hospital Discharge instructions* Discharge Instructions* Elaine Campbell APRN - INSURANCE LOSS ADJUSTER - 07/19/2023 12:21 PM EDT - Please call the Heart Valve Clinic with any questions: [phone] -You will have have the following follow [...] such as cardiac rehabilitation once you have beencleared to resume normal activity. -Eating well is [...] you take blood thinning medications for another indication(warfarin, apixaban, rivaroxaban). If you take blood thinning medications, these are generally sufficient and aspirin will not be required unless otherwise specified. documented in this [facility]09-06-2023 Hospital course Narrative* CHARMAINE Granda CNP - 07/19/2023 12:18 PM EDT Name: Nidhi Zamora Date of : 1940 Date of Admission: 07/19/2023 Date of Discharge: 07/20/2023 Admitting physician: Maximus Campbell MD Discharge Attending: CHARMAINE Granda CNP Primary Care Physician: Parker Hernandez Reason [...] with concentric hypertrophy. Normal left ventricular systolic function.EF by 2D Simpsons Biplane is 69%. Normal wall motion. Elevated left ventricular filling pressure. Average E/e' ratio is 13.02. Right Ventricle: Right ventricle size is normal. Normal systolic function. Aortic Valve: Not well visualized. Lewis Karina 3 iludg-at-toamu transcatheter bioprosthetic aortic valve with a size [...] discharge. Referral has been made to the [facility] Outpatient Cardiac Rehabilitation Program. Last Labs: Lab [...] Classification: Obese (BMI 30.0-39.9) Follow up with [facility] one week, appt arranged-per patient request as she has difficulty with transportation to [place] [facility] [phone] Greater than 30 minutes spent on patient discharge including assessment/plan, education, and coordination of care Electronically signed by @MEMDNR@ on @TDNR@ at @NOWNR@ Associated attestation - Maximus Campbell MD - 07/20/2023 1:52 PM EDT I, Dr. Maximus Campbell, saw and evaluated the patient on 07/20/2023. I personally obtained the solares andcritical portions of the history and physical exam. I reviewed the chart including labs and imagingstudies and discussed the patient with the ELDER. [...] minutes. Maximus Campbell MD documented in this [facility]09-06-2023 Note* Op Note - Cem Harrell MD - 07/19/2023 9:54 AM EDT 07/19/2023 date of surgery Cardiothoracic surgeon: Cem Harrell MD MERGED WITH [facility] [employer]: Maximus Campbell MD Preoperative diagnosis severe, symptomatic [...] was gained in the right femoral artery, rightradial artery and right femoral vein. A 6 Swedish sheath was placed in the right femoral vein through which the temporary pacing wire was advanced to the right ventricle. This access site was also used for central venous access. A 6 Swedish sheath was placed in the right radial artery through which the pigtail catheter was advanced to the aortic annulus for confirmation of the implant angle. The right femoral artery was used to place a 6 Swedish sheath and Perclose devices were placed at this site. The 14 Swedish sapient E sheath was introduced into the descending thoracic aorta the patient had been heparinized. The valve was introduced into the sheath and mounted on the balloon and the descending thoracic aorta the valve was then passed across the arch and the aortic annulus under rapid pacing the valve was deployed the valve was noted to seat well and functioning normally on transthoracicechocardiography and fluoroscopy. Protamine was then given to reverse the systemic effects of heparin and the patient was decannulated and transferred stable to the recovery room. [employer] Phone: 1(804) 668-372109-06-2023 Note* Op Note - Cem Harrell MD - 07/19/2023 9:54 AM EDT 07/19/2023 date of surgery Cardiothoracic surgeon: Cem Harrell MD [facility]GED WITH [facility] [employer]: Maximus Campbell MD Preoperative diagnosis severe, symptomatic [...] was gained in the right femoral artery, rightradial artery and right femoral vein. A 6 Swedish sheath was placed in the right femoral vein through which the temporary pacing wire was advanced to the right ventricle. This access site was also used for central venous access. A 6 Swedish sheath was placed in the right radial artery through which the pigtail catheter was advanced to the aortic annulus for confirmation of the implant angle. The right femoral artery was used to place a 6 Swedish sheath and Perclose devices were placed at this site. The 14 Swedish sapient E sheath was introduced into the descending thoracic aorta the patient had been heparinized. The valve was introduced into the sheath and mounted on the balloon and the descending thoracic aorta the valve was then passed across the arch and the aortic annulus under rapid pacing the valve was deployed the valve was noted to seat well and functioning normally on transthoracicechocardiography and fluoroscopy. Protamine was then given to reverse the systemic effects of heparin and the patient was decannulated and transferred stable to the recovery room. [employer] Phone: 1(265) 521-984109-06-2023 Miscellaneous Notes* Op Note - Cem Harrell MD - 07/19/2023 9:54 AM EDT 07/19/2023 date of surgery Cardiothoracic surgeon: Cem Harrell MD [facility] [employer]: Maximus Campbell MD Preoperative diagnosis severe, symptomatic [...] was gained in the right femoral artery, rightradial artery and right femoral vein. A 6 Swedish sheath was placed in the right femoral vein through which the temporary pacing wire was advanced to the right ventricle. This access site was also used for central venous access. A 6 Swedish sheath was placed in the right radial artery through which the pigtail catheter was advanced to the aortic annulus for confirmation of the implant angle. The right femoral artery was used to place a 6 Swedish sheath and Perclose devices were placed at this site. The 14 Swedish sapient E sheath was introduced into the descending thoracic aorta the patient had been heparinized. The valve was introduced into the sheath and mounted on the balloon and the descending thoracic aorta the valve was then passed across the arch and the aortic annulus under rapid pacing the valve was deployed the valve was noted to seat well and functioning normally on transthoracicechocardiography and fluoroscopy. Protamine was then given to reverse the systemic effects of heparin and the patient was decannulated and transferred stable to the recovery room. documented in this [facility]09-01-2023 Note Attestation signed by Maximsu Campbell MD at 07/19/2023 8:09 AM I [...] MD (Physician) Cardiology Expand All Collapse All [facility] CARDIOLOG[facility] [address] [facility] [address] Dept: [phone] Dept Loc: [phone] Interventional Cardiology Office Note Visit type: New [...] with any questions. Maximus Campbell MD MPH, [facility], [facility] Chief, Ischemic Heart Disease Freight Representative, Interventional Cardiology Fellowship Maintenance Mechanic [employer] Coronary, Structural, Peripheral Interventions Subjective Nidhi Zamora [...] is 30.22 kg/m?. Phys (more content not included)...[facility]08-31-2023 NotePatient called and left a message that she wanted to make sure we got the information from [facility] for her procedure on 07/19/23.[facility]08-31-2023 NotePatient: Nidhi Zamora Procedure Information Date/Time: 07/19/23 0845 Procedures: TRANSCATHER AORTIC VALVE REPLACEMENT, TRANSTHORACIC ECHOCARDIOGRAM TAVR WITH PROSTHETIC VALVE PERCUTANEOUS FEMORAL ARTERY APPROACH (Chest) Location: [facility] Operating Room Surgeons: Maximus Campbell MD; eCm Harrell MD Relevant Problems Cardio (+) Essential [...] (strain) or digitalis effect. ABNORMAL ECG 12-LEAD (Preliminary)[facility]08-31-2023 NotePre TAVR phone call placed. Reviewed, procedure, instructions and meds. Pt verbalizes understanding. Pt knows to call [phone] with any concerns. Eugenia Campbell INSURANCE LOSS ADJUSTER notified to review labs and CXR. Ready for prep for proc orders. Diagnosis: Procedure being done: TAVR Date/time of procedure: 07/19/23 at 8:45 am Surgeon: Dr. Campbell 2nd surgeon: Dr. Harrell Admission type: To be admitted Anesthesia: MAC Completed: H&P/EKG/T&S/CXR/BMP/CBC Date completed: 07/11/23 CXR and pre-TAVR labs from [place] in [place] Additional orders [facility]08-30-2023 NoteDx: Procedure: TAVR Date/Time: 07/19/23 at 9:15 am Surgeon: Dr. Campbell/ Dr. Harrell Location: [facility] Admission: [facility] Anesthesia: [facility]08-28-2023 Telephone encounter Note* Telephone Encounter - Cheli Vance RN - 07/10/2023 4:24 PM EDT Orders faxed to new fax # patient provided. [phone] [facility] CenterQnqmup84-13-9160 Miscellaneous Notes* Telephone Encounter - Cheli Vance RN - 07/10/2023 4:24 PM EDT Orders faxed to new fax # patient provided. [phone] * Telephone Encounter - Karma Verdugo RN - 07/10/2023 3:47 PM EDT Patient will go to [facility] at [address] tomorrow to haveCXR, BNP, CMP and CBC done. Ronald Vance to fax orders * Telephone Encounter - Evelina Wilkins RN - 07/05/2023 11:51 AM EDT Surgery scheduling notified to move up TAVR start time on 07/19/23 to 8:45 AM. Patient notified, via phone, verbalizes understanding. * Telephone Encounter - Karma Verdugo RN - 07/05/2023 9:03 AM EDT Spoke with patient and will have CMP, BNP and CBC done at [facility] and CXR. Mailed orders to address on file and spoke with patient to notify office if orders don't arrive in the next few days. Patient verbalized understanding. * Telephone Encounter - Karma Verdugo RN - 06/30/2023 2:11 PM EDT TAVR procedure, instructions reviewed with pt and daughter. Patient scheduled for TAVR on 07/19/23 at 9:15 am Will report to [facility] Same Day Surgery by 7:15 am Can park in the [facility] Parking Deck or use [employer] parking at the [facility] entrance Plan on overnight stay [...] Patient will have T&S done today at [address] [place] [address]. Once completed, will put orders in for pre-TAVR labs and CXR to be done in [place] 1 week prior to procedure. Will mail orders once put in. Patient/family verbalized understanding. * Telephone Encounter - Karma Verdugo RN - 06/30/2023 2:04 PM EDT Dx: Procedure: TAVR Date/Time: 07/19/23 at 9:15 am Surgeon: Dr. Campbell/ Dr. Harrell Location: [facility] Admission: A Anesthesia: MAC Case request order pending. Calender updated. documented in this encounterSSelect Medical [facility] Rehabilitation HospitalYutpfm27-53-6411 Telephone encounter Note* Telephone Encounter - Karma Verdugo RN - 07/10/2023 3:47 PM EDT Patient will go to [facility] at [address] [facility] tomorrow to haveCXR, BNP, CMP and CBC done. Ronald Vance to fax orders [facility] [id number] Telephone encounter Note* Telephone Encounter - Evelina Wilkins RN - 07/05/2023 11:51 AM EDT Surgery scheduling notified to move up TAVR start time on 07/19/23 to 8:45 AM. Patient notified, via phone, verbalizes understanding. [facility] [id number] Telephone encounter Note* Telephone Encounter - Karma Verdugo RN - 07/05/2023 9:03 AM EDT Spoke with patient and will have CMP, BNP and CBC done at [facility] and CXR. Mailed orders to address on file and spoke with patient to notify office if orders don't arrive in the next few days. Patient verbalized understanding. [place] [id number] NoteTAVR procedure, instructions reviewed with pt and daughter. Patient scheduled for TAVR on 07/19/23 at 9:15 am Will report to [facility] Same Day Surgery by 7:15 am Can park in the [facility] Parking Deck or use [employer] parking at the [facility] entrance Plan on overnight stay [...] labs and CXR to be done in [place] 1 week prior to procedure. Will mail orders once put in. Patient/family verbalized understanding.[facility]08-18-2023 Note Dx: Procedure: TAVR Date/Time: 07/19/23 at 9:15 am Surgeon: Dr. Campbell/ Dr. Harrell Location: [facility] Admission: A Anesthesia: MAC Case request order pending. Calender updated.[facility]08-18-2023 Telephone encounter Note* Telephone Encounter - Karma Verdugo RN - 06/30/2023 2:11 PM EDT TAVR procedure, instructions reviewed with pt and daughter. Patient scheduled for TAVR on 07/19/23 at 9:15 am Will report to [facility] Same Day Surgery by 7:15 am Can park in the [facility] Parking Deck or use [employer] parking at the [facility] entrance Plan on overnight stay [...] orders once put in. Patient/family verbalized understanding. [facility] [id number] Telephone encounter Note* Telephone Encounter - Karma Verdugo RN - 06/30/2023 2:04 PM EDT Dx: Procedure: TAVR Date/Time: 07/19/23 at 9:15 am Surgeon: Dr. Campbell/ Dr. Harrell Location: [facility] Admission: [facility] Anesthesia: MAC Case request order pending. Calender updated. [facility] CenterMmfiiy35-30-2515 History of Present illness Narrative* Cem Harrell MD - 06/30/2023 1:00 PM EDT Images from the original note were not included. [facility] Medical Group: Cardiothoracic Surgery Multidisciplinary Heart Valve Clinic Date: 06/30/23 Patient:Nidhi Zamora 1940 83 y.o. female [id number] Subjective: HPI: Nidhi Zamora 83 y.o. referred [...] were no vitals taken for this visit. @[id number]@ Physical Exam Constitutional: General: She is not in acute distress. Appearance: Normal appearance. HENT: Head: Normocephalic and atraumatic. Right Ear: External ear normal. Left Ear: External ear normal. Nose: Nose normal. Mouth/Throat: Lips: [place]. Dentition: Normal dentition. Tongue: No lesions. Tongue [...] and benefits of not receiving treatments or undergoingprocedures. Pursuant to this discussion, the patient agrees to undergo the proposed treatment or procedure. Captured images seen in this note are not a substitute for a comprehensive interpretation of the entire data set as reflected by the interpreting physician with regard to radiology, echocardiography,and other diagnostic images. documented in this [facility]08-18-2023 History of Present illness Narrative* Maximus Campbell MD - 06/30/2023 12:30 PM EDT Images from the original note were not included. [facility] CARDIOLOGY [address] [facility] [address] Dept: [phone] Dept Loc: [phone] Interventional Cardiology Office Note Visit type: New [...] with any questions. Maximus Campbell MD MPH, [facility], [facility] Chief, Ischemic Heart Disease Freight Representative, Interventional Cardiology Fellowship Maintenance Mechanic [employer] Coronary, Structural, Peripheral Interventions Subjective Nidhi Zamora is a very pleasant 83 y.o. female with Aortic stenosis (peak/mean 71/42, aortic valve area 0.4, dimensionless index 0.17, ejection fraction 61%), hypertension who presents for evaluationof her aortic stenosis. She is a patient of Dr. Patterson. She states that she had a difficult 3 monthsrecently with her being in the hospital with a brain bleed. He is now home and doing well but she noticed after that time from that she was much more fatigued. She was evaluated in the ER andin follow-up with her primary care doctor was found to have a heart murmur. She was referred to who found that she had severe aortic [...] found for: LVEF, LVEFMODE documented in this [facility]08-01-2023 NoteReceived fax referral [address] Patterson to have patient scheduled [...] to address on file with BMP lab slip.[facility]07-20-2023 Miscellaneous Notes* Telephone Encounter - Hany Guy APRN.INSURANCE LOSS ADJUSTER - 06/01/2023 12:19 PM EDT Refill sent. Keep upcoming appt with myself on 06/13. The following approved medication requests have been transmitted electronically. Requested Prescriptions Signed Prescriptions Disp Refills amLODIPine (NORVASC) 10 mg tablet 90 tablet 3 Sig: Take 1 tablet by mouth once daily. Authorizing Provider: HANY GUY APRN.DARION * Telephone Encounter - Doreen Abrams LPN - 06/01/2023 11:16 AM EDT Daughter calling with blood pressure readings. 05-21-23 147/78 05-22-23 141/74 05-23-23 152/76 05-24-23 144/76 05-25-23 148/75 05-26-23 145/77 05-27-23 129/75 05-28-23 155/76 05-29-23 144/76 05-30-23 146/74 05-31-23 149/78 06-01-23 135/68 Pt was taking 10 mg Amlodipine daily. Will need refill cherrie. Pt ran out of medication yesterday. FYI: Pt saw Dr. Patterson and has a heart cath scheduled for Monday06-06-23. No need call back Doreen Abrams LP documented in this encounterGerman Hospital07-10-2023 Miscellaneous Notes* Telephone Encounter - Mikaela Darby Ma - 05/22/2023 11:00 AM EDT [facility] called office to notify us that they have been trying to reach pt but no answer. They want pt to be seen on Mon in their office with [employer]. I reached out to pt spouse and left detailed message for pt to call Megan with [facility]at this direct line [phone]. Mikaela Darby Ma documented in this encounterGerman Hospital07-07-2023 Miscellaneous Notes* Telephone Encounter - Doreen Abrams LPN - 05/19/2023 12:16 PM EDT Opened in error. Doreen Abrams LPN documented in this encounterGerman Hospital07-07-2023 Miscellaneous Notes* Telephone Encounter - Doreen Abrams LPN - 05/19/2023 10:56 AM EDT Spoke with daughter and informatin listed below given. requesting referral for cardiac be faxed to [facility]. Done. Doreen Abrams LPN * Telephone Encounter - Mikaela Darby Ma - 05/18/2023 1:21 PM EDT Tried to reach pt, line just rings multiple times then goes to busy signal. Mikaela Darby Ma * Telephone Encounter - Ana Rosa Dash MA - 05/15/2023 3:42 PM EDT Unable to reach patient. Left VM to return call to office. Please read below and advise. Ana Rosa Dash MA * Telephone Encounter - Padmini Deshpande APRN.DARION - 05/15/2023 3:30 PM EDT Can you please call the patient and let her know that I reviewed her recent echo results. Echo showed: There is severe aortic valve stenosis caused by calcified valve. As we discussed during your officevisit this was a concern that I had. You are currently not having any symptoms associated with this. Symptoms to be mindful of would be dizziness any chest pain, or shortness of breath. I would recommend that we get repeat echo in 6 months but I would still recommend that you schedulean appointment for an evaluation by cardiology. I have placed the consult, you may stay with the clinic or you may choose to go over to the hospital with the [facility]. Please let me know which she prefers. Thank you. Padmini Deshpande APRN.DARION documented in this encounterGerman Hospital06-29-2023 History of Present illness Narrative* Padmiin Deshpande APRN.CNP - 05/11/2023 10:40 AM EDT This is a 83 year old female who presents today with: Patient presents with: Follow Up: ER follow up HISTORY OF PRESENT ILLNESS: Nidhi Zamora is a 83 year old female. Patient presents with: Follow Up: ER follow up HOSPITAL/ER FOLLOW UP: Reason for visit: Dizziness and headache w/N/V Which facility: [facility] ER Date of visit: 05/08/2023 Diagnosis: [...] APRN.DARION This note was partially generated using Backpack voice recognition system. Note was reviewed for accuracy. There may be minor misspellings or grammar miscues with BubbleGabon voice recognition. documented in this encounterGerman Hospital06-29-2023 Instructions* Patient Instructions* Padmini Deshpande APRN.CNP - 05/11/2023 10:40 AM EDT Start Amlodipine 5 mg daily Check blood pressure at home, write readings down. May call the office in 1 week with readings. Schedule appointment for echo. Follow up in 1 month or sooner as needed. documented in this encounterGerman Hospital06-29-2023 Miscellaneous Notes* Telephone Encounter - Vane Cassidy MD - 05/11/2023 8:48 AM EDT Noted Vane Cassidy MD * Telephone Encounter - Doreen Abrams LPN - 05/10/2023 11:36 AM EDT Daughter called in to schedule [facility] ER FU and to let you know BP is running high for pt. Daughter calls and states the following: HIGH BLOOD PRESSURE BLOOD PRESSURE: 11:05 am BP was 171/74 took it again at 11:30 am it was 173/81. Daughter feels thisis stress related because spouse is in the hospital ONSET: Yesterday 05/09/23 when pt was at the [facility] ER for vomiting and dizziness HOW: BP taken with arm cuff HISTORY: no MEDICATION: none OTHER SYMPTOMS: none DENIES: headache, chest pain, blurred vision, difficulty breathing, weakness, swelling in legs, palpitations or SOB dizziness resolved. Pt has been scheduled for ER visit on 05-11-23. Doreen Abrams LPN documented in this encounterGerman Hospital06-26-[address] Bear [facility] May 08, 2023 4:19pm Note Date/Time May 08, 2023 1:44 pm [facility] Medical Records Department [address] [place] [address] Emergency Department Summary 05/08/23 MR#: [id number] Acct: [id number] Name: NIDHI ZAMORA Rep #:[id number] : [...] no sensory deficits noted Neuro Narrative: Normal iahnnl-vd-ivea and sqyq-ho-bghi bilaterally. No clonus. Downgoing toes bilaterally. 1+ [...] (Auto) 74.2 H Lymph % (Auto) 19.2 [place] % (Auto) 5.5 Eos % (Auto) 0.4 [...] your Primary Care Provider. Call [facility] ([phone]) or report to the closest Emergency Room. Call 911 if necessary. 05/08/23 1619 <Electronically signed by Sandoval Bear MD> Cosigner Signature (if applicable): CC: Dr. Vane Cassidy MD ~ Signed [facility] Work Phone: 1(515) 435-507404-15-2022 History of Present illness Narrative* Vane Cassidy [...] which included preparing to see the patient, bsuf-ov-wgeb patient care, completing clinical documentation, obtaining and/or reviewing separately obtained history, performing a medically appropriate examination and counseling and educating the patient/family/caregiver. Vane Cassidy MD documented in this encounterGerman Hospital03-28-2022 Miscellaneous Notes* Telephone Encounter - Gracia Garcia [...] advise, Katty Laura RN documented in this encounterGerman Hospital03-26-2022 Miscellaneous Notes* Telephone Encounter - Jordyn Benitez Ma - 02/05/2022 8:46 AM EDT Patient was notified Jordyn Benitez Ma * Telephone Encounter - Hari Johnson MD - 02/05/2022 8:42 AM EDT Advise patient she can either come in and be seen in the [facility] care or go mixing picker tender the prescription medication. * Telephone Encounter - [...] up at the pharmacy. documented in this encounterRiverside Methodist Hospitalalunemours foundation noteNo assessment information availableWOhioHealth Doctors Hospital Work Phone: Evaluation note* Diagnosis Contusion of left hip, subsequent encounter- Primary Encounter to establish care Other reasons for seeking consultation Heart murmur Undiagnosed cardiac murmurs documented in this encounter [facility] note* Diagnosis Hospital discharge follow-up- Primary Other follow-up examination Hypertension, essential Unspecified essential hypertension Heart murmur Undiagnosed cardiac murmurs documented in this encounter [facility] note* Diagnosis Nonrheumatic aortic valve stenosis- Primary Aortic valve disorders documented in this encounter [facility] note* Diagnosis Onset Date Resolution Status Essential hypertension acute Severe aortic stenosis [facility] Work Phone: Evaluation note* Diagnosis Aortic valve stenosis, etiology of cardiac valve disease unspecified- Primary [facility] Diagnosis Aortic stenosis Aortic valve disorders [facility] Diagnosis Essential hypertension Unspecified essential hypertension Aortic valve disorder Aortic valve disorders [facility] Diagnosis Nonrheumatic aortic valve stenosis Nonrheumatic aortic valve stenosis- Primary Nonrheumatic aortic valve stenosis documented in [facility] Diagnosis Nonrheumatic aortic valve stenosis- Primary Nonrheumatic aortic valve stenosis Severe aortic stenosis Aortic valve disorders Aortic valve stenosis, etiology of cardiac valve disease unspecified Severe aortic stenosis Aortic valve disorders Nonrheumatic aortic valve stenosis documented [facility] this [facility] Diagnosis Neck pain- Primary Cervicalgia documented in this encounter [facility] note* Diagnosis Cellulitis of both feet- Primary [facility] Diagnosis Toenail deformity- Primary Unspecified disease of nail Hypertension, essential Unspecified essential hypertension [facility] Contusion of left thigh, initial encounter- Primary Rash Rash and other nonspecific skin eruption documented in this encounter [facility] for referral (narrative)* Diagnostic Procedure Only (Routine) - Authorized Specialty Diagnoses / Procedures Referred By Gunnar t Referred To Contact [facility] [place] Diagnoses Heart murmur Procedures ECHO ECHO TTHRC R-T 2D W/WOM-MODE COMPL SPEC&COLR D Padmini Deshpande APRN.INSURANCE LOSS ADJUSTER [address] [place] [address] [facility] [address] [place] [address] Referral ID Status Reason Start Date Expiration Date Visits Requested Visits Authorized [id number] Authorized Auto-Generat ed Referral 05/11/2023 08/09/2023 1 1 [facility] for referral (narrative)* Outpatient Procedure (Routine) - Pending Review Specialty Diagnoses / Procedures Referred By Gunnar mendez Referred To Contact [facility] [place] Diagnoses Nonrheumatic aortic valve stenosis Procedures ECHO ECHO TTHRC R-T 2D W/WOM-MODE COMPL SPEC&COLR D Padmini Deshpande APRN.INSURANCE LOSS ADJUSTER [address] [place] [address] [facility] [address] [place] [address] Referral ID Status Reason Start Date Expiration Date Visits Requested Visits Authorized [id number] Pending Review Auto-Generat ed Referral 11/15/2023 05/14/2024 1 1 * Consult, Test, Treat (Routine) - Authorized Specialty Diagnoses / Procedures Referred By Laylaac t Referred To Contact Cardiology Diagnoses Nonrheumatic aortic valve stenosis Procedures CONSULT TO CARDIOLOGY OFFICE/OUTPATIENT NEW HIGH MDM 60-74 MINUTES Padmini Deshpande APRN.INSURANCE LOSS ADJUSTER [address] [place] [address] Referral ID Status Reason Start Date Expiration Date Visits Requested Visits Authorized [id number] Authorized PCP Requested Referral 05/15/2023 05/14/2024 1 1 [facility]No reason for referral information [facility] Work Phone: Chief Complaint and Reason for Visit Chief Complaint FALL Chief Complaint gen illness Chief Complaint gen illness ABN ECHO / SEVERE (TANNHOF) EORDER AORTIC STENOSIS BMP Reason for Visit Essential hypertensi on Severe aortic stenosis Chief Complaint gen illness ABN ECHO / SEVERE (JOSELUISHOF) EORDER AORTIC STENOSIS BMP Nonrheumatic aortic (valve) stenosis Reason for Visit Essential hypertensi on Severe aortic stenosis Chief Complaint Admit Date 1 Y FU March 07, 2025 10: 49am fall May 07, 2025 4:48 am Reason for Visit Admit Date Essential hypertension March 07, 2025 10:49am History of transcatheter aortic valve re placement (TAVR) March 07, 2025 10:49am Advance Directives No Advanced Directives Records Found Advance Directive Response Recorded Date/ Time Living Will Yes February 01, 2022 4:34am Power of Component Inspector Yes February 01 4:34am Advance Directive Response Recorded Date/ Time Living Will Yes May 08, 2023 1:15pm Power of Component Inspector Yes May 08 1:15pm Name of Medical Power of Component Inspector Akira Andersen soniya May 08, 2023 1:15pm Advance Directive Response Recorded Date/ Time Name of Medical Power of Component Inspector Akira Andersen soniya May 08, 2023 1:15pm Advance Directives on File Yes June 06, 2023 10:34am Name of Medical Power of Component Inspector Akira byrnes- spouse June 06, 2023 10:34am Advance Directives Yes June 06 10:34am Living Will Yes June 06, 2023 10:34am Power of Component Inspector Yes June 06 10:34am Latest Code Status on File Code Status Date Activated Date Inactivated Comments Full Code 07/19/2023 7:04 AM 07/20/2023 1:42 PM Advance Directive Response Recorded Date/ Time Do you have a Healthcare Power of Component Inspector? Yes May 07, 2025 4:52am Advance Directives Yes June 06 10:34am Reason for Referral Specialty Diagnoses / Procedures Referred By Gunnar t Referred To Contact Radiology Diagnoses Aortic stenosis Procedures CTA Angiogram TAVR Adrian ElaineLEANDRO jenkinsN - INSURANCE LOSS ADJUSTER [address] [place] [address] Referral ID Status Reason Start Date Expiration Date Visits Re quested Visits Authorized [id number] Closed 06/20/2023 09/18/2023 1 1 Summary Purpose [...] or prosecute any alcohol or drug abuse patient.[facility] the event this information is protected by the Federal Confidentiality of Alcohol and Drug Abuse Patient Records regulations: The Federal rules restrict any use of the information to criminally investigate or prosecute any alcohol or drug abuse patient.[facility] Hospital[facility] the event this information is protected by the Federal Confidentiality of Alcohol and Drug Abuse Patient Records regulations: The Federal rules restrict any use of the information to criminally investigate or prosecute any alcohol or drug abuse patient.[facility] the event this information is protected by the Federal Confidentiality of Alcohol and Drug Abuse Patient Records regulations: The Federal rules restrict any use of the information to criminally investigate or prosecute any alcohol or drug abuse patient.[facility] the event this information is protected by the Federal Confidentiality of Alcohol and Drug Abuse Patient Records regulations: The Federal rules restrict any use of the information to criminally investigate or prosecute any alcohol or drug abuse patient.[facility] Hospital[facility] the event this information is protected by the Federal Confidentiality of Alcohol and Drug Abuse Patient Records regulations: The Federal rules restrict any use of the information to criminally investigate or prosecute any alcohol or drug abuse patient.[facility] Hospital[facility] the event this information is protected by the Federal Confidentiality of Alcohol and Drug Abuse Patient Records regulations: The Federal rules restrict any use of the information to criminally investigate or prosecute any alcohol or drug abuse patient.[facility] Hospital[facility] the event this information is protected by the Federal Confidentiality of Alcohol and Drug Abuse Patient Records regulations: The Federal rules restrict any use of the information to criminally investigate or prosecute any alcohol or drug abuse patient.[facility] HospitalIn the event this information is protected by the Federal Confidentiality of Alcohol and Drug Abuse Patient Records regulations: The Federal rules restrict any use of the information to criminally investigate or prosecute any alcohol or drug abuse patient.[facility] HospitalIn the event this information is protected by the Federal Confidentiality of Alcohol and Drug Abuse Patient Records regulations: The Federal rules restrict any use of the information to criminally investigate or prosecute any alcohol or drug abuse patient.[facility] Hospital[facility] the event this information is protected by the Federal Confidentiality of Alcohol and Drug Abuse Patient Records regulations: The Federal rules restrict any use of the information to criminally investigate or prosecute any alcohol or drug abuse patient.[facility] HospitalIn the event this information is protected by the Federal Confidentiality of Alcohol and Drug Abuse Patient Records regulations: The Federal rules restrict any use of the information to criminally investigate or prosecute any alcohol or drug abuse patient.[facility] HospitalIn the event this information is protected by the Federal Confidentiality of Alcohol and Drug Abuse Patient Records regulations: The Federal rules restrict any use of the information to criminally investigate or prosecute any alcohol or drug abuse patient.[facility] Hospital[facility] the event this information is protected by the Federal Confidentiality of Alcohol and Drug Abuse Patient Records regulations: The Federal rules restrict any use of the information to criminally investigate or prosecute any alcohol or drug abuse patient.[facility] Reason for Visit (unrecogniz ed section and content) Reason Comments Pain Reason Comments Patient Update Reason Comments Establish Care Specialty Diagnoses / Procedures Referred By Contac t Referred To Contact Family Practice / FAMILY MEDICINE Diagnoses Cervicalgia TO EST CARE/FORMER CEBUL PT Procedures OFFICE/OUTPATIENT ESTABLISHED LOW MDM 20-29 MIN 4C EST WELL Vane Cassidy MD [address] [place] [address] Vane Cassidy MD [address] [place] [address] Referral ID Status Reason Start Date Expiration Date Visits Re quested Visits Authorized [id number] Closed 02/16/2022 11/12/2022 1 1 Reason Comments Future Appointment Reason Comments Follow Up ER follow up Reason Comments Results Echo Reason Comments Opened In Error Reason Comments FYI-No Action Needed [facility] trying to reach pt. Reason Comments blood pressure readings/refill Reason Comments Cardiac Valve Problem [facility] Specialty Diagnoses / Procedures Referred By Contac t Referred To Contact Radiology Diagnoses Aortic stenosis Procedures CTA Angiogram TAVR Elaine Campbell APRN - [facility] [address] [place] [address] Referral ID Status Reason Start Date Expiration Date Visits Re quested Visits Authorized [id number] Closed 06/20/2023 09/18/2023 1 1 Reason Onset Date Comments Procedure 06/30/2023 TAVR Specialty Diagnoses / Procedures Referred By Contac t Referred To Contact Diagnoses Nonrheumatic aortic valve stenosis Nonrheumatic aortic valve stenosis [I35.0] Procedures TRANSCATHER AORTIC VALVE REPLACEMENT, TRANSTHORACIC ECHOCARDIOGRAM TAVR WITH PROSTHETIC VALVE PERCUTANEOUS FEMORAL ARTERY APPROACH Maximus Campbell MD [address] [place] [id number] [address] [place] [address] Referral ID Status Reason Start Date Expiration Date Visits Re quested Visits Authorized [id number] 1 1 Reason Comments Pain Left shoulder pain x 1 day Reason Comments Covid Positive Reason Comments Rash Itchy rash on feet a nd legs X 1 week Reason Comments Follow Up Foot rash Reason Comments left thigh bruise Fell 2 days ago Care Teams (unrecognized sec tion and content) Wealth Management Manager Relationship Specialty Start Date End Date Vane Cassidy MD [address] [place] [address] PCP - General Family Practice 02/02/22 Wealth Management Manager Relationship Specialty Start Date End Date Vane Cassidy MD [address] [place] [address] PCP - General Family Practice 02/02/22 Wealth Management Manager Relationship Specialty Start Date End Date Vane Cassidy MD [address] [place] [address] PCP - General Family Practice 02/02/22 Team Status: Active Member Role Status Dates Dr. Bryan Reveles III, MD Family Provider Active Dr. Vane Cassidy MD Primary Care Provider Active Team Status: Inactive Member Role Status Dates Dr. Vane Cassidy MD Primary Care Provider Active Dr. Sandoval Bear MD Emergency Provider Active Wealth Management Manager Relationship Specialty Start Date End Date Vane Cassidy MD [address] [place] [address] PCP - General Family Medicine 02/02/22 Wealth Management Manager Relationship Specialty Start Date End Date Vane Cassidy MD [address] [place] [address] PCP - General Family Medicine 02/02/22 Wealth Management Manager Relationship Specialty Start Date End Date Vane Cassidy MD [address] [place] [address] PCP - General Family Medicine 02/02/22 Wealth Management Manager Relationship Specialty Start Date End Date Vane Cassidy MD [address] [place] [address] PCP - General Family Medicine 02/02/22 Wealth Management Manager Relationship Specialty Start Date End Date Vane Cassidy MD [address] [place] [address] PCP - General Family Medicine 02/02/22 Wealth Management Manager Relationship Specialty Start Date End Date Vane Cassidy MD [address] [place] [address] PCP - General Family Medicine 02/02/22 Team [...] Vane Cassidy MD Primary Care Provider Active THEODORE GRANDA Attending Provider, Referring Provi jd Active Wealth Management Manager Relationship Specialty Start Date End Date [facility] [address] [place] [address] PCP - General 06/28/23 Leonardo, John [address] [place] [phone] Internal Medicine Cardiovascular Disease 06/13/23 Wealth Management Manager Relationship Specialty Start Date End Date [facility] [address] [place] [address] PCP - General 06/28/23 Leonardo, Eldon [address] [place] [phone] Internal Medicine Cardiovascular Disease 06/13/23 Wealth Management Manager Relationship Specialty Start Date End Date [facility] [address] [place] [address] PCP - General 06/28/23 Leonardo, John [address] [place] [address] Internal Medicine Cardiovascular Disease 06/13/23 Wealth Management Manager Relationship Specialty Start Date End Date [facility] [address] [place] [address] PCP - General 06/28/23 Leonardo, Eldon [address] [place] [address] Internal Medicine Cardiovascular Disease 06/13/23 Wealth Management Manager Relationship Specialty Start Date End Date [facility] [address] [place] [address] PCP - General 06/28/23 Leonardo, John [address] [place] [phone] Internal Medicine Cardiovascular Disease 06/13/23 Wealth Management Manager Relationship Specialty Start Date End Date Vane Cassidy MD [address] [place] [address] PCP - General Family Medicine 02/02/22 Wealth Management Manager Relationship Specialty Start Date End Date Vane Cassidy MD [address] [place] [address] PCP - General Family Medicine 02/02/22 Wealth Management Manager Relationship Specialty Start Date End Date Vane Cassidy MD [address] [place] [address] PCP - General Family Medicine 02/02/22 Padmini Deshpande, CHARMAINE.INSURANCE LOSS ADJUSTER [address] [place] [address] Analog Ic Design Architect Family Medicine 10/20/24 Hany Guy APRN.INSURANCE LOSS ADJUSTER [address] [place] [address] Analog Ic Design Architect [facility] 10/29/24 Wealth Management Manager Relationship Specialty Start Date End Date Vane Cassidy MD [address] [place] [address] PCP - General Family Medicine 02/02/22 Padmini Deshpande APRN.INSURANCE LOSS ADJUSTER [address] [place] [address] [employer] [facility]c [facility] 10/20/24 Hany Guy APRN.INSURANCE LOSS ADJUSTER [address] [place] [address] Analog Ic Design [facility] 10/29/24 Wealth Management Manager Relationship Specialty Start Date End Date Vane Cassidy MD [address] [place] [address] PCP - General Family Medicine 02/02/22 Hany Guy APRN.INSURANCE LOSS ADJUSTER [address] [place] [address] Analog Ic Design [facility] 10/29/24 Team Status: Active Member Role Status Dates Dr. Vane Cassidy MD Primary Care Provider Active Team Status: Inactive Member Role Status Dates Dr. Vane Cassidy MD Primary Care Provider Active Start: March 07, 2025 End: March 07, 2025 Dr. Vane Cassidy MD Referring Provider Active Start: March 07, 2025 End: March 07, 2025 Sigrid Stephens HEEL COVER SOFTENER, HEEL COVER SOFTENER-C Attending Provider Active Start: March 07, 2025 End: March 07, 2025 Team Status: Inactive Member Role Status Dates Dr. Vane Cassidy MD Primary Care Provider Active Start: May 07, 2025 End: May 07, 2025 Dr. Jed Prado DO Emergency Provider Active Start: May 07, 2025 End: May 07, 2025 Scheduled Active and Recently Administ ered Medications (unrecognized section and content) Medication Order 07/18/2023 07/19/2023 07/20/2023 amLODIPine (Norvasc) tablet 10 mg 10 mg, Oral, Daily, First dose on Astrid 07/20/23 at 0900 0835 (Given - Provid er: Jenny Costa, IVIS) aspirin chewable tablet 81 mg 81 mg, Oral, Daily, First dose on Mon07/19/23 at 1200 1713 (Given - Provider: Jorge Casiano RN) 0835 (Given - Provider: Jenny Costa, IVIS) ceFAZolin in dextrose 4% (Ancef) IVPB 2,000 mg (COMPLETED) 2,000 mg, IntraVENous, Administer over 30 Minutes, Once, On Mon07/19/23 at 0715, For 1 dose, Preprocedure, Administer within 1 hour prior to incision. Recommend to repeat in 3-4 hours after initial dose if still intra-op. premix bag, Suspected Indication (Select all that apply): Surgical Prophylaxis 1000 (Given - Provider: CHARMAINE Chris CRNA) Continuous Medication Order 07/18/2023 07/19/2023 07/20/2023 sodium chloride 0.9 % infusion (CANCELED) 50 mL/hr, IntraVENous, Continuous, Starting on Mon07/19/23 at 0715, Preprocedure, Upon admission to sameday - please start iv if patient does not have iv access. 0735 (New Bag - Provider: Yolette Wan RN)0956 (Continued by Anesthesia - Provider: CHARMAINE Casey [...] Howe, RN) 448 (Given - Provider: Gary Howe, IVIS) heparin 1,000 Units in sodium chloride 0.9 % 500 mL OR irrigation (CANCELED) As needed, Starting on Mon07/19/23 at 1052, Intraprocedure 1052 (Given - Provider: Maximus Campbell MD) iodixanol (VISIPaque) 320 MG/ML injection (COMPLETED) Continuous PRN, Starting on Mon07/19/23 at 1057, Intraprocedure 1057 (New Bag - Provider: Maximus Campbell MD)1100 (Stopped - Provider: Jorge Casiano RN) lidocaine (Xylocaine) 1 % injection (CANCELED) As [...] section and content) DATE CREATED AUTHOR 07/20/2023 [facility] DATE CREATED AUTHOR AUTHOR'S ORGANIZ ATION 05/05/2025 [facility] DATE CREATED AUTHOR AUTHOR'S ORGANIZ ATION 05/08/2025 [facility] FOR RECORDS PERTAINING TO PATIENTS WHO ARE [...] BE BASED ON THE PRIMARY CLINICAL RECORDS. [place] [facility]. provides no warranty or guarantee of the accuracy or completeness of information in this document.
--- NOTE | 2025-05-08 23:44 | ED.VIS.BACK ---
HPI History of Present Illness Chief Complaint: Back Narrative Narrative: Chief complaint and HPI: Right-sided rib/thoracic back pain. 85-year-old female presents for evaluation of right-sided rib/thoracic back pain. Onset of symptoms this evening while watching [facility]. Patient states she developed a spasm in her right rib/thoracic back. She denies any fall or trauma. Denies any fever, chills, shortness of breath, URI symptoms, cough, chest pain, Jose pain, nausea, vomiting, weakness, numbness/tingling. She took Tylenol as well as a tramadol that she was prescribed yesterday for left hip. She was seen in our emergency department and I reviewed the note, she had a mechanical fall 5 days ago. She received an x-ray yesterday and diagnosed with a contusion. Review of systems: See HPI Medications: As listed on the chart Allergies: As listed on the chart PFSH: Per chart Vital signs: As listed on the chart. Reviewed. Physical exam: Gen: A&O x3, NAD Head: Normocephalic, atraumatic Eyes: No sclera icterus, conjunctiva clear ENT: Moist mucous membranes Neck: Trachea midline, No JVD, full range of motion, nontender to palpation CV: RRR, no peripheral edema Resp: Lungs CTA BL, no w/r/c GI: Abd soft, non-distended, non-tender, no r/r/g Musc: Full ROM, no midline spinal tenderness, no bony step-offs, patient has tense right thoracic paraspinal musculature that is tender to palpation-states that recreates her pain she also has tenderness to palpation of the right ribs, in this area which she states recreates her pain. Strength 5 out of 5. Skin: Warm, dry Neuro: Alert, oriented, grossly intact, sensation intact Psych: Cooperative, appropriate mood and affect [facility] Medical History History of transcatheter aortic valve replacement (TAVR) Hard of hearing Severe aortic stenosis Essential hypertension Heart murmur Home Medications ?Medication ?Instructions ?Recorded ?Last Taken ?Type tramadol 50 mg tablet 50 mg PO Q6H PRN PRN Pain 5 days 05/07/25 Unknown Rx #20 tabs lidocaine 1.8 % topical patch 1 patch topical DAILY 3 days #3 ea 05/09/25 Unknown Rx Allergy/AdvReac Type Severity Reaction Status Date / Time No Known Allergies Allergy Verified 05/08/25 21:08 Surgical History Hx of hysterectomy History of tonsillectomy History of cholecystectomy Social History Smoking Status: Never smoker alcohol intake: never substance use type: does not use caffeine: Yes Type: carbonated beverages Number of servings: 1 EXAM Physical Exam Const Vital Signs: 05/08/25 21:08 05/09/25 01:19 05/09/25 01:27 Temperature 97.1 F L 97.9 F 97.9 F Temperature Source Temporal Oral Pulse Rate 70 74 74 Respiratory Rate 14 16 16 Blood Pressure 171/60 H 177/76 H 177/76 H Blood Pressure Mean 97 109 109 Pulse Ox 93 98 98 Oxygen Delivery Method Room Air Room Air MDM MDM MDM Narrative Medical decision making narrative: 85-year-old female presents for evaluation of right-sided rib/thoracic back pain. Onset of symptoms this evening while watching [facility]. Patient states she developed a spasm in her right rib/thoracic back. She denies any fall or trauma. Otherwise asymptomatic. See physical exam findings. Patient has tense right thoracic paraspinal musculature that is tender to palpation and this recreates her pain. It extends into the right ribs. Differential diagnosis includes but is not limited to myofascial spasm, suspect less likely rib fracture/contusion given patient denies any fall or trauma. Denies any URI symptoms or coughing. Given patient is 85 years old she is a poor candidate for narcotics as well as muscle relaxer. She has no contradictions to Toradol. Not on blood thinners. I reviewed previous labs and patient has normal creatinine. IM Toradol and lidocaine patch ordered. X-ray of the chest/ribs ordered. X-ray of the ribs/chest was personally viewed interpreted by me, ED physician. No pneumothorax, rib fractures, pneumonia, effusion. Radiology in agreement. On reevaluation, patient states her pain has improved however she is still intermittently having spasms. Again I do not feel that the patient is a good candidate for muscle relaxers given her recent fall. After discussion with her and her daughter in the room, I am willing to give a one-time IM morphine. Patient will be going home with the daughter this evening. IM morphine ordered. On reevaluation, patient's pain has improved. Patient stable to discharge home. Recommend following up with PCP. Did write for 3 days of lidocaine patch. Okay for Tylenol and tramadol that was previously prescribed. Patient and daughter confirmed understanding of plan. Return precautions explained. Impression: 1. Right thoracic back spasm Radiography Diagnostic Testing: Clinical Impression(s) from Imaging Studies Ribs w/Chest X-Ray 05/08/25 00:10 IMPRESSION: No rib fracture is noted. Reading [facility] [address] Discharge Plan Triage Chief Complaint: Back ED Provider: Logan Navarro Dx/Rx/DC Orders Clinical Impression: Back muscle spasm Instructions: ED Back Spasm, No Trauma Prescriptions: New lidocaine 1.8 % adhesive patch,medicated 1 patch topical DAILY 3 Days Qty: 3 0RF Rx Instructions: leave on most painful area for up to 12 hrs No Action tramadol 50 mg tablet 50 mg PO Q6H PRN PRN (Reason: Pain) 5 Days Qty: 20 0RF Primary Care Provider: Alex Cassidy Referrals: Alex Cassidy MD [Primary Care Provider] - 3-5 Days Activity Restrictions/Additional Instructions: Follow-up with primary care physician. Return back to the ED if symptoms change or worsen. Lidocaine patches as needed for pain. Tylenol and ibuprofen as needed. Print Language: Samoan Disposition Disposition: Home, Self Care Discharge Date/Time: 05/09/25 02:23
[2025-05-08] MEDS: Ketorolac 15 MG/ML Vial IM (23:48)
[2025-05-08] MEDS: Lidocaine 5% Patch 1 PATCH TOPICAL (23:48)
[2025-05-09 01:19] VITALS: BP 177/76; PULSE 74; RESP 16; TEMP 36.6; O2SAT 98
[2025-05-09] MEDS: Morphine 2 MG/ML Syringe IM (01:25)
[2025-05-09 01:27] VITALS: BP 177/76; PULSE 74; RESP 16; TEMP 36.6; O2SAT 98
== END 2025-05-09 02:23 | disposition home or self-care (01) ==
PROVIDERS: Emergency Provider Surgery; PCP Family Medicine; Visit Provider Surgery
DX: M62.830 Muscle spasm of back (principal); R07.89 Other chest pain; I10 Essential (primary) hypertension; M54.6 Pain in thoracic spine
CPT/HCPCS: 71101; 96372; 99282

== ENCOUNTER 2025-05-20 05:57 | Emergency (ER) | payer MEDICARE, SELFPAY ==
[2025-05-20 05:58] VITALS: BP 211/91; PULSE 85; RESP 18; TEMP 36.6; O2SAT 96; BMI 32.0
[2025-05-20 06:35] VITALS: BP 154/60; PULSE 86; RESP 18; TEMP 36.6; O2SAT 95
--- NOTE | 2025-05-20 06:35 | EX.ED.DYSGE1 ---
HPI History of Present Illness Chief Complaint: Lower Extremity Injury Informant: patient and family Narrative Narrative: Patient is 85-year-old female with past medical history of hypertension and aortic stenosis. She states roughly 3 weeks ago she tripped and fell because she missed a stair. She was then seen in the ER and had negative x-rays. She was seen by the family doctor and a venous duplex was added which revealed no sign of DVT. Patient states has been no repeat trauma. She states she is able to ambulate on the leg and states that it typically feels better when she does walk. However the pain has been constant and keeping her from sleeping and secondary to this she was brought in for evaluation [facility] Medical History History of transcatheter aortic valve replacement (TAVR) Hard of hearing Severe aortic stenosis Essential hypertension Heart murmur Home Medications ?Medication ?Instructions ?Recorded ?Last Taken ?Type tramadol 50 mg tablet 50 mg PO Q6H PRN PRN Pain 5 days 05/07/25 Unknown Rx #20 tabs lidocaine 1.8 % topical patch 1 patch topical DAILY 3 days #3 ea 05/09/25 Unknown Rx gabapentin 300 mg capsule 300 mg PO TID 30 days #90 caps 05/20/25 Unknown Rx oxycodone-acetaminophen 5 mg-325 1 tab PO Q6H PRN pain 3 days #12 05/20/25 Unknown Rx mg tablet (Percocet) tabs Allergy/AdvReac Type Severity Reaction Status Date / Time No Known Allergies Allergy Verified 05/20/25 05:58 Family History no significant family his Surgical History Hx of hysterectomy History of tonsillectomy History of cholecystectomy Social History Smoking Status: Never smoker alcohol intake: never substance use type: does not use caffeine: Yes Type: carbonated beverages Number of servings: 1 ROS ROS ED Constitutional Constitutional ED: Denies chills or fever(s) Eyes Eyes: Denies change in vision ENT ENT ED: Denies sore throat Cardiovascular Cardiovascular: Denies chest pain Respiratory/Chest Respiratory/Chest: Denies cough or dyspnea Gastrointestinal Gastrointestinal: Denies abdominal pain, diarrhea, nausea or vomiting Genitourinary Genitourinary ED: Denies dysuria Musculoskeletal Musculoskeletal: Reports other Details: Positive left thigh pain ; Denies back pain Integumentary Denies Abrasions or rash Neurologic Neurologic: Denies headache(s) Hematologic/Lymphatic Hematologic/Lymphatic: Denies easy bleeding or easy bruising EXAM Physical Exam Const Vital Signs: 05/20/25 05:58 05/20/25 06:35 Temperature 97.9 F 97.9 F Temperature Source Oral Pulse Rate 85 86 Respiratory Rate 18 18 Blood Pressure 211/91 H 220/84 H Blood Pressure Mean 131 129 Pulse Ox 96 95 Oxygen Delivery Method Room Air Positive well nourished and well developed General Appearance ED: well developed; Negative for pallor HEENT HEENT Narrative: Normocephalic atraumatic Eyes PERRL and EOMs intact bilaterally Neck supple Resp normal respiratory effort and clear to auscultation bilaterally Cardio regular rate and regular rhythm Rate: other Other Details: Grade 4 out of 6 systolic murmur consistent with history of aortic stenosis GI normal to inspection, nondistended, normoactive bowel sounds, non-tender, non-distended and no masses Auscultation: normoactive bowel sounds Palpation: soft Back/Spine Back/Spine Narrative: No bony deformity or step-off of the thoracic or lumbar spine no midline tenderness to palpation No pain with palpation in the sacroiliac joint region No saddle anesthesia. Negative straight leg raise. No clonus or Babinski. Patellar reflexes are plus 1 out of 4 bilaterally Extremity normal to inspection Extremity Narrative: Left lower extremity is neurovascularly intact. No obvious bony deformity or joint effusion. No muscular defect noted. Compartments are soft and compressible going against compartment syndrome. No increased pain with flexion extension internal or external rotation of the left leg. No overlying soft tissue changes to suggest infection Neuro oriented x3, CN's II-XII intact bilaterally and no sensory deficits noted Sensorium / Orientation: alert Motor Exam: strength 5/5 throughout Psych mental status grossly normal Skin no rashes or lesions noted and no wounds General Skin Exam: Negative for jaundice or pallor MDM MDM MDM Narrative Medical decision making narrative: Patient arrived to the ER hypertensive but has a past medical history of this and did not take her blood pressure medication for the past 2 days and is also currently in pain so the elevation is to be expected. She has not had any repeat trauma since the initial fall and her previous x-rays were reviewed. I feel no need for repeat x-rays based on the fact there is been no repeat trauma and there is no sign of bony abnormality. Patient has also had a venous duplex already ruling out DVT. With her persistent pain there is concern this is from a ligamentous or muscular tear. There is also potential that this is from nerve impingement from potential ruptured disc. As there is no midline low back pain I have low concern that there is a compression fracture or burst fracture. I discussed with patient and family how based on the persistent symptoms there is concern for these findings but patient should obtain MRIs of the back and leg to check for them as they are not typically readily seen on x-ray or CT scan. In the meantime I will place her on a neuromodulator medication as well as pain medication to help with symptoms. Patient and family are agreeable to this and therefore should be discharged home with recommended outpatient follow-up History & Record Review Discussion w/independent historian: Patient and Family Discharge Plan Triage Chief Complaint: Lower Extremity Injury ED Provider: Maximus Ramesh Dx/Rx/DC Orders Clinical Impression: Left thigh pain, Essential hypertension, Severe aortic stenosis Instructions: Understanding the Pain Response, ED Contusion, Lower Extremity Prescriptions: New gabapentin 300 mg capsule 300 mg PO TID 30 Days Qty: 90 0RF oxycodone-acetaminophen [Percocet] 5-325 mg tablet 1 tab PO Q6H PRN (Reason: pain) 3 Days Qty: 12 0RF No Action lidocaine 1.8 % adhesive patch,medicated 1 patch topical DAILY 3 Days Qty: 3 0RF Rx Instructions: leave on most painful area for up to 12 hrs tramadol 50 mg tablet 50 mg PO Q6H PRN PRN (Reason: Pain) 5 Days Qty: 20 0RF Primary Care Provider: Alex Cassidy Referrals: Alex Cassidy MD [Primary Care Provider] - Activity Restrictions/Additional Instructions: Because of your persistent pain after the fall there is concern that you may have torn a muscle or a ligament and this will only be seen on an MRI. There is also concern that there was a ruptured disc causing nerve's compression. Therefore follow-up with your family doctor to discuss MRI of your low back and left thigh. Take the prescribed medication as directed to help control your pain and return to the ER should you have any further concern. Print Language: Persian Disposition Disposition: Home, Self Care
== END 2025-05-20 07:20 | disposition home or self-care (01) ==
LOC: ED 06:40
PROVIDERS: Emergency Provider Emergency Medicine; PCP Family Medicine; Visit Provider Emergency Medicine
DX: M79.652 Pain in left thigh (principal); I10 Essential (primary) hypertension; W10.9XXA Fall (on) (from) unspecified stairs and steps, initial encounter; Z86.79 Personal history of other diseases of the circulatory system
CPT/HCPCS: 96372; 99283

== ENCOUNTER 2025-08-01 10:44 | Observation (INO) | payer MEDICARE, SELFPAY ==
[2025-08-01] VITALS (7 sets, daily range): BP systolic 145–171; BP diastolic 57–92; PULSE 72–92; RESP 14–25; TEMP 36.7–37.1; O2SAT 93–99; BMI 29.9; BMI 28.2
--- NOTE | 2025-08-01 10:56 | CT_ITS ---
PROCEDURE: ABDOMEN/PELVIS W IV CONT ONLY 08/01/2025 REASON FOR EXAM: NAUSEA, VOMITING, DIARRHEA TECHNIQUE: Procedure Code: [id number] Modality: CT Procedure: ABDOMEN/PELVIS W IV CONT ONLY Coronal and Sagittal reconstruction series were provided. CONTRAST: Isovue 370 VOLUME: 100 mL One or more dose reduction techniques were used (e.g., Automated exposure control, adjustment of the mA and/or kV according to patient size, use of iterative reconstruction technique. RADIATION DOSE SUMMARY: CTDlvol: 11.94 mGy DLP: 624.09 mGycm COMPARISON: None. FINDINGS: Lung bases: Chronic fibrotic changes. No visualized pulmonary consolidation. Liver: Fatty infiltration of the liver. Gallbladder: Status post cholecystectomy. No biliary dilation. Spleen: Unremarkable. Pancreas: Fatty infiltration of the liver. No masses or acute pancreatitis. Adrenals: Unremarkable. Kidneys: No hydronephrosis or nephrolithiasis. Bladder: No bladder wall thickening. A 3.7 cm diverticulum from the posterior left wall of the bladder. Reproductive Organs: Unremarkable. Bowel: Colonic diverticulosis with no evidence of acute diverticulitis. No bowel wall thickening. No bowel obstruction. Appendix: Normal. Lymph nodes: No lymphadenopathy. Vasculature: No aneurysm. Peritoneum / Retroperitoneum: No aneurysm. Bones: No acute bony abnormalities. CT/Abdomen/Pelvis W IV Cont ONLY IMPRESSION: Colonic diverticulosis with no evidence of acute diverticulitis. A 3.7 cm diverticulum from the posterior left wall of the bladder. No hydronephrosis or nephrolithiasis. Reading Location: [id number]
--- NOTE | 2025-08-01 10:57 | ED.VIS.GI ---
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 Her daughter states that they called the oncologist and there was concern that she would be dehydrated and that she needs IV fluids. They state that she has had dark urine as well as foul-smelling urine so she might have a UTI as well. Patient has generalized weakness and states that over the last 24 hours she has had at least 6 episodes of vomiting without hematemesis. She has had diarrhea as well. No previous abdominal surgeries. No exacerbating or alleviating factors. They state that she is on a cancer pill and underwent radiation therapy a few days ago to her pelvis. PFSH PFS Medical History Bone cancer Breast cancer History of transcatheter aortic valve replacement (TAVR) Hard of hearing Severe aortic stenosis Essential hypertension Heart murmur Home Medications ?Medication ?Instructions ?Recorded ?Last Taken ?Type tramadol 50 mg tablet 50 mg PO Q6H PRN PRN Pain 5 days 05/07/25 Unknown Rx #20 tabs lidocaine 1.8 % topical patch 1 patch topical DAILY 3 days #3 ea 05/09/25 Unknown Rx gabapentin 300 mg capsule 300 mg PO TID 30 days #90 caps 05/20/25 Unknown Rx oxycodone-acetaminophen 5 mg-325 1 tab PO Q6H PRN pain 3 days #12 05/20/25 Unknown Rx mg tablet (Percocet) tabs Allergy/AdvReac Type Severity Reaction Status Date / Time No Known Allergies Allergy Verified 08/01/25 10:49 Surgical History Hx of hysterectomy History of tonsillectomy History of cholecystectomy Social History Smoking Status: Never smoker alcohol intake: never substance use type: does not use caffeine: Yes Type: carbonated beverages Number of servings: 1 ROS ROS ED ROS Narrative Review of systems positive for nausea, vomiting, diarrhea. No abdominal pain. Mild generalized weakness. Dark urine that is foul-smelling according to daughter. Concern for dehydration versus viral infection. EXAM Physical Exam Narrative Exam Narrative: Afebrile. Vital signs noted. Nontoxic-appearing. Cardiovascular examination reveals a regular rate and rhythm with holosystolic murmur. Lungs are clear to auscultation bilaterally. The abdomen is soft and nontender without guarding or rebound, no peritoneal signs, positive bowel sounds. Neurological examination is nonfocal, nonlateralizing. Const Vital Signs: 08/01/25 10:49 08/01/25 12:44 08/01/25 14:00 Temperature 98.8 F Temperature Source Oral Pulse Rate 80 72 76 Respiratory Rate 14 16 19 H Blood Pressure 163/74 H 154/71 H 156/57 H Blood Pressure Mean 103 98 90 Pulse Ox 97 95 94 Oxygen Delivery Method Room Air MDM MDM MDM Narrative Medical decision making narrative: The differential diagnosis includes but not limited to gastroenteritis versus pancreatitis versus diverticulitis versus colitis. UTI is also in the differential diagnosis, but I do not think it would cause her diarrhea. Additionally, discussed with the patient and her daughter, they states that they talk to the oncologist and it was not felt that it was more bad timing and that the radiation might have little to do with her symptoms. I have lower suspicion for obstruction as well. I do feel she merits CT imaging. She was administered ondansetron and bolus normal saline 1 L intravenously. Reviewed her laboratory work and she has normal white count of 5.9 with hemoglobin normal 12.6, hematocrit slightly low at 36.8, platelet count normal at 265, potassium low at 3.1, BUN of 11 and creatinine 0.39, glucose elevated at 212 but she has a normal anion gap of 14 so I doubt DKA. LFTs are grossly normal. Lipase is low at 11 so I doubt pancreatitis. Urinalysis obtained and she has 5-10 WBCs but 0 bacteria. I do not feel antibiotics are indicated. Ketones slightly elevated at 15. I reviewed the radiology report of the CT of the abdomen pelvis and there is diverticulosis but no evidence of diverticulitis, no obstruction, no acute process. Upon repeat examination, patient states she still feels nauseated. She will be given a small dose, 5 mg of Compazine to help with her nausea. Given her intractable nausea and the fact that she and her daughter states that she lives alone and continues not to feel well and cannot take care of herself even her diarrhea, I discussed the patient with Dr. White for observation. Disposition is assigned observation in stable condition. History & Record Review Discussion w/independent historian: Patient and Family (Daughter) Additional record(s) reviewed:: Prior ED visit (This is for elevated blood pressure and hypertension) Lab Data Attestation: I reviewed the patient's lab results. Labs: Laboratory Results - last 24 hr 08/01/25 08/01/25 11:20 13:05 WBC 5.9 RBC 4.43 Hgb 12.6 Hct 36.8 L MCV 83.1 MCH 28.4 MCHC 34.2 RDW Std Deviation 37.8 RDW Coeff of Sybil 12.6 Plt Count 265 MPV 9.3 Immature Gran % (Auto) 0.300 Neut % (Auto) 72.9 H Lymph % (Auto) 17.9 L [place] % (Auto) 7.7 Eos % (Auto) 0.9 Baso % (Auto) 0.3 Absolute Neuts (auto) 4.3 Absolute Lymphs (auto) 1.05 Nucleated RBC % 0 Sodium 137 Potassium 3.1 L Chloride 99 Carbon Dioxide 24.0 Anion Gap 14 BUN 11 Creatinine 0.39 L Estim Creat Clear Calc 46.78 L Est GFR (MDRD) Non-Af 96 BUN/Creatinine Ratio 27.9 H Glucose 212 H Calcium 9.1 Total Bilirubin 0.89 AST 21 ALT 16 Alkaline Phosphatase 95 Total Protein 7.6 Albumin 3.9 Globulin 3.7 Albumin/Globulin Ratio 1.1 Lipase 11 L Urine Color Yellow Urine Clarity Clear Urine pH 7.0 Ur Specific [place] 1.005 Urine Protein 15 H Urine Glucose (UA) Normal Urine Ketones 15 H Urine Occult Blood Negative Urine Nitrite Negative Urine Bilirubin Negative Urine Urobilinogen 1 H Ur Leukocyte Esterase 25 H Urine RBC 0 SEEN Urine WBC 5-10 SEEN Ur Squamous Epith Cells 0-5 SEEN Urine Bacteria 0 SEEN Urine Mucus 0 SEEN Radiography Diagnostic Testing: Clinical Impression(s) from Imaging Studies Abdomen/Pelvis CT 08/01/25 10:56 IMPRESSION: Colonic diverticulosis with no evidence of acute diverticulitis. A 3.7 cm diverticulum from the posterior left wall of the bladder. No hydronephrosis or nephrolithiasis. Reading Location: [id number] Management Discussion w/another healthcare provider: Hospitalist (Dr. White) Discharge Plan Triage Chief Complaint: Nausea/Vomiting/Diarrhea ED Provider: Maxime Barker Dx/Rx/DC Orders Clinical Impression: Stage IV breast cancer in female, Gastroenteritis, Hypokalemia Prescriptions: No Action lidocaine 1.8 % adhesive patch,medicated 1 patch topical DAILY 3 Days Qty: 3 0RF Rx Instructions: leave on most painful area for up to 12 hrs tramadol 50 mg tablet 50 mg PO Q6H PRN PRN (Reason: Pain) 5 Days Qty: 20 0RF gabapentin 300 mg capsule 300 mg PO TID 30 Days Qty: 90 0RF oxycodone-acetaminophen [Percocet] 5-325 mg tablet 1 tab PO Q6H PRN (Reason: pain) 3 Days Qty: 12 0RF Primary Care Provider: Alex Cassidy Referrals: Alex Cassidy MD [Primary Care Provider, Family Practice] Print Language: Anguillan
[2025-08-01 11:25] LABS: Hematocrit 36.8 % (37-47); Hemoglobin 12.6 g/dL (12.0-15.0); Immature Granulocytes Count 0.020 X10^3/uL (0.0-0.0); Mean Corp Hgb Conc 34.2 g/dL (32-36); Mean Corpuscular Volume 83.1 fL (81-99); Mean Platelet Vol. 9.3 fl (6.2-12.0); NRBC Flagged by Analyzer 0 % (0-5); Platelet Count 265 K/mm3 (150-450); RBC Distribution Width CV 12.6 % (11.6-14.6); RBC Distribution Width SD 37.8 fl (35.1-43.9); Red Blood Count 4.43 M/mm3 (4.2-5.4); White Blood Count 5.9 K/mm3 (4.4-11.0)
[2025-08-01] MEDS: 0.9% Normal Saline (1000mL) 1,000 ML 999 ML IV (11:27)
[2025-08-01 12:11] LABS: AST(SGOT) 21 U/L (<=31); Alanine Aminotransfer ALT/SGPT 16 U/L (<=34); Albumin, Serum 3.9 g/dL (3.4-4.8); Alkaline Phosphatase 95 U/L (35-104); Anion Gap 14 (5-15); BUN 11 mg/dL (4-19); BUN/Creat Ratio 27.9 RATIO (10-20); Calcium,Total 9.1 mg/dL (7.6-11.0); Carbon Dioxide 24.0 mmol/L (21.0-32.0); Chloride 99 mmol/L (98-108); Estimated Creatinine Clearance 46.78 ml/min (50-250); Globulin 3.7 g/dL (2.2-4.2); Glucose 212 mg/dL (70-99); Lipase 11 U/L (13-75); Potassium 3.1 mmol/L (3.3-5.1)
[2025-08-01 13:19] LABS: Mucous, Urine 0 SEEN /hpf (<or=2+); Red Blood Cells-Urine 0 SEEN /hpf (0-5)
[2025-08-01 13:22] LABS: Color, Urine Yellow (Yellow); Glucose, Dipstick Normal (Normal); Ketone-Dipstick 15 mg/dl (Negative); Leukocyte Esterase-Dipstick 25 /ul (Negative); Nitrite-Dipstick Negative (Negative); Occult Blood-Urine Negative /ul (Negative); Protein-Dipstick 15 mg/dl (Negative); Specific Gravity, Urine 1.005 (1.002-1.030); Urine Bilirubin Dipstick Negative (Negative)
[2025-08-01 13:30] LABS: Squamous Epithelial Cells - UA 0-5 SEEN /hpf (5-10)
[2025-08-01] MEDS: KCL 40mEq in 0.9% NS 40 MEQ/1,000 ML IV.SOLN 250 MEQ IV (15:32)
[2025-08-01] MEDS: KCL 20MEQ in 0.9% NS 20 MEQ/1,000 ML IV.SOLN. 100 MEQ IV (17:23)
--- NOTE | 2025-08-01 19:31 | HP.PCM.HOS_ITS ---
HPI - General General Date of Admission: 08/01/25 Date of Service: 08/01/25 Chief Complaint: Nausea and vomiting with diarrhea HPI Narrative DELMY ZAMORA, is a 85 F who presents to the emergency room at [facility] with complaints of nausea and vomiting with diarrhea over the last 48 hours. Patient has a history of stage IV breast cancer with metastatic spread to the bone, patient complained of generalized weakness over the last 24 hours and had at least 6 episodes of vomiting without hematemesis. Patient is also complaining of multiple episodes of diarrhea as well. Patient had undergone radiation therapy to her pelvic area a few days ago. Labs obtained in the emergency room included a CBC which was unremarkable, chemistry profile was remarkable for a potassium of 3.1, glucose was 212, BUN and creatinine were not elevated. Urinalysis was unremarkable. CT of the abdomen and pelvis was obtained which showed no evidence of acute diverticulitis, there is no evidence of colitis. [facility] and will be administered IV fluids, she will be seen by PT and OT. FORMERLY [facility], [facility]–1983 Medical History Bone cancer Breast cancer History of transcatheter aortic valve replacement (TAVR) Hard of hearing Severe aortic stenosis Essential hypertension Heart murmur Home Medications ?Medication ?Instructions ?Recorded ?Last Taken ?Type tramadol 50 mg tablet 50 mg PO Q6H PRN PRN Pain 5 days 05/07/25 Unknown Rx #20 tabs lidocaine 1.8 % topical patch 1 patch topical DAILY 3 days #3 ea 05/09/25 Unknown Rx gabapentin 300 mg capsule 300 mg PO TID 30 days #90 ca ps 05/20/25 Unknown Rx oxycodone-acetaminophen 5 mg-325 1 tab PO Q6H PRN pain 3 days #12 05/20/25 Unknown Rx mg tablet (Percocet) tabs Allergy/AdvReac Type Severity Reaction Status Date / Time No Known Allergies Allergy Verified 08/01/25 10:49 Surgical History Hx of hysterectomy History of tonsillectomy History of cholecystectomy Social History Smoking Status: Never smoker alcohol intake: never substance use type: does not use caffeine: Yes Type: carbonated beverages Number of servings: 1 ROS Constitutional Constitutional: Reports fatigue and weakness; Denies anorexia, change in weight, chills, fever(s) or night sweats Eyes Eyes: Denies blurry vision, change in vision, discharge from eye(s) or eye pain Cardiovascular Cardiovascular: Denies chest pain, claudication, dyspnea on exertion, edema or palpitations Respiratory/Chest Respiratory/Chest: Denies cough, hemoptysis, shortness of breath at rest or shortness of breath with exertion Gastrointestinal Gastrointestinal: Reports diarrhea, nausea and vomiting; Denies abdominal pain, constipation, hematemesis, hematochezia or melena Genitourinary Genitourinary: Denies dysuria, hematuria, urinary frequency, urinary hesitancy, urinary incontinence or urinary urgency Musculoskeletal Musculoskeletal: Denies back pain, joint pain, joint stiffness, joint swelling, myalgias or neck pain Neurologic Neurologic: Denies abnormal gait, abnormal speech, dizziness, focal weakness, headache(s), loss of vision, numbness, other visual disturbances, paresthesias, syncope or tingling Psychiatric Psychiatric: Denies anxiety, cognitive impairment, depression, irritability, mood swings or suicidal ideation Endocrine Endocrinology: Denies change in body appearance, cold intolerance, excessive sweating, heat intolerance, polydipsia or polyuria Hematologic/Lymphatic Hematologic/Lymphatic: Denies none, anemia, easy bleeding, easy bruising or lymphadenopathy Allergic/Immunologic Allergic/Immunologic: Denies rhinitis, urticaria, eczemia or asthma Vital Signs Vital Signs Vital Signs: 08/01/25 10:49 08/01/25 12:44 08/01/25 14:00 Temperature 98.8 F Temperature Source Oral Pulse Rate 80 72 76 Respiratory Rate 14 16 19 H Blood Pressure 163/74 H 154/71 H 156/57 H Blood Pressure Mean 103 98 90 Blood Pressure Source Blood Pressure Position Blood Pressure Location Pulse Ox 97 95 94 Oxygen Delivery Method Room Air 08/01/25 16:00 08/01/25 16:48 08/01/25 17:02 Temperature 98.5 F 98.7 F Temperature Source Temporal Pulse Rate 83 82 92 Respiratory Rate 25 H 22 H 17 Blood Pressure 166/92 H 166/92 H 171/78 H Blood Pressure Mean 116 116 109 Blood Pressure Source Monitor Blood Pressure Position Semi-Fowlers Blood Pressure Location Right Arm Pulse Ox 93 99 94 Oxygen Delivery Method Room Air Room Air Weight Weight: 70 kg Body Mass Index (BMI) 28.2 Physical Exam Const alert, oriented x3, no apparent distress, average body habitus and healthy appearing General Appearance: cooperative, well kempt and well developed Orientation / Consciousness: awake, oriented to person, oriented to place and oriented to time HEENT normocephalic, head/scalp atraumatic, hearing grossly normal bilaterally and moist oral mucous membranes Eyes PERRL, EOMs intact bilaterally and conjunctivae normal Neck supple, no JVD, thyroid normal and no carotid bruits General: trachea midline Resp normal respiratory effort, no retractions, no use of accessory muscles and clear to auscultation bilaterally Auscultation: Negative for rales, rhonchi or wheezes Cardio regular rate, regular rhythm, S1 normal heart sound, S2 normal heart sound, no rub and no gallops Cardio Narrative: There is a 2/6 systolic murmur noted at the patient's apex and left sternal border GI normal to inspection, nondistended, normoactive bowel sounds, soft to palpation, non-tender and non-distended GI Narrative: No rebound abdominal tenderness was noted Extremity no clubbing, cyanosis or edema Skin no rashes or lesions noted General Skin Exam: no breakdown Neuro oriented x3, CN's II-XII intact bilaterally, no focal motor deficits and no sensory deficits noted Sensorium / Orientation: awake and alert Speech: speech normal Psych affect normal Results Lab / Micro Data 08/01/25 11:20 08/01/25 11:20 Labs: Laboratory Results - last 24 hr 08/01/25 11:20: WBC 5.9, RBC 4.43, Hgb 12.6, Hct 36.8 L, MCV 83.1, MCH 28.4, MCHC 34.2, RDW Std Deviation 37.8, RDW Coeff of Sybil 12.6, Plt Count 265, MPV 9.3, Immature Gran % (Auto) 0.300, Neut % (Auto) 72.9 H, Lymph % (Auto) 17.9 L, [place] % (Auto) 7.7, Eos % (Auto) 0.9, Baso % (Auto) 0.3, Absolute Neuts (auto) 4.3, Absolute Lymphs (auto) 1.05, Nucleated RBC % 0, Sodium 137, Potassium 3.1 L , Chloride 99, Carbon Dioxide 24.0, Anion Gap 14, BUN 11, Creatinine 0.39 L, E stim Creat Clear Calc 46.78 L, Est GFR (MDRD) Non-Af 96, BUN/Creatinine Ratio 27.9 H, Glucose 212 H, Calcium 9.1, Total Bilirubin 0.89, AST 21, ALT 16, Alkaline Phosphatase 95, Total Protein 7.6, Albumin 3.9, Globulin 3.7, Albumin/Globulin Ratio 1.1, Lipase 11 L 08/01/25 13:05: Urine Color Yellow, Urine Clarity Clear, Urine pH 7.0, Ur Specific [place] 1.005, Urine Protein 15 H, Urine Glucose (UA) Normal, Urine Ketones 15 H, Urine Occult Blood Negative, Urine Nitrite Negative, Urine Bilirubin Negative, Urine Urobilinogen 1 H, Ur Leukocyte Esterase 25 H, Urine RBC 0 SEEN, Urine WBC 5-10 SEEN, Ur Squamous Epith Cells 0-5 SEEN, Urine Bacteria 0 SEEN, Urine Mucus 0 SEEN Imaging Radiology Impression Abdomen/Pelvis CT 08/01/25 10:56 IMPRESSION: Colonic diverticulosis with no evidence of acute diverticulitis. A 3.7 cm diverticulum from the posterior left wall of the bladder. No hydronephrosis or nephrolithiasis. Reading Location: [facility] Assessment & Plan Assessment/Plan (1) Gastroenteritis: PLAN: Plan 1. Gastroenteritis with generalized weakness-patient will be placed in the observation status on MedSurg 3, IV fluids will be administered and she will be seen by PT and OT #2 essential hypertension-patient will remain on her present medications, blood pressure will be monitored #3 metastatic breast cancer with evidence of bone mets-patient takes tramadol at home for pain, this will be continued #4 mild aortic stenosis-patient has a history of a bioprosthetic aortic valve replacement 2 years ago Total clinical time spent by myself addressing the patient's medical issues, reviewing all of her data, and collaborating with the patient's care team: 55 minutes Charges/Coding Visit Charges Inpatient E&M: 92217 Init Hosp L2
[2025-08-01] MEDS: Heparin Injection (Vial) 5,000 UNIT/ML VIAL 5000 UNIT SC (21:15)
[2025-08-02] MEDS: KCL 20MEQ in 0.9% NS 20 MEQ/1,000 ML IV.SOLN. 100 MEQ IV (03:46)
[2025-08-02 03:49] VITALS: BP 142/80; PULSE 82; RESP 18; TEMP 36.6; O2SAT 96
[2025-08-02 05:59] LABS: Anion Gap 12 (5-15); BUN 5 mg/dL (4-19); BUN/Creat Ratio 12.1 RATIO (10-20); Calcium,Total 8.0 mg/dL (7.6-11.0); Carbon Dioxide 19.9 mmol/L (21.0-32.0); Chloride 108 mmol/L (98-108); Estimated Creatinine Clearance 45.41 ml/min (50-250); Glucose 149 mg/dL (70-99); Potassium 3.6 mmol/L (3.3-5.1)
--- NOTE | 2025-08-02 07:37 | PN.HOSP_ITS ---
Reason for Visit Chief Complaint: Nausea and vomiting with diarrhea Subjective Subjective Patient is an 85-year-old lady who presented with nausea vomiting and diarrhea and assessment of acute gastroenteritis made admitted to a regular nursing floor for subsequent management Objective Data Objective Data Vital Signs: Vital Signs Temp Pulse Resp BP Pulse Ox O2 Del Method 97.9 F 82 18 142/80 H 96 Room Air 08/02/25 03:49 08/02/25 03:49 08/02/25 03:49 08/02/25 03:49 08/02/25 03:49 08/02/25 03:49 Oxygen Delivery Method Room Air Weight: 70 kg Body Mass Index (BMI) 28.2 Intake & Output: Intake and Output for Last 24 Hours 07/31/25 08/01/25 08/02/25 23:59 23:59 23:59 Intake Total 1466.67 / 1466.67 1000 / 1000 Balance 1466.67 / 1466.67 1000 / 1000 Lab / Micro Data 08/01/25 11:20 08/02/25 05:09 Labs: Laboratory Results - last 24 hr 08/01/25 11:20: WBC 5.9, RBC 4.43, Hgb 12.6, Hct 36.8 L, MCV 83.1, MCH 28.4, MCHC 34.2, RDW Std Deviation 37.8, RDW Coeff of Sybil 12.6, Plt Count 265, MPV 9.3, Immature Gran % (Auto) 0.300, Neut % (Auto) 72.9 H, Lymph % (Auto) 17.9 L, [place] % (Auto) 7.7, Eos % (Auto) 0.9, Baso % (Auto) 0.3, Absolute Neuts (auto) 4.3, Absolute Lymphs (auto) 1.05, Nucleated RBC % 0, Sodium 137, Potassium 3.1 L , Chloride 99, Carbon Dioxide 24.0, Anion Gap 14, BUN 11, Creatinine 0.39 L, E stim Creat Clear Calc 46.78 L, Est GFR (MDRD) Non-Af 96, BUN/Creatinine Ratio 27.9 H, Glucose 212 H, Calcium 9.1, Total Bilirubin 0.89, AST 21, ALT 16, Alkaline Phosphatase 95, Total Protein 7.6, Albumin 3.9, Globulin 3.7, Albumin/Globulin Ratio 1.1, Lipase 11 L 08/01/25 13:05: Urine Color Yellow, Urine Clarity Clear, Urine pH 7.0, Ur Specific [place] 1.005, Urine Protein 15 H, Urine Glucose (UA) Normal, Urine Ketones 15 H, Urine Occult Blood Negative, Urine Nitrite Negative, Urine Bilirubin Negative, Urine Urobilinogen 1 H, Ur Leukocyte Esterase 25 H, Urine RBC 0 SEEN, Urine WBC 5-10 SEEN, Ur Squamous Epith Cells 0-5 SEEN, Urine Bacteria 0 SEEN, Urine Mucus 0 SEEN 08/02/25 05:09: Sodium 140, Potassium 3.6, Chloride 108, Carbon Dioxide 19.9 L, Anion Gap 12, BUN 5, Creatinine 0.45 L, Estim Creat Clear Calc 45.41 L, Est GFR (MDRD) Non-Af 93, BUN/Creatinine Ratio 12.1, Glucose 149 H, Calcium 8.0 Radiography Diagnostic Testing: Radiology Impression Abdomen/Pelvis CT 08/01/25 10:56 IMPRESSION: Colonic diverticulosis with no evidence of acute diverticulitis. A 3.7 cm diverticulum from the posterior left wall of the bladder. No hydronephrosis or nephrolithiasis. Reading Location: [facility] Assessment & Plan Assessment/Plan (1) Gastroenteritis: PLAN: Plan Patient is an 85-year-old lady who presented with nausea vomiting and diarrhea and assessment of acute gastroenteritis made admitted to a regular nursing floor for subsequent management 1. Acute Gastroenteritis ? Thought to be viral in etiology. Admitted to regular nursing floor stool sample sent supportive care with IV fluids antinausea medications initiated. Patient seen this a.m. admits to resolution of symptoms. Plan is for patient to be ambulated and decision made regarding discharge. Plan is for patient to have stayed for at least 2 midnight however given the rapid improvement in her condition decision was made to discharge patient home 2. Hypertension ? Blood pressure controlled, home medications continued with dose adjustment as needed 3. Valvular heart disease ? 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 Left Breast CA with mets to the bone ?. Patient currently being treated with radiation at [facility].. Patient had a pathological fracture involving the left humerus for which she underwent surgery 5. DVT prophylaxis ? Subcu heparin Time spent in the patient's overall evaluation,decision-making process, review of diagnostic data, adjustment of management, discussion with other providers, nursing nursing and ancillary staff involved in patient's care documentation, 35 Minutes Charges/Coding Visit Charges Inpatient E&M: 47106 Subs Hosp L2
[2025-08-02 09:32] VITALS: BP 150/60; PULSE 85; RESP 20; TEMP 36.7; O2SAT 94
[2025-08-02] MEDS: Heparin Injection (Vial) 5,000 UNIT/ML VIAL 5000 UNIT SC (09:39)
--- NOTE | 2025-08-02 10:40 | PCM.DC.SUM ---
Providers Date of Admission: 08/01/25 Date of Discharge: 08/02/25 Primary Care Physician: Dr. Alex Cassidy MD Reason For Visit: GASTROENTERITIS, HYOKALEMIA Diagnosis Discharge Diagnosis (1) Gastroenteritis: Status: Acute Code(s): K52.9 - Noninfective gastroenteritis and colitis, unspecified Plan Patient is an 85-year-old lady who presented with nausea vomiting and diarrhea and assessment of acute gastroenteritis made admitted to a regular nursing floor for subsequent management 1. Acute Gastroenteritis ? Thought to be viral in etiology. Admitted to regular nursing floor stool sample sent supportive care with IV fluids antinausea medications initiated. Patient seen this a.m. admits to resolution of symptoms. Plan is for patient to be ambulated and decision made regarding discharge. Plan is for patient to have stayed for at least 2 midnight however given the rapid improvement in her condition decision was made to discharge patient home 2. Hypertension ? Blood pressure controlled, home medications continued with dose adjustment as needed 3. Valvular heart disease ? 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 Left Breast CA with mets to the bone ?. Patient currently being treated with radiation at [facility].. Patient had a pathological fracture involving the left humerus for which she underwent surgery 5. DVT prophylaxis ? Subcu heparin Time spent in the patient's overall evaluation,decision-making process, review of diagnostic data, adjustment of management, discussion with other providers, nursing nursing and ancillary staff involved in patient's care documentation, 35 Minutes Medications at Discharge Home Medications tramadol 50 mg tablet 50 mg PO Q6H PRN PRN Pain 5 days #20 tabs 05/07/25 lidocaine 1.8 % topical patch 1 patch topical DAILY 3 days #3 ea 05/09/25 gabapentin 300 mg capsule 300 mg PO TID 30 days #90 caps 05/20/25 oxycodone-acetaminophen 5 mg-325 mg tablet (Percocet) 1 tab PO Q6H PRN pain 3 days #12 tabs 05/20/25 Physical Exam Narrative GENERAL: cooperative HEENT: Atraumatic; normocephalic EYES; Anicteric, Normal Conjunctiva NECK; supple, normal thyroid, RESPIRATORY: Diminished to auscultation CARDIOVASCULAR: Regular S1 S2, GI: soft, normoactive bowel sounds, : No Renal angle tenderness; EXTREMITIES: No edema, no clubbing, MUSCULOSKELETAL: no muscle wasting NEURO: Awake; no lateralizing signs. SKIN: No Rash PSYCH; Flat affect Weight / BMI Weight Weight: 70 kg Body Mass Index (BMI) 28.2 ABG / Lab / Microbiology Data 08/01/25 11:20 08/02/25 05:09 Laboratory: Laboratory Results - last 24 hr 08/01/25 11:20: WBC 5.9, RBC 4.43, Hgb 12.6, Hct 36.8 L, MCV 83.1, MCH 28.4, MCHC 34.2, RDW Std Deviation 37.8, RDW Coeff of Sybil 12.6, Plt Count 265, MPV 9.3, Immature Gran % (Auto) 0.300, Neut % (Auto) 72.9 H, Lymph % (Auto) 17.9 L, [place] % (Auto) 7.7, Eos % (Auto) 0.9, Baso % (Auto) 0.3, Absolute Neuts (auto) 4.3, Absolute Lymphs (auto) 1.05, Nucleated RBC % 0, Sodium 137, Potassium 3.1 L, Chloride 99, Carbon Dioxide 24.0, Anion Gap 14, BUN 11, Creatinine 0.39 L, Estim Creat Clear Calc 46.78 L, Est GFR (MDRD) Non-Af 96, BUN/Creatinine Ratio 27.9 H, Glucose 212 H, Calcium 9.1, Total Bilirubin 0.89, AST 21, ALT 16, Alkaline Phosphatase 95, Total Protein 7.6, Albumin 3.9, Globulin 3.7, Albumin/Globulin Ratio 1.1, Lipase 11 L 08/01/25 13:05: Urine Color Yellow, Urine Clarity Clear, Urine pH 7.0, Ur Specific [place] 1.005, Urine Protein 15 H, Urine Glucose (UA) Normal, Urine Ketones 15 H, Urine Occult Blood Negative, Urine Nitrite Negative, Urine Bilirubin Negative, Urine Urobilinogen 1 H, Ur Leukocyte Esterase 25 H, Urine RBC 0 SEEN, Urine WBC 5-10 SEEN, Ur Squamous Epith Cells 0-5 SEEN, Urine Bacteria 0 SEEN, Urine Mucus 0 SEEN 08/02/25 05:09: Sodium 140, Potassium 3.6, Chloride 108, Carbon Dioxide 19.9 L, Anion Gap 12, BUN 5, Creatinine 0.45 L, Estim Creat Clear Calc 45.41 L, Est GFR (MDRD) Non-Af 93, BUN/Creatinine Ratio 12.1, Glucose 149 H, Calcium 8.0 Radiography Diagnostic Testing: Radiology Impression Abdomen/Pelvis CT 08/01/25 10:56 IMPRESSION: Colonic diverticulosis with no evidence of acute diverticulitis. A 3.7 cm diverticulum from the posterior left wall of the bladder. No hydronephrosis or nephrolithiasis. Reading Location: [facility] D/C Instructions Discharge Activity: Return to Normal Activity Call your doctor if you observe: Fever of 101 or Higher, Shortness of breath, Fainting spells and Chest pain DC O2, CPAP, BIPAP Needs Home O2 Discharge instructions: No Meaningful Use Info Meaningful Use Meaningful Use Diagnoses (Choose all that apply): None applicable Discharge Plan Admission Admit Date/Time: 08/01/25 15:40 Attending Provider: Yovanny Sutton Primary Care Provider: Alex Cassidy Consulting Providers: Alex White Discharge Orders/Prescriptions Prescriptions: Continued lidocaine 1.8 % adhesive patch,medicated 1 patch topical DAILY 3 Days Qty: 3 0RF Rx Instructions: leave on most painful area for up to 12 hrs tramadol 50 mg tablet 50 mg PO Q6H PRN PRN (Reason: Pain) 5 Days Qty: 20 0RF gabapentin 300 mg capsule 300 mg PO TID 30 Days Qty: 90 0RF oxycodone-acetaminophen [Percocet] 5-325 mg tablet 1 tab PO Q6H PRN (Reason: pain) 3 Days Qty: 12 0RF Referrals / Follow Up: Alex Cassidy MD [Primary Care Provider, Family Practice] Disposition Disposition (needs filled in before D/C Order can be placed): Home, Self Care Charges/Coding Visit Charges Inpatient E&M: 88517 Disch Hosp >30min
[2025-08-02] MEDS: 0.9% Saline Lock 10 ML Syringe IV (11:22)
== END 2025-08-02 11:33 | disposition home or self-care (01) ==
LOC: ED 15:47 → MS3 15:57
PROVIDERS: Admitting Provider Internal Medicine; Emergency Provider Emergency Medicine; PCP Family Medicine; Visit Provider Internal Medicine
DX: K52.9 Noninfective gastroenteritis and colitis, unspecified (principal); C79.51 Secondary malignant neoplasm of bone; C50.912 Malignant neoplasm of unspecified site of left female breast; K57.30 Diverticulosis of large intestine without perforation or abscess without bleeding; I10 Essential (primary) hypertension; E87.6 Hypokalemia; R74.8 Abnormal levels of other serum enzymes; R73.9 Hyperglycemia, unspecified; Z95.2 Presence of prosthetic heart valve; Z79.899 Other long term (current) drug therapy
CPT/HCPCS: 36415; 74177; 80048; 80053; 81001; 83690; 85025; 96361; 96365; 96366; 96372; 96375; 96376; 99285; Q9967; A4216; J2405

== ENCOUNTER → 2025-08-26 | Outpatient (CLI) | payer MEDICARE, SELFPAY ==
--- NOTE | 2025-08-26 13:40 | ECHOD_ITS ---
Reason For Study Reason For Study: Valve Replacement Eval Procedure This was a 2D Doppler, Color Flow transthoracic echocardiogram. Myocardial strain analysis was performed in this exam to aid in the assessment of cardiac function. Exam performed in department. Left Ventricle Normal LV size. Left ventricular systolic function is normal. The left ventricular ejection fraction is 70 %. No regional wall motion abnormalities noted. Right Ventricle Normal RV size. Normal systolic function. Atria Normal left atrium. Normal right atrium. Mitral Valve Normal mitral valve. Tricuspid Valve Normal tricuspid valve. Mild (1+) tricuspid valve insufficiency. Pulmonary artery systolic pressure is 33 mmHg. Aortic Valve Peak aortic valve gradient 39 mmHg. Mean aortic valve gradient 23 mmHg. Bioprosthetic aortic valve. Pulmonic Valve Normal pulmonic valve. Great Vessels Normal aortic root. The pulmonary artery is normal size. Inferior vena cava collapse with respiration. Pericardium/Pleural No pericardial effusion. MMode/2D Measurements & Calculations LVIDd: 3.5 cm IVSd: 1.4 cm LVOT diam: 2.0 cm LVIDs: 1.9 cm LVPWd: 1.3 cm LVOT area: 3.2 cm2 RVDd: 2.5 cm FS: 44.6 % Ao root diam: 3.0 cm LAV(MOD-bp): 33.4 ml RVOT diam: 2.0 cm LAV(MOD-bp) Indexed: 20.0 ml/m2 LAV(MOD-sp2): 34.6 ml LAV(MOD-sp4): 29.2 ml SV(MOD-sp4): 32.9 ml SV(sp4-el): 34.8 ml LVAd ap4: 21.1 cm2 LVLd ap4: 7.3 cm SI(MOD-sp4): 19.7 ml/m2 EDV(MOD-sp4): 50.3 ml EDV(sp4-el): 51.8 ml LVAs ap4: 10.6 cm2 LVLs ap4: 5.6 cm ESV(MOD-sp4): 17.5 ml ESV(sp4-el): 17.0 ml EF(MOD-sp4): 65.3 % EF(sp4-el): 67.1 % LA A4 area: 13.4 cm2 LA dimension(2D): 3.6 cm RA A4 area: 10.2 cm2 TAPSE: 2.0 cm Time Measurements MV dec time: 0.32 sec Doppler Measurements & Calculations MV E max duncan: 75.3 cm/sec Lat Peak E' Duncan: 7.5 cm/sec Med Peak E' Duncan: 4.4 cm/sec MV A max duncan: 117.0 cm/sec E/E' lat: 10.0 E/E' med: 17.0 MV E/A: 0.64 MV V2 max: 149.2 cm/sec Ao V2 max: 312.1 cm/sec MV max P.9 mmHg MV dec slope: 233.6 cm/sec2 Ao max P.2 mmHg MV V2 mean: 92.7 cm/sec Ao V2 mean: 227.8 cm/sec MV mean P.8 mmHg Ao mean P.3 mmHg MV V2 VTI: 35.7 cm Ao V2 VTI: 58.9 cm AV (velocity ratio): 0.45 MVA(VTI): 2.4 cm2 CARMEN(I,D): 1.4 cm2 CARMEN(V,D): 1.2 cm2 LV V1 max: 119.4 cm/sec SV(LVOT): 84.9 ml PA V2 max: 164.6 cm/sec LV V1 max P.7 mmHg PA V2 mean: 124.3 cm/sec LV V1 mean P.8 mmHg PA mean PG (full): 2.5 mmHg LV V1 mean: 96.2 cm/sec LV V1 VTI: 26.4 cm SV(RVOT): 75.8 ml TR max duncan: 268.5 cm/sec Qp/Qs: 1.0/1.1 TR max P.9 mmHg ECHO/Echo Complete Interpretation Summary Normal LV size. Left ventricular systolic function is normal. The left ventricular ejection fraction is 70 %. Bioprosthetic aortic valve. Mean aortic valve gradient 23 mmHg. Ordering Physician: Sigrid Stephens Referring Physician: Alex Cassidy Performed By: Marychuy Grant RDCS, RVT
== END | disposition home or self-care (01) ==
LOC: CVS 13:39
PROVIDERS: PCP Family Medicine; Referring Provider Nurse Practitioner Gerontology; Visit Provider Nurse Practitioner Gerontology
DX: Z95.2 Presence of prosthetic heart valve (principal)
CPT/HCPCS: 93306